=== PATIENT | male | born 1945 | race Caucasian/White ===

== ENCOUNTER 2018-08-05 14:16 | Outpatient (CLI) | payer MEDICARE, BC, SELFPAY ==
[2018-08-05 15:08] LABS: Anion Gap 9.9 mmol/L (3-11); BUN 22 mg/dL (7-18); CO2 24.1 mmol/L (21.0-32.0); CREATININE 1.37 mg/dL (0.70-1.30); Calcium 8.8 mg/dL (8.5-10.1); Chloride 106 mmol/L (98-107); Estimated GFR 51.37 (mL/min/1.73m2); Glucose 109 mg/dL (70-100); Potassium 4.2 mmol/L (3.5-5.1); Sodium 140 mmol/L (136-145)
== END 2018-08-05 14:36 ==
PROVIDERS: PCP Student in an Organized Health Care Education/Training Program; Visit Provider Internal Medicine Gastroenterology
DX: Z01.812 Encounter for preprocedural laboratory examination (principal); R69 Illness, unspecified
CPT/HCPCS: 36415; 80048

== ENCOUNTER 2018-08-06 00:33 | Outpatient (CLI) | payer MEDICARE, BC, SELFPAY ==
--- NOTE | 2018-08-06 08:30 | DI.CT_ITS ---
SYMPTOM/DIAGNOSIS: PULSATILE LESION EXT TO ESOPHAGUS CT CHEST AND NECK: CT examination of the chest and CT examination of the neck were performed with intravenous infusion of 100 cc's of Omnipaque 350. The visualized portions of the brain are unremarkable. The [place] vasculature appears intact. Cervical vasculature is unremarkable with no significant stenosis or aneurysm identified in common internal or external carotid arteries on the right or left. Vertebral arteries appear intact. Orbital structures appear intact. Mastoid air cells and visualized paranasal sinuses are clear. No cervical mass or adenopathy identified. Tracheal laryngeal structures appear intact. No superior mediastinal mass or adenopathy. Aorta appears normal. No evidence of pulmonary embolic disease although the pulmonary arterial circulation is not ideally opacified. No mediastinal or hilar adenopathy. Lungs are unremarkable in appearance except for some focal scars. No pleural effusion or pleural based mass. Visualized portions of the liver and spleen are unremarkable. Presumed splenule noted in the left upper quadrant. Vascular clips noted at the esophageal hiatus. Visualized portions of the pancreas appear intact. Gallbladder and bile ducts are CT normal. Right adrenal unremarkable. Superior portion of right and left kidneys unremarkable. There is a 2.4 cm. in diameter left adrenal mass which is predominantly of low attenuation but somewhat heterogeneous with question of mild enhancement. Additional evaluation with adrenal protocol MRI recommended. CONCLUSION: 1. No cervical or superior mediastinal mass. 2. No significant vascular findings in neck or chest. 3. Incidental finding of left adrenal mass which is indeterminate, correlation with adrenal protocol MRI recommended.
[2018-08-06] MEDS: Omnipaque 350 MG/ML 100 ML BTL IJ (09:32)
== END 2018-08-06 00:53 ==
PROVIDERS: PCP Student in an Organized Health Care Education/Training Program; Visit Provider Internal Medicine Gastroenterology
DX: E27.9 Disorder of adrenal gland, unspecified (principal); K22.8 Other specified diseases of esophagus
CPT/HCPCS: 70491; 71260; J3490

== ENCOUNTER 2018-08-26 00:23 | Outpatient (CLI) | payer MEDICARE, BC, SELFPAY ==
--- NOTE | 2018-08-26 07:54 | DI.MRI_ITS ---
SYMPTOM/DIAGNOSIS: LT ADRENAL MASS, F/U ABNL CT, R93.5, DISORDER OF ADRENAL GLAND, E27.9 ABDOMEN MRI: Routine pre and post contrast MRI of the adrenal gland was performed. Comparison CT scan is 08/06/17. There is a left adrenal mass measuring 2.2 cm. AP by 2.0 cm. transverse. It is isointense to muscle on the T 1 weighted images and the T 2 weighted images. There is signal drop out on the opposed phase images. Following contrast administration, there does appear to be some thin peripheral enhancement noted. The right adrenal gland is unremarkable. IMPRESSION; 2.2 cm. left adrenal mass. The characteristics are most suggestive of an adrenal adenoma. A benign lesion such as a myolipoma cannot be entirely excluded but is considered less likely.
[2018-08-26] MEDS: Gadoterate meglumine 20 ML VIAL 18 ML IVP (09:25)
== END 2018-08-26 00:43 ==
PROVIDERS: PCP Student in an Organized Health Care Education/Training Program; Visit Provider Student in an Organized Health Care Education/Training Program
DX: E27.9 Disorder of adrenal gland, unspecified (principal); D49.7 Neoplasm of unspecified behavior of endocrine glands and other parts of nervous system; R93.5 Abnormal findings on diagnostic imaging of other abdominal regions, including retroperitoneum
CPT/HCPCS: 74183

== ENCOUNTER 2018-10-25 15:28 | Outpatient (REF) | payer MEDICARE, BC, SELFPAY ==
[2018-10-30 13:42] LABS: Codeine Negative ng/mL (Cutoff: 25); Dihydrocodeine 87 ng/mL (Cutoff: 25); Hydrocodone 98 ng/mL (Cutoff: 25); Hydromorphone 31 ng/mL (Cutoff: 25); Morphine Negative ng/mL (Cutoff: 25); Naloxone Negative ng/mL (Cutoff: 25); Norhydrocodone 224 ng/mL (Cutoff: 25); Noroxycodone Negative ng/mL (Cutoff: 25); Noroxymorphone Negative ng/mL (Cutoff: 25); Opiates Interpretation Positive.
[2019-03-12 14:47] LABS: BUN 19 mg/dL (7-18); Calcium 9.2 mg/dL (8.5-10.1); Chloride 104 mmol/L (98-107); Estimated GFR 49.96 (mL/min/1.73m2); Glucose 184 mg/dL (70-100); Potassium 4.3 mmol/L (3.5-5.1); Sodium 139 mmol/L (136-145)
== END 2018-10-25 15:48 ==
LOC: LBN 15:28
PROVIDERS: PCP Student in an Organized Health Care Education/Training Program; Visit Provider Student in an Organized Health Care Education/Training Program
DX: G89.4 Chronic pain syndrome (principal); Z79.891 Long term (current) use of opiate analgesic; R13.10 Dysphagia, unspecified
CPT/HCPCS: 80361

== ENCOUNTER 2019-03-12 13:28 | Outpatient (CLI) | payer MEDICARE, BC, SELFPAY | END 2019-03-12 13:48 | PROVIDERS: PCP Student in an Organized Health Care Education/Training Program; Visit Provider Student in an Organized Health Care Education/Training Program | DX: R51 Headache (principal); E16.2 Hypoglycemia, unspecified; R79.89 Other specified abnormal findings of blood chemistry | CPT/HCPCS: 36415; 80048; 84443 ==

== ENCOUNTER 2019-03-13 11:38 | Outpatient (REF) | payer MEDICARE, BC, SELFPAY ==
[2019-03-13 13:00] LABS: COMMENT (LAB VIEW ONLY) 52.59 mg/dL
== END 2019-03-13 11:58 ==
LOC: LBN 11:38
PROVIDERS: PCP Student in an Organized Health Care Education/Training Program; Visit Provider Student in an Organized Health Care Education/Training Program
DX: R79.89 Other specified abnormal findings of blood chemistry (principal)
CPT/HCPCS: 82043; 82570

== ENCOUNTER 2019-09-12 01:16 | Outpatient (CLI) | payer MEDICARE, BC, SELFPAY ==
--- NOTE | 2019-09-12 07:06 | DI.CT_ITS ---
EXAM: CT ABDOMEN WO/W CLINICAL HISTORY: f/u adrenal adenoma, mri of 08/2018,d35.02 TECHNIQUE: CT examination of the abdomen and pelvis was performed pre contrast imaging followed by v enous phase and delayed imaging with intravenous infusion of 100 cc of Omnipaque 350. FINDINGS: There is a fat density, left adrenal, rounded, well-circumscribed mass measuring about 24 x 22 bernice meters in diameter. This is unchanged in size and appearance in comparison with previous examination 08/06/2018. Findings are most consistent with an adrenal adenoma. Stable appearance. Images obtained through the lung bases are unremarkable. Liver, spleen, pancreas, gallbladder and bi le ducts are unremarkable. Abdominal aorta is of normal diameter and no major vascular abnormality i s seen. Kidneys appear normal bilaterally and there is no evidence of urinary tract calcification or obstruction. No abdominal or pelvic adenopathy. Small bilateral fat containing inguinal hernias no philip. Appendix is normal. Colonic diverticulosis noted without diverticulitis. Urinary bladder wall is thickened which may represent chronic bladder outlet obstruction, prostate is enlarged. IMPRESSION: Stable left adrenal lesion is likely adenoma. Additional follow-up examination is recommended in 12 months.
[2019-09-12] MEDS: Omnipaque 350 MG/ML 50 ML BTL PO (07:27)
[2019-09-12] MEDS: Breeza Beverage 473 ML BTL PO ×2 (07:27→07:28)
[2019-09-12 08:39] LABS: Anion Gap 8.5 mmol/L (3-11); BUN 17 mg/dL (7-18); CO2 25.5 mmol/L (21.0-32.0); CREATININE 1.23 mg/dL (0.70-1.30); Chloride 105 mmol/L (98-107); Estimated GFR 57.84 (mL/min/1.73m2); Glucose 104 mg/dL (70-100); Potassium 4.2 mmol/L (3.5-5.1); Sodium 139 mmol/L (136-145)
[2019-09-12] MEDS: Omnipaque 350 MG/ML 100 ML BTL IJ (09:38)
== END 2019-09-12 01:36 ==
PROVIDERS: PCP Student in an Organized Health Care Education/Training Program; Visit Provider Student in an Organized Health Care Education/Training Program
DX: D35.02 Benign neoplasm of left adrenal gland (principal)
CPT/HCPCS: 80048; 74170; 82565; J3490; Q9967

== ENCOUNTER → 2020-05-17 11:13 | Outpatient (BNVA) | payer MEDICARE, BC, SELFPAY | PROVIDERS: PCP Student in an Organized Health Care Education/Training Program; Referring Provider Student in an Organized Health Care Education/Training Program; Visit Provider Internal Medicine Cardiovascular Disease | DX: R00.1 Bradycardia, unspecified (principal) | CPT/HCPCS: 99203; 99214 ==

== ENCOUNTER 2020-09-13 00:31 | Outpatient (CLI) | payer MEDICARE, BC, SELFPAY ==
--- NOTE | 2020-09-13 07:15 | DI.CT_ITS ---
EXAM: CT ABDOMEN WO/W CLINICAL HISTORY: YEARLY F/U ADENOMA LT ADRENAL GLAND,D35.02,,CONFIRM 2.2CM TECHNIQUE: COMPARISON: MR MR ABDOMEN WO/W from 08/26/[address] ABDOMEN WO/W from 09/12/2019 FINDINGS: CT examination of the abdomen was performed utilizing adrenal mass protocol, noncontrast CT was follo wed venous phase and [address] with intravenous infusion of 100 cc of Omnipaque 350 . Noncontrast scan shows a previously described left adrenal mass, this measures 30 x 26 x 23 millimete rs in diameter, increased in size from 28 x 22 x 18 millimeters in diameter on prior MRI of August 20. The adrenal mass shows average attenuation -17 Hounsfield units on noncontrast scan, this is highly s uggestive of adrenal adenoma. Venous phase and delayed phase images show enhancement to average valu e 37 Hounsfield units with delayed scan showing measurement of about -3 Hounsfield units. These find ings are also highly suggestive of adrenal adenoma with rapid washout of the enhancing lesion greater than 60 percent. Right adrenals unremarkable. Kidneys are unremarkable in appearance except for an incidental small l eft renal cortical cyst. Liver and spleen appear normal as does the pancreas. No biliary dilatation . Cholelithiasis noted. Prior gastric surgery noted. Abdominal aorta and major branch vessels appear intact. No abdominal adenopathy. IMPRESSION: Findings highly suggestive of left adrenal adenoma. No additional follow-up recommended. RADIATION DOSE DELIVERED: 2,121.15mGy.cm Total DLP
[2020-09-13] MEDS: Omnipaque 350 MG/ML 50 ML BTL IJ (08:39)
[2020-09-13] MEDS: Breeza Beverage 473 ML BTL PO ×2 (08:40)
[2020-09-13 08:42] LABS: HCT 48.5 % (40.0-50.0); HGB 15.7 g/dL (13.5-17.5); MCH 29.5 pg (27.0-33.0); MCHC 32.4 % (32.0-36.0); MCV 91.2 fL (80-95); MPV 9.4 fL (8.0-11.0); Platelet Count 193 10^3/uL (130-400); RBC 5.32 10^6/uL (4.36-5.78); RDW 13.2 % (11.8-14.1); RDW-SD 44.4 fL; WBC 7.36 10^3/uL (4.4-10.8)
[2020-09-13 08:54] LABS: ALT 24 U/L (16-63); AST 18 U/L (15-37); Albumin 3.7 g/dL (3.4-5.0); Alkaline Phosphatase 86 U/L (46-116); Anion Gap 4.7 mmol/L (3-11); BUN 14 mg/dL (7-18); Bilirubin, Total 0.5 mg/dL (0.2-1.0); CO2 28.3 mmol/L (21.0-32.0); CREATININE 1.26 mg/dL (0.70-1.30); Calcium 9.1 mg/dL (8.5-10.1); Calculated LDL 93 mg/dL (<100); Chloride 104 mmol/L (98-107); Cholesterol 176 mg/dL (<200); Glucose 96 mg/dL (74-106); HDL Cholesterol 57 mg/dL (40-60); Potassium 4.2 mmol/L (3.5-5.1); Sodium 137 mmol/L (136-145); Total Protein 7.1 g/dL (6.4-8.2); Triglyceride 131 mg/dL (<150)
[2020-09-13] MEDS: Omnipaque 350 MG/ML 100 ML BTL IJ (09:48)
[2020-09-13] MEDS: Normal Saline - Diluent 50 ML VIAL IV (09:49)
[2020-09-13 20:30] LABS: PSA, Screening 4.6 ng/mL (0.0-6.5)
== END 2020-09-13 00:51 ==
PROVIDERS: PCP Student in an Organized Health Care Education/Training Program; Visit Provider Student in an Organized Health Care Education/Training Program
DX: D35.02 Benign neoplasm of left adrenal gland (principal); K80.20 Calculus of gallbladder without cholecystitis without obstruction
CPT/HCPCS: 80053; 80061; 84153; 85027; 74170; J3490; Q9967

== ENCOUNTER → 2020-12-17 10:21 | Outpatient (BNVA) | payer MEDICARE, BC, SELFPAY | PROVIDERS: PCP Student in an Organized Health Care Education/Training Program; Referring Provider Student in an Organized Health Care Education/Training Program; Visit Provider Urology | DX: Z12.5 Encounter for screening for malignant neoplasm of prostate (principal); N48.89 Other specified disorders of penis | CPT/HCPCS: 99213; 99215 ==

== ENCOUNTER 2021-01-11 08:45 | Outpatient (CLI) | payer MEDICARE, BC, SELFPAY ==
--- NOTE | 2021-01-11 08:45 | RT.EKG_ITS ---
APPROVED REPORT Exam: Resting ECG Patient Location: O HR:59 bpm ECG Measurements Heart Rate 59 AXIS GA 137 P 6 QRSd 146 QRS 11 QT 430 T 17 QTc 426 Conclusion Sinus rhythm...normal P axis, V-rate 50- 99 Right bundle branch block...QRSd>120, terminal axis(90,270) Baseline wander in lead(s) V4
== END 2021-01-11 08:46 | disposition home or self-care (01) ==
LOC: DI.CARD 08:51
PROVIDERS: PCP Student in an Organized Health Care Education/Training Program; Referring Provider Student in an Organized Health Care Education/Training Program; Visit Provider Internal Medicine Cardiovascular Disease
DX: Z01.818 Encounter for other preprocedural examination (principal); I45.10 Unspecified right bundle-branch block
CPT/HCPCS: 93010

== ENCOUNTER → 2021-01-11 08:45 | Outpatient (BNVA) | payer MEDICARE, BC, SELFPAY | PROVIDERS: PCP Student in an Organized Health Care Education/Training Program; Referring Provider Student in an Organized Health Care Education/Training Program; Visit Provider Internal Medicine Cardiovascular Disease | DX: R00.1 Bradycardia, unspecified (principal) | CPT/HCPCS: 99214; 99213 ==

== ENCOUNTER → 2021-05-13 10:55 | Outpatient (BNVA) | payer MEDICARE, BC, SELFPAY | PROVIDERS: PCP Student in an Organized Health Care Education/Training Program; Referring Provider Student in an Organized Health Care Education/Training Program; Visit Provider Urology | DX: N40.1 Benign prostatic hyperplasia with lower urinary tract symptoms (principal); R39.198 Other difficulties with micturition | CPT/HCPCS: 99213 ==

== ENCOUNTER → 2021-06-24 08:49 | Outpatient (BNVA) | payer MEDICARE, BC, SELFPAY | PROVIDERS: PCP Student in an Organized Health Care Education/Training Program; Referring Provider Student in an Organized Health Care Education/Training Program; Visit Provider Urology | DX: N40.1 Benign prostatic hyperplasia with lower urinary tract symptoms (principal); Z79.899 Other long term (current) drug therapy | CPT/HCPCS: 99213 ==

== ENCOUNTER 2022-01-03 02:20 | Outpatient (CLI) | payer MEDICARE, BC, SELFPAY ==
[2022-01-03 13:41] LABS: HCT 47.3 % (40.0-50.0); HGB 15.4 g/dL (13.5-17.5); MCH 30.2 pg (27.0-33.0); MCHC 32.6 % (32.0-36.0); MCV 92.7 fL (80-95); MPV 9.8 fL (8.0-11.0); Platelet Count 193 10^3/uL (130-400); RDW 12.9 % (11.8-14.1); RDW-SD 44.2 fL; WBC 7.12 10^3/uL (4.4-10.8)
[2022-01-03 14:32] LABS: Anion Gap 8.7 mmol/L (3-11); BUN 19 mg/dL (7-18); CO2 27.3 mmol/L (21.0-32.0); CREATININE 1.5 mg/dL (0.70-1.30); Calcium 8.9 mg/dL (8.5-10.1); Chloride 104 mmol/L (98-107); Estimated GFR 45.75 (mL/min/1.73m2); Glucose 149 mg/dL (74-106); Potassium 4.4 mmol/L (3.5-5.1); Sodium 140 mmol/L (136-145); Uric Acid 8.6 mg/dL (3.5-7.2)
[2022-01-04 19:50] LABS: PSA, Screening 3.5 ng/mL (0.0-6.5)
== END 2022-01-03 02:21 | disposition home or self-care (01) ==
LOC: LBO 02:20
PROVIDERS: PCP Student in an Organized Health Care Education/Training Program; Visit Provider Urology
DX: D53.1 Other megaloblastic anemias, not elsewhere classified (principal); K21.00 Gastro-esophageal reflux disease with esophagitis, without bleeding; F11.20 Opioid dependence, uncomplicated; N28.9 Disorder of kidney and ureter, unspecified; R79.89 Other specified abnormal findings of blood chemistry; Z12.5 Encounter for screening for malignant neoplasm of prostate; N40.1 Benign prostatic hyperplasia with lower urinary tract symptoms
CPT/HCPCS: 36415; 80048; 84153; 85027; 84550

== ENCOUNTER → 2022-01-10 09:46 | Outpatient (BNVA) | payer MEDICARE, BC, SELFPAY | PROVIDERS: PCP Student in an Organized Health Care Education/Training Program; Referring Provider Student in an Organized Health Care Education/Training Program; Visit Provider Urology | DX: N40.1 Benign prostatic hyperplasia with lower urinary tract symptoms (principal); R39.12 Poor urinary stream | CPT/HCPCS: 99214 ==

== ENCOUNTER 2022-02-20 11:27 | Outpatient (REF) | payer MEDICARE, BC, SELFPAY | END 2022-02-20 11:28 | disposition home or self-care (01) | LOC: LBN 11:27 | PROVIDERS: PCP Student in an Organized Health Care Education/Training Program; Visit Provider Family Medicine | DX: S61.213A Laceration without foreign body of left middle finger without damage to nail, initial encounter; L08.9 Local infection of the skin and subcutaneous tissue, unspecified; W31.2XXA Contact with powered woodworking and forming machines, initial encounter | CPT/HCPCS: 87077; 87070; 87186 ==

== ENCOUNTER → 2022-02-23 09:51 | Outpatient (BNVA) | payer MEDICARE, BC, SELFPAY | PROVIDERS: PCP Student in an Organized Health Care Education/Training Program; Referring Provider Student in an Organized Health Care Education/Training Program; Visit Provider Physical Therapy Assistant | DX: C44.310 Basal cell carcinoma of skin of unspecified parts of face (principal) | CPT/HCPCS: 11104; 99214 ==

== ENCOUNTER 2022-02-23 10:42 | Outpatient (REF) | payer MEDICARE, BC, SELFPAY ==
--- NOTE | 2022-02-23 10:15 | SKI_PTH ---
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
== END 2022-02-23 10:43 | disposition home or self-care (01) ==
LOC: LBN 10:42
PROVIDERS: PCP Student in an Organized Health Care Education/Training Program; Visit Provider Physical Therapy Assistant
DX: C44.319 Basal cell carcinoma of skin of other parts of face (principal)
CPT/HCPCS: 88305

== ENCOUNTER → 2022-03-06 09:53 | Outpatient (BNVA) | payer MEDICARE, BC, SELFPAY | PROVIDERS: PCP Student in an Organized Health Care Education/Training Program; Referring Provider Student in an Organized Health Care Education/Training Program; Visit Provider Urology | DX: N47.1 Phimosis (principal) | CPT/HCPCS: 81003; 99214 ==

== ENCOUNTER 2022-03-30 01:59 | Outpatient (CLI) | payer MEDICARE, BC, SELFPAY ==
[2022-03-30 08:08] LABS: Anion Gap 7.1 mmol/L (3-11); BUN 19 mg/dL (7-18); CO2 28.9 mmol/L (21.0-32.0); CREATININE 1.3 mg/dL (0.70-1.30); Calcium 8.8 mg/dL (8.5-10.1); Chloride 107 mmol/L (98-107); Estimated GFR 53.96 (mL/min/1.73m2); Glucose 98 mg/dL (74-106); Potassium 4.4 mmol/L (3.5-5.1); Sodium 143 mmol/L (136-145)
== END 2022-03-30 02:00 | disposition home or self-care (01) ==
LOC: LBO 01:59
PROVIDERS: PCP Student in an Organized Health Care Education/Training Program; Visit Provider Student in an Organized Health Care Education/Training Program
DX: R79.89 Other specified abnormal findings of blood chemistry (principal)
CPT/HCPCS: 36415; 80048

== ENCOUNTER → 2022-07-19 14:58 | Outpatient (CLI) | payer MEDICARE, BC, SELFPAY ==
--- NOTE | 2022-07-19 14:00 | DI.US_ITS ---
Exam(s) US LOWER EXTREMITY VENOUS LT EXAM: US LOWER EXTREMITY VENOUS LT CLINICAL HISTORY: Lt leg swelling, R22.42, elevated serum creatinine, R79.89, r/o DVT TECHNIQUE: Grayscale, color, and doppler imaging of the deep venous system of the left lower extremi ty was performed. COMPARISON: No exams were available for comparison FINDINGS: There is no evidence of intraluminal thrombus and there is normal compression and augmentation demons trated within the common femoral vein, femoral vein, and popliteal vein. In the ipsilateral calf the interrogated veins also exhibit normal compression/ augmentation properti es. The ipsilateral saphenofemoral junction is patent. IMPRESSION: 1. No evidence of DVT in the left lower extremity. DATA REPOSITORY:
== END ==
PROVIDERS: PCP Student in an Organized Health Care Education/Training Program; Visit Provider Physician Assistant
DX: R22.42 Localized swelling, mass and lump, left lower limb (principal); R79.89 Other specified abnormal findings of blood chemistry
CPT/HCPCS: 93971

== ENCOUNTER 2022-08-07 03:26 | Outpatient (CLI) | payer MEDICARE, BC, SELFPAY ==
[2022-08-07 08:28] LABS: Anion Gap 7.3 mmol/L (3-11); BUN 19 mg/dL (7-18); CO2 27.7 mmol/L (21.0-32.0); CREATININE 1.2 mg/dL (0.70-1.30); Calcium 9.2 mg/dL (8.5-10.1); Calculated LDL 67 mg/dL (<100); Chloride 106 mmol/L (98-107); Cholesterol 142 mg/dL (<200); Estimated GFR 63.46 (mL/min/1.73m2); Glucose 93 mg/dL (74-106); HDL Cholesterol 66 mg/dL (40-60); Potassium 4.3 mmol/L (3.5-5.1); Sodium 141 mmol/L (136-145); Triglyceride 46 mg/dL (<150); Vitamin B12 794 pg/mL (193-986)
== END 2022-08-07 03:27 | disposition home or self-care (01) ==
LOC: LBO 03:26
PROVIDERS: Absent Provider Student in an Organized Health Care Education/Training Program; PCP Student in an Organized Health Care Education/Training Program; Visit Provider Student in an Organized Health Care Education/Training Program
DX: R79.89 Other specified abnormal findings of blood chemistry (principal); D53.1 Other megaloblastic anemias, not elsewhere classified
CPT/HCPCS: 36415; 80048; 80061; 82607

== ENCOUNTER 2023-01-01 01:13 | Outpatient (CLI) | payer MEDICARE, BC, SELFPAY ==
[2023-01-01 18:12] LABS: PSA, Diagnostic 2.2 ng/mL (<=6.5)
== END 2023-01-01 01:14 | disposition home or self-care (01) ==
LOC: LBO 01:14
PROVIDERS: PCP Student in an Organized Health Care Education/Training Program; Visit Provider Urology
DX: N40.1 Benign prostatic hyperplasia with lower urinary tract symptoms (principal)
CPT/HCPCS: 36415; 84153

== ENCOUNTER → 2023-01-09 09:47 | Outpatient (BNVA) | payer MEDICARE, BC, SELFPAY | PROVIDERS: PCP Student in an Organized Health Care Education/Training Program; Visit Provider Urology | DX: R39.89 Other symptoms and signs involving the genitourinary system (principal); Z87.898 Personal history of other specified conditions; N47.1 Phimosis; N40.1 Benign prostatic hyperplasia with lower urinary tract symptoms | CPT/HCPCS: 99213 ==

== ENCOUNTER 2023-03-05 00:30 | Outpatient (CLI) | payer MEDICARE, BC, SELFPAY ==
--- NOTE | 2023-03-05 06:45 | DI.CT_ITS ---
Exam(s) CT ABDOMEN WO/W EXAM: CT ABDOMEN WO/W CLINICAL HISTORY: monitoring adenoma (slight inc 2019 vs 2017),ADENOMA LT ADRENAL GLAND,D35.0 TECHNIQUE: COMPARISON: MR MR ABDOMEN WO/W from 08/26/[address] ABDOMEN WO/W from 09/13/2020 FINDINGS: Visualized lung bases: No nodules nor pleural effusions. ABDOMEN: There is no ascites in the upper abdomen. Liver: No focal hepatic lesions nor dilatation of intrahepatic ducts Biliary: Cholelithiasis noted. There are gallstones on the dependent gallbladder bar wall. No gallb ladder wall edema nor pericholecystic fluid. CBD is not dilated. Pancreas: No pancreatic masses evident. Pancreatic duct is not dilated. There are no peripancreatic fluid collections. Spleen: Upper normal size. No splenic lesions. Kidneys: No masses. Parapelvic cysts are noted, more prominent on the left side. Single nondilated ureter on each side. Abdominal aorta: No aneurysm evident. Adrenal glands: Right adrenal gland unremarkable. Hypodense nodule-mass again noted in the left adrenal gland which is unchanged in size from August 20, measuring 2.6 cm AP by 2.5 cm wide, unchanged. Density units on the noncontrast study average - 14 HU. No evidence of bowel obstruction. There diverticuli in the left side of the colon noted. No evidenc e of acute diverticulitis. IMPRESSION: Continued stable appearance of the size and density of the previously described 2.6 x 2.5 cm left ad renal nodule. The appearance and stability are consistent with a probable benign adenoma.
[2023-03-05 08:33] LABS: Anion Gap 8.9 mmol/L (3-11); BUN 17 mg/dL (7-18); CO2 26.1 mmol/L (21.0-32.0); CREATININE 1.3 mg/dL (0.70-1.30); Calcium 9.1 mg/dL (8.5-10.1); Chloride 106 mmol/L (98-107); Estimated GFR 57.29 (mL/min/1.73m2); Glucose 100 mg/dL (74-106); Potassium 4.2 mmol/L (3.5-5.1); Sodium 141 mmol/L (136-145)
[2023-03-05] MEDS: Normal Saline - Diluent 50 ML VIAL IJ (08:47)
[2023-03-05] MEDS: Omnipaque 350 MG/ML 500 ML BTL-Imaging package IJ (08:48)
== END 2023-03-05 00:50 ==
LOC: DI 00:30
PROVIDERS: PCP Student in an Organized Health Care Education/Training Program; Visit Provider Student in an Organized Health Care Education/Training Program
DX: D35.02 Benign neoplasm of left adrenal gland (principal); E16.2 Hypoglycemia, unspecified; R79.89 Other specified abnormal findings of blood chemistry
CPT/HCPCS: 80048; 74170

== ENCOUNTER → 2023-05-04 15:14 | Outpatient (BNVA) | payer MEDICARE, BC, SELFPAY | PROVIDERS: PCP Student in an Organized Health Care Education/Training Program; Referring Provider Student in an Organized Health Care Education/Training Program; Visit Provider Urology | DX: R36.1 Hematospermia (principal); R39.89 Other symptoms and signs involving the genitourinary system | CPT/HCPCS: 36415; 81003; 99214 ==

== ENCOUNTER 2023-05-04 16:36 | Outpatient (REF) | payer MEDICARE, BC, SELFPAY ==
[2023-05-04 18:09] LABS: HGB 15.2 g/dL (13.5-17.5)
[2023-05-04 18:16] LABS: CREATININE 1.3 mg/dL (0.70-1.30); Estimated GFR 57.29 (mL/min/1.73m2)
[2023-05-04 19:14] LABS: Hemoglobin A1C 5.2 % (<5.7)
[2023-05-04 20:12] LABS: Vitamin D 25 Total 49.7 ng/mL (30-100)
[2023-05-05 22:38] LABS: Estradiol 21 pg/mL (<40)
[2023-05-07 10:02] LABS: Prolactin 6.5 ng/mL (2.1-17.7)
[2023-05-11 09:20] LABS: Testosterone, Total 419 ng/dL (240-950)
== END 2023-05-04 16:37 | disposition home or self-care (01) ==
LOC: LBN 16:36
PROVIDERS: Urology; PCP Student in an Organized Health Care Education/Training Program; Visit Provider Student in an Organized Health Care Education/Training Program
DX: E34.9 Endocrine disorder, unspecified (principal); F11.90 Opioid use, unspecified, uncomplicated; R68.82 Decreased libido; R73.09 Other abnormal glucose; R00.1 Bradycardia, unspecified; K91.2 Postsurgical malabsorption, not elsewhere classified; R36.1 Hematospermia; R39.89 Other symptoms and signs involving the genitourinary system
CPT/HCPCS: 82306; 84403; 82565; 82670; 83036; 84146; 84443; 85018

== ENCOUNTER → 2023-05-28 08:10 | Outpatient (BNVA) | payer MEDICARE, BC, SELFPAY | PROVIDERS: PCP Student in an Organized Health Care Education/Training Program; Referring Provider Student in an Organized Health Care Education/Training Program; Visit Provider Urology | DX: R39.11 Hesitancy of micturition (principal); R39.89 Other symptoms and signs involving the genitourinary system; R36.1 Hematospermia | CPT/HCPCS: 99214 ==

== ENCOUNTER 2023-09-13 04:25 | Outpatient (CLI) | payer MEDICARE, BC, SELFPAY ==
--- NOTE | 2023-09-17 13:51 | W.NOCTURNAL ---
Date of service: 09/13/23 Time of Service: 21:42 Nocturnal Oximetry Note: Overnight Oximetry Amount of time analyzed: 9 hours 53 minutes on room air Number of minutes under 88%: 0 RONNA: 1.8 Appearance of oxygen saturation pattern: Normal Recommendation: No supplemental O2 needed. No concerning findings to suggest MIGNON. Sigrid Marinelli MD Pulmonary & Critical Care Medicine
== END 2023-09-13 04:26 | disposition home or self-care (01) ==
LOC: RT 04:25
PROVIDERS: PCP Student in an Organized Health Care Education/Training Program; Visit Provider Student in an Organized Health Care Education/Training Program
DX: R51.9 Headache, unspecified (principal); I49.8 Other specified cardiac arrhythmias; R06.89 Other abnormalities of breathing
CPT/HCPCS: 94762

== ENCOUNTER 2023-09-13 11:30 | Outpatient (CLI) | payer MEDICARE, BC, SELFPAY ==
--- NOTE | 2023-09-13 11:30 | RT.EKG_ITS ---
APPROVED REPORT Exam: Resting ECG Reason for Exam: bradycardia Patient Location: O HR:69 bpm ECG Measurements Heart Rate 69 AXIS HI 129 P -37 QRSd 143 QRS 55 QT 408 T 5 QTc 437 Conclusion Sinus rhythm...normal P axis, V-rate 50- 99 Right bundle branch block...QRSd>120, terminal axis(90,270) Baseline wander in lead(s) V2,V4
== END 2023-09-13 11:31 | disposition home or self-care (01) ==
LOC: DI.CARD 11:30
PROVIDERS: PCP Student in an Organized Health Care Education/Training Program; Visit Provider Internal Medicine Cardiovascular Disease
DX: R00.1 Bradycardia, unspecified (principal)
CPT/HCPCS: 93010

== ENCOUNTER 2023-10-18 08:23 | Outpatient (CLI) | payer MEDICARE, BC, SELFPAY ==
--- NOTE | 2023-10-19 08:48 | W.CARDEVENT ---
Date of service: 10/19/23 Time of Service: 08:48 Cardiac Event Recorder Referring Provider:: Sheila Hilliard Indications:: Bradycardia Cardiac Event Note: This is a cardiac event monitor ordered for bradycardia Patient was monitored for 12 days and 20 hours predominant rhythm was sinus with an average heart rate of 54. Minimum was 33, maximum 127 There were rare ventricular ectopic beats There were occasional atrial premature beats. A total of 3 self-limited atrial runs occurred, the longest of which was 5 beats in duration There was no atrial fibrillation, no high-grade AV block, no pauses greater than 3 seconds Sinus bradycardia in the 30s and brief periods of junctional rhythm in the 30s were noted during sleep Patient's symptoms correlated with sinus rhythm in the 70s
== END 2023-10-18 08:24 | disposition home or self-care (01) ==
LOC: CARDOPNVT 08:23
PROVIDERS: PCP Student in an Organized Health Care Education/Training Program; Visit Provider Internal Medicine Cardiovascular Disease
DX: I49.1 Atrial premature depolarization
CPT/HCPCS: 93248

== ENCOUNTER → 2023-10-29 09:53 | Outpatient (BNVA) | payer MEDICARE, BC, SELFPAY | PROVIDERS: PCP Student in an Organized Health Care Education/Training Program; Referring Provider Student in an Organized Health Care Education/Training Program; Visit Provider Internal Medicine Cardiovascular Disease | DX: R00.1 Bradycardia, unspecified (principal) | CPT/HCPCS: 99212 ==

== ENCOUNTER 2023-11-13 12:09 | Outpatient (CLI) | payer MEDICARE, BC, SELFPAY ==
--- NOTE | 2023-11-15 09:21 | W.NOCTURNAL ---
Date of service: 11/13/23 Time of Service: 21:10 Nocturnal Oximetry Note: Overnight Oximetry Amount of time analyzed: 10 hours, 24 minutes on room air Number of minutes under 88%: 3.9 RONNA: 1.7 Appearance of oxygen saturation pattern:Normal pattern Recommendation: No supplemental O2 required Sigrid Marinelli MD Pulmonary & Critical Care Medicine
== END 2023-11-13 12:10 | disposition home or self-care (01) ==
LOC: RT 12:12
PROVIDERS: PCP Student in an Organized Health Care Education/Training Program; Visit Provider Student in an Organized Health Care Education/Training Program
DX: G47.36 Sleep related hypoventilation in conditions classified elsewhere (principal); R06.89 Other abnormalities of breathing
CPT/HCPCS: 94762

== ENCOUNTER 2024-01-01 03:10 | Outpatient (CLI) | payer MEDICARE, BC, SELFPAY ==
[2024-01-01 18:40] LABS: PSA, Diagnostic 2.5 ng/mL (<=6.5)
== END 2024-01-01 03:11 | disposition home or self-care (01) ==
LOC: LBO 03:10
PROVIDERS: PCP Student in an Organized Health Care Education/Training Program; Visit Provider Urology
DX: N40.1 Benign prostatic hyperplasia with lower urinary tract symptoms (principal)
CPT/HCPCS: 36415; 84153

== ENCOUNTER → 2024-01-08 09:51 | Outpatient (BNVA) | payer MEDICARE, BC, SELFPAY | PROVIDERS: PCP Student in an Organized Health Care Education/Training Program; Visit Provider Urology | DX: R36.1 Hematospermia (principal); N40.1 Benign prostatic hyperplasia with lower urinary tract symptoms; Z87.898 Personal history of other specified conditions | CPT/HCPCS: 99214 ==

== ENCOUNTER → 2024-06-06 08:48 | Outpatient (BNVA) | payer MEDICARE, BC, SELFPAY | PROVIDERS: PCP Student in an Organized Health Care Education/Training Program; Referring Provider Student in an Organized Health Care Education/Training Program; Visit Provider Urology | DX: R31.0 Gross hematuria (principal) | CPT/HCPCS: 81003; 99213 ==

== ENCOUNTER → 2024-07-08 14:20 | Outpatient (BNVA) | payer MEDICARE, BC, SELFPAY | PROVIDERS: PCP Student in an Organized Health Care Education/Training Program; Visit Provider Urology | DX: R31.0 Gross hematuria (principal) | CPT/HCPCS: 99213 ==

== ENCOUNTER → 2024-08-01 08:51 | Outpatient (BNVA) | payer MEDICARE, BC, SELFPAY | PROVIDERS: PCP Student in an Organized Health Care Education/Training Program; Referring Provider Student in an Organized Health Care Education/Training Program; Visit Provider Urology | DX: R36.1 Hematospermia (principal) | CPT/HCPCS: 52000 ==

== ENCOUNTER 2024-08-05 09:34 | Emergency (ER) | payer MEDICARE, BC, SELFPAY ==
[2024-08-05 09:35] VITALS: BP 167/49; PULSE 61; RESP 18; TEMP 37.1; O2SAT 95
--- NOTE | 2024-08-05 09:45 | W.ED.GENAD ---
Discharge Plan Disposition Patient Disposition: Home Discharge Details Clinical Impression: Acute UTI Primary Care Provider: Sheila Hilliard ED Provider: Igor Ortiz Home Meds and New Rx's Prescriptions: New levofloxacin 500 mg tablet 500 mg PO DAILY Qty: 28 0RF Continued albuterol sulfate [ProAir HFA] 90 mcg/actuation HFA aerosol inhaler 2 puff Inhalation Q6H PRN Qty: 1 1RF Rx Instructions: Q4h as needed for wheezing loratadine [Claritin] 10 mg tablet 10 mg PO DAILY PRN (Reason: allergy symptoms) Qty: 90 3RF Rx Instructions: allergic rhinitis, Daily for the summer rizatriptan 10 mg tablet 10 mg PO .COMPLEX PRN (Reason: migraine headache) Qty: 20 2RF Rx Instructions: 10 mg PO ; PRN; hydrocodone-acetaminophen 5-325 mg tablet 0.5 tab PO Q4H MDD 5mg PRN (Reason: severe headache pain) Qty: 30 0RF Rx Instructions: Q6 weeks CGM 1 ea subcut (via wearable injectr) DAILY Qty: 1 0RF tamsulosin 0.4 mg capsule 0.8 mg PO QHS Qty: 180 4RF nystatin-triamcinolone 100,000-0.1 unit/gram-% ointment 1 applic topical BID Qty: 15 0RF Rx Instructions: apply thin layer twice a day ketoconazole 2 % cream 1 applic topical BID Qty: 60 3RF cyanocobalamin (vitamin B-12) [Vitamin B-12] 1,000 MCG tablet 1,000 mcg PO DAILY Qty: 100 Rx Instructions: daily Vitamin B12 replacement, s/p gastric surgery (DME) Blood Glucose Test Strip See Rx Instructions .ROUTE .MEDSUPPLY Qty: 100 3RF Rx Instructions: As directed to check blood glucose daily. No insulin. Dispense covered brand. dextrose 40 % gel 10 g PO Q15M PRN (Reason: hypoglycemia) Qty: 112.5 1RF Rx Instructions: Trial for urgent hypoglycemia: Discharge Instructions Additional Instructions: You were seen in the emergency department for your difficulty urinating. You are found have a urinary tract infection for which you are receiving antibiotics that you should take as directed. The urology team will call you for follow-up next week. Please return to the emergency department if you develop fevers chills nausea vomiting or cannot swallow your medications. Your catheter will remain in until you are seen by urology. HPI General Date/Time Provider Initiated Documentation: 08/05/24 09:42. HPI Narrative: MDM This is an overall very well-appearing normothermic and not tachycardic 78-year-old male 4 days status post cystoscopy with subjective fevers chills concerning for bacteremia for which patient will receive blood cultures bladder scan and urinalysis. I considered sepsis however the patient is not tachycardic febrile nor hypotensive so I did not obtain a lactate nor treat empirically with IV antibiotics. No pain or proportion to suggest necrotizing soft tissue infection. Patient has no paraphimosis on exam. Patient has no signs of Ophelia's gangrene. Soft nontender abdomen so I am not concerned for intra-abdominal infection. No lateralizing flank pain no history of nephrolithiasis to suggest increased risk for ureterolithiasis. No rash to back to suggest zoster. No history of recent falls to suggest increased risk for fractures I did not obtain CT scan of the patient's back. No abnormal urethral discharge to suggest increased risk for sexually transmitted infection. No right lower quadrant tenderness to suggest appendicitis. No diarrhea nor left lower quadrant tenderness to suggest diverticulitis. No vomiting to suggest small bowel obstruction. 10:18 AM Patient had 400 cc on bladder scan. He is unable to urinate. Will order a Garnica catheter. 10:30 AM Basic metabolic panel lacks JULIÁN. Mild hyperglycemia but no anion gap normal bicarbonate??not consistent with DKA. Mildly elevated BUN. Mild hyponatremia. CBC shows leukocytosis but no anemia. Thrombocytosis new compared to prior. Patient felt markedly improved following Garnica catheter and his low back pain had resolved. 11:14 AM Patient with nitrite positive urinalysis with small leuk esterase and with hematuria and white cells most consistent with acute UTI for which patient will receive ceftriaxone. 12:20 PM I spoke with Vickie Mcmanus from urology. She reviewed the patient's case. I was not suspicious for prostatic abscess and as result I did not feel that he required CT scan. She is concerned for possibility of prostatitis and as result we will prescribe levofloxacin p.o. 500 mg daily. He has no risk factors for sexually transmitted infections. Will discuss return indications including fevers chills inability tolerate p.o. or worsening pain. Discussed return indications with patient and his and discharged with empiric trial of expectant outpatient management. She will help to have the patient seen in follow-up in clinic next week. I updated the patient at bedside. 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 Patient notes that his cystoscopy was performed for intermittent hematuria. He has no history of bladder cancer. He says that for the past several days he has not had as much urine output as he might have suspected. He does note that he has been drinking plenty of liquids. He is uncircumcised. He remotely had a urinary tract infection approximately 4 to 5 years ago. He had a fingerstick blood glucose in the field of 160. He is not anticoagulated. Exam General: Well-appearing in no acute distress speaking in complete sentences. Head: Normocephalic, atraumatic. Eye: Extraocular eye movements intact. No conjunctival injection. No scleral icterus. Ear, nose, mouth, throat: Grossly normal inspection. Normal voice, handling secretions normally. Neck: Trachea midline. Cardiovascular: Well-perfused distal extremities. Respiratory: Nonlabored respiration. Gastrointestinal: Nondistended abdomen. Soft nontender. No suprapubic tenderness. : Uncircumcised penis. Descended testes bilaterally. No testicular tenderness. No pain out of proportion. No rash to inguinal folds. Back: Mild bilateral lower back tenderness. No CVA tenderness. No rash to back. No midline tenderness. Musculoskeletal: No edema. Moving all 4 extremities spontaneously. Skin: Normal for age and race, grossly normal temperature and turgor. No acute rash. Neurologic: Alert and appropriate, no apparent acute deficits. Psychiatric: Mood and manner are appropriate. Grooming and personal hygiene are appropriate. Related Data Home Medications ?Medication ?Instructions ?Recorded ?Confirmed cyanocobalamin (vitamin B-12) 1,000 mcg PO DAILY #100 tabs 04/07/16 08/05/24 1,000 mcg tablet (Vitamin B-12) blood sugar diagnostic (Blood #100 ea 12/10/21 08/01/24 Glucose Test strips) dextrose 40 % oral gel 10 g PO Q15M PRN hypoglycemia 12/10/21 08/05/24 #112.5 grams albuterol sulfate 90 mcg/actuation 2 puff inhalation Q6H PRN wheeze 04/13/23 08/05/24 aerosol inhaler (ProAir HFA) #1 unit nystatin-triamcinolone 100,000 1 applic topical BID #15 grams 05/04/23 08/05/24 unit/gram-0.1 % topical ointment tamsulosin 0.4 mg capsule 0.8 mg (2 x 0.4 mg) PO QHS #180 01/08/24 08/05/24 caps ketoconazole 2 % topical cream 1 applic topical BID #60 grams 05/13/24 08/05/24 CGM 1 ea subcut (via wearable injectr) 06/27/24 08/05/24 DAILY Continuous Glucose Monitoring #1 ea hydrocodone 5 mg-acetaminophen 325 0.5 tab PO Q4H PRN severe headache 06/27/24 08/05/24 mg tablet pain #30 tabs loratadine 10 mg tablet (Claritin) 10 mg PO DAILY PRN allergy 06/27/24 08/05/24 symptoms #90 tab-caps rizatriptan 10 mg tablet 10 mg PO .COMPLEX PRN migraine 06/27/24 08/05/24 headache #20 tabs levofloxacin 500 mg tablet 500 mg PO DAILY #28 tabs 08/05/24 Previous Rx's ?Medication ?Instructions ?Recorded blood sugar diagnostic (Blood #100 ea 12/10/21 Glucose Test strips) dextrose 40 % oral gel 10 g PO Q15M PRN hypoglycemia 12/10/21 #112.5 grams albuterol sulfate 90 mcg/actuation 2 puff inhalation Q6H PRN wheeze 04/13/23 aerosol inhaler (ProAir HFA) #1 unit nystatin-triamcinolone 100,000 1 applic topical BID #15 grams 05/04/23 unit/gram-0.1 % topical ointment tamsulosin 0.4 mg capsule 0.8 mg (2 x 0.4 mg) PO QHS #180 01/08/24 caps ketoconazole 2 % topical cream 1 applic topical BID #60 grams 05/13/24 CGM 1 ea subcut (via wearable injectr) 06/27/24 DAILY Continuous Glucose Monitoring #1 ea hydrocodone 5 mg-acetaminophen 325 0.5 tab PO Q4H PRN severe headache 06/27/24 mg tablet pain #30 tabs loratadine 10 mg tablet (Claritin) 10 mg PO DAILY PRN allergy 06/27/24 symptoms #90 tab-caps rizatriptan 10 mg tablet 10 mg PO .COMPLEX PRN migraine 06/27/24 headache #20 tabs levofloxacin 500 mg tablet 500 mg PO DAILY #28 tabs 08/05/24 Allergies Allergy/AdvReac Type Severity Reaction Status Date / Time amitriptyline AdvReac Intermediate sedation Verified 07/08/24 14:30 aspirin AdvReac Intermediate h/o ulcer Verified 07/08/24 14:30 disease topiramate (From Topamax) AdvReac Intermediate CANNOT Verified 07/08/24 14:30 SLEEP baclofen AdvReac Mild nausea, Verified 07/08/24 14:30 dizzy, blurred vision Beta-Blockers AdvReac Unknown AVOID to Verified 07/08/24 14:30 (Beta-Adrenergic Bloc Abdi butalbital AdvReac Unknown Habituated Verified 07/08/24 14:30 caffeine AdvReac Unknown migraine Verified 07/08/24 14:30 diltiazem AdvReac Unknown AVOID due Verified 07/08/24 14:30 to Abdi lisinopril AdvReac Unknown cough Verified 07/08/24 14:30 verapamil AdvReac Unknown dizzy Verified 07/08/24 14:30 propofol AdvReac arrythmia Verified 07/08/24 14:30 with high-doses General Stated Complaint: Urinary JUAN: 3 Course Vital Signs Vital signs: Vital Signs Temperature 37.1 C 08/05/24 09:35 Pulse 61 08/05/24 09:35 Respiratory Rate 18 08/05/24 09:35 Blood Pressure 167/49 H 08/05/24 09:35 Pulse Oximetry 95 08/05/24 09:35 Temperature 37.1 C 08/05/24 09:35 Temperature Source Temporal Artery Scan 08/05/24 09:35 Pulse 61 08/05/24 09:35 Respiratory Rate 18 08/05/24 09:35 Blood Pressure 167/49 H 08/05/24 09:35 Pulse Oximetry 95 08/05/24 09:35 Oxygen Delivery Method Room Air 08/05/24 09:35 Oxygen Flow Rate 0 08/05/24 09:35 Lab/Test Results Lab/Test Results: 08/05/24 09:43 Blood Blood Culture - Pending 08/05/24 09:43 Blood Blood Culture - Pending Medical Decision Making Quality:SDOH Health Related Social Needs: No Data to Display PFSH All Active Problems (Updated 08/05/24 @ 12:20 by Igor Ortiz MD) Acute UTI (Acute) Gross hematuria (Acute) Esophageal stricture (Acute 12/07/17) q 3-4 month dilation w/ Dr. Greene, but Urol Rx may be helping maintain elasticity? stretch? Biopsies taken. Stricuture in second part of duodenum,56 cm from the teeth. Stricture in the upper esophagus,18cm from the teeth. endoscopy report date 12/07/17. Pathology shows peptic duodenitis, negative H. Pylori EGD Dr. Greene 11/04/21 Sinoatrial node dysfunction (Acute 07/05/12) abdi 42 at esoph dilatatiion, not vagal per Dr Greene, still abdi prior to repeat 07/26/12; holter min 38-104; HEITZMAN 08/2012: OBSERVE Elevated serum creatinine (Acute 07/2018) 1.37 with elevated BUN and h/o poor hydration. 1.4 02/2019, monitor and recomm hydration. Reviewed NSAID, ABx use (min). 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 Hypoglycemia after GI (gastrointestinal) surgery (Acute) Testing required for hypogly episodes Spontaneous hypoglycemia (Acute 05/29/09) consult endocrine [facility] 2008 BPH NOS w ur obs/LUTS (Acute) Low libido (Acute) [] ] testosterone? Vit D? (Wellbutrin helped with interest) Chronic daily headache (Chronic 03/23/15) Dull, improved flares since Chiro/Acupuncture care.. Chronic migraine without aura (Acute) 04/16/19 Dr Ortega, [facility] Neurology- Aimovig started. Chronic pain disorder (Chronic) Contract, UDS, BH Orders 10/25/18. Medical History (Updated 08/05/24 @ 12:20 by Igor Ortiz MD) Urinary hesitancy Abnormal prostate exam Hematospermia Phimosis Seborrheic keratosis Basal cell carcinoma (BCC) Punch Bx shows BASAL CELL CARCINOMA.. Left [place] 02/2022 Bradycardia Finger lesion left middle finger, PIP. Healing well, but concerned about tendon. History of gout Toe pain, possible GOUT per pdiatry (no Tx,Rx), 09/04/21. Probable 1x no proph Tx atthis time. UA slighlty high. COVID-19 vaccine series completed per card: Moderna, 01/21, 02/18/21. Acevedo #94 Cough (11/01/12) Adenoma of left adrenal gland (~06/2018) [facility] [place] endocrinology office visit note 11/21/18. (2cm- which based on MRI characteristics strongly suggestive of a benign,lipid rich adenoma. (David Shields, DO,MS). FU 08/2019 CT (w/contrast) shows stable 2cm adenoma, Scan Q12mos [ ] .. Mgr NOS wo ntrc w st mgr Daily Headache. 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 08/12/18 colonoscopy (Dr Greene) Allergic rhinitis (01/30/12) Adjustment disorder, unspecified (10/13/16) Adenomatous colon polyp (11/19/03) ADENOMA IN 2003 SO rpt Q 5YR, NEG IN 2007 SEVEN; 1 adenoma 01/2013 Jc Scalp lesion Seemed 2' trauma, but non-healing .. Punch Bx shows BASAL CELL CARCINOMA Vitreous degeneration Per 12/22/21 [place] note Puckering of macula, bilateral Per 12/22/21 [place] note COVID-19 end of January,, tolerated Paxlovid Surgical History (Updated 06/19/24 @ 09:25 by Keiry Louise RN) History of esophagogastroduodenoscopy (EGD) (~06/13/24) w/ Dilation, Dr. Greene, unchanged per note.HE History of esophagogastroduodenoscopy (EGD) (~11/03/22) [facility]-04/20/23-Dr Greene. w/dilation-no biopsies [facility]-07/27/23-Dr Greene-biopsies normal-cont q3 mos Hx of basal cell carcinoma excision (03/03/22) left advent Hx of esophagogastroduodenoscopy 07/07/20 with Dilation done by Dr Greene at [facility] 07/29/21 dilation, wire guided Savory under fluro guidance 11/04/[address] Greene 02/10/24;DR. Greene;[facility] EGD w/ Dilation H/O colonoscopy (08/12/18) Dr Greene Endoscopy (03/17/16) 06/09/16 Dr. Greene; Emily with dilatation 12/04/17 Dr. Greene w/ dilatation Endoscopy (06/18/15) 06/09/16 Dr. Greene; Emily with dilatation 12/04/17 Dr. Greene w/ dilatation Endoscopy (09/11/14) 06/09/16 Dr. Greene; Emily with dilatation 12/04/17 Dr. Greene w/ dilatation EGD w/ Dilatation (08/24/17) repeated EGD w/ dilatation Dr. Greene EGD w/ Dilatation (06/08/17) repeated EGD w/ dilatation Dr. Greene EGD w/ Dilatation (03/09/17) repeated EGD w/ dilatation Dr. Greene EGD w/ Dilatation (12/08/16) repeated EGD w/ dilatation Dr. Greene EGАлександр - IV Sedation (12/24/15) Kush Greene Extraction of cataract (01/12/15) Nuclear/cortical, left eye, symptomatic ; R eye Dr. Nelson Sanchez Extraction of cataract (12/29/14) Nuclear/cortical, left eye, symptomatic ; R eye Dr. Nelson Sanchez Family History Mother Dementia Father , failure to thrive at age 97. 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 Pets and animals: No Sexually active: Yes Do you think of yourself as: straight/heterosexual Current gender identity: male What is your relationship status?: How often do you talk on the phone with friends or family?: twice per week How often do you get together with friends or relatives?: never Do you belong to any clubs or organized social groups?: no Panel score (0-1 are the most socially isolated patients): 1 What type of physical activity do you participate in: other Details: ADL's only--shoveling, firewood etc, pool, yardwork Fariha/Yazidism: Sabianism Special fariha needs: No Seatbelt use: always Drive intox or ride w/intox shuttle driver: No Working smoke detector in home: Yes Carbon monox detector in home: Yes Do you feel safe at home: Yes Do you feel safe in your relationship?: Yes
[2024-08-05 10:08] LABS: Abs Immature Grans 0.04 10^3/uL (0.0-0.06); Absolute Basophil Count 0.02 10^3/uL (0.0-0.2); Absolute Lymphocyte Count 0.33 10^3/uL (1.2-3.4); Absolute Monocyte Count 1.09 10^3/uL (0.1-0.8); Absolute Neutrophil Count 10.47 10^3/uL (1.2-6.7); Basophils % 0.2 %; HCT 43.4 % (40.0-50.0); HGB 14.5 g/dL (13.5-17.5); Immature Grans % 0.3 %; Lymphocytes % 2.8 %; MCHC 33.4 % (32.0-36.0); MCV 93 fL (80-95); MPV 9.6 fL (8.0-11.0); Monocytes % 9.1 %; Neutrophils % 87.6 %; Platelet Count 110 10^3/uL (130-400); RBC 4.68 10^6/uL (4.36-5.78); RDW 13.5 % (11.8-14.1); RDW-SD 45.9 fL; WBC 11.95 10^3/uL (4.4-10.8)
[2024-08-05 10:19] LABS: Anion Gap 8.6 mmol/L (3-11); BUN 22 mg/dL (7-18); CO2 23.4 mmol/L (21.0-32.0); CREATININE 1.5 mg/dL (0.70-1.30); Calcium 9.4 mg/dL (8.5-10.1); Chloride 103 mmol/L (98-107); Estimated GFR 47.95 (mL/min/1.73m2); Glucose 157 mg/dL (74-106); Potassium 4.1 mmol/L (3.5-5.1); Sodium 135 mmol/L (136-145)
[2024-08-05 10:33] LABS: Bilirubin Small (Negative); Blood Small (Negative); Clarity Cloudy (Clear); Glucose Negative (Negative); Ketones Negative (Negative); Leukocyte Esterase Small (Negative); Nitrite Positive (Negative); Urobilinogen >=8.0 mg/dL (Up to 0.2); pH 7.5 (5-8)
[2024-08-05 10:40] LABS: Bacteria Many HPF (Negative); C & S Indicated? Yes; Crystals Negative HPF (Negative); Epithelial Cells Rare HPF (Negative); Mucus Negative (Negative); Other Cells Rare Transitional (Negative); WBC 20-50 HPF (0-5)
[2024-08-05] MEDS: Normal Saline 500 ML IV (10:45)
[2024-08-05] MEDS: cefTRIAXone 1 GM/50 ML BAG IVPB (11:59)
[2024-08-05] MEDS: levoFLOXacin 500 MG TAB PO (12:42)
== END 2024-08-05 13:23 | disposition home or self-care (01) ==
PROVIDERS: Emergency Provider Emergency Medicine; PCP Student in an Organized Health Care Education/Training Program
DX: M54.50 Low back pain, unspecified (principal); R33.9 Retention of urine, unspecified; R53.1 Weakness; R39.0 Extravasation of urine
CPT/HCPCS: 36415; 51702; 51798; 80048; 87040; 87077; 96361; 96365; 99284; 81003; 81015; 85025; 87086; 87186; J0696

== ENCOUNTER → 2024-08-28 09:10 | Outpatient (BNVA) | payer MEDICARE, BC, SELFPAY | PROVIDERS: PCP Student in an Organized Health Care Education/Training Program; Referring Provider Student in an Organized Health Care Education/Training Program; Visit Provider Urology | DX: R33.8 Other retention of urine (principal) | CPT/HCPCS: 81003; 99213 ==

== ENCOUNTER 2024-08-28 16:52 | Observation (INO) | payer MEDICARE, BC, SELFPAY ==
[2024-08-28] VITALS (41 sets, daily range): BP systolic 100–163; BP diastolic 48–83; PULSE 32–72; RESP 4–22; TEMP 36.1–36.2; O2SAT 92–99
--- NOTE | 2024-08-28 16:45 | RT.EKG_ITS ---
APPROVED REPORT Exam: Resting ECG Reason for Exam: Syncope Patient Location: E HR:43 bpm ECG Measurements Heart Rate 43 AXIS MN 154 P 41 QRSd 152 QRS 38 QT 468 T 16 QTc 396 Conclusion Sinus bradycardia 43 RBBB no stemi
[2024-08-28] MEDS: Dextrose 50%-Water 25 GM/50 ML SYR IVP (16:52)
[2024-08-28 17:14] LABS: Abs Immature Grans 0.02 10^3/uL (0.0-0.06); Absolute Basophil Count 0.05 10^3/uL (0.0-0.2); Absolute Eosinophil Count 0.34 10^3/uL (0.0-0.7); Absolute Lymphocyte Count 1.65 10^3/uL (1.2-3.4); Absolute Monocyte Count 0.82 10^3/uL (0.1-0.8); Absolute Neutrophil Count 5.03 10^3/uL (1.2-6.7); Basophils % 0.6 %; Eosinophils % 4.3 %; HCT 43.3 % (40.0-50.0); HGB 14.4 g/dL (13.5-17.5); Immature Grans % 0.3 %; Lymphocytes % 20.9 %; MCH 30.8 pg (27.0-33.0); MCHC 33.3 % (32.0-36.0); MCV 93 fL (80-95); MPV 9.5 fL (8.0-11.0); Monocytes % 10.4 %; Neutrophils % 63.5 %; Platelet Count 174 10^3/uL (130-400); RBC 4.67 10^6/uL (4.36-5.78); RDW 13.9 % (11.8-14.1); WBC 7.91 10^3/uL (4.4-10.8)
[2024-08-28 17:26] LABS: ALT 24 U/L (16-63); AST 15 U/L (15-37); Albumin 2.9 g/dL (3.4-5.0); Alkaline Phosphatase 81 U/L (46-116); Anion Gap 9.2 mmol/L (3-11); BUN 22 mg/dL (7-18); Bilirubin, Total 0.54 mg/dL (0.2-1.0); CO2 24.8 mmol/L (21.0-32.0); CREATININE 1.5 mg/dL (0.70-1.30); Chloride 107 mmol/L (98-107); Estimated GFR 47.95 (mL/min/1.73m2); Glucose 139 mg/dL (74-106); Potassium 4.1 mmol/L (3.5-5.1); Sodium 141 mmol/L (136-145); Total Protein 6.2 g/dL (6.4-8.2); Troponin I 7 ng/L (<or=76)
[2024-08-28] MEDS: Lactated Ringers 500 ML IV (17:51)
[2024-08-28] MEDS: Ondansetron 4 MG/2 ML VIAL IVP (17:51)
--- NOTE | 2024-08-28 18:15 | ED.GENADUL_ITS ---
Discharge Plan Disposition Patient Disposition: Admit to [facility] Condition: Stable Discharge Details Clinical Impression: Bradycardia, Vasovagal episode, Sinoatrial node dysfunction, Orthostatic dizziness Primary Care Provider: Sheila Hilliard ED Provider: Nitza Marcus Home Meds and New Rx's Prescriptions: No Action albuterol sulfate [ProAir HFA] 90 mcg/actuation HFA aerosol inhaler 2 puff Inhalation Q6H PRN Qty: 1 1RF Rx Instructions: Q4h as needed for wheezing loratadine [Claritin] 10 mg tablet 10 mg PO DAILY PRN (Reason: allergy symptoms) Qty: 90 3RF Rx Instructions: allergic rhinitis, Daily for the summer rizatriptan 10 mg tablet 10 mg PO .COMPLEX PRN (Reason: migraine headache) Qty: 20 2RF Rx Instructions: 10 mg PO ; PRN; hydrocodone-acetaminophen 5-325 mg tablet 0.5 tab PO Q4H MDD 5mg PRN (Reason: severe headache pain) Qty: 30 0RF Rx Instructions: Q6 weeks CGM 1 ea subcut (via wearable injectr) DAILY Qty: 1 0RF tamsulosin 0.4 mg capsule 0.8 mg PO QHS Qty: 180 4RF nystatin-triamcinolone 100,000-0.1 unit/gram-% ointment 1 applic topical BID Qty: 15 0RF Rx Instructions: apply thin layer twice a day ketoconazole 2 % cream 1 applic topical BID Qty: 60 3RF cyanocobalamin (vitamin B-12) [Vitamin B-12] 1,000 MCG tablet 1,000 mcg PO DAILY Qty: 100 Rx Instructions: daily Vitamin B12 replacement, s/p gastric surgery (DME) Blood Glucose Test Strip See Rx Instructions .ROUTE .MEDSUPPLY Qty: 100 3RF Rx Instructions: As directed to check blood glucose daily. No insulin. Dispense covered brand. dextrose 40 % gel 10 g PO Q15M PRN (Reason: hypoglycemia) Qty: 112.5 1RF Rx Instructions: Trial for urgent hypoglycemia: levofloxacin 500 mg tablet 500 mg PO DAILY Qty: 28 0RF HPI General Date/Time Provider Initiated Documentation: 08/28/24 16:53 . Limitations to Documentation: altered mental status . Information obtained by: patient, family ( ), RN/MD and old records reviewed . HPI Narrative: 78-year-old gentleman with past medical history of recurrent UTI, BPH sinoatrial node dysfunction presents for evaluation after loss of consciousness. Patient had been seen earlier today in urology clinic and had his Anderson catheter removed. He was discharged from the appointment, but called back to her state that he had not been able to void all day. He came back to clinic after Anderson catheter was placed. After the placement of the Anderson catheter the patient was noted to lose consciousness and become hypotensive. There was concerned that the patient might have lost pulse though this does not seem to have occurred. But a CODE BLUE was called. Prior to coming to the emergency department, they were unable to get a Accu-Chek, but an amp of D50 was given. On arrival to the emergency department, the patient has a normal blood pressure and is alert. He states that he has some mild nausea does not really remember what happened. Related Data Home Medications ?Medication ?Instructions ?Recorded ?Confirmed cyanocobalamin (vitamin B-12) 1,000 mcg PO DAILY #100 tabs 04/07/16 08/28/24 1,000 mcg tablet (Vitamin B-12) blood sugar diagnostic (Blood #100 ea 12/10/21 08/28/24 Glucose Test strips) dextrose 40 % oral gel 10 g PO Q15M PRN hypoglycemia 12/10/21 08/28/24 #112.5 grams albuterol sulfate 90 mcg/actuation 2 puff inhalation Q6H PRN wheeze 04/13/23 08/28/24 aerosol inhaler (ProAir HFA) #1 unit nystatin-triamcinolone 100,000 1 applic topical BID #15 grams 05/04/23 08/28/24 unit/gram-0.1 % topical ointment tamsulosin 0.4 mg capsule 0.8 mg (2 x 0.4 mg) PO QHS #180 01/08/24 08/28/24 caps ketoconazole 2 % topical cream 1 applic topical BID #60 grams 05/13/24 08/28/24 CGM 1 ea subcut (via wearable injectr) 06/27/24 08/28/24 DAILY Continuous Glucose Monitoring #1 ea hydrocodone 5 mg-acetaminophen 325 0.5 tab PO Q4H PRN severe headache 06/27/24 08/28/24 mg tablet pain #30 tabs loratadine 10 mg tablet (Claritin) 10 mg PO DAILY PRN allergy 06/27/24 08/28/24 symptoms #90 tab-caps rizatriptan 10 mg tablet 10 mg PO .COMPLEX PRN migraine 06/27/24 08/28/24 headache #20 tabs levofloxacin 500 mg tablet 500 mg PO DAILY #28 tabs 08/05/24 08/28/24 Previous Rx's ?Medication ?Instructions ?Recorded blood sugar diagnostic (Blood #100 ea 12/10/21 Glucose Test strips) dextrose 40 % oral gel 10 g PO Q15M PRN hypoglycemia 12/10/21 #112.5 grams albuterol sulfate 90 mcg/actuation 2 puff inhalation Q6H PRN wheeze 04/13/23 aerosol inhaler (ProAir HFA) #1 unit nystatin-triamcinolone 100,000 1 applic topical BID #15 grams 05/04/23 unit/gram-0.1 % topical ointment tamsulosin 0.4 mg capsule 0.8 mg (2 x 0.4 mg) PO QHS #180 01/08/24 caps ketoconazole 2 % topical cream 1 applic topical BID #60 grams 05/13/24 CGM 1 ea subcut (via wearable injectr) 06/27/24 DAILY Continuous Glucose Monitoring #1 ea hydrocodone 5 mg-acetaminophen 325 0.5 tab PO Q4H PRN severe headache 06/27/24 mg tablet pain #30 tabs loratadine 10 mg tablet (Claritin) 10 mg PO DAILY PRN allergy 06/27/24 symptoms #90 tab-caps rizatriptan 10 mg tablet 10 mg PO .COMPLEX PRN migraine 06/27/24 headache #20 tabs levofloxacin 500 mg tablet 500 mg PO DAILY #28 tabs 08/05/24 Allergies Allergy/AdvReac Type Severity Reaction Status Date / Time amitriptyline AdvReac Intermediate sedation Verified 08/28/24 18:16 aspirin AdvReac Intermediate h/o ulcer Verified 08/28/24 18:16 disease topiramate (From Topamax) AdvReac Intermediate CANNOT Verified 08/28/24 18:16 SLEEP baclofen AdvReac Mild nausea, Verified 08/28/24 18:16 dizzy, blurred vision Beta-Blockers AdvReac Unknown AVOID to Verified 08/28/24 18:16 (Beta-Adrenergic Bloc Abdi butalbital AdvReac Unknown Habituated Verified 08/28/24 18:16 caffeine AdvReac Unknown migraine Verified 08/28/24 18:16 diltiazem AdvReac Unknown AVOID due Verified 08/28/24 18:16 to Abdi lisinopril AdvReac Unknown cough Verified 08/28/24 18:16 verapamil AdvReac Unknown dizzy Verified 08/28/24 18:16 propofol AdvReac arrythmia Verified 08/28/24 18:16 with high-doses General Stated Complaint: [id number] JUAN: 2 Exam Narrative Exam Narrative: Review of Systems: All systems reviewed & are unremarkable except as noted in HPI and below Well-developed, no acute distress NCAT Bradycardic no murmur Bruise noted over sternum Unlabored respiratory effort clear bilaterally Nondistended abdomen soft nontender Extremities w/o edema anderson cath in place no focal neurologic deficits Course Vital Signs Vital signs: Vital Signs Respiratory Rate 11 L 08/28/24 16:57 Pulse Oximetry 94 08/28/24 16:57 Temperature 36.1 C L 08/28/24 17:02 Temperature Source Temporal Artery Scan 08/28/24 17:02 Pulse 40 L 08/28/24 18:01 Pulse 40 L 08/28/24 18:01 Respiratory Rate 9 L 08/28/24 18:01 Respiratory Effort Normal, Non-Labored 08/28/24 17:28 Respiratory Depth Normal 08/28/24 17:28 Respiratory Pattern Normal 08/28/24 17:28 Blood Pressure 118/48 L 08/28/24 18:01 Blood Pressure Mean 72 08/28/24 18:01 Blood Pressure Position Supine 08/28/24 17:02 Pulse Oximetry 92 08/28/24 18:01 Oxygen Delivery Method Room Air 08/28/24 17:02 Oxygen Flow Rate 0 08/28/24 17:02 Pain Level 5 08/28/24 17:51 Comment abd pain 08/28/24 17:02 Lab/Test Results Lab/Test Results: Laboratory Tests Range/Units 08/28/24 16:50 WBC (4.4-10.8) 10^3/uL 7.91 RBC (4.36-5.78) 10^6/uL 4.67 Hgb (13.5-17.5) g/dL 14.4 Hct (40.0-50.0) % 43.3 MCV (80-95) fL 93 MCH (27.0-33.0) pg 30.8 MCHC (32.0-36.0) % 33.3 RDW (11.8-14.1) % 13.9 Plt Count (130-400) 10^3/uL 174 MPV (8.0-11.0) fL 9.5 Immature Gran % % 0.3 Neutrophils % % 63.5 Lymphocytes % % 20.9 Monocytes % % 10.4 Eosinophils % % 4.3 Basophils % % 0.6 Nucleated RBC % (0.0-0.3) % 0.0 Absolute Neutrophils (1.2-6.7) 10^3/uL 5.03 Absolute Lymphocytes (1.2-3.4) 10^3/uL 1.65 Absolute Monocytes (0.1-0.8) 10^3/uL 0.82 H Absolute Eosinophils (0.0-0.7) 10^3/uL 0.34 Absolute Basophils (0.0-0.2) 10^3/uL 0.05 Sodium (136-145) mmol/L 141 Potassium (3.5-5.1) mmol/L 4.1 Chloride (98-107) mmol/L 107 Carbon Dioxide (21.0-32.0) mmol/L 24.8 Anion Gap (3-11) mmol/L 9.2 BUN (7-18) mg/dL 22 H Creatinine (0.70-1.30) mg/dL 1.5 H Est GFR (CKD-EPI 2020) (mL/min/1.73m2) 47.95 Glucose (74-106) mg/dL 139 H Calcium (8.5-10.1) mg/dL 9.0 Magnesium (1.8-2.4) mg/dL 2.0 Total Bilirubin (0.2-1.0) mg/dL 0.54 AST (15-37) U/L 15 ALT (16-63) U/L 24 Alkaline Phosphatase (46-116) U/L 81 Troponin I (<or=76) ng/L 7 Total Protein (6.4-8.2) g/dL 6.2 L Albumin (3.4-5.0) g/dL 2.9 L Medical Decision Making Emergent evaluation of altered mental status. Initial differential includes vasovagal episode, syncope, cardiac dysrhythmia. The patient was upstairs in clinic getting Anderson catheter placed when he became hypotensive bradycardic and unresponsive. Sternal rub was performed, the patient woke up fairly quickly. It does not appear that he ever lost a pulse or that chest compressions were performed. On arrival in the emergency department he does appear to be bradycardic which is his baseline, but otherwise hemodynamically stable. I suspect vasovagal episode, but the patient is endorsing some new symptoms that were not present prior to Anderson catheter placement. Will check blood work and reassess. 1830 Patient has been observed on the monitor, his heart rate has been in the 30s, but improved to the 40 he has 2 troponins that are not elevated. s and now was noted to be in the 50s. Apparently this is baseline for the patient. It is si nus and he does not have any evidence of block. Lab work reviewed. No leukocytosis or anemia. Creatinine 1.5 which appears to be baseline for the patient. Mild hyperglycemia of 139 without evidence of DKA. Patient did receive an amp of D50 while still in clinic. Serial troponins are both negative, have a low suspicion for ACS causing the symptoms. The patient is complaining still of some mild nausea and some epigastric tenderness. His abdominal examination is benign I suspect that his pain is secondary to someone pushing on his chest or doing an aggressive sternal rub, he does not have any bruising on his abdomen or tenderness along the rib margin. I then added a lipase and a chest x-ray. Patient and are very concerned about the event. Patient remains significantly orthostatic HR 46> 70 after IV fluids. Given his age and risk factors, I do feel observation for telemetry monitoring would be appropriate until patient is back at baseline functional status. Quality:SDOH Health Related Social Needs: No Data to Display PFSH All Active Problems (Updated 08/28/24 @ 19:31 by Nitza Marcus MD) Orthostatic dizziness (Acute) Vasovagal episode (Acute) Bradycardia (Acute) Acute UTI (Acute) Gross hematuria (Acute) Esophageal stricture (Acute 12/07/17) q 3-4 month dilation w/ Dr. Greene, but Urol Rx may be helping maintain elasticity? stretch? Biopsies taken. Stricuture in second part of duodenum,56 cm from the teeth. Stricture in the upper esophagus,18cm from the teeth. endoscopy report date 12/07/17. Pathology shows peptic duodenitis, negative H. Pylori EGD Dr. Greene 11/04/21 Sinoatrial node dysfunction (Acute 07/05/12) abdi 42 at esoph dilatatiion, not vagal per Dr Greene, still abdi prior to repeat 07/26/12; holter min 38-104; HEITZMAN 08/2012: OBSERVE Elevated serum creatinine (Acute 07/2018) 1.37 with elevated BUN and h/o poor hydration. 1.4 02/2019, monitor and recomm hydration. Reviewed NSAID, ABx use (min). 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 Hypoglycemia after GI (gastrointestinal) surgery (Acute) Testing required for hypogly episodes Spontaneous hypoglycemia (Acute 05/29/09) consult endocrine [facility] [place] 2008 BPH NOS w ur obs/LUTS (Acute) Low libido (Acute) [] ] testosterone? Vit D? (Wellbutrin helped with interest) Chronic daily headache (Chronic 03/23/15) Dull, improved flares since Chiro/Acupuncture care.. Chronic migraine without aura (Acute) 04/16/19 Dr Ortega, [facility] [place] Neurology- Aimovig started. Chronic pain disorder (Chronic) Contract, UDS, BH Orders 10/25/18. Medical History Urinary hesitancy Abnormal prostate exam Hematospermia Phimosis Seborrheic keratosis Basal cell carcinoma (BCC) Punch Bx shows BASAL CELL CARCINOMA.. Left [place] 02/2022 Bradycardia Finger lesion left middle finger, PIP. Healing well, but concerned about tendon. History of gout Toe pain, possible GOUT per pdiatry (no Tx,Rx), 10/17/21. Probable 1x no proph Tx atthis time. UA slighlty high. COVID-19 vaccine series completed per card: Moderna, 01/21, 02/18/21. Kristina #[id number] Cough (11/01/12) Adenoma of left adrenal gland (~06/2018) [facility] [place] note 11/21/18. (2cm- which based on MRI characteristics strongly suggestive of a benign,lipid rich adenoma. (David Shields, DO,MS). FU 08/2019 CT (w/contrast) shows stable 2cm adenoma, Scan Q12mos [ ] .. Mgr NOS wo ntrc w st mgr Daily Headache. 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 08/12/18 colonoscopy (Dr Greene) Allergic rhinitis (01/30/12) Adjustment disorder, unspecified (10/13/16) Adenomatous colon polyp (11/19/03) ADENOMA IN 2003 SO rpt Q 5YR, NEG IN 2007 SEVEN; 1 adenoma 01/2013 Mitinocencio Scalp lesion Seemed 2' trauma, but non-healing .. Punch Bx shows BASAL CELL CARCINOMA Vitreous degeneration Per 12/22/21 [place] note Puckering of macula, bilateral Per 12/22/21 [place] note COVID-19 end of January,, tolerated Paxlovid Surgical History History of esophagogastroduodenoscopy (EGD) (~06/13/24) w/ Dilation, Dr. Greene, unchanged per note.HE History of esophagogastroduodenoscopy (EGD) (~11/03/22) [facility]-04/20/23-Dr Greene. w/dilation-no biopsies [facility]-07/27/23-Dr Greene-biopsies normal-cont q3 mos Hx of basal cell carcinoma excision (03/03/22) left congregation Hx of esophagogastroduodenoscopy 07/07/20 with Dilation done by Dr Greene at [facility] 07/29/21 dilation, wire guided Savory under fluro guidance 11/04/[address] Greene 02/10/24;DR. Greene;[facility] EGD w/ Dilation H/O colonoscopy (08/12/18) Dr Greene Endoscopy (03/17/16) 06/09/16 Dr. Anna Diaz with dilatation 12/04/17 Dr. Greene w/ dilatation Endoscopy (06/18/15) 06/09/16 Dr. Anna Diaz with dilatation 12/04/17 Dr. Greene w/ dilatation Endoscopy (09/11/14) 06/09/16 Dr. Anna Diaz with dilatation 12/04/17 Dr. Greene w/ dilatation EGD w/ Dilatation (08/24/17) repeated EGD w/ dilatation Dr. Greene EGD w/ Dilatation (06/08/17) repeated EGD w/ dilatation Dr. Greene EGD w/ Dilatation (03/09/17) repeated EGD w/ dilatation Dr. Greene EGD w/ Dilatation (12/08/16) repeated EGD w/ dilatation Dr. Greene EGD - IV Sedation (12/24/15) Kush Greene Extraction of cataract (01/12/15) Nuclear/cortical, left eye, symptomatic ; R eye Dr. Nelson Sanchez Extraction of cataract (12/29/14) Nuclear/cortical, left eye, symptomatic ; R eye Dr. Nelson Sanchez Family History Mother Dementia Father , failure to thrive at age 97. Essential hypertension Dementia Asthma Brother Heart disease Social History Smoking/Tobacco Use Status: Former Tobacco Use Tobacco: How many years used: 5 Smoking risk assessment performed?: Yes Alcohol Intake: never Drug use: Never Substance use type: does not use Adopted: No Caregiver/Support person: No Foster care: No Household members: spouse Housing: house Number of Children: 3 number of grandchildren: 6 Communication Needs: Hard of Hearing and Corrective Lenses Education Level: high school Do you need help understanding health information?: Never current occupation: retired from [employer] Pets and animals: No Sexually active: Yes Do you think of yourself as: straight/heterosexual Current gender identity: male What is your relationship status?: How often do you talk on the phone with friends or family?: twice per week How often do you get together with friends or relatives?: never Do you belong to any clubs or organized social groups?: no Panel score (0-1 are the most socially isolated patients): 1 What type of physical activity do you participate in: other Details: ADL's only--shoveling, firewood etc, pool, yardwork Fariha/Gnosticism: Protestant Special fariha needs: No Seatbelt use: always Drive intox or ride w/intox 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
[2024-08-28 18:23] LABS: Troponin I 6 ng/L (<or=76)
--- NOTE | 2024-08-28 18:30 | DI.RAD_ITS ---
Exam(s) XR PORTABLE CHEST AP EXAM: XR PORTABLE CHEST AP CLINICAL HISTORY: abd pain TECHNIQUE: 2D digital imaging was performed. COMPARISON: CR CHEST 2 VIEWS PA,LAT from 06/25/[address] ABDOMEN WO/W from 03/05/2023 FINDINGS: Exam is limited by under penetration and poor pulmonary inflation. LUNGS: Mild basilar atelectasis. No pleural abnormality seen. HEART: Mildly enlarged. AORTA: Normal diameter. BONES: Unremarkable for age. Soft tissues: Unremarkable. IMPRESSION: No acute findings. DATA REPOSITORY: RADIATION DOSE DELIVERED:
[2024-08-28 18:51] LABS: Lipase 24 U/L (16-77)
--- NOTE | 2024-08-28 19:43 | W.PM.HP.N ---
Date of service: 08/28/24 Time of Service: 19:43 Assessment and Plan Assessment and plan (1) Vasovagal episode: Start date: 08/28/24 Status: Acute Assessment and plan: This is a 78-year-old gentleman who has had no history of urinary catheter placement for retention prior to August 05, 2024 with insertion after cystoscopy that day. He has been evaluated for hematuria with a workup negative. He does have BPH with lower urinary tract symptoms chronically. The patient had his Garnica catheter removed the day of admission he had acute urinary retention requiring reinsertion and had already restarted his Flomax be on Levaquin for a chronic UTI. The may have been a possible interaction between these medications that this should be reviewed by pharmacy. He did have equipment administration syncope and CODE BLUE was called with patient receiving chest compressions. Troponins are negative and has no acute EKG changes. He does have chronic atrial node dysfunction with bradycardia. He remains slightly dizzy with orthostatic measurements and orthostatic with increase in his falls with stable blood pressure. He will be observed overnight on telemetry and Dr. Werner will be consulted to evaluate the patient in the morning. His Levaquin will be continued but Flomax held. Department will be trended. He is a full code. (2) Orthostasis: Start date: 08/28/24 Status: Acute Assessment and plan: Continued orthostasis by pulse with slight dizziness to be observed overnight. As stated, Flomax will be held. (3) Sinoatrial node dysfunction: Status: Chronic Assessment and plan: Patient does have chronic bradycardia which persists. He also has hypertension. (4) BPH NOS w ur obs/LUTS: Status: Chronic Assessment and plan: Now with indwelling Garnica catheter and urinary retention status post cystoscopy. Follow-up with urology. (5) CKD (chronic kidney disease): Status: Chronic Assessment and plan: Patient appears to have slightly elevated creatinine chronically and this appears stable. Trend labs. Qualifiers: Chronic kidney disease stage: stage 3 (moderate) Chronic kidney disease stage 3 subtype: stage 3a (GFR 45-59) Qualified Code(s): N18.31 - Chronic kidney disease, stage 3a (6) Hypoglycemia after GI (gastrointestinal) surgery: Status: Chronic Assessment and plan: Patient did receive D5W amp during CODE BLUE and does have a history of hypoglycemia and some instability with possible insulin resistance. He will have glucometer measurements ACHS with coverage during his hospital stay. He is not on chronic therapy for diabetes. History of Present Illness History of Present Illness Chief Complaint: Syncopal episode with CODE BLUE, bradycardia with no pulse. Narrative: This is a 78-year-old male patient who has recent urinary retention and recurrent UTIs having a cystoscopy performed by Dr. Werner for hematuria August 05 with urinary retention afterwards requiring an indwelling Garnica catheter and treatment of the UTI with Levaquin for 28 days of which she has 4 days left. He was offered Flomax which he takes twice daily during this chronic catheterization but did restart Flomax twice daily with planned removal of Garnica catheter the day of admission. He does have a history of chronic bradycardia and after he had problems with syncope just prior to this admission his daughter did review his medications discovering that it could be interaction between Levaquin and Flomax. Patient had the Garnica catheter removed the day of admission and had urinary retention having to return to Dr. Werner's office for reinsertion. During Garnica catheter insertion the patient had a syncopal episode with loss of pulse and severe bradycardia having sinoatrial node dysfunction as stated not on beta-blockers or heart rate control medications. The only med change recently was reinitiating Flomax. He is on treatment for hypertension with an ARB. He did receive chest compressions with a CODE BLUE called and Dr. Werner's office and was brought to the ED for evaluation. His Garnica catheter is draining his bladder well and this appears to have been a provoked vagal episode in a patient with chronic bradycardia and possible drug drug interaction between Levaquin and Flomax which should be reviewed by pharmacy. The Flomax will be held for now. He does require 4 more days of Levaquin to complete a 20 days but he is probably expand this treatment and will discuss with Dr. Werner. He does not feel well and was feeling impending doom which is slightly improved but has residual dizziness with ambulation and change in position. He did have positive orthostatic changes and his heart rate in the ED. His was quite upset and present during the episode, as well as his daughter who works at a local [employer] and was at the office immediately. He has never had a cardiac event but does avoid beta-blockers because of his chronic bradycardia. He denies any focal neurological complaints and has had some slight chest soreness from his chest compressions during the CODE BLUE. He will be admitted for cardiac monitoring observation having had negative troponins thus far and troponins will be trended. His Flomax will be held. He will continue his Levaquin to completion of 20 days. As stated, he does have orthostatic changes with increase in pulse but no drop in systolic from lying to standing with slight dizziness. He remains a full code. Review of Systems Narrative: 13 point review of systems otherwise unrevealing or stable. Patient does have BPH with some urinary symptoms prior to the but has never had urinary retention required insertion of Garnica catheter chronically. He states he does want to keep this Garnica catheter for a few weeks and will talk to Dr. Werner and constipation. PFSH All Active Problems (Updated 08/29/24 @ 05:51 by Adiel Diego) CKD (chronic kidney disease) (Chronic) Orthostasis (Acute) Orthostatic dizziness (Acute) Vasovagal episode (Acute) Bradycardia (Acute) Acute UTI (Acute) Gross hematuria (Acute) Esophageal stricture (Acute 12/07/17) q 3-4 month dilation w/ Dr. Greene, but Urol Rx may be helping maintain elasticity? stretch? Biopsies taken. Stricuture in second part of duodenum,56 cm from the teeth. Stricture in the upper esophagus,18cm from the teeth. endoscopy report date 12/07/17. Pathology shows peptic duodenitis, negative H. Pylori EGD Dr. Greene 11/04/21 Sinoatrial node dysfunction (Chronic 07/05/12) abdi 42 at esoph dilatatiion, not vagal per Dr Greene, still abdi prior to repeat 07/26/12; holter min 38-104; DEMETRIO 08/2012: OBSERVE Elevated serum creatinine (Acute 07/2018) 1.37 with elevated BUN and h/o poor hydration. 1.4 02/2019, monitor and recomm hydration. Reviewed NSAID, ABx use (min). 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 Hypoglycemia after GI (gastrointestinal) surgery (Chronic) Testing required for hypogly episodes Spontaneous hypoglycemia (Acute 05/29/09) [place] [facility] [place] BPH NOS w ur obs/LUTS (Chronic) Low libido (Acute) [] ] testosterone? Vit D? (Wellbutrin helped with interest) Chronic daily headache (Chronic 03/23/15) Dull, improved flares since Chiro/Acupuncture care.. Chronic migraine without aura (Acute) 04/16/19 Dr Ortega[place] [facility] [place]- Aimovig started. Chronic pain disorder (Chronic) Contract, UDS, BH Orders 10/25/18. Medical History Urinary hesitancy Abnormal prostate exam Hematospermia Phimosis Seborrheic keratosis Basal cell carcinoma (BCC) Punch Bx shows BASAL CELL CARCINOMA.. Left Grant 02/2022 Bradycardia Finger lesion left middle finger, PIP. Healing well, but concerned about tendon. History of gout Toe pain, possible GOUT per pdiatry (no Tx,Rx), 09/04/21. Probable 1x no proph Tx atthis time. UA slighlty high. COVID-19 vaccine series completed per card: Moderna, 01/21, 02/18/21. Kristina #[id number] Cough (11/01/12) Adenoma of left adrenal gland (~06/2018) [facility] [place] visit note 11/21/18. (2cm- which based on MRI characteristics strongly suggestive of a benign,lipid rich adenoma. (aDvid Shields, DO,MS). FU 08/2019 CT (w/contrast) shows stable 2cm adenoma, Scan Q12mos [ ] .. Mgr NOS wo ntrc w st mgr Daily Headache. 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 Greene, Esoph Dilation nearly q 3 mos Exercise induced bronchospasm (01/30/12) INTERMITTENT, EXERCISE OR COLD INDUCED; NL PF 05/22/08 3.8 FEV1, NO RESPONSE; better after air conduit cleaner; nl FEV1 3.07 on 01/29/14 Esophageal reflux (01/30/12) Dysphagia, unspecified (11/19/94) RECURRENT DILATATIONS; (AUDRA -->SAMUELZ 06/14/12 H PYLORI NEG; dilated 07/26/12 Emily; multiple re-does; currently q 3 mo (09/2016) Chronic gastritis (09/29/14) Mild Benign neoplasm of colon (11/19/03) ADENOMA IN 2003 SO rpt Q 5YR, NEG IN 2007 SEVEN; 1 adenoma 01/2013 Jc. 08/12/18 colonoscopy (Dr Greene) Allergic rhinitis (01/30/12) Adjustment disorder, unspecified (10/13/16) Adenomatous colon polyp (11/19/03) ADENOMA IN 2003 SO rpt Q 5YR, NEG IN 2007 SEVEN; 1 adenoma 01/2013 Jc Scalp lesion Seemed 2' trauma, but non-healing .. Punch Bx shows BASAL CELL CARCINOMA Vitreous degeneration Per 12/22/21 [place] note Puckering of macula, bilateral Per 12/22/21 [place] note COVID-19 end of January,, tolerated Paxlovid Surgical History History of esophagogastroduodenoscopy (EGD) (~06/13/24) w/ Dilation, Dr. Greene, unchanged per note.HE History of esophagogastroduodenoscopy (EGD) (~11/03/22) [facility]-04/20/23-Dr Greene. w/dilation-no biopsies [facility]-07/27/23-Dr Greene-biopsies normal-cont q3 mos Hx of basal cell carcinoma excision (03/03/22) left [facility] Hx of esophagogastroduodenoscopy 07/07/20 with Dilation done by Dr Greene at [facility] 07/29/21 dilation, wire guided Savory under fluro guidance 11/04/[address] Greene 02/10/24;DR. Greene;[facility] EGD w/ Dilation H/O colonoscopy (08/12/18) Dr Greene Endoscopy (03/17/16) 06/09/16 Dr. Greene; Emily with dilatation 1/16/18 Dr. Greene w/ dilatation Endoscopy (06/18/15) 06/09/16 Dr. Anna Diaz with dilatation 12/04/17 Dr. Greene w/ dilatation Endoscopy (09/11/14) 06/09/16 Dr. Anna Diaz with dilatation 12/04/17 Dr. Greene w/ dilatation EGD w/ Dilatation (08/24/17) repeated EGD w/ dilatation Dr. Greene EGD w/ Dilatation (06/08/17) repeated EGD w/ dilatation Dr. Greene EGD w/ Dilatation (03/09/17) repeated EGD w/ dilatation Dr. Greene EGD w/ Dilatation (12/08/16) repeated EGD w/ dilatation Dr. Greene EGD - IV Sedation (12/24/15) Kush Greene Extraction of cataract (01/12/15) Nuclear/cortical, left eye, symptomatic ; R eye Dr. Nelson Sanchez Extraction of cataract (12/29/14) Nuclear/cortical, left eye, symptomatic ; R eye Dr. Nelson Sanchez Family History Mother Dementia Father , failure to thrive at age 97. 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 Pets and animals: No Sexually active: Yes Do you think of yourself as: straight/heterosexual Current gender identity: male What is your relationship status?: How often do you talk on the phone with friends or family?: twice per week How often do you get together with friends or relatives?: never Do you belong to any clubs or organized social groups?: no Panel score (0-1 are the most socially isolated patients): 1 What type of physical activity do you participate in: other Details: ADL's only--shoveling, firewood etc, pool, yardwork Fariha/Congregation: [employer] fariha needs: No Seatbelt use: always Drive intox or ride w/intox lyft driver: No Working smoke detector in home: Yes Carbon monox detector in home: Yes Do you feel safe at home: Yes Do you feel safe in your relationship?: Yes Meds Allergies and Home Medications Allergies Allergy/AdvReac Type Severity Reaction Status Date / Time amitriptyline AdvReac Intermediate sedation Verified 08/28/24 18:16 aspirin AdvReac Intermediate h/o ulcer Verified 08/28/24 18:16 disease topiramate (From Topamax) AdvReac Intermediate CANNOT Verified 08/28/24 18:16 SLEEP baclofen AdvReac Mild nausea, Verified 08/28/24 18:16 dizzy, blurred vision Beta-Blockers AdvReac Unknown AVOID to Verified 08/28/24 18:16 (Beta-Adrenergic Bloc Abdi butalbital AdvReac Unknown Habituated Verified 08/28/24 18:16 caffeine AdvReac Unknown migraine Verified 08/28/24 18:16 diltiazem AdvReac Unknown AVOID due Verified 08/28/24 18:16 to Abdi lisinopril AdvReac Unknown cough Verified 08/28/24 18:16 verapamil AdvReac Unknown dizzy Verified 08/28/24 18:16 propofol AdvReac arrythmia Verified 08/28/24 18:16 with high-doses Home Medications ?Medication ?Instructions ?Recorded ?Confirmed ?Type cyanocobalamin (vitamin B-12) 1,000 mcg PO DAILY #100 tabs 04/07/16 08/28/24 History 1,000 mcg tablet (Vitamin B-12) blood sugar diagnostic (Blood #100 ea 12/10/21 08/28/24 Rx Glucose Test strips) dextrose 40 % oral gel 10 g PO Q15M PRN hypoglycemia 12/10/21 08/28/24 Rx #112.5 grams albuterol sulfate 90 mcg/actuation 2 puff inhalation Q6H PRN wheeze 04/13/23 08/28/24 Rx aerosol inhaler (ProAir HFA) #1 unit nystatin-triamcinolone 100,000 1 applic topical BID #15 grams 05/04/23 08/28/24 Rx unit/gram-0.1 % topical ointment tamsulosin 0.4 mg capsule 0.8 mg (2 x 0.4 mg) PO QHS #180 01/08/24 08/28/24 Rx caps ketoconazole 2 % topical cream 1 applic topical BID #60 grams 05/13/24 08/28/24 Rx CGM 1 ea subcut (via wearable injectr) 06/27/24 08/28/24 Rx DAILY Continuous Glucose Monitoring #1 ea hydrocodone 5 mg-acetaminophen 325 0.5 tab PO Q4H PRN severe headache 06/27/24 08/28/24 Rx mg tablet pain #30 tabs loratadine 10 mg tablet (Claritin) 10 mg PO DAILY PRN allergy 06/27/24 08/28/24 Rx symptoms #90 tab-caps rizatriptan 10 mg tablet 10 mg PO .COMPLEX PRN migraine 06/27/24 08/28/24 Rx headache #20 tabs levofloxacin 500 mg tablet 500 mg PO DAILY #28 tabs 08/05/24 08/28/24 Rx Exam Narrative Exam Narrative: General: Patient appears younger than stated age, thinly built and in no acute distress. He is alert and oriented x 3. HEENT: Normocephalic, eyes with pupils equal reactive light symmetrically, extraocular movement intact and sclera anicteric. Oropharynx with moist Ko[place] and good dentition. Neck: Supple without JVD. Back: Normal posture without CVA tenderness. Lungs: Fair aeration clear to patient percussion with no focalizing rales or rhonchi. No expiratory wheeze. Heart: Bradycardic rate with regular rhythm. No appreciable murmur or gallop. Chest: Slight erythema over anterior chest wall over sternum with no bruising. Abdomen: Normal contour, soft and nontender to palpation with no palpable hepatosplenomegaly. Does not follow all quadrants. Genitalia/rectal: Exam deferred. Patient does have Garnica catheter in place. Extremities: Without clubbing, cyanosis or pitting edema. Peripheral pulses intact. Skin: Normal color, warm and dry. Neuro: Cranial nerves II through XII intact, no focal motor deficits or tremor. Psych: Normal affect and mood. No abnormal thought processes. Remote and recent memory intact. Results Imaging Imaging Studies: EXAM: XR PORTABLE CHEST AP CLINICAL HISTORY: abd pain TECHNIQUE: 2D digital imaging was performed. COMPARISON: CR CHEST 2 VIEWS PA,LAT from 06/25/[address] ABDOMEN WO/W from 03/05/2023 FINDINGS: Exam is limited by under penetration and poor pulmonary inflation. LUNGS: Mild basilar atelectasis. No pleural abnormality seen. HEART: Mildly enlarged. AORTA: Normal diameter. BONES: Unremarkable for age. Soft tissues: Unremarkable. IMPRESSION: No acute findings. Labs 08/28/24 16:50 08/28/24 16:50 Labs: Laboratory Results - last 24 hr 08/28/24 08/28/24 08/28/24 16:50 17:55 19:57 WBC 7.91 RBC 4.67 Hgb 14.4 Hct 43.3 MCV 93 MCH 30.8 MCHC 33.3 RDW 13.9 Plt Count 174 MPV 9.5 Immature Gran % 0.3 Neutrophils % 63.5 Lymphocytes % 20.9 Monocytes % 10.4 Eosinophils % 4.3 Basophils % 0.6 Nucleated RBC % 0.0 Absolute Neutrophils 5.03 Absolute Lymphocytes 1.65 Absolute Monocytes 0.82 H Absolute Eosinophils 0.34 Absolute Basophils 0.05 Sodium 141 Potassium 4.1 Chloride 107 Carbon Dioxide 24.8 Anion Gap 9.2 BUN 22 H Creatinine 1.5 H Est GFR (CKD-EPI 2020) 47.95 Glucose 139 H Calcium 9.0 Magnesium 2.0 Total Bilirubin 0.54 AST 15 ALT 24 Alkaline Phosphatase 81 Troponin I 7 6 Cancelled Total Protein 6.2 L Albumin 2.9 L Lipase 24 Last Vital Signs Temp 36.1 C L 08/28/24 17:02 Pulse 46 L 08/28/24 19:20 Resp 13 08/28/24 19:02 BP 136/66 08/28/24 19:20 Pulse Ox 98 08/28/24 19:02 Time Spent Time spent with Patient: >75 minutes Time was spent: preparing to see the patient(eg.review tests), obtaining and/or reviewing separately otained hiistory, ordering medications,tests, procedures, indepentently interpreting results, counseling the patient and care coordination
[2024-08-28] MEDS: Normal Saline Flush 10 ML SYR IVP (22:48)
[2024-08-28 23:42] LABS: Troponin I 7 ng/L (<or=76)
[2024-08-29 02:54] LABS: Bilirubin Negative (Negative); Blood Moderate (Negative); Clarity Sl Cloudy (Clear); Glucose Negative (Negative); Ketones Negative (Negative); Leukocyte Esterase Moderate (Negative); Nitrite Negative (Negative); Specific Gravity 1.015 (1.005-1.025)
[2024-08-29 03:00] LABS: Bacteria Few HPF (Negative); C & S Indicated? Yes; Casts Negative LPF (Negative); Crystals Negative HPF (Negative); Epithelial Cells Rare HPF (Negative); Mucus Negative (Negative); WBC >50 HPF (0-5)
[2024-08-29 03:50] VITALS: BP 150/67; PULSE 53; RESP 18; TEMP 36.4; O2SAT 97
[2024-08-29 06:33] LABS: HCT 42.4 % (40.0-50.0); HGB 13.9 g/dL (13.5-17.5); MCH 30.2 pg (27.0-33.0); MCHC 32.8 % (32.0-36.0); MCV 92 fL (80-95); MPV 9.2 fL (8.0-11.0); Platelet Count 153 10^3/uL (130-400); RBC 4.61 10^6/uL (4.36-5.78); RDW 13.6 % (11.8-14.1); RDW-SD 46.4 fL; WBC 7.74 10^3/uL (4.4-10.8)
[2024-08-29 06:54] LABS: ALT 17 U/L (16-63); AST 12 U/L (15-37); Albumin 2.8 g/dL (3.4-5.0); Alkaline Phosphatase 76 U/L (46-116); Anion Gap 6.2 mmol/L (3-11); BUN 13 mg/dL (7-18); Bilirubin, Total 0.67 mg/dL (0.2-1.0); CO2 27.8 mmol/L (21.0-32.0); CREATININE 1.2 mg/dL (0.70-1.30); Calcium 8.9 mg/dL (8.5-10.1); Chloride 108 mmol/L (98-107); Estimated GFR 62.67 (mL/min/1.73m2); Glucose 108 mg/dL (74-106); Magnesium 2.1 mg/dL (1.8-2.4); Potassium 4.3 mmol/L (3.5-5.1); Sodium 142 mmol/L (136-145)
[2024-08-29 07:30] VITALS: BP 145/78; PULSE 59; RESP 16; TEMP 35.9; O2SAT 96
[2024-08-29] MEDS: Cyanocobalamin 100 MCG TABLET 1000 MCG PO (08:20)
[2024-08-29] MEDS: Lactobacillus Acidophilus CAP 1 CAP PO ×2 (08:21→13:56)
[2024-08-29] MEDS: levoFLOXacin 500 MG TAB PO (08:21)
[2024-08-29] MEDS: Normal Saline Flush 10 ML SYR IVP (08:24)
--- NOTE | 2024-08-29 08:49 | PDOC.CMIN ---
Date of service: 08/29/24 Time of Service: 08:49 Care Management Initial Assmt Initial Assessment Reason for Hospitalization: Vasovagal episode Functional Status/Living Situation Patient Presentation: Naren was lying in bed with the HOB evaluated when CM met with him. He is awake and visiting with his Jody and Daughter Nancy. Naren and his family were interested in the details of his code blue, specifically if he had chest compressions and if he during the event? CM spoke with Urology RN and provided patient with documentation that was available about the event which indicates that he did have chest compressions and at one point he did not have a pulse. Town of Residence: [place] Resides with: Spouse ( Jody) Significant Other/Family: Local Natural Supports: Daughter Nancy Employment Status: Retired Instrumental Activities of Daily Living (ADLs): Independent Medications Medication Management: No Issues/Barriers identified Physical Functioning/Mobility Assistive Device: None Advance Directives Advance Directives: Do you have an Advance Directive: Y 05/09/21 09:37 AD On File at [facility]: N 05/09/21 09:37 Date Asked 08/28/24 08/28/24 11:57 AD Date Reviewed COLST On File at [facility] No 08/28/24 17:07 COLST Date Scanned Code Status Resuscitation Status Full Code Portal Pt does not currently have a portal and education provided: Yes Insurance Coverage/Financial Issues Insurance: BC/BS of [place] Medicare Financial Issues: None Care Team Visit Care Team Role Provider Type Sheila Hilliard DO Primary Care Provider OSTEOPATHIC DOCTOR Dominick Werner MD Other Providers [facility] STAFF PHYSICIAN Nitza Marcus MD Emergency Provider [facility] STAFF PHYSICIAN Adiel Diego Admit Provider NON-[facility] STAFF PHYSICIAN Attending Provider Discharge Potential Discharge Needs: PCP F/U Appt Anticipated Barriers to Discharge: Medical Status Patient/Family Education Needs: Review discharge instructions, discuss Ask Me Three Transportation: Private vehicle Plan: Discharge home with new [facility] services, if recommended. PT consult is pending. Follow up with primary care, specialty clinic(s) and discharge plan of care as instructed. Transportation will be provided by family. CM will follow. PFSH All Active Problems (Updated 08/29/24 @ 15:13 by Samantha Munoz NP) Pancytopenia (Acute) Syncope (Chronic) Urinary retention (Acute) CKD (chronic kidney disease) (Chronic) Orthostasis (Acute) Orthostatic dizziness (Acute) Vasovagal episode (Acute) Bradycardia (Acute) Acute UTI (Acute) Gross hematuria (Acute) Esophageal stricture (Acute 12/07/17) q 3-4 month dilation w/ Dr. Greene, but Urol Rx may be helping maintain elasticity? stretch? Biopsies taken. Stricuture in second part of duodenum,56 cm from the teeth. Stricture in the upper esophagus,18cm from the teeth. endoscopy report date 12/07/17. Pathology shows peptic duodenitis, negative H. Pylori EGD Dr. Greene 11/04/21 Sinoatrial node dysfunction (Chronic 07/05/12) coco 42 at esoph dilatatiion, not vagal per Dr Greene, still coco prior to repeat 07/26/12; holter min 38-104; GRACIEMAN 08/2012: OBSERVE Elevated serum creatinine (Acute 07/2018) 1.37 with elevated BUN and h/o poor hydration. 1.4 02/2019, monitor and recomm hydration. Reviewed NSAID, ABx use (min). 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 Hypoglycemia after GI (gastrointestinal) surgery (Chronic) Testing required for hypogly episodes Spontaneous hypoglycemia (Acute 05/29/09) consult endocrine [facility] 2008 BPH NOS w ur obs/LUTS (Chronic) Low libido (Acute) [] ] testosterone? Vit D? (Wellbutrin helped with interest) Chronic daily headache (Chronic 03/23/15) Dull, improved flares since Chiro/Acupuncture care.. Chronic migraine without aura (Acute) 04/16/19 Dr Ortega, [facility] Neurology- Aimovig started. Chronic pain disorder (Chronic) Contract, UDS, BH Orders 10/25/18. Medical History Urinary hesitancy Abnormal prostate exam Hematospermia Phimosis Seborrheic keratosis Basal cell carcinoma (BCC) Punch Bx shows BASAL CELL CARCINOMA.. Left Muslim 02/2022 Bradycardia Finger lesion left middle finger, PIP. Healing well, but concerned about tendon. History of gout Toe pain, possible GOUT per pdiatry (no Tx,Rx), 09/04/21. Probable 1x no proph Tx atthis time. UA slighlty high. COVID-19 vaccine series completed per card: Moderna, 01/21, 02/18/21. 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 (2cm- which based on MRI characteristics strongly suggestive of a benign,lipid rich adenoma. (David Shields, DO,MS). FU 08/2019 CT (w/contrast) shows stable 2cm adenoma, Scan Q12mos [ ] .. Mgr NOS wo ntrc w st mgr Daily Headache. 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 Greene, Esoph Dilation nearly q 3 mos Exercise induced bronchospasm (01/30/12) INTERMITTENT, EXERCISE OR COLD INDUCED; NL PF 05/22/08 3.8 FEV1, NO RESPONSE; better after air shrimp cleaner; nl FEV1 3.07 on 01/29/14 Esophageal reflux (01/30/12) Dysphagia, unspecified (11/19/94) RECURRENT DILATATIONS; (AUDRA -->SAMUELZ 06/14/12 H PYLORI NEG; dilated 07/26/12 [place]; multiple re-does; currently q 3 mo (09/2016) Chronic gastritis (09/29/14) Mild Benign neoplasm of colon (11/19/03) ADENOMA IN 2003 SO rpt Q 5YR, NEG IN 2007 SEVEN; 1 adenoma 01/2013 J[place]. 08/12/18 colonoscopy (Dr Greene) Allergic rhinitis (01/30/12) Adjustment disorder, unspecified (10/13/16) Adenomatous colon polyp (11/19/03) ADENOMA IN 2003 SO rpt Q 5YR, NEG IN 2007 SEVEN; 1 adenoma 01/2013 [place] Scalp lesion Seemed 2' trauma, but non-healing .. Punch Bx shows BASAL CELL CARCINOMA Vitreous degeneration Per 12/22/21 [place] note Puckering of macula, bilateral Per 12/22/21 [place] note COVID-19 end of January,, tolerated Paxlovid Surgical History History of esophagogastroduodenoscopy (EGD) (~06/13/24) w/ Dilation, Dr. Greene, unchanged per note.HE History of esophagogastroduodenoscopy (EGD) (~11/03/22) [facility]-04/20/23-Dr Greene. w/dilation-no biopsies [facility]-07/27/23-Dr Greene-biopsies normal-cont q3 mos Hx of basal cell carcinoma excision (03/03/22) left sikhism Hx of esophagogastroduodenoscopy 07/07/20 with Dilation done by Dr Greene at [facility] 07/29/21 dilation, wire guided Savory under fluro guidance 11/04/[address] Greene 02/10/24;DR. Greene;[facility] EGD w/ Dilation H/O colonoscopy (08/12/18) Dr Greene Endoscopy (03/17/16) 06/09/16 Dr. Greene; [place] with dilatation 12/04/17 Dr. Greene w/ dilatation Endoscopy (06/18/15) 06/09/16 Dr. Anna Diaz with dilatation 12/04/17 Dr. Greene w/ dilatation Endoscopy (09/11/14) 06/09/16 Dr. Anna Diaz with dilatation 12/04/17 Dr. Greene w/ dilatation EGD w/ Dilatation (08/24/17) repeated EGD w/ dilatation Dr. Greene EGD w/ Dilatation (06/08/17) repeated EGD w/ dilatation Dr. Greene EGD w/ Dilatation (03/09/17) repeated EGD w/ dilatation Dr. Greene EGD w/ Dilatation (12/08/16) repeated EGD w/ dilatation Dr. Greene EGD - IV Sedation (12/24/15) Kush Greene Extraction of cataract (01/12/15) Nuclear/cortical, left eye, symptomatic ; R eye Dr. Nelson Sanchez Extraction of cataract (12/29/14) Nuclear/cortical, left eye, symptomatic ; R eye Dr. Nelson Sanchez Family History Mother Dementia Father , failure to thrive at age 97. 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 Pets and animals: No Sexually active: Yes Do you think of yourself as: straight/heterosexual Current gender identity: male What is your relationship status?: How often do you talk on the phone with friends or family?: twice per week How often do you get together with friends or relatives?: never Do you belong to any clubs or organized social groups?: no Panel score (0-1 are the most socially isolated patients): 1 What type of physical activity do you participate in: other Details: ADL's only--shoveling, firewood etc, pool, yardwork Fariha/Restoration: Yazidi Special fariha needs: No Seatbelt use: always Drive intox or ride w/intox transit bus driver: No Working smoke detector in home: Yes Carbon monox detector in home: Yes Do you feel safe at home: Yes Do you feel safe in your relationship?: Yes SDOH(Care Management) Screening Will the Patient Participate in the Screening?: Yes Do you worry about having a steady place to live?: no Problems where you live: no known problems In the past 12 months, have you had to go without electric, gas, oil or water in your home?: no Have you or anyone in your house had to go without enough food to eat?: no Has lack of transportation kept you from medical appointments or from doing things needed for daily living?: no Has anyone in your support network made you feel unsafe for any reason?: no
--- NOTE | 2024-08-29 09:11 | W.UROLOGYCON ---
Date of service: 08/29/24 Time of Service: 07:45 Assessment and Plan Assessment and plan (1) Urinary retention: Status: Acute Assessment and plan: We had planned on leaving his catheter in place and restarting his alpha blockers. He was previously on 0.8 mg daily, but we will only start him back on 0.4 mg daily in case any of his syncope was related to hypotension from his alpha blockers. Once he is discharged, we will see him in the office for his next voiding trial. History of Present Illness History of Present Illness Chief Complaint: Urinary retention Narrative: This is a 79-year-old gentleman who developed urinary retention and a urinary tract infection following a cystoscopy in my office. He had a Garnica catheter placed and was started on an antibiotic. He discontinued his alpha-phillip while his catheter was in place. He came to our office yesterday and we removed his catheter. When he was unable to urinate, he came back to the office and we replaced his catheter. He had a syncopal episode and CPR was begun when no pulse was found. He was then transferred down to the emergency department. He was then admitted to the hospital for observation and I been asked to see him. He tells me that he feels much better this morning. His catheter is comfortable. PFSH All Active Problems (Updated 08/30/24 @ 00:01 by FERNANDO ZARAGOZA) Pancytopenia (Acute) Syncope (Chronic) Urinary retention (Acute) CKD (chronic kidney disease) (Chronic) Vasovagal episode (Acute) Acute UTI (Acute) Gross hematuria (Acute) Esophageal stricture (Acute 12/07/17) q 3-4 month dilation w/ Dr. Greene, but Urol Rx may be helping maintain elasticity? stretch? Biopsies taken. Stricuture in second part of duodenum,56 cm from the teeth. Stricture in the upper esophagus,18cm from the teeth. endoscopy report date 12/07/17. Pathology shows peptic duodenitis, negative H. Pylori EGD Dr. Greene 11/04/21 Elevated serum creatinine (Acute 07/2018) 1.37 with elevated BUN and h/o poor hydration. 1.4 02/2019, monitor and recomm hydration. Reviewed NSAID, ABx use (min). 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 Spontaneous hypoglycemia (Acute 05/29/09) consult endocrine [facility] [place] Low libido (Acute) [] ] testosterone? Vit D? (Wellbutrin helped with interest) Chronic daily headache (Chronic 03/23/15) Dull, improved flares since Chiro/Acupuncture care.. Chronic migraine without aura (Acute) 04/16/19 Dr Ortega, [facility] Neurology- Aimovig started. Chronic pain disorder (Chronic) Contract, UDS, Orders 10/25/18. Medical History Urinary hesitancy Abnormal prostate exam Hematospermia Phimosis Seborrheic keratosis Basal cell carcinoma (BCC) Punch Bx shows BASAL CELL CARCINOMA.. Left Mandaeism 02/2022 Bradycardia Finger lesion left middle finger, PIP. Healing well, but concerned about tendon. History of gout Toe pain, possible GOUT per pdiatry (no Tx,Rx), 09/04/21. Probable 1x no proph Tx atthis time. UA slighlty high. COVID-19 vaccine series completed per card: Moderna, 01/21, 02/18/21. Kristina #[id number] Cough (11/01/12) Adenoma of left adrenal gland (~06/2018) [facility] [place] office visit note 11/21/18. (2cm- which based on MRI characteristics strongly suggestive of a benign,lipid rich adenoma. (David Shields, DO,MS). FU 08/2019 CT (w/contrast) shows stable 2cm adenoma, Scan Q12mos [ ] .. Mgr NOS wo ntrc w st mgr Daily Headache. 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 Greene, Esoph Dilation nearly q 3 mos Exercise induced bronchospasm (01/30/12) INTERMITTENT, EXERCISE OR COLD INDUCED; NL PF 05/22/08 3.8 FEV1, NO RESPONSE; better after air equipment or machinery cleaner; nl FEV1 3.07 on 01/29/14 Esophageal reflux (01/30/12) Dysphagia, unspecified (11/19/94) RECURRENT DILATATIONS; (AUDRA -->MAIN 06/14/12 H PYLORI NEG; dilated 07/26/12 [place]; multiple re-does; currently q 3 mo (09/2016) Chronic gastritis (09/29/14) Mild Benign neoplasm of colon (11/19/03) ADENOMA IN 2003 SO rpt Q 5YR, NEG IN 2007 SEVEN; 1 adenoma 01/2013 [place]. 08/12/18 colonoscopy (Dr Gerene) Allergic rhinitis (01/30/12) Adjustment disorder, unspecified (10/13/16) Adenomatous colon polyp (11/19/03) ADENOMA IN 2003 SO rpt Q 5YR, NEG IN 2007 SEVEN; 1 adenoma 01/2013 [place] Scalp lesion Seemed 2' trauma, but non-healing .. Punch Bx shows BASAL CELL CARCINOMA Vitreous degeneration Per 12/22/21 [place] note Puckering of macula, bilateral Per 12/22/21 [place] note COVID-19 end January,, tolerated Paxlovid Surgical History History of esophagogastroduodenoscopy (EGD) (~06/13/24) w/ Dilation, Dr. Greene, unchanged per note.HE History of esophagogastroduodenoscopy (EGD) (~11/03/22) [facility]-04/20/23-Dr Greene. w/dilation-no biopsies [facility]-07/27/23-Dr Greene-biopsies normal-cont q3 mos Hx of basal cell carcinoma excision (03/03/22) left baptist Hx of esophagogastroduodenoscopy 07/07/20 with Dilation done by Dr Greene at [facility] 07/29/21 dilation, wire guided Savory under fluro guidance 11/04/[address] Greene 02/10/24;DR. Greene;[facility] EGD w/ Dilation H/O colonoscopy (08/12/18) Dr Greene Endoscopy (03/17/16) 06/09/16 Dr. Anna Diaz with dilatation 12/04/17 Dr. Greene w/ dilatation Endoscopy (06/18/15) 06/09/16 Dr. Anna Diaz with dilatation 12/04/17 Dr. Greene w/ dilatation Endoscopy (09/11/14) 06/09/16 Dr. Anna Diaz with dilatation 12/04/17 Dr. Greene w/ dilatation EGD w/ Dilatation (08/24/17) repeated EGD w/ dilatation Dr. Greene EGD w/ Dilatation (06/08/17) repeated EGD w/ dilatation Dr. Greene EGD w/ Dilatation (03/09/17) repeated EGD w/ dilatation Dr. Greene EGD w/ Dilatation (12/08/16) repeated EGD w/ dilatation Dr. Greene EGD - IV Sedation (12/24/15) Kush Greene Extraction of cataract (01/12/15) Nuclear/cortical, left eye, symptomatic ; R eye Dr. Nelson Sanchez Extraction of cataract (12/29/14) Nuclear/cortical, left eye, symptomatic ; R eye Dr. Nelson Sanchez Family History Mother Dementia Father , failure to thrive at age 97. Essential hypertension Dementia Asthma Brother Heart disease Social History Smoking/Tobacco Use Status: Former Tobacco Use Tobacco: How many years used: 5 Smoking risk assessment performed?: Yes Alcohol Intake: never Drug use: Never Substance use type: does not use Adopted: No Caregiver/Support person: No Foster care: No Household members: spouse Housing: house Number of Children: 3 number of grandchildren: 6 Communication Needs: Hard of Hearing and Corrective Lenses Education Level: high school Do you need help understanding health information?: Never current occupation: retired from [employer] Pets and animals: No Sexually active: Yes Do you think of yourself as: straight/heterosexual Current gender identity: male What is your relationship status?: How often do you talk on the phone with friends or family?: twice per week How often do you get together with friends or relatives?: never Do you belong to any clubs or organized social groups?: no Panel score (0-1 are the most socially isolated patients): 1 What type of physical activity do you participate in: other Details: ADL's only--shoveling, firewood etc, pool, yardwork Fariha/Jew: Hoahaoism Special fariha needs: No Seatbelt use: always Drive intox or ride w/intox class c driver: No Working smoke detector in home: Yes Carbon monox detector in home: Yes Do you feel safe at home: Yes Do you feel safe in your relationship?: Yes Exam Narrative Exam Narrative: He does not appear septic or toxic His vital signs are documented elsewhere His catheter is draining clear urine He is awake and alert Results Last Vital Signs Temp 35.9 C L 08/29/24 07:30 Pulse 59 L 08/29/24 07:30 Resp 16 08/29/24 07:30 BP 145/78 H 08/29/24 07:30 Pulse Ox 96 08/29/24 07:30 Labs 08/29/24 06:21 08/29/24 06:21 Labs: Laboratory Results - last 24 hr 08/28/24 08/28/24 08/28/24 16:50 17:55 19:57 WBC 7.91 RBC 4.67 Hgb 14.4 Hct 43.3 MCV 93 MCH 30.8 MCHC 33.3 RDW 13.9 Plt Count 174 MPV 9.5 Immature Gran % 0.3 Neutrophils % 63.5 Lymphocytes % 20.9 Monocytes % 10.4 Eosinophils % 4.3 Basophils % 0.6 Nucleated RBC % 0.0 Absolute Neutrophils 5.03 Absolute Lymphocytes 1.65 Absolute Monocytes 0.82 H Absolute Eosinophils 0.34 Absolute Basophils 0.05 Sodium 141 Potassium 4.1 Chloride 107 Carbon Dioxide 24.8 Anion Gap 9.2 BUN 22 H Creatinine 1.5 H Est GFR (CKD-EPI 2020) 47.95 Glucose 139 H Calcium 9.0 Magnesium 2.0 Total Bilirubin 0.54 AST 15 ALT 24 Alkaline Phosphatase 81 Troponin I 7 6 Cancelled Total Protein 6.2 L Albumin 2.9 L Lipase 24 TSH Urine Color Urine Clarity Urine pH Ur Specific [place] Urine Protein Urine Ketones Urine Blood Urine Nitrite Urine Bilirubin Urine Urobilinogen Ur Leukocyte Esterase Urine RBC Urine WBC Ur Epithelial Cells Urine Crystals Urine Bacteria Urine Casts Urine Mucus Ur Culture Indicated? Urine Glucose 08/28/24 08/29/24 08/29/24 23:00 02:08 06:21 WBC 7.74 RBC 4.61 Hgb 13.9 Hct 42.4 MCV 92 MCH 30.2 MCHC 32.8 RDW 13.6 Plt Count 153 MPV 9.2 Immature Gran % Neutrophils % Lymphocytes % Monocytes % Eosinophils % Basophils % Nucleated RBC % Absolute Neutrophils Absolute Lymphocytes Absolute Monocytes Absolute Eosinophils Absolute Basophils Sodium 142 Potassium 4.3 Chloride 108 H Carbon Dioxide 27.8 Anion Gap 6.2 BUN 13 Creatinine 1.2 Est GFR (CKD-EPI 2020) 62.67 Glucose 108 H Calcium 8.9 Magnesium 2.1 Total Bilirubin 0.67 AST 12 L ALT 17 Alkaline Phosphatase 76 Troponin I 7 Total Protein 6.0 L Albumin 2.8 L Lipase TSH 1.70 Urine Color Yellow Urine Clarity Sl Cloudy Urine pH 6.0 Ur Specific [place] 1.015 Urine Protein Negative Urine Ketones Negative Urine Blood Moderate H Urine Nitrite Negative Urine Bilirubin Negative Urine Urobilinogen 1.0 H Ur Leukocyte Esterase Moderate H Urine RBC 5-10 H Urine WBC >50 H Ur Epithelial Cells Rare Urine Crystals Negative Urine Bacteria Few Urine Casts Negative Urine Mucus Negative Ur Culture Indicated? Yes Urine Glucose Negative
[2024-08-29 10:57] VITALS: BP 137/78; BP 141/78; BP 160/68; PULSE 54; PULSE 63; PULSE 72
--- NOTE | 2024-08-29 14:30 | IN_ITS ---
PT Notes Visit Reasons: Vasovagal syncope with orthostasis, BPH/LUTS, [facility] Inpatient Initial Evaluation Date: 08/29/2024 Referring Doctor: Samantha Munoz NP PT Orders: PT CONSULT: Eval/treat Precautions: Fall. Standard. Activity as tolerated. Patient Profile/Admitting Diagnosis: Patient is a 79-year-old male admitted with diagnoses of vasovagal epsiode, orthostasis, and hypoglycemia with referral for PT for safety consult for discharge. PMHX: All Active Problems (Updated 08/29/24 @ 05:51 by Adiel Diego) CKD (chronic kidney disease) (Chronic) Orthostasis (Acute) Orthostatic dizziness (Acute) Vasovagal episode (Acute) Bradycardia (Acute) Acute UTI (Acute) Gross hematuria (Acute) Esophageal stricture (Acute 12/07/17) q 3-4 month dilation w/ Dr. Greene, but Urol Rx may be helping maintain elasticity? stretch? Biopsies taken. Stricuture in second part of duodenum,56 cm from the teeth. Stricture in the upper esophagus,18cm from the teeth. endoscopy report date 12/07/17. Pathology shows peptic duodenitis, negative H. Pylori EGD Dr. Greene 11/04/21 Sinoatrial node dysfunction (Chronic 07/05/12) coco 42 at esoph dilatatiion, not vagal per Dr Greene, still coco prior to repeat 07/26/12; holter min 38-104; DEMETRIO 08/2012: OBSERVE Elevated serum creatinine (Acute 07/2018) 1.37 with elevated BUN and h/o poor hydration. 1.4 02/2019, monitor and recomm hydration. Reviewed NSAID, ABx use (min). Megaloblastic anemia due to vitamin B12 deficiency (Acute) LEVEL 173 (NL>250) IN 2004, SELF RX WITH INJECTIONS MONTHLY; following gastric surgery for ulcer; chg to PO rx 02/2015 Slow respiration (Acute) Episodes noticed by ; thought to be assoc w/ hypoglycemia Postprandial hypoglycemia (Acute) seems 2' high carb load (review glycemic load/index/other foods); resolves w/ PB 1-2 H afterwards. Hypoglycemia after GI (gastrointestinal) surgery (Chronic) Testing required for hypogly episodes Spontaneous hypoglycemia (Acute 05/29/09) consult endocrine [facility] [place] BPH NOS w ur obs/LUTS (Chronic) Low libido (Acute) [] ] testosterone? Vit D? (Wellbutrin helped with interest) Chronic daily headache (Chronic 03/23/15) Dull, improved flares since Chiro/Acupuncture care.. Chronic migraine without aura (Acute) 04/16/19 Dr Ortega, [facility] [place]rology- Aimov[facility] started. Chronic pain disorder (Chronic) Contract, UDS, BH Orders 10/25/18. Medical History Urinary hesitancy Abnormal prostate exam Hematospermia Phimosis Seborrheic keratosis Basal cell carcinoma (BCC) Punch Bx shows BASAL CELL CARCINOMA.. Left Gnosticism 02/2022 Bradycardia Finger lesion left middle finger, PIP. Healing well, but concerned about tendon. History of gout Toe pain, possible GOUT per pdiatry (no Tx,Rx), 09/04/21. Probable 1x no proph Tx atthis time. UA slighlty high. COVID-19 vaccine series completed per card: Moderna, 01/21, 02/18/21. Kristina #[id number] Cough (11/01/12) Adenoma of left adrenal gland (~06/2018) [facility] [place] [facility]ocrinology office visit note 11/21/18. (2cm- which based on MRI characteristics strongly suggestive of a benign,lipid rich adenoma. (David Shields DO,MS). FU 2018 CT (w/contrast) shows stable 2cm adenoma, Scan Q12mos [ ] ..Mgr NOS wo ntrc w st mgr Daily Headache. 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 08/12/18 colonoscopy (Dr Greene) Allergic rhinitis (01/30/12) Adjustment disorder, unspecified (10/13/16) Adenomatous colon polyp (11/19/03) ADENOMA IN 2003 SO rpt Q 5YR, NEG IN 2007 SEVEN; 1 adenoma 01/2013 Main Scalp lesion Seemed 2' trauma, but non-healing .. Punch Bx shows BASAL CELL CARCINOMA Vitreous degeneration Per 12/22/21 [place] note Puckering of macula, bilateral Per 12/22/21 [place] note COVID-19 end of January,, tolerated Paxlovid Surgical History History of esophagogastroduodenoscopy (EGD) (~06/13/24) w/ Dilation, Dr. Greene, unchanged per note.HEHistory of esophagogastroduodenoscopy (EGD) (~11/03/22) [facility]-04/20/23-Dr Greene. w/dilation-no biopsies [facility]-07/27/23-Dr Greene-biopsies normal-cont q3 mos Hx of basal cell carcinoma excision (03/03/22) left denominational Hx of esophagogastroduodenoscopy 07/07/20 with Dilation done by Dr Greene at [facility] 07/29/21 dilation, wire guided Savory under fluro guidance 11/04/[address] Greene 02/10/24;DR. Greene;[facility] EGD w/ Dilation H/O colonoscopy (08/12/18) Dr Greene Endoscopy (03/17/16) 06/09/16 Dr. Greene; Emily with dilatation 12/04/17 Dr. Greene w/ dilatation Endoscopy (06/18/15) 06/09/16 Dr. Greene; [place] with dilatation 12/04/17 Dr. Greene w/ dilatation Endoscopy (09/11/14) 06/09/16 Dr. Greene; [place] with dilatation 12/04/17 Dr. Greene w/ dilatation EGD w/ Dilatation (08/24/17) repeated EGD w/ dilatation Dr. Greene EGD w/ Dilatation (06/08/17) repeated EGD w/ dilatation Dr. Greene EGD w/ Dilatation (03/09/17) repeated EGD w/ dilatation Dr. Greene EGD w/ Dilatation (12/08/16) repeated EGD w/ dilatation Dr. Greene EGD - IV Sedation (12/24/15) Kush Greene Extraction of cataract (01/12/15) Nuclear/cortical, left eye, symptomatic ; R eye Dr. Nelson Sanchez Extraction of cataract (12/29/14) Nuclear/cortical, left eye, symptomatic ; R eye Dr. Nelson Sanchez Social History/Home Situation: Lives with in a priavte home with three steps to enter. Independent with all aspects of ADLs without an assistive device prior to admission. 3 kids live close by and help out as needed. Equipment Owned/DME: None Subjective: I feel good and I am ready to go home. Denied headache, chest pain, and lightheadedness throughout session. Objective: General Observation: Mental Status: Alert and oriented as to person, place, time, and purpose. Able to pay attention, focus, and respond appropriately. Pain: None reported Vital Signs: Clossely monitored by nursing staff ROM: Right Upper Extremity: Shoulder Flexion WFL. Shoulder abduction WFL. Elbow flexion WFL. Wrist flexion WFL. Functional opening and closing of hand WFL. Left Upper Extremity: Shoulder Flexion WFL. Shoulder abduction WFL. Elbow flexion WFL. Wrist flexion WFL. Functional opening and closing of hand WFL. Right Lower Extremity: Hip flexion WFL. Hip abduction WFL. Knee flexion WFL. Ankle dorsiflexion WFL. Ankle plantarflexion WFL. Left Lower Extremity: Hip flexion WFL. Hip abduction WFL. Knee flexion WFL. Ankle dorsiflexion WFL. Ankle plantarflexion WFL. Strength: Right Upper Extremity: Shoulder flexors 5/5. Shoulder abductors 5/5. Elbow flexors 5/5. Elbow extensors 5/5. Business Consult strong. Left Upper Extremity: Shoulder flexors 5/5. Shoulder abductors 5/5. Elbow flexors 5/5. Elbow extensors 5/5. Business Consult strong. Right Lower Extremity: Hip flexors 4/5. Hip abductors 4/5. Knee flexors 5/5. Knee extensors 5/5. Ankle dorsiflexors 5/5. Ankle plantarflexors 5/5. Left Lower Extremity: Hip flexors 4/5. Hip abductors 4/5. Knee flexors 5/5. Knee extensors 5/5. Ankle dorsiflexors 5/5. Ankle plantarflexors 5/5. Bed Mobility/Transfers: All bed mobility and transfers are independent without an assistive device Gait: 500 feet independent without an assistive device. Balance: Static Sitting: Normal Dynamic Sitting: Normal Static Standing: Normal Dynamic Standing: Good Special Tests: Mobility Limitations Standardized Measure [facility] AM-PAC 6 clicks Basic Mobility Inpatient Short Form: Raw Score: 100 CMS Score: 0% deficit 30-second chair rise score: 12 4-Stage Balance Test: Feet toegther 10 seonds Semi-tandem 10 seconds Full tendem 10 seconds One legged stance <10 seconds Informed Consent/Education: Patient was instructed in purpose of PT consult. Assessment: Patient is at baseline mobility evel requiring no assitive device. No skilled services needed at this time. Patient is assessed as a [id number] low complexity based on the following: History: 79-year-old male with past medical history as indicated above Examination: As above Presentation: As above Decision Making: As above Goals: N/A. PT evaluation only. Plan of Care/Treatment Plan: N/A. PT evaluation only. DISCHARGE RECOMMENDATIONS: X Home with no services. Home when medically cleared by hospitlaist. [] Home with services [specify] [] Home with outpatient PT [] [] SNF for continued rehabilitation [] [] Detention Care [] [] SNF versus LTC based on ability to participate and progress [] TREATMENT CODE/TIME: 04940 x 19 minutes for 1 unit (24:30-14:49). Thank you for the opportunity to participate in the care of this patient. Janet Jacobs PT, DPT, CLT [facility] [place], [place]
--- NOTE | 2024-08-29 15:03 | DSE_ITS ---
Date of service: 08/29/24 Time of Service: 13:00 DS: Diagnosis Discharge Diagnosis (1) Urinary retention: Status: Acute Discharge Plan Disposition Patient Disposition: Home Condition: Improving Discharge Details Reason For Visit: Vasovagal syncope with orthostasis, BPH/LUTS, Amandeep Admit Date/Time: 08/28/24 20:04 Admit Provider: Adiel Diego Attending Provider: Adiel Diego Primary Care Provider: Sheila Hilliard Hospital Course Hospital Course: A 78-year-old male presented with a recent history of urinary retention and recurrent urinary tract infections. He had undergone a cystoscopy on August 05, 2024, to evaluate hematuria, which was followed by complications including urinary retention requiring an indwelling Garnica catheter. To manage his UTI, he was prescribed a 28-day course of Levaquin, with 4 days remaining at the time of admission. On the day of admission, the patient was being seen in the urology clinic for acute urinary retention and had to return to Dr. Werner?s office for reinsertion. During this procedure, he suffered a syncopal episode characterized by loss of pulse and severe bradycardia. This event resulted in a CODE BLUE being called, during which he received chest compressions before being transferred to the emergency department for further evaluation. In the ED, the patient?s Garnica catheter was draining well, and it was assessed that his syncopal episode was likely a provoked vagal response due to his chronic bradycardia. Throughout his stay, the patient exhibited mild dizziness and orthostatic changes, prompting overnight observation on telemetry. Despite his symptoms, he remained hemodynamically stable, with negative troponins and no acute EKG changes. Before discharge, the patient?s condition was reviewed comprehensively. He was advised to continue Levaquin to complete the prescribed course, while Flomax was held for reevaluation. Plans were made for follow-up appointments with Dr. Werner to assess his urinary symptoms and medication management. The patient and his family were educated on the importance of monitoring for any concerning symptoms, including dizziness or changes in urinary output. They were provided with clear instructions regarding when to seek medical attention. With a stable condition, the patient was deemed ready for discharge, and arrangements were made for outpatient follow-up. Home Meds and New Rx's Prescriptions: Continued albuterol sulfate [ProAir HFA] 90 mcg/actuation HFA aerosol inhaler 2 puff Inhalation Q6H PRN Qty: 1 1RF Rx Instructions: Q4h as needed for wheezing loratadine [Claritin] 10 mg tablet 10 mg PO DAILY PRN (Reason: allergy symptoms) Qty: 90 3RF Rx Instructions: allergic rhinitis, Daily for the summer rizatriptan 10 mg tablet 10 mg PO .COMPLEX PRN (Reason: migraine headache) Qty: 20 2RF Rx Instructions: 10 mg PO ; PRN; hydrocodone-acetaminophen 5-325 mg tablet 0.5 tab PO Q4H MDD 5mg PRN (Reason: severe headache pain) Qty: 30 0RF Rx Instructions: Q6 weeks CGM 1 ea subcut (via wearable injectr) DAILY Qty: 1 0RF tamsulosin 0.4 mg capsule 0.8 mg PO QHS Qty: 180 4RF nystatin-triamcinolone 100,000-0.1 unit/gram-% ointment 1 applic topical BID Qty: 15 0RF Rx Instructions: apply thin layer twice a day ketoconazole 2 % cream 1 applic topical BID Qty: 60 3RF cyanocobalamin (vitamin B-12) [Vitamin B-12] 1,000 MCG tablet 1,000 mcg PO DAILY Qty: 100 Rx Instructions: daily Vitamin B12 replacement, s/p gastric surgery (DME) Blood Glucose Test Strip See Rx Instructions .ROUTE .MEDSUPPLY Qty: 100 3RF Rx Instructions: As directed to check blood glucose daily. No insulin. Dispense covered brand. dextrose 40 % gel 10 g PO Q15M PRN (Reason: hypoglycemia) Qty: 112.5 1RF Rx Instructions: Trial for urgent hypoglycemia: levofloxacin 500 mg tablet 500 mg PO DAILY Qty: 28 0RF Discharge Instructions Instructions: Benign prostatic hyperplasia (enlarged prostate), How to Care for Your Garnica Catheter Additional Instructions: Follow up with Dr Werner as planned Recommend having a CBC checked next week to check platelets. (ordered) Stand Alone Forms: Nursing Discharge Form Referrals: Dominick Werner MD [ [facility] STAFF PHYSICIAN] - 09/02/24 7:45 am (First appointment at 7:45am and plan to return at 15:45.) Sheila Hilliard DO [Primary Care Provider] - 09/10/24 11:00 am () Activity:: Activity as Tolerated Equipment/Supplies:: Indwelling urinary cathet Diet:: As Tolerated Discharge Orders Discharge Orders: Discharge Order (Routine); Ordered 08/29/24 Ordered By: Samantha Munoz Other Ambulatory Orders: Complete Blood Count w/Diff (Routine) Timeframe: 1 Day Facility: [facility] - Location: Laboratory Outpatient - [facility] Ordered By: Samantha Munoz Discharge Data Discharge Date/Time-TO BE ENTERED AT DEPARTURE: 08/29/24 16:30 DS: Summary Time Spent with Patient providing and/or coordinating discharge services: Greater than 30 minutes Status at Discharge Functional status at discharge: independent ambulation Overall status at discharge: patient is back to baseline Mental Status: mental status grossly normal Speech and Movement: speech and movement normal Mood: congruent mood Affect: normal affect Quality:SDOH Health Related Social Needs: No Data to Display Exam Psych Mental Status: mental status grossly normal Speech and Movement: speech and movement normal Mood: congruent mood Affect: normal affect DS: Data Vitals/I&O Vitals and I&O: Vital Signs Temperature 35.9 C L 08/29/24 07:30 Temperature Source Temporal Artery Scan 08/29/24 07:30 Pulse 54 L 08/29/24 10:57 Pulse Rhythm Irregular 08/28/24 21:45 Pulse 51 L 08/28/24 21:20 Respiratory Rate 16 08/29/24 07:30 Respiratory Effort Normal, Non-Labored 08/28/24 21:45 Respiratory Depth Normal 08/28/24 21:45 Respiratory Pattern Normal 08/28/24 21:45 Blood Pressure 160/68 H 08/29/24 10:57 Blood Pressure Mean 96 08/28/24 21:16 Blood Pressure Position Supine 08/28/24 17:02 Pulse Oximetry 96 08/29/24 07:30 Oxygen Delivery Method Room Air 08/29/24 07:30 Oxygen Flow Rate 0 08/29/24 07:30 Pain Level 0 08/29/24 07:30 Comment RN notified of vitals 08/29/24 07:30 Intake & Output 08/28/24 08/29/24 08/29/24 23:59 11:59 23:59 Intake Total 500 / 500 760 / 760 Output Total 325 / 325 1870 / 2120 250 / 2120 Balance 175 / 175 -1110 / -1360 -250 / -1360 Weight 94.8 kg Intake: IV 500 / 500 Oral 750 / 750 Output: Urine 325 / 325 1870 / 2120 250 / 2120 Other: Urine Color Yellow Pale Yellow Urine Appearance Sediment Clear Clear Urine Odor None Voiding Methods Indwelling Catheter Data Completed and Pending Labs on day of discharge: Labs from last 24 hours 08/29/24 08/29/24 08/28/24 06:21 02:08 23:00 WBC 7.74 RBC 4.61 Hgb 13.9 Hct 42.4 MCV 92 MCH 30.2 MCHC 32.8 RDW 13.6 Plt Count 153 MPV 9.2 Immature Gran % Neutrophils % Lymphocytes % Monocytes % Eosinophils % Basophils % Nucleated RBC % Absolute Neutrophils Absolute Lymphocytes Absolute Monocytes Absolute Eosinophils Absolute Basophils Sodium 142 Potassium 4.3 Chloride 108 H Carbon Dioxide 27.8 Anion Gap 6.2 BUN 13 Creatinine 1.2 Est GFR (CKD-EPI 2020) 62.67 Glucose 108 H Calcium 8.9 Magnesium 2.1 Total Bilirubin 0.67 AST 12 L ALT 17 Alkaline Phosphatase 76 Troponin I 7 Total Protein 6.0 L Albumin 2.8 L Lipase TSH 1.70 Urine Color Yellow Urine Clarity Sl Cloudy Urine pH 6.0 Ur Specific Ramer 1.015 Urine Protein Negative Urine Ketones Negative Urine Blood Moderate H Urine Nitrite Negative Urine Bilirubin Negative Urine Urobilinogen 1.0 H Ur Leukocyte Esterase Moderate H Urine RBC 5-10 H Urine WBC >50 H Ur Epithelial Cells Rare Urine Crystals Negative Urine Bacteria Few Urine Casts Negative Urine Mucus Negative Ur Culture Indicated? Yes Urine Glucose Negative 08/28/24 08/28/24 08/28/24 19:57 17:55 16:50 WBC 7.91 RBC 4.67 Hgb 14.4 Hct 43.3 MCV 93 MCH 30.8 MCHC 33.3 RDW 13.9 Plt Count 174 MPV 9.5 Immature Gran % 0.3 Neutrophils % 63.5 Lymphocytes % 20.9 Monocytes % 10.4 Eosinophils % 4.3 Basophils % 0.6 Nucleated RBC % 0.0 Absolute Neutrophils 5.03 Absolute Lymphocytes 1.65 Absolute Monocytes 0.82 H Absolute Eosinophils 0.34 Absolute Basophils 0.05 Sodium 141 Potassium 4.1 Chloride 107 Carbon Dioxide 24.8 Anion Gap 9.2 BUN 22 H Creatinine 1.5 H Est GFR (CKD-EPI 2020) 47.95 Glucose 139 H Calcium 9.0 Magnesium 2.0 Total Bilirubin 0.54 AST 15 ALT 24 Alkaline Phosphatase 81 Troponin I Cancelled 6 7 Total Protein 6.2 L Albumin 2.9 L Lipase 24 TSH Urine Color Urine Clarity Urine pH Ur Specific Ramer Urine Protein Urine Ketones Urine Blood Urine Nitrite Urine Bilirubin Urine Urobilinogen Ur Leukocyte Esterase Urine RBC Urine WBC Ur Epithelial Cells Urine Crystals Urine Bacteria Urine Casts Urine Mucus Ur Culture Indicated? Urine Glucose 08/29/24 02:08 Urine - Reflex from Urine Culture - Pending Preliminary micro results at discharge 08/29/24 02:08 Urine Culture - Pending Urine - Reflex from [facility] All Active Problems (Updated 08/29/24 @ 15:13 by Samantha Munoz NP) Pancytopenia (Acute) Syncope (Chronic) Urinary retention (Acute) CKD (chronic kidney disease) (Chronic) Orthostasis (Acute) Orthostatic dizziness (Acute) Vasovagal episode (Acute) Bradycardia (Acute) Acute UTI (Acute) Gross hematuria (Acute) Esophageal stricture (Acute 12/07/17) q 3-4 month dilation w/ Dr. Greene, but Urol Rx may be helping maintain elasticity? stretch? Biopsies taken. Stricuture in second part of duodenum,56 cm from the teeth. Stricture in the upper esophagus,18cm from the teeth. endoscopy report date 12/07/17. Pathology shows peptic duodenitis, negative H. Pylori EGD Dr. Greene 11/04/21 Sinoatrial node dysfunction (Chronic 07/05/12) coco 42 at esoph dilatatiion, not vagal per Dr Greene, still coco prior to repeat 07/26/12; holter min 38-104; GRACIEMAN 08/2012: OBSERVE Elevated serum creatinine (Acute 07/2018) 1.37 with elevated BUN and h/o poor hydration. 1.4 02/2019, monitor and recomm hydration. Reviewed NSAID, ABx use (min). 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 Hypoglycemia after GI (gastrointestinal) surgery (Chronic) Testing required for hypogly episodes Spontaneous hypoglycemia (Acute 05/29/09) consult endocrine [facility] 2008 BPH NOS w ur obs/LUTS (Chronic) Low libido (Acute) [] ] testosterone? Vit D? (Wellbutrin helped with interest) Chronic daily headache (Chronic 03/23/15) Dull, improved flares since Chiro/Acupuncture care.. Chronic migraine without aura (Acute) 04/16/19 Dr Ortega, [facility] Neurology- Aimovig started. Chronic pain disorder (Chronic) Contract, UDS, BH Orders 10/25/18. Medical History Urinary hesitancy Abnormal prostate exam Hematospermia Phimosis Seborrheic keratosis Basal cell carcinoma (BCC) Punch Bx shows BASAL CELL CARCINOMA.. Left Garnett 02/2022 Bradycardia Finger lesion left middle finger, PIP. Healing well, but concerned about tendon. History of gout Toe pain, possible GOUT per pdiatry (no Tx,Rx), 09/04/21. Probable 1x no proph Tx atthis time. UA slighlty high. COVID-19 vaccine series completed per card: Moderna, 01/21, 02/18/21. Kristina #[id number] Cough (11/01/12) Adenoma of left adrenal gland (~06/2018) [facility] endocrinology office visit note 11/21/18. (2cm- which based on MRI characteristics strongly suggestive of a benign,lipid rich adenoma. (David Shields, DO,MS). FU 08/2019 CT (w/contrast) shows stable 2cm adenoma, Scan Q12mos [ ] .. Mgr NOS wo ntrc w st mgr Daily Headache. 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 Greene, Esoph Dilation nearly q 3 mos Exercise induced bronchospasm (01/30/12) INTERMITTENT, EXERCISE OR COLD INDUCED; NL PF 05/22/08 3.8 FEV1, NO RESPONSE; better after air dry cleaner; nl FEV1 3.07 on 01/29/14 Esophageal reflux (01/30/12) Dysphagia, unspecified (11/19/94) RECURRENT DILATATIONS; (AUDRA -->JC 06/14/12 H PYLORI NEG; dilated 07/26/12 Emily; multiple re-does; currently q 3 mo (09/2016) Chronic gastritis (09/29/14) Mild Benign neoplasm of colon (11/19/03) ADENOMA IN 2003 SO rpt Q 5YR, NEG IN 2007 SEVEN; 1 adenoma 01/2013 Jc. 08/12/18 colonoscopy (Dr Greene) Allergic rhinitis (01/30/12) Adjustment disorder, unspecified (10/13/16) Adenomatous colon polyp (11/19/03) ADENOMA IN 2003 SO rpt Q 5YR, NEG IN 2007 SEVEN; 1 adenoma 01/2013 Jc Scalp lesion Seemed 2' trauma, but non-healing .. Punch Bx shows BASAL CELL CARCINOMA Vitreous degeneration Per 12/22/21 [place]rahmane note Puckering of macula, bilateral Per 12/22/21 [place] note COVID-19 end of January,, tolerated Paxlovid Surgical History History of esophagogastroduodenoscopy (EGD) (~06/13/24) w/ Dilation, Dr. Greene, unchanged per note.HE History of esophagogastroduodenoscopy (EGD) (~11/03/22) [facility]-04/20/23-Dr Greene. w/dilation-no biopsies [facility]-07/27/23-Dr Greene-biopsies normal-cont q3 mos Hx of basal cell carcinoma excision (03/03/22) left denominational Hx of esophagogastroduodenoscopy 07/07/20 with Dilation done by Dr Greene at [facility] 07/29/21 dilation, wire guided Savory under fluro guidance 11/04/[address] Greene 02/10/24;DR. Greene;[facility] EGD w/ Dilation H/O colonoscopy (08/12/18) Dr Greene Endoscopy (03/17/16) 06/09/16 Dr. Greene; Emily with dilatation 12/04/17 Dr. Greene w/ dilatation Endoscopy (06/18/15) 06/09/16 Dr. Anna Diaz with dilatation 12/04/17 Dr. Greene w/ dilatation Endoscopy (09/11/14) 06/09/16 Dr. Anna Diaz with dilatation 12/04/17 Dr. Greene w/ dilatation EGD w/ Dilatation (08/24/17) repeated EGD w/ dilatation Dr. Greene EGD w/ Dilatation (06/08/17) repeated EGD w/ dilatation Dr. Greene EGD w/ Dilatation (03/09/17) repeated EGD w/ dilatation Dr. Greene EGD w/ Dilatation (12/08/16) repeated EGD w/ dilatation Dr. Greene EGАлександр - IV Sedation (12/24/15) Kush Greene Extraction of cataract (01/12/15) Nuclear/cortical, left eye, symptomatic ; R eye Dr. Nelson Sanchez Extraction of cataract (12/29/14) Nuclear/cortical, left eye, symptomatic ; R eye Dr. Nelson Sanchez Family History Mother Dementia Father , failure to thrive at age 97. 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 Pets and animals: No Sexually active: Yes Do you think of yourself as: straight/heterosexual Current gender identity: male What is your relationship status?: How often do you talk on the phone with friends or family?: twice per week How often do you get together with friends or relatives?: never Do you belong to any clubs or organized social groups?: no Panel score (0-1 are the most socially isolated patients): 1 What type of physical activity do you participate in: other Details: ADL's only--shoveling, firewood etc, pool, yardwork Fariha/Taoism: Pentecostalism Special fariha needs: No Seatbelt use: always Drive intox or ride w/intox commercial truck driver: No Working smoke detector in home: Yes Carbon monox detector in home: Yes Do you feel safe at home: Yes Do you feel safe in your relationship?: Yes Time Spent with Patient Time Spent with Patient: 45-69 minutes Time was spent: preparing to see the patient(eg.review tests), ordering medications,tests, procedures, referring, communicating with other health child care associate teacher, indepentently interpreting results, counseling the patient and care coordination
[2024-08-29 15:13] VITALS: BP 156/70; PULSE 67; RESP 15; TEMP 35.8; O2SAT 93
--- NOTE | 2024-08-29 15:16 | PDOC.CMDIS ---
Date of service: 08/29/24 Time of Service: 15:16 LACE Index Scoring Tool Questions: Length of Stay (in days): 1 Was the patient admitted via the E.D.?: Yes Comorbidities: Liver or Renal Disease E.D. Visits: 2 Answers: Total Score: 11 Risk of Readmission: High Risk Care Management Discharge Plan Reason for Hospitalization: Vasovagal syncope Discharge Plan: Naren is discharge home via private vehicle with family. Follow up with primary care and urology as recommended. Patient/Family Education Needs: Review discharge instructions, limitations, medications and plan to follow up with community providers. Discuss ask me three. SDMO Health Related Social Needs: No Data to Display
--- NOTE | 2024-08-30 08:10 | NUR.NOTE ---
Access chart to reconcile EKG orders and EKG's in [facility]. Duplicate order cancelled. Nursing Note:
== END 2024-08-29 16:30 | disposition home or self-care (01) ==
LOC: ER 20:32 → MS 21:41
PROVIDERS: Admitting Provider Family Medicine; Emergency Provider Emergency Medicine; PCP Student in an Organized Health Care Education/Training Program; Visit Provider Family Medicine
DX: I49.5 Sick sinus syndrome (principal); N40.1 Benign prostatic hyperplasia with lower urinary tract symptoms; I95.1 Orthostatic hypotension; N18.31 Chronic kidney disease, stage 3a; D61.818 Other pancytopenia; R33.9 Retention of urine, unspecified; K91.2 Postsurgical malabsorption, not elsewhere classified; R00.1 Bradycardia, unspecified; R31.0 Gross hematuria; K22.2 Esophageal obstruction; D53.1 Other megaloblastic anemias, not elsewhere classified; N13.8 Other obstructive and reflux uropathy; G43.709 Chronic migraine without aura, not intractable, without status migrainosus; E16.1 Other hypoglycemia; N39.0 Urinary tract infection, site not specified
CPT/HCPCS: 00123; 36415; 51702; 80053; 81003; 83690; 85027; 93005; 96361; 96374; 97161; 99215; 99221; 99285; 71045; 81015; 83735; 84443; 84484; 85025; 87086; 93010; 99223; 99239; G0378; J1815; J2405; J3490

== ENCOUNTER 2024-08-28 17:24 | Outpatient (REF) | payer MEDICARE, BC, SELFPAY | END 2024-08-28 17:25 | disposition home or self-care (01) | LOC: LBN 17:24 | PROVIDERS: PCP Student in an Organized Health Care Education/Training Program; Visit Provider Urology | DX: R31.0 Gross hematuria (principal); R82.89 Other abnormal findings on cytological and histological examination of urine | CPT/HCPCS: 87086 ==

== ENCOUNTER → 2024-09-02 08:03 | Outpatient (BNVA) | payer MEDICARE, BC, SELFPAY | PROVIDERS: PCP Student in an Organized Health Care Education/Training Program; Referring Provider Student in an Organized Health Care Education/Training Program; Visit Provider Urology | DX: R33.9 Retention of urine, unspecified (principal) | CPT/HCPCS: 99213 ==

== ENCOUNTER → 2024-09-09 07:50 | Outpatient (BNVA) | payer MEDICARE, BC, SELFPAY | PROVIDERS: PCP Student in an Organized Health Care Education/Training Program; Visit Provider Urology | DX: R33.8 Other retention of urine (principal) | CPT/HCPCS: 51702; 99214 ==

== ENCOUNTER 2024-09-12 01:32 | Outpatient (CLI) | payer MEDICARE, BC, SELFPAY ==
[2024-09-12 11:09] LABS: Abs Immature Grans 0.04 10^3/uL (0.0-0.06); Absolute Basophil Count 0.04 10^3/uL (0.0-0.2); Absolute Eosinophil Count 0.33 10^3/uL (0.0-0.7); Absolute Lymphocyte Count 1.19 10^3/uL (1.2-3.4); Absolute Monocyte Count 0.86 10^3/uL (0.1-0.8); Absolute Neutrophil Count 7.51 10^3/uL (1.2-6.7); Basophils % 0.4 %; Eosinophils % 3.3 %; HCT 46.7 % (40.0-50.0); HGB 15.2 g/dL (13.5-17.5); Immature Grans % 0.4 %; Lymphocytes % 11.9 %; MCH 30.2 pg (27.0-33.0); MCHC 32.5 % (32.0-36.0); MCV 93 fL (80-95); Monocytes % 8.6 %; Neutrophils % 75.4 %; Platelet Count 185 10^3/uL (130-400); RBC 5.03 10^6/uL (4.36-5.78); RDW 13.6 % (11.8-14.1); RDW-SD 46.7 fL; WBC 9.97 10^3/uL (4.4-10.8)
[2024-09-12 11:20] LABS: Anion Gap 5.5 mmol/L (3-11); BUN 19 mg/dL (7-18); CO2 27.5 mmol/L (21.0-32.0); CREATININE 1.4 mg/dL (0.70-1.30); Calcium 9.4 mg/dL (8.5-10.1); Chloride 109 mmol/L (98-107); Estimated GFR 51.77 (mL/min/1.73m2); Glucose 91 mg/dL (74-106); Potassium 4.4 mmol/L (3.5-5.1); Sodium 142 mmol/L (136-145)
== END 2024-09-12 01:33 | disposition home or self-care (01) ==
LOC: LBO 01:33
PROVIDERS: Nurse Practitioner Family; Absent Provider Student in an Organized Health Care Education/Training Program; PCP Student in an Organized Health Care Education/Training Program; Referring Provider Student in an Organized Health Care Education/Training Program; Visit Provider Student in an Organized Health Care Education/Training Program
DX: N18.9 Chronic kidney disease, unspecified (principal); M10.9 Gout, unspecified; Z91.89 Other specified personal risk factors, not elsewhere classified; R77.0 Abnormality of albumin; D61.818 Other pancytopenia
CPT/HCPCS: 36415; 80048; 84550; 85025

== ENCOUNTER 2024-09-22 06:13 | Observation (INO) | payer MEDICARE, BC, SELFPAY ==
[2024-09-22] VITALS (46 sets, daily range): BP systolic 52–148; BP diastolic 27–103; PULSE 52–86; RESP 9–22; TEMP 35.7–36.8; O2SAT 90–98; BMI 31.7
--- NOTE | 2024-09-22 06:15 | ANES.PREOP_ITS ---
General Info Date of Service Date Performed: 09/22/24 Height: 5 ft 8 in Weight: 94.801 kg Body Mass Index (BMI): 31.7 Surgical Procedure: Operation Date: 09/22/24 07:40 Proposed Procedure Side Surgeon p Cysto, Transurethral Resection Prostate Dominick Werner MD Meds Allergies and Home Medications Allergies Allergy/AdvReac Type Severity Reaction Status Date / Time amitriptyline AdvReac Intermediate sedation Verified 09/19/24 10:09 aspirin AdvReac Intermediate h/o ulcer Verified 09/19/24 10:09 disease topiramate (From Topamax) AdvReac Intermediate CANNOT Verified 09/19/24 10:09 SLEEP baclofen AdvReac Mild nausea, Verified 09/19/24 10:09 dizzy, blurred vision Beta-Blockers AdvReac Unknown AVOID to Verified 09/19/24 10:09 (Beta-Adrenergic Bloc Abdi butalbital AdvReac Unknown Habituated Verified 09/19/24 10:09 caffeine AdvReac Unknown migraine Verified 09/19/24 10:09 diltiazem AdvReac Unknown AVOID due Verified 09/19/24 10:09 to Abdi lisinopril AdvReac Unknown cough Verified 09/19/24 10:09 verapamil AdvReac Unknown dizzy Verified 09/19/24 10:09 propofol AdvReac arrythmia Verified 09/19/24 10:09 with high-doses Home Medication ?Medication ?Instructions ?Recorded cyanocobalamin (vitamin B-12) 1,000 mcg PO DAILY #100 tabs 04/07/16 1,000 mcg tablet (Vitamin B-12) blood sugar diagnostic (Blood #100 ea 12/10/21 Glucose Test strips) dextrose 40 % oral gel 10 g PO Q15M PRN hypoglycemia 12/10/21 #112.5 grams albuterol sulfate 90 mcg/actuation 2 puff inhalation Q6H PRN wheeze 04/13/23 aerosol inhaler (ProAir HFA) #1 unit nystatin-triamcinolone 100,000 1 applic topical BID #15 grams 05/04/23 unit/gram-0.1 % topical ointment tamsulosin 0.4 mg capsule 0.8 mg (2 x 0.4 mg) PO QHS #180 01/08/24 caps ketoconazole 2 % topical cream 1 applic topical BID #60 grams 05/13/24 CGM 1 ea subcut (via wearable injectr) 06/27/24 DAILY Continuous Glucose Monitoring #1 ea hydrocodone 5 mg-acetaminophen 325 0.5 tab PO Q4H PRN severe headache 06/27/24 mg tablet pain #30 tabs loratadine 10 mg tablet (Claritin) 10 mg PO DAILY PRN allergy 06/27/24 symptoms #90 tab-caps rizatriptan 10 mg tablet 10 mg PO .COMPLEX PRN migraine 06/27/24 headache #20 tabs trazodone 50 mg tablet 50 mg PO QHS PRN insomnia #20 tabs 09/10/24 Current Visit Medications: Current Medications Generic Name Dose Route Start Last Admin Trade Name Freq PRN Reason Stop Dose Admin Ringer's Solution 1,000 mls @ 80 mls/hr 09/22/24 06:00 IV 09/22/24 23:59 INFUSION ELIJAH Cefazolin Sodium/Dextrose 2 gm in 50 mls @ 100 mls/hr 09/22/24 06:00 Ancef Duplex IVPB 09/22/24 23:59 PREOP ELIJAH Gentamicin Sulfate 120 mg/ 103 mls @ 206 mls/hr 09/22/24 06:00 Sodium Chloride IVPB 09/22/24 23:59 PREOP ELIJAH IV Miscellaneous Supplies 1 each 09/22/24 06:00 Iv Access IV 09/22/24 23:59 DIRECTED ELIJAH Sodium Chloride 0 ml 09/22/24 06:00 Normal Saline Flush 10 Ml Syr IV 09/22/24 23:59 PRN PRN Sodium Chloride 0 ml 09/22/24 06:00 Normal Saline 10 Ml Vial IJ 09/22/24 23:59 DIRECTED PRN Sterile Water 0 ml 09/22/24 06:00 Water,Injection,Sterile 10 Ml Vial IJ 09/22/24 23:59 DIRECTED PRN PFSH Active Problems Active Problems: Problem Status Onset Code Gout attack Acute M10.9 Pancytopenia Acute D61.818 Syncope Chronic R55 Urinary retention Acute R33.9 CKD (chronic kidney disease) Chronic N18.9 Vasovagal episode Acute R55 Acute UTI Acute N39.0 Gross hematuria Acute R31.0 Esophageal stricture Acute 12/07/17 K22.2 Elevated serum creatinine Acute 07/2018 R79.89 Megaloblastic anemia due to vitamin B12 deficiency Acute D53.1 Slow respiration Acute R06.89 Postprandial hypoglycemia Acute E16.1 Spontaneous hypoglycemia Acute 05/29/09 E16.2 Low libido Acute R68.82 Chronic daily headache Chronic 03/23/15 R51 Chronic migraine without aura Acute G43.709 Chronic pain disorder Chronic G89.4 Medical History Medical History Urinary hesitancy Abnormal prostate exam Hematospermia Phimosis Seborrheic keratosis Basal cell carcinoma (BCC) Punch Bx shows BASAL CELL CARCINOMA.. Left Call 02/2022 Bradycardia Finger lesion left middle finger, PIP. Healing well, but concerned about tendon. History of gout Toe pain, possible GOUT per pdiatry (no Tx,Rx), 09/04/21. Probable 1x no proph Tx atthis time. UA slighlty high. COVID-19 vaccine series completed per card: Moderna, 01/21, 02/18/21. Kristina #94 Cough (11/01/12) Adenoma of left adrenal gland (~06/2018) [facility] [place] endocr[facility]ology office visit note 11/21/18. (2cm- which based on MRI characteristics strongly suggestive of a benign,lipid rich adenoma. (David Shields, DO,MS). FU 08/2019 CT (w/contrast) shows stable 2cm adenoma, Scan Q12mos [ ] .. Mgr NOS wo ntrc w st mgr Daily Headache. 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 08/12/18 colonoscopy (Dr Greene) Allergic rhinitis (01/30/12) Adjustment disorder, unspecified (10/13/16) Adenomatous colon polyp (11/19/03) ADENOMA IN 2003 SO rpt Q 5YR, NEG IN 2007 SEVEN; 1 adenoma 01/2013 Main Scalp lesion Seemed 2' trauma, but non-healing .. Punch Bx shows BASAL CELL CARCINOMA Vitreous degeneration Per 12/22/21 [place] note Puckering of macula, bilateral Per 12/22/21 [place] note COVID-19 end of January,, tolerated Paxlovid Surgical History Surgical History History of esophagogastroduodenoscopy (EGD) (~06/13/24) w/ Dilation, Dr. Greene, unchanged per note.HE History of esophagogastroduodenoscopy (EGD) (~11/03/22) [facility]-04/20/23-Dr Greene. w/dilation-no biopsies [facility]-07/27/23-Dr Greene-biopsies normal-cont q3 mos Hx of basal cell carcinoma excision (03/03/22) left taoism Hx of esophagogastroduodenoscopy 07/07/20 with Dilation done by Dr Greene at [facility] 07/29/21 dilation, wire guided Savory under fluro guidance 11/04/[address] Greene 02/10/24;DR. Greene;[facility] EGD w/ Dilation H/O colonoscopy (08/12/18) Dr Greene Endoscopy (03/17/16) 06/09/16 Dr. Greene; Emily with dilatation 12/04/17 Dr. Greene w/ dilatation Endoscopy (06/18/15) 06/09/16 Dr. Greene; Emily with dilatation 12/04/17 Dr. Greene w/ dilatation Endoscopy (09/11/14) 06/09/16 Dr. GreeneMarcos Diaz with dilatation 12/04/17 Dr. Greene w/ dilatation EGD w/ Dilatation (08/24/17) repeated EGD w/ dilatation Dr. Greene EGD w/ Dilatation (06/08/17) repeated EGD w/ dilatation Dr. Greene EGD w/ Dilatation (03/09/17) repeated EGD w/ dilatation Dr. Greene EGD w/ Dilatation (12/08/16) repeated EGD w/ dilatation Dr. Greene EGАлександр - IV Sedation (12/24/15) Kush Main Extraction of cataract (01/12/15) Nuclear/cortical, left eye, symptomatic ; R eye Dr. Nelson Sanchez Extraction of cataract (12/29/14) Nuclear/cortical, left eye, symptomatic ; R eye Dr. Nelson Sanchez Tobacco Smoking/Tobacco Use Status: Former Tobacco Use Passive smoking exposure: Yes Alcohol Alcohol Intake: never Substance Use Substance use: Never Substance use type: does not use Vital Signs and Lab Results Vital Signs Most Recent Vital Signs in EMR: Temp Pulse Resp BP Pulse Ox 36.6 C 63 18 133/80 96 09/22/24 06:18 09/22/24 06:18 09/22/24 06:18 09/22/24 06:18 09/22/24 06:18 Lab Results Blood Type / Crossmatch: No Data to Display Complete Blood Count: White Blood Count 9.97 10^3/uL (4.4-10.8) 09/12/24 10:55 Red Blood Count 5.03 10^6/uL (4.36-5.78) 09/12/24 10:55 Hemoglobin 15.2 g/dL (13.5-17.5) 09/12/24 10:55 Hematocrit 46.7 % (40.0-50.0) 09/12/24 10:55 Platelet Count 185 10^3/uL (130-400) 09/12/24 10:55 Complete Metabolic Panel: Sodium 142 mmol/L (136-145) 09/12/24 10:56 Potassium 4.4 mmol/L (3.5-5.1) 09/12/24 10:56 Chloride 109 mmol/L (98-107) H 09/12/24 10:56 Carbon Dioxide 27.5 mmol/L (21.0-32.0) 09/12/24 10:56 BUN 19 mg/dL (7-18) H 09/12/24 10:56 Creatinine 1.4 mg/dL (0.70-1.30) H 09/12/24 10:56 Est GFR (CKD-EPI 2020) 51.77 (mL/min/1.73m2) 09/12/24 10:56 Magnesium 2.1 mg/dL (1.8-2.4) 08/29/24 06:21 Calcium 9.4 mg/dL (8.5-10.1) 09/12/24 10:56 Albumin 2.8 g/dL (3.4-5.0) L 08/29/24 06:21 Glucose 91 mg/dL (74-106) 09/12/24 10:56 Liver Function Panel: Alanine Aminotransferase (ALT/SGPT) 17 U/L (16-63) 08/29/24 06: 21 Aspartate Amino Transf (AST/SGOT) 12 U/L (15-37) L 08/29/24 06: 21 Coagulation Panel: No Data to Display Cardiac Panel: Troponin I 7 ng/L (<or=76) 08/28/24 Arterial Blood Gas: No Data to Display Venous Blood Gas: No Data to Display Pancreas Panel: Lipase 24 U/L (16-77) 08/28/24 17:55 Thyroid Panel: Thyroid Stimulating Hormone (TSH) 1.70 uIU/mL (0.36-3.74) 08/28 23:00 Infectious Disease: No Data to Display Blood Cultures: No Data to Display Toxicology Panel: No Data to Display Anesthesia Assessment and Plan Anesthesia History Personal History: No History of Anesthesia Complications Family History: No Family History of Anesthesia Complications Exercise Tolerance Exercise Tolerance: Metabolic Equivalents>4 Cardiac & Pulmonary Exam Cardiac Exam: Normal S1/S2 Heart Sounds Pulmonary Exam: Clear Bilateral Breath Sounds Implantable Cardiac Device Does patient have a Pacemaker or an ICD?: No Airway Exam Known Difficult Airway: No Mallampati Class: 3 Mouth Opening: Normal (> 3cm) Thyromental Distance: Greater than 3 cm Neck Range of Motion: Full ROM and Limited ROM Neck Circumference: Normal Teeth Condition: Normal Dentition ASA Classification ASA Score: ASA 2 Emergency Case?: No NPO Status NPO Status: NPO Clears >2 hours, Solids >8 hours Anesthesia Plan Resuscitation Status: Full Code Anesthesia Technique: General Anesthesia Airway Planned: Endotracheal Tube Monitors Used: Standard Monitors Preoperative Comments:: 79 yo male for TURP. Sig PMHx: vasovagal (with Garnica swap in office, brief CPR), RAD (albuterol, mostly in winter with exertion), esophageal stricture/GERD (multiple EGDs and dilations. denies GERD), CKD (last GFR 51), megaloblastic anemia. former smoker . EKG: sinus abdi, RBBB. PFT: mild obstructive dz. Would like general.
[2024-09-22] MEDS: Lactated Ringers 1,000 ML 80 ML IV ×2 (06:46→10:10)
--- NOTE | 2024-09-22 06:51 | HPE_ITS ---
Date of service: 09/22/24 Time of Service: 06:52 Assessment and Plan Assessment and plan (1) Urinary retention: Status: Acute Assessment and plan: He has failed medical management and presents now for transurethral resection of the prostate. History of Present Illness History of Present Illness Chief Complaint: Urinary retention Narrative: This is a 79-year-old gentleman who has a history of lower urinary tract symptoms. Previously, he had been managed with medical management. He underwent cystoscopy in the office and developed urinary retention and a urinary tract infection after the procedure. Since then, he has failed multiple voiding trials and presents for transurethral resection of the prostate. He does have a history of bradycardia. He developed a syncopal episode after a catheter placement. It is still uncertain as to whether the syncopal episode was related to a vasovagal reaction or other causes or at play. Review of Systems Narrative: No fevers or chills No vision change or dysphasia No diabetes or thyroid dysfunction No shortness of breath, cough or hemoptysis Bradycardia. No chest pain No nausea, vomiting, hepatitis, ulcers, jaundice Hx migraines. No seizures, strokes or peripheral neuropathy No bleeding disorders or anemia Hx gout PFSH All Active Problems Gout attack (Acute) Pancytopenia (Acute) Syncope (Chronic) Urinary retention (Acute) CKD (chronic kidney disease) (Chronic) Vasovagal episode (Acute) Acute UTI (Acute) Gross hematuria (Acute) Esophageal stricture (Acute 12/07/17) q 3-4 month dilation w/ Dr. Greene, but Urol Rx may be helping maintain elasticity? stretch? Biopsies taken. Stricuture in second part of duodenum,56 cm from the teeth. Stricture in the upper esophagus,18cm from the teeth. endoscopy report date 12/07/17. Pathology shows peptic duodenitis, negative H. Pylori EGD Dr. Greene 11/04/21 Elevated serum creatinine (Acute 07/2018) 1.37 with elevated BUN and h/o poor hydration. 1.4 02/2019, monitor and recomm hydration. Reviewed NSAID, ABx use (min). 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 Spontaneous hypoglycemia (Acute 05/29/09) consult endocrine [facility] [place] Low libido (Acute) [] ] testosterone? Vit D? (Wellbutrin helped with interest) Chronic daily headache (Chronic 03/23/15) Dull, improved flares since Chiro/Acupuncture care.. Chronic migraine without aura (Acute) 04/16/19 Dr Ortega, [facility] Neurology- Aimovig started. Chronic pain disorder (Chronic) Contract, UDS, Orders 10/25/18. Medical History Urinary hesitancy Abnormal prostate exam Hematospermia Phimosis Seborrheic keratosis Basal cell carcinoma (BCC) Punch Bx shows BASAL CELL CARCINOMA.. Left [employer] 02/2022 Bradycardia Finger lesion left middle finger, PIP. Healing well, but concerned about tendon. History of gout Toe pain, possible GOUT per pdiatry (no Tx,Rx), 09/04/21. Probable 1x no proph Tx atthis time. UA slighlty high. COVID-19 vaccine series completed per card: Moderna, 01/21, 02/18/21. Kristina #94 Cough (11/01/12) Adenoma of left adrenal gland (~06/2018) [facility] [place] endocr[place]ology office visit note 11/21/18. (2cm- which based on MRI characteristics strongly suggestive of a benign,lipid rich adenoma. (David Shields, DO,MS). FU 08/2019 CT (w/contrast) shows stable 2cm adenoma, Scan Q12mos [ ] .. Mgr NOS wo ntrc w st mgr Daily Headache. 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 08/12/18 colonoscopy (Dr Greene) Allergic rhinitis (01/30/12) Adjustment disorder, unspecified (10/13/16) Adenomatous colon polyp (11/19/03) ADENOMA IN 2003 SO rpt Q 5YR, NEG IN 2007 SEVEN; 1 adenoma 01/2013 Main Scalp lesion Seemed 2' trauma, but non-healing .. Punch Bx shows BASAL CELL CARCINOMA Vitreous degeneration Per 12/22/21 [place] note Puckering of macula, bilateral Per 12/22/21 [place] note COVID-19 end of January,, tolerated Paxlovid Surgical History History of esophagogastroduodenoscopy (EGD) (~06/13/24) w/ Dilation, Dr. Greene, unchanged per note.HE History of esophagogastroduodenoscopy (EGD) (~11/03/22) [facility]-04/20/23-Dr Greene. w/dilation-no biopsies [facility]-07/27/23-Dr Greene-biopsies normal-cont q3 mos Hx of basal cell carcinoma excision (03/03/22) left pentecostal Hx of esophagogastroduodenoscopy 07/07/20 with Dilation done by Dr Greene at [facility] 07/29/21 dilation, wire guided Savory under fluro guidance 11/04/[address] Greene 02/10/24;DR. Greene;[facility] EGD w/ Dilation H/O colonoscopy (08/12/18) Dr Greene Endoscopy (03/17/16) 06/09/16 Dr. Greene; Emily with dilatation 12/04/17 Dr. Greene w/ dilatation Endoscopy (06/18/15) 06/09/16 Dr. Anna Diaz with dilatation 12/04/17 Dr. Greene w/ dilatation Endoscopy (09/11/14) 06/09/16 Dr. Anna Diaz with dilatation 12/04/17 Dr. Greene w/ dilatation EGD w/ Dilatation (08/24/17) repeated EGD w/ dilatation Dr. Greene EGD w/ Dilatation (06/08/17) repeated EGD w/ dilatation Dr. Greene EGD w/ Dilatation (03/09/17) repeated EGD w/ dilatation Dr. Greene EGD w/ Dilatation (12/08/16) repeated EGD w/ dilatation Dr. rGeene EGD - IV Sedation (12/24/15) Kush Greene Extraction of cataract (01/12/15) Nuclear/cortical, left eye, symptomatic ; R eye Dr. Nelson Sanchez Extraction of cataract (12/29/14) Nuclear/cortical, left eye, symptomatic ; R eye Dr. Nelson Sanchez Family History Mother Dementia Father , failure to thrive at age 97. 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 Pets and animals: No Sexually active: Yes Do you think of yourself as: straight/heterosexual Current gender identity: male What is your relationship status?: How often do you talk on the phone with friends or family?: twice per week How often do you get together with friends or relatives?: never Do you belong to any clubs or organized social groups?: no Panel score (0-1 are the most socially isolated patients): 1 What type of physical activity do you participate in: other Details: ADL's only--shoveling, firewood etc, pool, yardwork Fariha/Yazdanism: Buddhism Special fariha needs: No Seatbelt use: always Drive intox or ride w/intox flag car driver: No Working smoke detector in home: Yes Carbon monox detector in home: Yes Do you feel safe at home: Yes Do you feel safe in your relationship?: Yes Meds Allergies and Home Medications Allergies Allergy/AdvReac Type Severity Reaction Status Date / Time amitriptyline AdvReac Intermediate sedation Verified 09/19/24 10:09 aspirin AdvReac Intermediate h/o ulcer Verified 09/19/24 10:09 disease topiramate (From Topamax) AdvReac Intermediate CANNOT Verified 09/19/24 10:09 SLEEP baclofen AdvReac Mild nausea, Verified 09/19/24 10:09 dizzy, blurred vision Beta-Blockers AdvReac Unknown AVOID to Verified 09/19/24 10:09 (Beta-Adrenergic Bloc Abdi butalbital AdvReac Unknown Habituated Verified 09/19/24 10:09 caffeine AdvReac Unknown migraine Verified 09/19/24 10:09 diltiazem AdvReac Unknown AVOID due Verified 09/19/24 10:09 to Abdi lisinopril AdvReac Unknown cough Verified 09/19/24 10:09 verapamil AdvReac Unknown dizzy Verified 09/19/24 10:09 propofol AdvReac arrythmia Verified 09/19/24 10:09 with high-doses Home Medications ?Medication ?Instructions ?Recorded ?Confirmed ?Type cyanocobalamin (vitamin B-12) 1,000 mcg PO DAILY #100 tabs 04/07/16 09/22/24 History 1,000 mcg tablet (Vitamin B-12) blood sugar diagnostic (Blood #100 ea 12/10/21 09/10/24 Rx Glucose Test strips) dextrose 40 % oral gel 10 g PO Q15M PRN hypoglycemia 12/10/21 09/19/24 Rx #112.5 grams albuterol sulfate 90 mcg/actuation 2 puff inhalation Q6H PRN wheeze 04/13/23 09/22/24 Rx aerosol inhaler (ProAir HFA) #1 unit nystatin-triamcinolone 100,000 1 applic topical BID #15 grams 05/04/23 09/19/24 Rx unit/gram-0.1 % topical ointment tamsulosin 0.4 mg capsule 0.8 mg (2 x 0.4 mg) PO QHS #180 01/08/24 09/22/24 Rx caps ketoconazole 2 % topical cream 1 applic topical BID #60 grams 05/13/24 09/19/24 Rx CGM 1 ea subcut (via wearable injectr) 06/27/24 09/10/24 Rx DAILY Continuous Glucose Monitoring #1 ea hydrocodone 5 mg-acetaminophen 325 0.5 tab PO Q4H PRN severe headache 06/27/24 09/19/24 Rx mg tablet pain #30 tabs loratadine 10 mg tablet (Claritin) 10 mg PO DAILY PRN allergy 06/27/24 09/22/24 Rx symptoms #90 tab-caps rizatriptan 10 mg tablet 10 mg PO .COMPLEX PRN migraine 06/27/24 09/22/24 Rx headache #20 tabs trazodone 50 mg tablet 50 mg PO QHS PRN insomnia #20 tabs 09/10/24 09/22/24 Rx Exam Const General: cooperative Neck Neck: supple Resp Effort & Inspection: normal respiratory effort Cardio Rate: regular rate and bradycardic Rhythm: regular rhythm GI Palpation: soft and no masses Neuro General: patient alert, patient awake and patient oriented x3 Results Last Vital Signs Temp 36.6 C 09/22/24 06:18 Pulse 63 09/22/24 06:18 Resp 18 09/22/24 06:18 BP 133/80 09/22/24 06:18 Pulse Ox 96 09/22/24 06:18 Time Spent Time spent with Patient: <40 minutes Time was spent: other
[2024-09-22] MEDS: ceFAZolin 2 GM/50 ML BAG IVPB (07:28)
[2024-09-22] MEDS: GENTAMICIN 120 MG in Normal Saline 100 ML 206 MG IVPB (07:33)
[2024-09-22] MEDS: Lidocaine 2% Jelly 11 ML SYR (07:55)
--- NOTE | 2024-09-22 08:18 | PROST_PTH ---
PATIENT: Naren Arreaga LOC: U#:[id number] AGE/SX: 79/M ROOM: 211 RE09/22/[address]: Dominick Werner MD : [id number] BED: A DIS: 09/23/2024 SPEC #: [id number] RECD: 09/22/24 11:40 STATUS: ROGELIO REQ #: [id number] AVIS: 09/22/24 08:[address]: Dominick Werner DEPT: Surgical Specimen RECD BY: Lamar Morales ENTERED: 09/22/24 11:41 SP TYPE: PROST OTHR DR: Sheila Hilliard DO Tissues: 1 - PROSTATE CURRETTINGS Procedures: GROSS AND MICRO LEVEL 4 Comments: [id number]
--- NOTE | 2024-09-22 09:35 | BRIEFOP_ITS ---
Date of service: 09/22/24 Time of Service: 09:36 Brief Operative Note Procedure/Pre & Post Op Diagnoses/Orthodontist Assistant: Operation Date: 09/22/24 07:40 Actual Procedures p Cysto, Transurethral Resection Prostate(Not Applicable) - Dominick Werner MD Pre-Op Diagnosis: Urinary retention: Post-Op Diagnosis: Urinary retention: Anesthesia Anesthesia Type: Local By Surgeon and General LMA/ETT Estimated Blood Loss Output, Estimated Blood Loss 500 Amount Specimen/Culture Specimen(s): Prostate chips Complications Complications: None Additional Procedure Notes Note: 24 Indonesian coude tipped irrigating catheter with 50 cc sterile water in balloon
[2024-09-22] MEDS: ePHEDrine 25 MG/5 ML Syringe IVP ×2 (09:43→09:51)
--- NOTE | 2024-09-22 10:02 | W.ANESPOSTOP ---
Postoperative Evaluation Date, Time and Location Date Performed: 09/22/24 Time Performed: 10:02 Patient Location: PACU Vital Signs Most Recent Imported Vital Signs: Most Recent Vital Signs Temp Pulse Resp BP Pulse Ox 36.3 C L 63 18 133/80 96 09/22/24 09:28 09/22/24 06:18 09/22/24 06:18 09/22/24 06:18 09/22/24 06:18 Pain Score Most Recent Pain Score: Most Recent Pain Score Pain Level 0 09/22/24 09:28 Assessment Mental Status: Awake (Alert & Oriented to Patient Baseline) Airway and Respiratory Function: Patent airway with normal (patient baseline) respiratory exam Cardiovascular Function: Hemodynamically Stable Hydration Status: Adequately Hydrated Nausea & Vomiting: No Nausea or Vomiting Pain: Pain is tolerable per patient Peripheral Nerve Block: Patient did not receive a nerve block Postoperative Comments:: Needed phenyl and ephedrine given with effect.
[2024-09-22] MEDS: fentaNYL 100 MCG/2 ML VIAL IVP (10:18)
[2024-09-22] MEDS: HYDROmorphone 1 MG/ML SYR IVP ×2 (11:54→23:50)
--- NOTE | 2024-09-22 11:59 | ROE_ITS ---
Date of service: 09/22/24 Time of Service: 11:59 Operative Note Operative Note DATE OF PROCEDURE: 09/22/24 PRE-OP DIAGNOSIS: Urinary retention POST-OP DIAGNOSIS: same PROCEDURE: Cystoscopy with transurethral resection of prostate SURGEON: Dominick Werner ANESTHESIA TYPE: Local By Surgeon and General LMA/ETT Refer to Anesthesia Record ESTIMATED BLOOD LOSS: 500 PATHOLOGY: other (Prostate chips) COMPLICATIONS: None Patient was transported to: PACU Patient's condition: stable Implants: 24 Anguillan coud? tipped irrigating catheter with 50 cc of sterile water in balloon Indications: This is a 79-year-old gentleman who has a history of an enlarged prostate and lower urinary tract symptoms. After recent office cystoscopy, he developed a urinary tract infection and urinary retention. Since then, he has failed maximal medical therapy and he presents for transurethral resection of the prostate Findings: Trilobar enlargement with a prominent median lobe and enlargement of both lateral lobes of the prostate Procedure Description: The patient was given IV antibiotics. He was brought to the operating room on 09/22/2024. After successful induction of general anesthesia, he was placed in the dorsal lithotomy position. His indwelling catheter balloon was deflated and the catheter was removed. His genitalia was then prepped and draped. 2% Xylocaine jelly was instilled into the urethra. A 24 Anguillan resectoscope sheath was then passed through the urethra into the bladder. The urethra and bladder were inspected with the 30 degree lens. The pendulous, bulbar and membranous urethra appeared normal with no strictures. The prostatic urethra showed significant lateral lobe enlargement as well as the median lobe that jotted back into the bladder. The bladder itself was heavily trabeculated with no papillary or nodular lesions seen. No stones were seen. We then utilized bipolar cautery and an Spinelab resectoscope to perform transurethral resection of the prostate. We began by resecting the median lobe. We then resected from the bladder neck out to the [place] and resected down until prostatic capsule was encountered. Cauterization of any prominent blood vessels was performed with the coagulation current. The prostate was quite enlarged and vascular and I would estimate the blood loss had approximately 500 cc. At the completion of the procedure, all resected tissue was evacuated and sent to pathology for permanent section. The bladder was filled with irrigant and the resectoscope was removed. A 24 Anguillan coud? tipped catheter was passed through the urethra into the bladder. The catheter balloon was inflated with 50 cc of sterile water. Traction was placed on the catheter until the irrigant became clear. Continuous bladder irrigation with saline was instituted. The patient tolerated this procedure well with no complications. He was taken to the recovery room in stable condition.
[2024-09-22] MEDS: ceFAZolin 1 GM/50 ML BAG IVPB ×2 (13:06→19:43)
[2024-09-22] MEDS: Fluconazole 100 MG TAB 200 MG PO (15:01)
[2024-09-22] MEDS: Acetaminophen 325 MG TAB 650 MG PO (17:22)
[2024-09-22] MEDS: Ondansetron 4 MG/2 ML VIAL IVP (17:22)
[2024-09-22] MEDS: oxyCODONE 5 MG TAB PO (17:23)
[2024-09-22 18:51] LABS: HCT 37.4 % (40.0-50.0); HGB 12.3 g/dL (13.5-17.5)
[2024-09-22] MEDS: Docusate Sodium 100 MG CAP PO (19:41)
[2024-09-22] MEDS: Lactated Ringers 1,000 ML 125 ML IV (23:40)
[2024-09-22] MEDS: Oxybutynin 5 MG TAB PO (23:49)
[2024-09-23] MEDS: ceFAZolin 1 GM/50 ML BAG IVPB (04:50)
[2024-09-23 06:22] LABS: Abs Immature Grans 0.05 10^3/uL (0.0-0.06); Absolute Lymphocyte Count 0.96 10^3/uL (1.2-3.4); Absolute Monocyte Count 0.82 10^3/uL (0.1-0.8); Absolute Neutrophil Count 12.05 10^3/uL (1.2-6.7); Basophils % 0.1 %; HCT 31.9 % (40.0-50.0); HGB 10.4 g/dL (13.5-17.5); Immature Grans % 0.4 %; Lymphocytes % 6.9 %; MCH 30.2 pg (27.0-33.0); MCHC 32.6 % (32.0-36.0); MCV 93 fL (80-95); MPV 9.4 fL (8.0-11.0); Monocytes % 5.9 %; Neutrophils % 86.7 %; Platelet Count 167 10^3/uL (130-400); RBC 3.44 10^6/uL (4.36-5.78); RDW 13.5 % (11.8-14.1); RDW-SD 45.7 fL
[2024-09-23 06:25] LABS: Absolute Basophil Count 0.01 10^3/uL (0.0-0.2)
[2024-09-23 06:39] LABS: Anion Gap 9.4 mmol/L (3-11); BUN 15 mg/dL (7-18); CO2 22.6 mmol/L (21.0-32.0); CREATININE 1.5 mg/dL (0.70-1.30); Calcium 8.5 mg/dL (8.5-10.1); Chloride 109 mmol/L (98-107); Estimated GFR 47.65 (mL/min/1.73m2); Glucose 171 mg/dL (74-106); Potassium 4.3 mmol/L (3.5-5.1); Sodium 141 mmol/L (136-145)
[2024-09-23] MEDS: Acetaminophen 325 MG TAB 650 MG PO (06:50)
--- NOTE | 2024-09-23 07:28 | W.PM.PROGNOT ---
Date of Service Date of service: 09/23/24 Time of Service: 07:28 Assessment and Plan Assessment and plan (1) Urinary retention: Status: Acute Assessment and plan: We will go ahead and discontinue his continuous bladder irrigation, place a catheter plug on the irrigating port of the Garnica and hooked him to a leg bag. We can then allow him to get up and ambulate around to make sure he does not become orthostatic or symptomatic. As long as his urine remains clear, we should be able to discharge him to home later today with his catheter in place. We already have a follow-up planned on Sunday for his catheter removal. Subjective Subjective Interval history since last seen: He has had some catheter discomfort through the night, but has not had any clot retention. He had an episode of hypotension and dizziness yesterday following the procedure. I had planned on giving him a blood transfusion, but his blood pressure stabilized with fluid resuscitation. He has no dizziness at this point. Exam Narrative Exam Narrative: He does not appear septic or toxic His vital signs are documented elsewhere He is awake and alert His catheter was hand irrigated and a few small clots were evacuated Objective Last Vital Signs Temp 36 C L 09/22/24 23:20 Pulse 68 09/22/24 23:20 Resp 18 09/22/24 23:20 BP 121/60 09/22/24 23:20 Pulse Ox 92 09/22/24 23:20 Laboratory Results - last 24 hr 09/22/24 09/22/24 09/23/24 12:02 18:35 06:03 WBC 13.90 H RBC 3.44 L Hgb 12.3 L 10.4 L Hct 37.4 L 31.9 L MCV 93 MCH 30.2 MCHC 32.6 RDW 13.5 Plt Count 167 MPV 9.4 Immature Gran % 0.4 Neutrophils % 86.7 Lymphocytes % 6.9 Monocytes % 5.9 Eosinophils % 0.0 Basophils % 0.1 Nucleated RBC % 0.0 Absolute Neutrophils 12.05 H Absolute Lymphocytes 0.96 L Absolute Monocytes 0.82 H Absolute Eosinophils 0.00 Absolute Basophils 0.01 Sodium 141 Potassium 4.3 Chloride 109 H Carbon Dioxide 22.6 Anion Gap 9.4 BUN 15 Creatinine 1.5 H Est GFR (CKD-EPI 2020) 47.65 Glucose 171 H Calcium 8.5 ABO/Rh O Positive Antibody Screen NEGATIVE Time Spent with Patient Time Spent with Patient: <25 minutes Time was spent: other
[2024-09-23 07:41] VITALS: BP 120/58; PULSE 58; RESP 18; TEMP 37.1; O2SAT 93
[2024-09-23] MEDS: Cyanocobalamin 500 MCG TAB 1000 MCG PO (07:50)
[2024-09-23] MEDS: Fluconazole 100 MG TAB 200 MG PO (07:51)
[2024-09-23] MEDS: Loratidine 10 MG TAB PO (07:51)
[2024-09-23] MEDS: HYDROmorphone 1 MG/ML SYR IVP (07:51)
[2024-09-23] MEDS: Normal Saline Flush 10 ML SYR IVP (07:51)
[2024-09-23] MEDS: Docusate Sodium 100 MG CAP PO (07:51)
[2024-09-23 11:10] VITALS: BP 102/50; PULSE 75; RESP 18; TEMP 36.2; O2SAT 93
--- NOTE | 2024-09-23 11:24 | PDOC.CMIN ---
Date of service: 09/23/24 Time of Service: 11:27 Care Management Initial Assmt Initial Assessment Reason for Hospitalization: Urinary Retention Advance Directives Advance Directives: Do you have an Advance Directive: Y 05/09/21 09:37 AD On File at [facility]: N 05/09/21 09:37 Date Asked 09/10/24 09/10/24 13:59 AD Date Reviewed COLST On File at [facility] No 08/28/24 17:07 COLST Date Scanned Code Status Resuscitation Status Full Code Care Team Visit Care Team Role Provider Type Sheila Hilliard DO Primary Care Provider OSTEOPATHIC DOCTOR Dominick Werner MD Admit Provider [facility] STAFF PHYSICIAN Attending Provider [facility] All Active Problems Gout attack (Acute) Pancytopenia (Acute) Syncope (Chronic) Urinary retention (Acute) CKD (chronic kidney disease) (Chronic) Vasovagal episode (Acute) Acute UTI (Acute) Gross hematuria (Acute) Esophageal stricture (Acute 12/07/17) q 3-4 month dilation w/ Dr. Greene, but Urol Rx may be helping maintain elasticity? stretch? Biopsies taken. Stricuture in second part of duodenum,56 cm from the teeth. Stricture in the upper esophagus,18cm from the teeth. endoscopy report date 12/07/17. Pathology shows peptic duodenitis, negative H. Pylori EGD Dr. Greene 11/04/21 Elevated serum creatinine (Acute 07/2018) 1.37 with elevated BUN and h/o poor hydration. 1.4 02/2019, monitor and recomm hydration. Reviewed NSAID, ABx use (min). 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 Spontaneous hypoglycemia (Acute 05/29/09) [place] [facility] [place] Low libido (Acute) [] ] testosterone? Vit D? (Wellbutrin helped with interest) Chronic daily headache (Chronic 03/23/15) Dull, improved flares since Chiro/Acupuncture care.. Chronic migraine without aura (Acute) 04/16/19 Dr [place] [facility] [place] [facility] started. Chronic pain disorder (Chronic) Contract, UDS, Orders 10/25/18. Medical History Urinary hesitancy Abnormal prostate exam Hematospermia Phimosis Seborrheic keratosis Basal cell carcinoma (BCC) Punch Bx shows BASAL CELL CARCINOMA.. Left [place] 02/2022 Bradycardia Finger lesion left middle finger, PIP. Healing well, but concerned about tendon. History of gout Toe pain, possible GOUT per pdiatry (no Tx,Rx), 09/04/21. Probable 1x no proph Tx atthis time. UA slighlty high. COVID-19 vaccine series completed per card: Moderna, 01/21, 02/18/21. Acevedo #94 Cough (11/01/12) Adenoma of left adrenal gland (~06/2018) [facility] [place] [facility] office visit note 11/21/18. (2cm- which based on MRI characteristics strongly suggestive of a benign,lipid rich adenoma. (David Shields, DO,MS). FU 08/2019 CT (w/contrast) shows stable 2cm adenoma, Scan Q12mos [ ] .. Mgr NOS wo ntrc w st mgr Daily Headache. 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 Greene, Esoph Dilation nearly q 3 mos Exercise induced bronchospasm (01/30/12) INTERMITTENT, EXERCISE OR COLD INDUCED; NL PF 05/22/08 3.8 FEV1, NO RESPONSE; better after air block cleaner; nl FEV1 3.07 on 01/29/14 Esophageal reflux (01/30/12) Dysphagia, unspecified (11/19/94) RECURRENT DILATATIONS; (AUDRA -->MAIN 06/14/12 H PYLORI NEG; dilated 07/26/12 Emily; multiple re-does; currently q 3 mo (09/2016) Chronic gastritis (09/29/14) Mild Benign neoplasm of colon (11/19/03) ADENOMA IN 2003 SO rpt Q 5YR, NEG IN 2007 SEVEN; 1 adenoma 01/2013 Main. 08/12/18 colonoscopy (Dr Greene) Allergic rhinitis (01/30/12) Adjustment disorder, unspecified (10/13/16) Adenomatous colon polyp (11/19/03) ADENOMA IN 2003 SO rpt Q 5YR, NEG IN 2007 SEVEN; 1 adenoma 01/2013 Main Scalp lesion Seemed 2' trauma, but non-healing .. Punch Bx shows BASAL CELL CARCINOMA Vitreous degeneration Per 12/22/21 [place] note Puckering of macula, bilateral Per 12/22/21 [place] note COVID-19 end January,, tolerated Paxlovid Surgical History History of esophagogastroduodenoscopy (EGD) (~06/13/24) w/ Dilation, Dr. Greene, unchanged per note.HE History of esophagogastroduodenoscopy (EGD) (~11/03/22) [facility]-04/20/23-Dr Greene. w/dilation-no biopsies [facility]-07/27/23-Dr Greene-biopsies normal-cont q3 mos Hx of basal cell carcinoma excision (03/03/22) left alevism Hx of esophagogastroduodenoscopy 07/07/20 with Dilation done by Dr Greene at [facility] 07/29/21 dilation, wire guided [place] under fluro guidance 11/04/[address] Greene 02/10/24;DR. Greene;[facility] EGD w/ Dilation H/O colonoscopy (08/12/18) Dr Greene Endoscopy (03/17/16) 06/09/16 Dr. Greene; Emily with dilatation 12/04/17 Dr. Greene w/ dilatation Endoscopy (06/18/15) 06/09/16 Dr. Anna Diaz with dilatation 12/04/17 Dr. Greene w/ dilatation Endoscopy (09/11/14) 06/09/16 Dr. Greene; Emily with dilatation 12/04/17 Dr. Greene w/ dilatation EGD w/ Dilatation (08/24/17) repeated EGD w/ dilatation Dr. Greene EGD w/ Dilatation (06/08/17) repeated EGD w/ dilatation Dr. Greene EGD w/ Dilatation (03/09/17) repeated EGD w/ dilatation Dr. Greene EGD w/ Dilatation (12/08/16) repeated EGD w/ dilatation Dr. Greene EGD - IV Sedation (12/24/15) Kush Greene Extraction of cataract (01/12/15) Nuclear/cortical, left eye, symptomatic ; R eye Dr. Nelson Sanchez Extraction of cataract (12/29/14) Nuclear/cortical, left eye, symptomatic ; R eye Dr. Nelson Sanchez Family History Mother Dementia Father , failure to thrive at age 97. 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 Pets and animals: No Sexually active: Yes Do you think of yourself as: straight/heterosexual Current gender identity: male What is your relationship status?: How often do you talk on the phone with friends or family?: twice per week How often do you get together with friends or relatives?: never Do you belong to any clubs or organized social groups?: no Panel score (0-1 are the most socially isolated patients): 1 What type of physical activity do you participate in: other Details: ADL's only--shoveling, firewood etc, pool, yardwork Fariha/Jainism: [employer] Special fariha needs: No Seatbelt use: always Drive intox or ride w/intox hyster driver: No Working smoke detector in home: Yes Carbon monox detector in home: Yes Do you feel safe at home: Yes Do you feel safe in your relationship?: Yes Readmission Within the Past 30 Days Yes or No: Yes Date of First Admission Date of 1st Admission: 08/28/24 Date of this Admission Date of Admission: 09/22/24 This admission was: Direct Admit Office Visit Since 1st Admission Have you seen your PCP in the office since discharge?: Yes Date of PCP Appointment: 09/10/24 Had an appointment Been Scheduled?: Yes Speicalist Appointments Have you seen any other specialist since your 1st Admission?: Yes Date you saw the Specialist: 09/02/24, 09/09/24 Specialist Seen: Urology If the patient had a VNA ordered Did the patient have a VNA order?: No Ask the Care Team Members: What do you think caused the patient to be readmitted: Per Dr. Werner This is a 79-year-old gentleman who has a history of lower urinary tract symptoms. Previously, he had been managed with medical management. He underwent cystoscopy in the office and developed urinary retention and a urinary tract infection after the procedure. Since then, he has failed multiple voiding trials and presents for transurethral resection of the prostate. ED visits How many ED visits in the past 12 months: 2 Assessment for Readmission Summary of readmission circumstances, based upon interviews: Planned procedure, patient will likely discharge home later today. SDOH(Care Management) Screening Will the Patient Participate in the Screening?: Yes Do you worry about having a steady place to live?: no Problems where you live: no known problems In the past 12 months, have you had to go without electric, gas, oil or water in your home?: no Have you or anyone in your house had to go without enough food to eat?: no Has lack of transportation kept you from medical appointments or from doing things needed for daily living?: no Has anyone in your support network made you feel unsafe for any reason?: no
--- NOTE | 2024-09-23 11:30 | W.PM.DS.N ---
Date of service: 09/23/24 Time of Service: 11:30 DS: Diagnosis Discharge Diagnosis (1) Urinary retention: Status: Acute Discharge Plan Disposition Patient Disposition: Home Condition: Improving Discharge Details Reason For Visit: urinary retention Admit Date/Time: 09/22/24 06:13 Admit Provider: Dominick Werner Attending Provider: Dominick Werner Primary Care Provider: Sheila Hilliard Hospital Course Hospital Course: The patient was admitted and taken to the operating room where he underwent a cystoscopy and transurethral resection of the prostate. His prostate was quite large and vascular so there were significant blood loss during the procedure. At the completion of the procedure, we placed an irrigating Garnica catheter and ran continuous bladder irrigation. The patient did have 2 hypotensive episodes in the first few hours after the procedure. Each episode responded to IV fluids. We have prepared to give a blood transfusion, but his vital signs stabilized and we did not utilize blood products. By postoperative day #1, his bladder irrigation had cleared. We no longer found clots in the bladder with hand irrigation of the catheter. We discontinued the continuous bladder irrigation and had the patient get up and move around. He does have some chronic dizziness when he sits up but he had no additional dizziness when he walked and he feels up to going home. We again discussed a blood transfusion for his symptoms. His hemoglobin is actually 10 but it is a drop from 15 preop. The patient has elected not to have a transfusion at this point. We are hooking his catheter to a little loose drainage leg bag. We have a catheter plug to the irrigation port. Home Meds and New Rx's Prescriptions: New fluconazole [Diflucan] 100 mg tablet 100 mg PO DAILY Qty: 7 0RF Discontinued tamsulosin 0.4 mg capsule 0.8 mg PO QHS Qty: 180 4RF No Action loratadine [Claritin] 10 mg tablet 10 mg PO DAILY PRN (Reason: allergy symptoms) Qty: 90 3RF Rx Instructions: allergic rhinitis, Daily for the summer rizatriptan 10 mg tablet 10 mg PO .COMPLEX PRN (Reason: migraine headache) Qty: 20 2RF Rx Instructions: 10 mg PO ; PRN; hydrocodone-acetaminophen 5-325 mg tablet 0.5 tab PO Q4H MDD 5mg PRN (Reason: severe headache pain) Qty: 30 0RF Rx Instructions: Q6 weeks CGM 1 ea subcut (via wearable injectr) DAILY Qty: 1 0RF trazodone 50 mg tablet 50 mg PO QHS PRN (Reason: insomnia) Qty: 20 1RF Rx Instructions: Continue to help sleep; hold for UROL procedures nystatin-triamcinolone 100,000-0.1 unit/gram-% ointment 1 applic topical BID Qty: 15 0RF Rx Instructions: apply thin layer twice a day ketoconazole 2 % cream 1 applic topical BID Qty: 60 3RF cyanocobalamin (vitamin B-12) [Vitamin B-12] 1,000 MCG tablet 1,000 mcg PO DAILY Qty: 100 Rx Instructions: daily Vitamin B12 replacement, s/p gastric surgery dextrose 40 % gel 10 g PO Q15M PRN (Reason: hypoglycemia) Qty: 112.5 1RF Rx Instructions: Trial for urgent hypoglycemia: albuterol sulfate [ProAir HFA] 90 mcg/actuation HFA aerosol inhaler 2 puff Inhalation Q6H PRN Rx Instructions: Q4h as needed for wheezing (DME) blood sugar diagnostic As directed to check blood glucose daily. No insulin. Dispense covered brand. for Dx: E11.9 to maintain HbA1c less than 7% 0 .ROUTE .MEDSUPPLY Patient Comments: Per Patient, PRN glucose checks Discharge Instructions Additional Instructions: You may discontinue the tamsulosin You may use your hydrocodone as needed for pain You already have a scheduled follow-up appointment on Sunday at which time we will remove your catheter. I am sending in a prescription for Diflucan to help treat the thrush that was identified at the time of surgery. Activity:: No lifting over 10 pounds Equipment/Supplies:: Garnica catheter to leg bag Diet:: As Tolerated Discharge Orders Discharge Orders: Discharge Order (Routine); Ordered 09/23/24 Ordered By: Dominick Werner DS: Summary Time Spent with Patient providing and/or coordinating discharge services: Less than 30 minutes Status at Discharge Functional status at discharge: independent ambulation Overall status at discharge: patient is progressing back to baseline Mental Status: mental status grossly normal Speech and Movement: speech and movement normal Mood: congruent mood Affect: normal affect Quality:SDOH Health Related Social Needs: No Data to Display Exam Narrative Exam Narrative: At the time of discharge, he is comfortable. His vital signs are documented elsewhere in the chart His chest wall motion is normal. He is not short of breath at rest. His abdomen is soft with no peritoneal signs and no bladder distention Garnica catheter is in place. There is a catheter plug on the irrigation port. The catheter was hand irrigated and no clots were obtained He is awake and alert Psych Mental Status: mental status grossly normal Speech and Movement: speech and movement normal Mood: congruent mood Affect: normal affect DS: Data Vitals/I&O Vitals and I&O: Vital Signs Temperature 36.2 C L 09/23/24 11:10 Temperature Source Tympanic 09/23/24 11:10 Pulse 75 09/23/24 11:10 Pulse Rhythm Regular 09/22/24 12:30 Pulse 70 09/22/24 10:42 Respiratory Rate 18 09/23/24 11:10 Respiratory Effort Normal 09/22/24 12:30 Respiratory Depth Normal 09/22/24 12:30 Respiratory Pattern Normal 09/22/24 12:30 Blood Pressure 102/50 L 09/23/24 11:10 Blood Pressure Mean 72 09/22/24 10:41 Pulse Oximetry 93 09/23/24 11:10 Respiratory End-tidal CO2 34 09/22/24 09:46 Oxygen Delivery Method Room Air 09/23/24 11:10 Oxygen Flow Rate 0 09/23/24 11:10 Pain Level 0 09/23/24 07:41 Comment RN notified of low bp. 09/23/24 11:10 Intake & Output 09/22/24 09/22/24 09/23/24 11:59 23:59 11:59 Intake Total 1103 / 2723.000 1620.000 / 2723.000 1455.833 / 1455.833 Output Total 500 / 06486 89378 / 26272 Balance 603 / -94541.000 -48023.000 / -28198.000 1455.833 / 1455.833 Weight 93 kg 93 kg Intake: IV 1103 / 2243.000 1140.000 / 2243.000 1055.833 / 1055.833 Oral 480 / 480 400 / 400 Output: Urine 86001 / 79503 Estimated Blood Loss 500 / 500 Other: Urine Color [place] Pale Standish Urine Appearance Clear Clear Urine Odor None None Comment continuous bladder irrigation mained Bag change, pt reports no discomfort at this time. No clots noted, light pink clear drainage. Bag change, pt reports no discomfort at this time. No clots noted, light pink clear drainage. Emesis Description None Data Completed and Pending Labs on day of discharge: Labs from last 24 hours 09/23/24 09/22/24 09/22/24 06:03 18:35 12:02 WBC 13.90 H RBC 3.44 L Hgb 10.4 L 12.3 L Hct 31.9 L 37.4 L MCV 93 MCH 30.2 MCHC 32.6 RDW 13.5 Plt Count 167 MPV 9.4 Immature Gran % 0.4 Neutrophils % 86.7 Lymphocytes % 6.9 Monocytes % 5.9 Eosinophils % 0.0 Basophils % 0.1 Nucleated RBC % 0.0 Absolute Neutrophils 12.05 H Absolute Lymphocytes 0.96 L Absolute Monocytes 0.82 H Absolute Eosinophils 0.00 Absolute Basophils 0.01 Sodium 141 Potassium 4.3 Chloride 109 H Carbon Dioxide 22.6 Anion Gap 9.4 BUN 15 Creatinine 1.5 H Est GFR (CKD-EPI 2020) 47.65 Glucose 171 H Calcium 8.5 ABO/Rh O Positive Antibody Screen NEGATIVE PFSH All Active Problems Gout attack (Acute) Pancytopenia (Acute) Syncope (Chronic) Urinary retention (Acute) CKD (chronic kidney disease) (Chronic) Vasovagal episode (Acute) Acute UTI (Acute) Gross hematuria (Acute) Esophageal stricture (Acute 12/07/17) q 3-4 month dilation w/ Dr. Greene, but Urol Rx may be helping maintain elasticity? stretch? Biopsies taken. Stricuture in second part of duodenum,56 cm from the teeth. Stricture in the upper esophagus,18cm from the teeth. endoscopy report date 12/07/17. Pathology shows peptic duodenitis, negative H. Pylori EGD Dr. Greene 11/04/21 Elevated serum creatinine (Acute 07/2018) 1.37 with elevated BUN and h/o poor hydration. 1.4 02/2019, monitor and recomm hydration. Reviewed NSAID, ABx use (min). 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 Spontaneous hypoglycemia (Acute 05/29/09) consult endocrine [facility] [place] 2008 Low libido (Acute) [] ] testosterone? Vit D? (Wellbutrin helped with interest) Chronic daily headache (Chronic 03/23/15) Dull, improved flares since Chiro/Acupuncture care.. Chronic migraine without aura (Acute) 04/16/19 Dr Ortega, [facility] [place] Neurology- Aimovig started. Chronic pain disorder (Chronic) Contract, UDS, Orders 10/25/18. Medical History Urinary hesitancy Abnormal prostate exam Hematospermia Phimosis Seborrheic keratosis Basal cell carcinoma (BCC) Punch Bx shows BASAL CELL CARCINOMA.. Left [place] 02/2022 Bradycardia Finger lesion left middle finger, PIP. Healing well, but concerned about tendon. History of gout Toe pain, possible GOUT per pdiatry (no Tx,Rx), 09/04/21. Probable 1x no proph Tx atthis time. UA slighlty high. COVID-19 vaccine series completed per card: Moderna, 01/21, 02/18/21. Kristina #[id number] Cough (11/01/12) Adenoma of left adrenal gland (~06/2018) [facility] [place] endocrinology office visit note 11/21/18. (2cm- which based on MRI characteristics strongly suggestive of a benign,lipid rich adenoma. (David Shields, DO,MS). FU 08/2019 CT (w/contrast) shows stable 2cm adenoma, Scan Q12mos [ ] .. Mgr NOS wo ntrc w st mgr Daily Headache. 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 08/12/18 colonoscopy (Dr Greene) Allergic rhinitis (01/30/12) Adjustment disorder, unspecified (10/13/16) Adenomatous colon polyp (11/19/03) ADENOMA IN 2003 SO rpt Q 5YR, NEG IN 2007 SEVEN; 1 adenoma 01/2013 Main Scalp lesion Seemed 2' trauma, but non-healing .. Punch Bx shows BASAL CELL CARCINOMA Vitreous degeneration Per 12/22/21 [place] note Puckering of macula, bilateral Per 12/22/21 [place] note COVID-19 end of January,, tolerated Paxlovid Surgical History History of esophagogastroduodenoscopy (EGD) (~06/13/24) w/ Dilation, Dr. Greene, unchanged per note.HE History of esophagogastroduodenoscopy (EGD) (~11/03/22) [facility]-04/20/23-Dr Greene. w/dilation-no biopsies [facility]-07/27/23-Dr Greene-biopsies normal-cont q3 mos Hx of basal cell carcinoma excision (03/03/22) left mandaeism Hx of esophagogastroduodenoscopy 07/07/20 with Dilation done by Dr Greene at [facility] 07/29/21 dilation, wire guided Savory under fluro guidance 11/04/[address] Greene 02/10/24;DR. Greene;[facility] EGD w/ Dilation H/O colonoscopy (08/12/18) Dr Greene Endoscopy (03/17/16) 06/09/16 Dr. Anna Diaz with dilatation 12/04/17 Dr. Greene w/ dilatation Endoscopy (06/18/15) 06/09/16 Dr. Anna Diaz with dilatation 12/04/17 Dr. Greene w/ dilatation Endoscopy (09/11/14) 06/09/16 Dr. Anna Diaz with dilatation 12/04/17 Dr. Greene w/ dilatation EGD w/ Dilatation (08/24/17) repeated EGD w/ dilatation Dr. Greene EGD w/ Dilatation (06/08/17) repeated EGD w/ dilatation Dr. Greene EGD w/ Dilatation (03/09/17) repeated EGD w/ dilatation Dr. Greene EGD w/ Dilatation (12/08/16) repeated EGD w/ dilatation Dr. Greene EGD - IV Sedation (12/24/15) Kush Greene Extraction of cataract (01/12/15) Nuclear/cortical, left eye, symptomatic ; R eye Dr. Nelson Sanchez Extraction of cataract (12/29/14) Nuclear/cortical, left eye, symptomatic ; R eye Dr. Nelson Sanchez Family History Mother Dementia Father , failure to thrive at age 97. 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 Pets and animals: No Sexually active: Yes Do you think of yourself as: straight/heterosexual Current gender identity: male What is your relationship status?: How often do you talk on the phone with friends or family?: twice per week How often do you get together with friends or relatives?: never Do you belong to any clubs or organized social groups?: no Panel score (0-1 are the most socially isolated patients): 1 What type of physical activity do you participate in: other Details: ADL's only--shoveling, firewood etc, pool, yardwork Fariha/Rastafari: Scientology Special fariha needs: No Seatbelt use: always Drive intox or ride w/intox corporate driver: No Working smoke detector in home: Yes Carbon monox detector in home: Yes Do you feel safe at home: Yes Do you feel safe in your relationship?: Yes Time Spent with Patient Time Spent with Patient: <45 minutes Time was spent: preparing to see the patient(eg.review tests), obtaining and/or reviewing separately otained hiistory, referring, communicating with other health healthcare risk control consultant and care coordination
--- NOTE | 2024-09-23 11:37 | PDOC.CMDIS ---
Date of service: 09/23/24 Time of Service: 11:38 LACE Index Scoring Tool Questions: Length of Stay (in days): 1 Was the patient admitted via the E.D.?: No Comorbidities: Mild Liver/Renal Disease E.D. Visits: 2 Answers: Total Score: 5 Risk of Readmission: Low Risk Care Management Discharge Plan Reason for Hospitalization: Surgical intervention, Urinary Retention Discharge Plan: Naren is discharged home via private vehicle with family. Plan is to follow up with Urology and his discharge plan of care as instructed by Dr. Werner. No new services are ordered at the time of discharge. Patient/Family Education Needs: Review discharge instructions, limitations, medications and plan to follow up with community providers. Discuss ask me three. SDOH Health Related Social Needs: No Data to Display
== END 2024-09-23 12:37 | disposition home or self-care (01) ==
LOC: PDS 10:49 → MS 10:49
PROVIDERS: Admitting Provider Urology; PCP Student in an Organized Health Care Education/Training Program; Visit Provider Urology
PROC: 0VT08ZZ Resection of Prostate, Via Natural or Artificial Opening Endoscopic (ICD-10-PCS; CPT 52601; principal; 2024-09-22 07:30)
DX: N40.1 Benign prostatic hyperplasia with lower urinary tract symptoms (principal); N13.8 Other obstructive and reflux uropathy; R00.1 Bradycardia, unspecified; K22.2 Esophageal obstruction; N18.9 Chronic kidney disease, unspecified; G89.4 Chronic pain syndrome; G43.709 Chronic migraine without aura, not intractable, without status migrainosus; I95.81 Postprocedural hypotension; N99.61 Intraoperative hemorrhage and hematoma of a genitourinary system organ or structure complicating a genitourinary system procedure
CPT/HCPCS: 52601; 36410; 36415; 80048; 86850; 86900; 86901; 88305; 96361; 96365; 96366; 96375; 96376; 85014; 85018; 85025; J0131; J0690; J1100; J1171; J1580; J2371; J2405; J2704; J3010

== ENCOUNTER 2024-09-23 17:41 | Inpatient (IN) | payer MEDICARE, BC, SELFPAY ==
[2024-09-23 17:55] VITALS: BP 152/55; PULSE 66; RESP 12; TEMP 37.1; O2SAT 94
--- NOTE | 2024-09-23 19:03 | ED.GENADUL_ITS ---
Discharge Plan Discharge Details Chief Complaint: Urinary Primary Care Provider: Sheila Hilliard ED Provider: Nitza Marcus Home Meds and New Rx's Prescriptions: No Action loratadine [Claritin] 10 mg tablet 10 mg PO DAILY PRN (Reason: allergy symptoms) Qty: 90 3RF Rx Instructions: allergic rhinitis, Daily for the summer rizatriptan 10 mg tablet 10 mg PO .COMPLEX PRN (Reason: migraine headache) Qty: 20 2RF Rx Instructions: 10 mg PO ; PRN; hydrocodone-acetaminophen 5-325 mg tablet 0.5 tab PO Q4H MDD 5mg PRN (Reason: severe headache pain) Qty: 30 0RF Rx Instructions: Q6 weeks CGM 1 ea subcut (via wearable injectr) DAILY Qty: 1 0RF trazodone 50 mg tablet 50 mg PO QHS PRN (Reason: insomnia) Qty: 20 1RF Rx Instructions: Continue to help sleep; hold for UROL procedures nystatin-triamcinolone 100,000-0.1 unit/gram-% ointment 1 applic topical BID Qty: 15 0RF Rx Instructions: apply thin layer twice a day ketoconazole 2 % cream 1 applic topical BID Qty: 60 3RF cyanocobalamin (vitamin B-12) [Vitamin B-12] 1,000 MCG tablet 1,000 mcg PO DAILY Qty: 100 Rx Instructions: daily Vitamin B12 replacement, s/p gastric surgery dextrose 40 % gel 10 g PO Q15M PRN (Reason: hypoglycemia) Qty: 112.5 1RF Rx Instructions: Trial for urgent hypoglycemia: albuterol sulfate [ProAir HFA] 90 mcg/actuation HFA aerosol inhaler 2 puff Inhalation Q6H PRN Rx Instructions: Q4h as needed for wheezing (DME) blood sugar diagnostic As directed to check blood glucose daily. No insulin. Dispense covered brand. for Dx: E11.9 to maintain HbA1c less than 7% 0 .ROUTE .MEDSUPPLY Patient Comments: Per Patient, PRN glucose checks fluconazole [Diflucan] 100 mg tablet 100 mg PO DAILY Qty: 7 0RF HPI General Date/Time Provider Initiated Documentation: 09/23/24 18:05 . Limitations to Documentation: no limitations . Information obtained by: patient, family and old records reviewed . HPI Narrative: 79-year-old gentleman with past medical history of CKD, recent TURP and Garnica catheter placement by urology due to urinary obstructive symptoms. Patient had procedure performed yesterday which was complicated by significant amount of blood loss and ongoing bleeding. He was admitted to the hospital overnight for continuous bladder irrigation. His hemoglobin did drop significantly, but no blood transfusion was done. Patient was discharged later this afternoon. He reports that he is only been home for a couple of hours and his catheter is clotted. He states it is no longer draining. He states that when it stops draining, he feels very lightheaded and nauseated. He has not had any syncopal episodes. He states that he generally feels pretty poorly at this time. He thinks that he might need to be read admitted to the hospital. Related Data Home Medications ?Medication ?Instructions ?Recorded ?Confirmed cyanocobalamin (vitamin B-12) 1,000 mcg PO DAILY #100 tabs 04/07/16 09/23/24 1,000 mcg tablet (Vitamin B-12) dextrose 40 % oral gel 10 g PO Q15M PRN hypoglycemia 12/10/21 09/23/24 #112.5 grams nystatin-triamcinolone 100,000 1 applic topical BID #15 grams 05/04/23 09/23/24 unit/gram-0.1 % topical ointment ketoconazole 2 % topical cream 1 applic topical BID #60 grams 05/13/24 09/23/24 CGM 1 ea subcut (via wearable injectr) 06/27/24 09/23/24 DAILY Continuous Glucose Monitoring #1 ea hydrocodone 5 mg-acetaminophen 325 0.5 tab PO Q4H PRN severe headache 06/27/24 09/23/24 mg tablet pain #30 tabs loratadine 10 mg tablet (Claritin) 10 mg PO DAILY PRN allergy 06/27/24 09/23/24 symptoms #90 tab-caps rizatriptan 10 mg tablet 10 mg PO .COMPLEX PRN migraine 06/27/24 09/23/24 headache #20 tabs trazodone 50 mg tablet 50 mg PO QHS PRN insomnia #20 tabs 09/10/24 09/23/24 albuterol sulfate 90 mcg/actuation 2 puff inhalation Q6H PRN wheeze 09/22/24 09/23/24 aerosol inhaler blood sugar diagnostic As directed 09/23/24 09/23/24 to check blood glucose daily. No insulin. Dispense covered brand. for Dx: E11.9 to maintain HbA1c less than 7% fluconazole 100 mg tablet 100 mg PO DAILY thrush #7 tabs 09/23/24 09/23/24 (Diflucan) Previous Rx's ?Medication ?Instructions ?Recorded dextrose 40 % oral gel 10 g PO Q15M PRN hypoglycemia 12/10/21 #112.5 grams nystatin-triamcinolone 100,000 1 applic topical BID #15 grams 05/04/23 unit/gram-0.1 % topical ointment ketoconazole 2 % topical cream 1 applic topical BID #60 grams 05/13/24 CGM 1 ea subcut (via wearable injectr) 06/27/24 DAILY Continuous Glucose Monitoring #1 ea hydrocodone 5 mg-acetaminophen 325 0.5 tab PO Q4H PRN severe headache 06/27/24 mg tablet pain #30 tabs loratadine 10 mg tablet (Claritin) 10 mg PO DAILY PRN allergy 06/27/24 symptoms #90 tab-caps rizatriptan 10 mg tablet 10 mg PO .COMPLEX PRN migraine 06/27/24 headache #20 tabs trazodone 50 mg tablet 50 mg PO QHS PRN insomnia #20 tabs 09/10/24 fluconazole 100 mg tablet 100 mg PO DAILY thrush #7 tabs 09/23/24 (Diflucan) Allergies Allergy/AdvReac Type Severity Reaction Status Date / Time amitriptyline AdvReac Intermediate sedation Verified 09/23/24 18:01 aspirin AdvReac Intermediate h/o ulcer Verified 09/23/24 18:01 disease topiramate (From Topamax) AdvReac Intermediate CANNOT Verified 09/23/24 18:01 SLEEP baclofen AdvReac Mild nausea, Verified 09/23/24 18:01 dizzy, blurred vision Beta-Blockers AdvReac Unknown AVOID to Verified 09/23/24 18:01 (Beta-Adrenergic Bloc Abdi butalbital AdvReac Unknown Habituated Verified 09/23/24 18:01 caffeine AdvReac Unknown migraine Verified 09/23/24 18:01 diltiazem AdvReac Unknown AVOID due Verified 09/23/24 18:01 to Abdi lisinopril AdvReac Unknown cough Verified 09/23/24 18:01 verapamil AdvReac Unknown dizzy Verified 09/23/24 18:01 propofol AdvReac arrythmia Verified 09/23/24 18:01 with high-doses General Stated Complaint: Urinary JUAN: 3 Exam Narrative Exam Narrative: Review of Systems: All systems reviewed & are unremarkable except as noted in HPI and below Well-developed, no acute distress NCAT PERRL, normal conjunctiva RRR Unlabored respiratory effort Nondistended abdomen Garnica catheter in place, leaking blood from around the the catheter tubing is completed clot with blood Course Vital Signs Vital signs: Vital Signs Temperature 37.1 C 09/23/24 17:55 Pulse 66 09/23/24 17:55 Respiratory Rate 12 09/23/24 17:55 Blood Pressure 152/55 H 09/23/24 17:55 Pulse Oximetry 94 09/23/24 17:55 Temperature 37.1 C 09/23/24 17:55 Temperature Source Oral 09/23/24 17:55 Pulse 66 09/23/24 17:55 Respiratory Rate 12 09/23/24 17:55 Blood Pressure 152/55 H 09/23/24 17:55 Blood Pressure Position Sitting 09/23/24 17:55 Pulse Oximetry 94 09/23/24 17:55 Oxygen Delivery Method Room Air 09/23/24 17:55 Oxygen Flow Rate 0 09/23/24 17:55 Pain Level 4 09/23/24 17:55 Medical Decision Making Emergent evaluation of Garnica catheter dysfunction. Patient had TURP procedure done yesterday with significant blood loss. At this time the patient does have a clotted off catheter. It is a three-way so we will restart continuous bladder irrigation as attempts for manual irrigation dislodged very large clots and resulted in complete obstruction again. Will check blood work to see if his hemoglobin is dropped to the point requiring blood transfusion. Anticipate readmission close patient. Repeat lab work reviewed. Hemoglobin stable at 10 and has not dropped. Creatinine is slightly creeping up. Discussed with Dr. Werner who recommends continuous CBI overnight if clear in the morning, can stop the CBI and reassess. Will admit to the hospitalist service for continued CBI. Quality:SDOH Health Related Social Needs: Health related social needs housing instability, house d, with risk of homelessness(Z59.811) PFSH All Active Problems Gout attack (Acute) Pancytopenia (Acute) Syncope (Chronic) Urinary retention (Acute) CKD (chronic kidney disease) (Chronic) Vasovagal episode (Acute) Acute UTI (Acute) Gross hematuria (Acute) Esophageal stricture (Acute 12/07/17) q 3-4 month dilation w/ Dr. Greene, but Urol Rx may be helping maintain elasticity? stretch? Biopsies taken. Stricuture in second part of duodenum,56 cm from the teeth. Stricture in the upper esophagus,18cm from the teeth. endoscopy report date 12/07/17. Pathology shows peptic duodenitis, negative H. Pylori EGD Dr. Greene 11/04/21 Elevated serum creatinine (Acute 07/2018) 1.37 with elevated BUN and h/o poor hydration. 1.4 02/2019, monitor and recomm hydration. Reviewed NSAID, ABx use (min). 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 Spontaneous hypoglycemia (Acute 05/29/09) consult endocrine [facility] 2008 Low libido (Acute) [] ] testosterone? Vit D? (Wellbutrin helped with interest) Chronic daily headache (Chronic 03/23/15) Dull, improved flares since Chiro/Acupuncture care.. Chronic migraine without aura (Acute) 04/16/19 Dr Ortega, [facility] Neurology- Aimovig started. Chronic pain disorder (Chronic) Contract, UDS, Orders 10/25/18. Medical History Hypoglycemia after GI (gastrointestinal) surgery Testing required for hypogly episodes BPH NOS w ur obs/LUTS Urinary hesitancy Abnormal prostate exam Hematospermia Phimosis Seborrheic keratosis Basal cell carcinoma (BCC) Punch Bx shows BASAL CELL CARCINOMA.. Left Taoism 02/2022 Bradycardia Finger lesion left middle finger, PIP. Healing well, but concerned about tendon. History of gout Toe pain, possible GOUT per pdiatry (no Tx,Rx), 09/04/21. Probable 1x no proph Tx atthis time. UA slighlty high. COVID-19 vaccine series completed per card: Moderna, 01/21, 02/18/21. Kristina #[id number] Cough (11/01/12) Adenoma of left adrenal gland (~06/2018) [facility] [place] endocrinology office visit note 11/21/18. (2cm- which based on MRI characteristics strongly suggestive of a benign,lipid rich adenoma. (David Shields, DO,MS). FU 08/2019 CT (w/contrast) shows stable 2cm adenoma, Scan Q12mos [ ] .. Mgr NOS wo ntrc w st mgr Daily Headache. 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 Greene, Esoph Dilation nearly q 3 mos Exercise induced bronchospasm (01/30/12) INTERMITTENT, EXERCISE OR COLD INDUCED; NL PF 05/22/08 3.8 FEV1, NO RESPONSE; better after air room cleaner; nl FEV1 3.07 on 01/29/14 Esophageal reflux (01/30/12) Dysphagia, unspecified (11/19/94) RECURRENT DILATATIONS; (AUDRA -->MAIN 06/14/12 H PYLORI NEG; dilated 07/26/12 [place]; multiple re-does; currently q 3 mo (09/2016) Chronic gastritis (09/29/14) Mild Benign neoplasm of colon (11/19/03) ADENOMA IN 2003 SO rpt Q 5YR, NEG IN 2007 SEVEN; 1 adenoma 01/2013 [facility]. 08/12/18 colonoscopy (Dr Greene) Allergic rhinitis (01/30/12) Adjustment disorder, unspecified (10/13/16) Adenomatous colon polyp (11/19/03) ADENOMA IN 2003 SO rpt Q 5YR, NEG IN 2007 SEVEN; 1 adenoma 01/2013 [facility] Scalp lesion Seemed 2' trauma, but non-healing .. Punch Bx shows BASAL CELL CARCINOMA Vitreous degeneration Per 12/22/21 [place] note Puckering of macula, bilateral Per 12/22/21 [place] note COVID-19 end of January,, tolerated Paxlovid Surgical History History of esophagogastroduodenoscopy (EGD) (~06/13/24) w/ Dilation, Dr. Greene, unchanged per note.HE History of esophagogastroduodenoscopy (EGD) (~11/03/22) [facility]-04/20/23-Dr Greene. w/dilation-no biopsies [facility]-07/27/23-Dr Greene-biopsies normal-cont q3 mos Hx of basal cell carcinoma excision (03/03/22) left nondenominational Hx of esophagogastroduodenoscopy 07/07/20 with Dilation done by Dr Greene at [facility] 07/29/21 dilation, wire guided [place] under fluro guidance 11/04/[address] Greene 02/10/24;DR. Greene;[facility] EGD w/ Dilation H/O colonoscopy (08/12/18) Dr Greene Endoscopy (03/17/16) 06/09/16 Dr. Anna Diaz with dilatation 12/04/17 Dr. Greene w/ dilatation Endoscopy (06/18/15) 06/09/16 Dr. Anna Diaz with dilatation 12/04/17 Dr. Greene w/ dilatation Endoscopy (09/11/14) 06/09/16 Dr. Anna Diaz with dilatation 12/04/17 Dr. Greene w/ dilatation EGD w/ Dilatation (08/24/17) repeated EGD w/ dilatation Dr. Greene EGD w/ Dilatation (06/08/17) repeated EGD w/ dilatation Dr. Greene EGD w/ Dilatation (03/09/17) repeated EGD w/ dilatation Dr. Greene EGD w/ Dilatation (12/08/16) repeated EGD w/ dilatation Dr. Greene EGD - IV Sedation (12/24/15) Kush Greene Extraction of cataract (01/12/15) Nuclear/cortical, left eye, symptomatic ; R eye Dr. Nelson Sanchez Extraction of cataract (12/29/14) Nuclear/cortical, left eye, symptomatic ; R eye Dr. Nelson Sanchez Family History Mother Dementia Father , failure to thrive at age 97. 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 Pets and animals: No Sexually active: Yes Do you think of yourself as: straight/heterosexual Current gender identity: male What is your relationship status?: How often do you talk on the phone with friends or family?: twice per week How often do you get together with friends or relatives?: never Do you belong to any clubs or organized social groups?: no Panel score (0-1 are the most socially isolated patients): 1 What type of physical activity do you participate in: other Details: ADL's only--shoveling, firewood etc, pool, yardwork Fariha/Faith: Spiritism Special fariha needs: No Seatbelt use: always Drive intox or ride w/intox jinriksha driver: No Working smoke detector in home: Yes Carbon monox detector in home: Yes Do you feel safe at home: Yes Do you feel safe in your relationship?: Yes
[2024-09-23 19:22] LABS: Abs Immature Grans 0.07 10^3/uL (0.0-0.06); Absolute Eosinophil Count 0.05 10^3/uL (0.0-0.7); Absolute Lymphocyte Count 1.18 10^3/uL (1.2-3.4); Absolute Monocyte Count 1.31 10^3/uL (0.1-0.8); Absolute Neutrophil Count 9.56 10^3/uL (1.2-6.7); Basophils % 0.2 %; Eosinophils % 0.4 %; HCT 30.6 % (40.0-50.0); Immature Grans % 0.6 %; Lymphocytes % 9.7 %; MCH 30.3 pg (27.0-33.0); MCHC 32.7 % (32.0-36.0); MCV 93 fL (80-95); MPV 9.4 fL (8.0-11.0); Monocytes % 10.7 %; Neutrophils % 78.4 %; Platelet Count 154 10^3/uL (130-400); RDW 13.7 % (11.8-14.1); RDW-SD 46.8 fL
[2024-09-23 19:23] LABS: Absolute Basophil Count 0.02 10^3/uL (0.0-0.2)
[2024-09-23 19:38] LABS: Anion Gap 6.4 mmol/L (3-11); BUN 25 mg/dL (7-18); CO2 25.6 mmol/L (21.0-32.0); CREATININE 1.6 mg/dL (0.70-1.30); Calcium 9.1 mg/dL (8.5-10.1); Chloride 108 mmol/L (98-107); Glucose 98 mg/dL (74-106); Potassium 4.3 mmol/L (3.5-5.1); Sodium 140 mmol/L (136-145)
--- NOTE | 2024-09-23 20:55 | HPE_ITS ---
Date of service: 09/23/24 Time of Service: 20:55 Assessment and Plan Assessment and plan (1) Acute blood loss anemia: Start date: 09/23/24 Status: Acute Assessment and plan: This is a 79-year-old gentleman who just had a TURP and according to Dr. Werner, the urologist performed the procedure, he had a very vascular prostate with increased bleeding. The patient had cleared his gross hematuria postoperatively prior to discharge but had problems immediately when at home. He reported to the ED and will be admitted for continued bladder irrigation with urology to see the patient in the afternoon. Patient did drop 2 g/dL but he was not having significant symptoms. We will trend CBC and BMP every 4 hours. Patient has been typed and screened. He is a full code. (2) Gross hematuria: Start date: 09/23/24 Status: Acute Assessment and plan: Patient has continuous bladder irrigation with follow-up urology. If not clearing consider more urgent urological consultation possible transfer to tertiary care center if needed. (3) Urinary retention: Start date: 09/23/24 Assessment and plan: With BPH now status post TURP but significant bleeding with vascular prostate according to Dr. Werner during procedure. Continuous bladder irrigation and follow-up with urology tomorrow. (4) BPH NOS w ur obs/LUTS: Assessment and plan: Status post TURP 1 day now with gross hematuria and urinary retention or obstruction from blood clots in the bladder. Continue irrigation of bladder and if cleared by morning without significant anemia patient will be seen by urology for evaluation of possible discharge home. Trend CBC every 4 hours and patient has been typed and screened. (5) CKD (chronic kidney disease): Status: Chronic Assessment and plan: This appears stable and will be monitored with patient having irrigation of bladder with no IV fluids with usual oral diet. Qualifiers: Chronic kidney disease stage: stage 3 (moderate) Chronic kidney disease stage 3 subtype: stage 3a (GFR 45-59) Qualified Code(s): N18.31 - Chronic kidney disease, stage 3a (6) Insulin resistance: Status: Chronic Assessment and plan: With episodes of hypoglycemia but also hyperglycemia on continuous glucose monitoring at home with glucose gel but no treatment for diabetes mellitus. Will trend glucometer measurements ACHS with sensitive insulin sliding scale coverage if needed but mostly for rescue from hypoglycemia occurs. Patient will be on diabetic diet. Check hemoglobin A1c. History of Present Illness History of Present Illness Chief Complaint: Clots in Garnica catheter with occlusion status post TURP day 1. Narrative: This is a 79-year-old male patient who is status post TURP 09/22/2024 who had overnight observation with Garnica catheter in place and continues bladder irrigation clearing blood prior to discharge. He went home and after 1 hour began to have blood clots in his catheter with occlusion of his catheter and urinating with blood around the catheter. Deep tendon clots were also where his urinary catheter went into his back. He presented to the ED and was placed on continuous bladder irrigation again relieve obstruction but with clots still forming. Dr. Werner was consulted and advised admitting patient for continuous bladder irrigation until clots were cleared. He will be seeing the patient later the next day. Patient was having some abdominal discomfort when his catheter was blocked but no fever and no back pain. Did not have any chest discomfort or dizziness. Patient is a full code. Review of Systems Narrative: 13 point review of systems otherwise unrevealing or stable. PFSH All Active Problems Insulin resistance (Chronic) Acute blood loss anemia (Acute) Gout attack (Acute) Pancytopenia (Acute) Syncope (Chronic) CKD (chronic kidney disease) (Chronic) Vasovagal episode (Acute) Acute UTI (Acute) Gross hematuria (Acute) Esophageal stricture (Acute 12/07/17) q 3-4 month dilation w/ Dr. Greene, but Urol Rx may be helping maintain elasticity? stretch? Biopsies taken. Stricuture in second part of duodenum,56 cm from the teeth. Stricture in the upper esophagus,18cm from the teeth. endoscopy report date 12/07/17. Pathology shows peptic duodenitis, negative H. Pylori EGD Dr. Greene 11/04/21 Elevated serum creatinine (Acute 07/2018) 1.37 with elevated BUN and h/o poor hydration. 1.4 02/2019, monitor and recomm hydration. Reviewed NSAID, ABx use (min). 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 Spontaneous hypoglycemia (Acute 05/29/09) consult endocrine [facility] [place] Low libido (Acute) [] ] testosterone? Vit D? (Wellbutrin helped with interest) Chronic daily headache (Chronic 03/23/15) Dull, improved flares since Chiro/Acupuncture care.. Chronic migraine without aura (Acute) 04/16/19 Dr Ortega, [facility] [place] [facility]- [facility]ov[facility] started. Chronic pain disorder (Chronic) Contract, UDS, Orders 10/25/18. Medical History Urinary retention Hypoglycemia after GI (gastrointestinal) surgery Testing required for hypogly episodes BPH NOS w ur obs/LUTS Urinary hesitancy Abnormal prostate exam Hematospermia Phimosis Seborrheic keratosis Basal cell carcinoma (BCC) Punch Bx shows BASAL CELL CARCINOMA.. Left Restorationism 02/2022 Bradycardia Finger lesion left middle finger, PIP. Healing well, but concerned about tendon. History of gout Toe pain, possible GOUT per pdiatry (no Tx,Rx), 09/04/21. Probable 1x no proph Tx atthis time. UA slighlty high. COVID-19 vaccine series completed per card: Moderna, 01/21, 02/18/21. Kristina #[id number] Cough (11/01/12) Adenoma of left adrenal gland (~06/2018) [facility] [place] [facility]ology office visit note 11/21/18. (2cm- which based on MRI characteristics strongly suggestive of a benign,lipid rich adenoma. (David Shields DO,MS). FU 08/2019 CT (w/contrast) shows stable 2cm adenoma, Scan Q12mos [ ] .. Mgr NOS wo ntrc w st mgr Daily Headache. 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 08/12/18 colonoscopy (Dr rGeene) Allergic rhinitis (01/30/12) Adjustment disorder, unspecified (10/13/16) Adenomatous colon polyp (11/19/03) ADENOMA IN 2003 SO rpt Q 5YR, NEG IN 2007 SEVEN; 1 adenoma 01/2013 Main Scalp lesion Seemed 2' trauma, but non-healing .. Punch Bx shows BASAL CELL CARCINOMA Vitreous degeneration Per 12/22/21 [place] note Puckering of macula, bilateral Per 12/22/21 [place] note COVID-19 end January,, tolerated Paxlovid Surgical History History of esophagogastroduodenoscopy (EGD) (~06/13/24) w/ Dilation, Dr. Greene, unchanged per note.HE History of esophagogastroduodenoscopy (EGD) (~11/03/22) [facility]-04/20/23-Dr Greene. w/dilation-no biopsies [facility]-07/27/23-Dr Greene-biopsies normal-cont q3 mos Hx of basal cell carcinoma excision (03/03/22) left caodaism Hx of esophagogastroduodenoscopy 07/07/20 with Dilation done by Dr Greene at [facility] 07/29/21 dilation, wire guided Savory under fluro guidance 11/04/[address] Greene 02/10/24;DR. Greene;[facility] EGD w/ Dilation H/O colonoscopy (08/12/18) Dr Greene Endoscopy (03/17/16) 06/09/16 Dr. Anna Diaz with dilatation 12/04/17 Dr. Greene w/ dilatation Endoscopy (06/18/15) 06/09/16 Dr. Anna Diaz with dilatation 12/04/17 Dr. Greene w/ dilatation Endoscopy (09/11/14) 06/09/16 Dr. Anna Diaz with dilatation 12/04/17 Dr. Greene w/ dilatation EGD w/ Dilatation (08/24/17) repeated EGD w/ dilatation Dr. Greene EGD w/ Dilatation (06/08/17) repeated EGD w/ dilatation Dr. Greene EGD w/ Dilatation (03/09/17) repeated EGD w/ dilatation Dr. Greene EGD w/ Dilatation (12/08/16) repeated EGD w/ dilatation Dr. Greene EGАлександр - IV Sedation (12/24/15) Kush Greene Extraction of cataract (01/12/15) Nuclear/cortical, left eye, symptomatic ; R eye Dr. Nelson Sanchez Extraction of cataract (12/29/14) Nuclear/cortical, left eye, symptomatic ; R eye Dr. Nelson Sanchez Family History Mother Dementia Father , failure to thrive at age 97. 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 Pets and animals: No Sexually active: Yes Do you think of yourself as: straight/heterosexual Current gender identity: male What is your relationship status?: How often do you talk on the phone with friends or family?: twice per week How often do you get together with friends or relatives?: never Do you belong to any clubs or organized social groups?: no Panel score (0-1 are the most socially isolated patients): 1 What type of physical activity do you participate in: other Details: ADL's only--shoveling, firewood etc, pool, yardwork Fariha/Latter Day: Baptism Special fariha needs: No Seatbelt use: always Drive intox or ride w/intox jinriksha driver: No Working smoke detector in home: Yes Carbon monox detector in home: Yes Do you feel safe at home: Yes Do you feel safe in your relationship?: Yes Meds Allergies and Home Medications Allergies Allergy/AdvReac Type Severity Reaction Status Date / Time amitriptyline AdvReac Intermediate sedation Verified 09/23/24 18:01 aspirin AdvReac Intermediate h/o ulcer Verified 09/23/24 18:01 disease topiramate (From Topamax) AdvReac Intermediate CANNOT Verified 09/23/24 18:01 SLEEP baclofen AdvReac Mild nausea, Verified 09/23/24 18:01 dizzy, blurred vision Beta-Blockers AdvReac Unknown AVOID to Verified 09/23/24 18:01 (Beta-Adrenergic Bloc Abdi butalbital AdvReac Unknown Habituated Verified 09/23/24 18:01 caffeine AdvReac Unknown migraine Verified 09/23/24 18:01 diltiazem AdvReac Unknown AVOID due Verified 09/23/24 18:01 to Abdi lisinopril AdvReac Unknown cough Verified 09/23/24 18:01 verapamil AdvReac Unknown dizzy Verified 09/23/24 18:01 propofol AdvReac arrythmia Verified 09/23/24 18:01 with high-doses Home Medications ?Medication ?Instructions ?Recorded ?Confirmed ?Type cyanocobalamin (vitamin B-12) 1,000 mcg PO DAILY #100 tabs 04/07/16 09/23/24 History 1,000 mcg tablet (Vitamin B-12) dextrose 40 % oral gel 10 g PO Q15M PRN hypoglycemia 12/10/21 09/23/24 Rx #112.5 grams nystatin-triamcinolone 100,000 1 applic topical BID #15 grams 05/04/23 09/23/24 Rx unit/gram-0.1 % topical ointment ketoconazole 2 % topical cream 1 applic topical BID #60 grams 05/13/24 09/23/24 Rx CGM 1 ea subcut (via wearable injectr) 06/27/24 09/23/24 Rx DAILY Continuous Glucose Monitoring #1 ea hydrocodone 5 mg-acetaminophen 325 0.5 tab PO Q4H PRN severe headache 06/27/24 09/23/24 Rx mg tablet pain #30 tabs loratadine 10 mg tablet (Claritin) 10 mg PO DAILY PRN allergy 06/27/24 09/23/24 Rx symptoms #90 tab-caps rizatriptan 10 mg tablet 10 mg PO .COMPLEX PRN migraine 06/27/24 09/23/24 Rx headache #20 tabs trazodone 50 mg tablet 50 mg PO QHS PRN insomnia #20 tabs 09/10/24 09/23/24 Rx albuterol sulfate 90 mcg/actuation 2 puff inhalation Q6H PRN wheeze 09/22/24 09/23/24 History aerosol inhaler blood sugar diagnostic As directed 09/23/24 09/23/24 History to check blood glucose daily. No insulin. Dispense covered brand. for Dx: E11.9 to maintain HbA1c less than 7% fluconazole 100 mg tablet 100 mg PO DAILY thrush #7 tabs 09/23/24 09/23/24 Rx (Diflucan) Exam Narrative Exam Narrative: General: Patient appears appropriate, alert and oriented x 3 and in no acute distress. HEENT: Normocephalic, eyes with pupils equal and reactive light symmetrically, extraocular movement intact and sclera anicteric. Oropharynx with moist mucosa and fair dentition. Neck: Supple without JVD. Back: Slightly stooped posture without CVA tenderness. Lungs: Aeration clear to auscultation percussion. Heart: Regular rate and rhythm with no appreciable murmur or gallop. Abdomen: Normal contour, soft nontender to palpation with no palpable hepatosplenomegaly. Bowel sounds positive all quadrants. Genitalia/rectal: Exam deferred. Garnica catheter is in place draining fairly clear urine with only occasional clots in his 5 gallon bucket which is. His bladder flushed. Urine is otherwise clear and nikki. Extremities: No clubbing, cyanosis or pitting edema. Peripheral pulses intact. Skin: Normal color, warm and dry. Neuro: Cranial nerves II through XII gross intact, no focalized motor deficits. No tremor. Psych: Normal affect and mood. No abnormal thought processes. Remote and recent memory intact. Results Labs 09/23/24 22:55 09/23/24 22:55 Labs: Laboratory Results - last 24 hr 09/23/24 19:00 WBC 12.20 H RBC 3.30 L Hgb 10.0 L Hct 30.6 L MCV 93 MCH 30.3 MCHC 32.7 RDW 13.7 Plt Count 154 MPV 9.4 Immature Gran % 0.6 Neutrophils % 78.4 Lymphocytes % 9.7 Monocytes % 10.7 Eosinophils % 0.4 Basophils % 0.2 Nucleated RBC % 0.0 Absolute Neutrophils 9.56 H Absolute Lymphocytes 1.18 L Absolute Monocytes 1.31 H Absolute Eosinophils 0.05 Absolute Basophils 0.02 Sodium 140 Potassium 4.3 Chloride 108 H Carbon Dioxide 25.6 Anion Gap 6.4 BUN 25 H Creatinine 1.6 H Est GFR (CKD-EPI 2020) 44.10 Glucose 98 Calcium 9.1 ABO/Rh O Positive Antibody Screen NEGATIVE Last Vital Signs Temp 37.1 C 09/23/24 17:55 Pulse 66 09/23/24 17:55 Resp 12 09/23/24 17:55 BP 152/55 H 09/23/24 17:55 Pulse Ox 94 09/23/24 17:55 Time Spent Time spent with Patient: >75 minutes Time was spent: preparing to see the patient(eg.review tests), obtaining and/or reviewing separately otained hiistory, ordering medications,tests, procedures, referring, communicating with other health ambulatory care nurse, indepentently interpreting results and care coordination
[2024-09-23 21:18] VITALS: BP 147/54; PULSE 68; RESP 18; O2SAT 98
[2024-09-23 21:34] LABS: Source Nasal/Nares
[2024-09-23 22:12] LABS: COVID-19 PCR Negative (Negative)
[2024-09-23 22:29] VITALS: BP 142/61; PULSE 75; RESP 16; TEMP 36.4; O2SAT 94
[2024-09-23] MEDS: Normal Saline Flush 10 ML SYR IVP (22:30)
[2024-09-23 22:35] VITALS: BP 142/61; PULSE 75; RESP 16; TEMP 36.4; O2SAT 94
[2024-09-23 22:59] LABS: HCT 30.5 % (40.0-50.0); MCH 30.4 pg (27.0-33.0); MCHC 32.8 % (32.0-36.0); MCV 93 fL (80-95); MPV 9.3 fL (8.0-11.0); Platelet Count 146 10^3/uL (130-400); RBC 3.29 10^6/uL (4.36-5.78); RDW 13.8 % (11.8-14.1); RDW-SD 47.2 fL; WBC 10.46 10^3/uL (4.4-10.8)
[2024-09-23 23:10] LABS: Anion Gap 4.4 mmol/L (3-11); BUN 23 mg/dL (7-18); CO2 27.6 mmol/L (21.0-32.0); CREATININE 1.4 mg/dL (0.70-1.30); Calcium 8.9 mg/dL (8.5-10.1); Chloride 111 mmol/L (98-107); Estimated GFR 51.77 (mL/min/1.73m2); Glucose 132 mg/dL (74-106); Potassium 4.4 mmol/L (3.5-5.1); Sodium 143 mmol/L (136-145)
[2024-09-24 00:39] LABS: INR 1.1 (0.9-1.1)
[2024-09-24 00:45] LABS: Hemoglobin A1C 5.4 % (<5.7)
[2024-09-24 03:09] VITALS: BP 135/67; PULSE 65; RESP 16; TEMP 36.5; O2SAT 94
[2024-09-24] MEDS: Acetaminophen 325 MG TAB PO ×2 (05:20→09:19)
[2024-09-24 07:43] LABS: ALT 21 U/L (16-63); AST 21 U/L (15-37); Albumin 2.7 g/dL (3.4-5.0); Alkaline Phosphatase 56 U/L (46-116); Anion Gap 7.2 mmol/L (3-11); BUN 20 mg/dL (7-18); Bilirubin, Total 0.36 mg/dL (0.2-1.0); CO2 26.8 mmol/L (21.0-32.0); CREATININE 1.2 mg/dL (0.70-1.30); Calcium 9.1 mg/dL (8.5-10.1); Chloride 111 mmol/L (98-107); Estimated GFR 62.29 (mL/min/1.73m2); Glucose 98 mg/dL (74-106); Magnesium 1.8 mg/dL (1.8-2.4); Potassium 4.2 mmol/L (3.5-5.1); Sodium 145 mmol/L (136-145); Total Protein 5.5 g/dL (6.4-8.2)
[2024-09-24 07:55] VITALS: BP 126/55; PULSE 64; RESP 18; TEMP 37; O2SAT 94
[2024-09-24] MEDS: Fluconazole 100 MG TAB PO (09:16)
[2024-09-24] MEDS: Normal Saline Flush 10 ML SYR IVP (09:16)
[2024-09-24] MEDS: Cyanocobalamin 500 MCG TAB 1000 MCG PO (09:16)
[2024-09-24 10:16] LABS: Abs Immature Grans 0.03 10^3/uL (0.0-0.06); Absolute Basophil Count 0.03 10^3/uL (0.0-0.2); Absolute Eosinophil Count 0.14 10^3/uL (0.0-0.7); Absolute Lymphocyte Count 1.18 10^3/uL (1.2-3.4); Absolute Monocyte Count 0.77 10^3/uL (0.1-0.8); Absolute Neutrophil Count 5.45 10^3/uL (1.2-6.7); Basophils % 0.4 %; Eosinophils % 1.8 %; HCT 29.8 % (40.0-50.0); HGB 9.7 g/dL (13.5-17.5); Immature Grans % 0.4 %; Lymphocytes % 15.5 %; MCH 30.2 pg (27.0-33.0); MCHC 32.6 % (32.0-36.0); MCV 93 fL (80-95); Monocytes % 10.1 %; Neutrophils % 71.8 %; Platelet Count 136 10^3/uL (130-400); RBC 3.21 10^6/uL (4.36-5.78); RDW 13.8 % (11.8-14.1)
[2024-09-24 10:31] LABS: BUN 20 mg/dL (7-18); CREATININE 1.2 mg/dL (0.70-1.30); Calcium 9.1 mg/dL (8.5-10.1); Chloride 110 mmol/L (98-107); Estimated GFR 62.29 (mL/min/1.73m2); Glucose 107 mg/dL (74-106); Potassium 4.3 mmol/L (3.5-5.1); Sodium 144 mmol/L (136-145)
[2024-09-24 11:44] VITALS: BP 141/65; PULSE 52; RESP 16; TEMP 36.7; O2SAT 96
--- NOTE | 2024-09-24 11:47 | PHA.REVIEW2 ---
Pharmacy Admission Review Admission Clinical Review Admission Pharmacy Review: Acute blood loss anemia (Acute) Gross hematuria (Acute) amitriptyline Adverse Reaction (Intermediate, Verified 09/23/24 18:01) sedation aspirin Adverse Reaction (Intermediate, Verified 09/23/24 18:01) h/o ulcer disease topiramate (From Topamax) Adverse Reaction (Intermediate, Verified 09/23/24 18:01) CANNOT SLEEP baclofen Adverse Reaction (Mild, Verified 09/23/24 18:01) nausea, dizzy, blurred vision Beta-Blockers (Beta-Adrenergic Bloc Adverse Reaction (Unknown, Verified 09/23/24 18:01) AVOID to Abdi butalbital Adverse Reaction (Unknown, Verified 09/23/24 18:01) Habituated caffeine Adverse Reaction (Unknown, Verified 09/23/24 18:01) migraine diltiazem Adverse Reaction (Unknown, Verified 09/23/24 18:01) AVOID due to Abdi lisinopril Adverse Reaction (Unknown, Verified 09/23/24 18:01) cough verapamil Adverse Reaction (Unknown, Verified 09/23/24 18:01) dizzy propofol Adverse Reaction (Verified 09/23/24 18:01) arrythmia with high-doses Resuscitation Status Full Code Height 5 ft 8 in Weight 95.254 kg Pharmacy Admission Review Renal Dosing Renal Dosing: BUN 20 mg/dL (7-18) H 09/24/24 10:00 Creatinine 1.2 mg/dL (0.70-1.30) 09/24/24 10:00 Medications needing adjustments: Reviewed (CrCl 57.71 mL/min, BUN decreased from 23 and SCr decreased from 1.4) List of meds needing interventions: Current medications are okay Anticoagulation Anticoagulation: Hgb 9.7 g/dL (13.5-17.5) L 09/24/24 10:00 Hct 29.8 % (40.0-50.0) L 09/24/24 10:00 Plt Count 136 10^3/uL (130-400) 09/24/24 10:00 INR 1.1 (0.9-1.1) 09/23/24 19:00 Creatinine 1.2 mg/dL (0.70-1.30) 09/24/24 10:00 DVT Prophylaxis: Reviewed (SCDs - hematuria, Hgb decreased from 10) Opiate Usage Evaluate Pain Scale/Pains Meds: Reviewed (hydrocodone 5/325mg q4h PRN - no doses given) Scheduled Bowel Reg ordered if on Opiates?: No (PRN docusate/Miralax) Relevant Labs Relevant Labs: Sodium 144 mmol/L (136-145) 09/24/24 10:00 Potassium 4.3 mmol/L (3.5-5.1) 09/24/24 10:00 Chloride 110 mmol/L (98-107) H 09/24/24 10:00 Magnesium 1.8 mg/dL (1.8-2.4) 09/24/24 06:48 Electrolytes, C-Reactive P, ESR: Reviewed DM Control DM Control: Glucose 107 mg/dL (74-106) H 09/24/24 10:00 Hemoglobin A1c 5.4 % (<5.7) 09/23/24 23:00 Finger Stick Blood Glucose 98 1141 Finger Stick Blood Glucose 98 1141 Finger Stick Blood Glucose 128 0829 Finger Stick Blood Glucose 128 0829 DM Control: Reviewed Insulin Dosing, Diabetic Medication: Has order for SS insulin Cardiac Review Cardiac Review: Blood Pressure 141/65 1144 Blood Pressure 126/55 0755 Blood Pressure 135/67 0309 BP, HR, EF%: Reviewed (HR 52) QTc Review QTc: Reviewed (396 from 08/28/24) IV to PO Switch IV Medications: Reviewed Home Meds Home Med List reviewed: Reviewed Relevent Home Meds Not ordered & why?: rizatriptan (PRN) Current Meds Current Medication Order Review: Intervened Comments: Changed IV Access- emergency dept access to IV access
--- NOTE | 2024-09-24 11:56 | INITIAL_ITS ---
Date of service: 09/24/24 Time of Service: 11:56 Care Management Initial Assmt Initial Assessment Reason for Hospitalization: Urinary retention, blood loss anemia Functional Status/Living Situation Patient Presentation: Naren was sitting up in bed when CM met with him. He is awake, pleasant and easy to engage in conversation. He states that he feels much better than he did last night. Per pt, he had a TURP in the OR yesterday, everything was going good and he went home. He went to the ER later in the evening after making several attempts at unclogging his catheter. Town of Residence: [place] Resides with: Spouse ( Jody) Significant Other/Family: Local (Daughter Nancy, Son Luis) Employment Status: Retired Instrumental Activities of Daily Living (ADLs): Independent Medications Medication Management: No Issues/Barriers identified Advance Directives Advance Directives: Do you have an Advance Directive: Y 05/09/21 09:37 AD On File at [facility]: N 05/09/21 09:37 Date Asked 09/23/24 09/23/24 18:04 AD Date Reviewed COLST On File at [facility] No 08/28/24 17:07 COLST Date Scanned Code Status Resuscitation Status Full Code Insurance Coverage/Financial Issues Insurance: BC/BS of [place] Medicare Financial Issues: None identified Care Team Visit Care Team Role Provider Type Sheila Hilliard DO Primary Care Provider OSTEOPATHIC DOCTOR Dominick Werner MD Other Providers [facility] STAFF PHYSICIAN Nitza Marcus MD Emergency Provider [facility] STAFF PHYSICIAN Adiel Diego Admit Provider NON-[facility] STAFF PHYSICIAN Attending Provider Discharge Potential Discharge Needs: PCP F/U Appt and Other (Urology Follow up) Anticipated Barriers to Discharge: Medical Status Patient/Family Education Needs: Review discharge instructions, discuss Ask Me Three Transportation: Private vehicle Plan: Discharge home via private vehicle with family. Naren will need close community follow up with Urology and his community providers Transportation will be provided by family. No new services are anticipated at this time. CM will follow. PFSH All Active Problems Insulin resistance (Chronic) Acute blood loss anemia (Acute) Gout attack (Acute) Pancytopenia (Acute) Syncope (Chronic) CKD (chronic kidney disease) (Chronic) Vasovagal episode (Acute) Acute UTI (Acute) Gross hematuria (Acute) Esophageal stricture (Acute 12/07/17) q 3-4 month dilation w/ Dr. Greene, but Urol Rx may be helping maintain elasticity? stretch? Biopsies taken. Stricuture in second part of duodenum,56 cm from the teeth. Stricture in the upper esophagus,18cm from the teeth. endoscopy report date 12/07/17. Pathology shows peptic duodenitis, negative H. Pylori EGD Dr. Greene 11/04/21 Elevated serum creatinine (Acute 07/2018) 1.37 with elevated BUN and h/o poor hydration. 1.4 02/2019, monitor and recomm hydration. Reviewed NSAID, ABx use (min). 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 Spontaneous hypoglycemia (Acute 05/29/09) consult endocrine [facility] 2008 Low libido (Acute) [] ] testosterone? Vit D? (Wellbutrin helped with interest) Chronic daily headache (Chronic 03/23/15) Dull, improved flares since Chiro/Acupuncture care.. Chronic migraine without aura (Acute) 04/16/19 Dr Ortega, [facility] Neurology- Aimovig started. Chronic pain disorder (Chronic) Contract, UDS, Orders 10/25/18. Medical History Urinary retention Hypoglycemia after GI (gastrointestinal) surgery Testing required for hypogly episodes BPH NOS w ur obs/LUTS Urinary hesitancy Abnormal prostate exam Hematospermia Phimosis Seborrheic keratosis Basal cell carcinoma (BCC) Punch Bx shows BASAL CELL CARCINOMA.. Left [place] 02/2022 Bradycardia Finger lesion left middle finger, PIP. Healing well, but concerned about tendon. History of gout Toe pain, possible GOUT per pdiatry (no Tx,Rx), 09/04/21. Probable 1x no proph Tx atthis time. UA slighlty high. COVID-19 vaccine series completed per card: Moderna, 01/21, 02/18/21. Kristina #[id number] Cough (11/01/12) Adenoma of left adrenal gland (~06/2018) [facility] [place] endocrinology office visit note 11/21/18. (2cm- which based on MRI characteristics strongly suggestive of a benign,lipid rich adenoma. (David Shields, DO,MS). FU 08/2019 CT (w/contrast) shows stable 2cm adenoma, Scan Q12mos [ ] .. Mgr NOS wo ntrc w st mgr Daily Headache. 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 Greene, Esoph Dilation nearly q 3 mos Exercise induced bronchospasm (01/30/12) INTERMITTENT, EXERCISE OR COLD INDUCED; NL PF 05/22/08 3.8 FEV1, NO RESPONSE; better after air shoe cleaner; nl FEV1 3.07 on 01/29/14 Esophageal reflux (01/30/12) Dysphagia, unspecified (11/19/94) RECURRENT DILATATIONS; (AUDRA -->JC 06/14/12 H PYLORI NEG; dilated 07/26/12 Emily; multiple re-does; currently q 3 mo (09/2016) Chronic gastritis (09/29/14) Mild Benign neoplasm of colon (11/19/03) ADENOMA IN 2003 SO rpt Q 5YR, NEG IN 2007 SEVEN; 1 adenoma 01/2013 Jc. 08/12/18 colonoscopy (Dr Greene) Allergic rhinitis (01/30/12) Adjustment disorder, unspecified (10/13/16) Adenomatous colon polyp (11/19/03) ADENOMA IN 2003 SO rpt Q 5YR, NEG IN 2007 SEVEN; 1 adenoma 01/2013 Jc Scalp lesion Seemed 2' trauma, but non-healing .. Punch Bx shows BASAL CELL CARCINOMA Vitreous degeneration Per 12/22/21 [place] note Puckering of macula, bilateral Per 12/22/21 [place] note COVID-19 end January,, tolerated Paxlovid Surgical History History of esophagogastroduodenoscopy (EGD) (~06/13/24) w/ Dilation, Dr. Greene, unchanged per note.HE History of esophagogastroduodenoscopy (EGD) (~11/03/22) [facility]-04/20/23-Dr Greene. w/dilation-no biopsies [facility]-07/27/23-Dr Greene-biopsies normal-cont q3 mos Hx of basal cell carcinoma excision (03/03/22) left mu-ism Hx of esophagogastroduodenoscopy 07/07/20 with Dilation done by Dr Greene at [facility] 07/29/21 dilation, wire guided Savory under fluro guidance 11/04/[address] Greene 02/10/24;DR. Greene;[facility] EGD w/ Dilation H/O colonoscopy (08/12/18) Dr Greene Endoscopy (03/17/16) 06/09/16 Dr. Anna Diaz with dilatation 12/04/17 Dr. Greene w/ dilatation Endoscopy (06/18/15) 06/09/16 Dr. Anna Diaz with dilatation 12/04/17 Dr. Greene w/ dilatation Endoscopy (09/11/14) 06/09/16 Dr. Anna Diaz with dilatation 12/04/17 Dr. Greene w/ dilatation EGD w/ Dilatation (08/24/17) repeated EGD w/ dilatation Dr. Greene EGD w/ Dilatation (06/08/17) repeated EGD w/ dilatation Dr. Greene EGD w/ Dilatation (03/09/17) repeated EGD w/ dilatation Dr. Greene EGD w/ Dilatation (12/08/16) repeated EGD w/ dilatation Dr. Greene EGD - IV Sedation (12/24/15) Kush Greene Extraction of cataract (01/12/15) Nuclear/cortical, left eye, symptomatic ; R eye Dr. Nelson Sanchez Extraction of cataract (12/29/14) Nuclear/cortical, left eye, symptomatic ; R eye Dr. Nelson Sanchez Family History Mother Dementia Father , failure to thrive at age 97. 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 Pets and animals: No Sexually active: Yes Do you think of yourself as: straight/heterosexual Current gender identity: male What is your relationship status?: How often do you talk on the phone with friends or family?: twice per week How often do you get together with friends or relatives?: never Do you belong to any clubs or organized social groups?: no Panel score (0-1 are the most socially isolated patients): 1 What type of physical activity do you participate in: other Details: ADL's only--shoveling, firewood etc, pool, yardwork Fariha/Pentecostal: Restorationism Special fariha needs: No Seatbelt use: always Drive intox or ride w/intox 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 Working smoke detector in home: Yes Carbon monox detector in home: Yes Do you feel safe at home: Yes Do you feel safe in your relationship?: Yes Readmission Within the Past 30 Days Yes or No: Yes SDOH(Care Management) Screening Will the Patient Participate in the Screening?: Declined to provide Do you worry about having a steady place to live?: yes Problems where you live: no known problems In the past 12 months, have you had to go without electric, gas, oil or water in your home?: no Have you or anyone in your house had to go without enough food to eat?: no Has lack of transportation kept you from medical appointments or from doing things needed for daily living?: no Has anyone in your support network made you feel unsafe for any reason?: no Health Related Social Needs Health related social needs: housing instability, housed, with risk of homelessness(Z59.811)
--- NOTE | 2024-09-24 14:22 | UCONE_ITS ---
Date of service: 09/24/24 Time of Service: 12:00 Assessment and Plan Assessment and plan (1) Urinary retention: Assessment and plan: Hemoglobin is stable. No recommended need for transfusion at this point. Discussed with hospitalist having nursing get patient up and moving so we can see the degree of hematuria he is concerned with when he moves. Thus, asked that they discontinue his CBI and place a plug into the irrigating port. He is to ambulate with assistance to ensure he does not become orthostatic or symptomatic. If no blood clots occlude the catheter and his urine remains clear, he should be able to be discharged home later today with his catheter in place with a follow-up plan to be seen here in clinic later this week. Also asked hospitalist to teach patient how to hand irrigate clots in case clot occlusion were to arise overnight. Dictation was done by [employer] voice recognition. Errors may be present within the note. A total of 35 minutes was spent reviewing this patient's EMR, [id number] time, coordinating care and documenting. History of Present Illness History of Present Illness Chief Complaint: Clots in [place] catheter with occlusion status post TURP day 1. Narrative: Naren is a 79-year-old male that underwent TURBT 2 days ago. He was discharged yesterday. Shortly after being home patient notes that he began to develop blood clots and catheter occlusion. He came back through the emergency room and was admitted for CBI. Patient states the clots have cleared. He has not seen gross hematuria within the collection bag well receiving CBI. He notes he is most concerned for getting up and moving and when doing so having clot occlusion again. He denies fevers, chills, nausea, vomiting, shortness of breath or chest pain. Consults Consult date: 09/24/24 Requesting physician: Adiel Diego Review of Systems Narrative: See HPI PFS All Active Problems Insulin resistance (Chronic) Acute blood loss anemia (Acute) Gout attack (Acute) Pancytopenia (Acute) Syncope (Chronic) CKD (chronic kidney disease) (Chronic) Vasovagal episode (Acute) Acute UTI (Acute) Gross hematuria (Acute) Esophageal stricture (Acute 12/07/17) q 3-4 month dilation w/ Dr. Greene, but Urol Rx may be helping maintain elasticity? stretch? Biopsies taken. Stricuture in second part of duodenum,56 cm from the teeth. Stricture in the upper esophagus,18cm from the teeth. endoscopy report date 12/07/17. Pathology shows peptic duodenitis, negative H. Pylori EGD Dr. Greene 11/04/21 Elevated serum creatinine (Acute 07/2018) 1.37 with elevated BUN and h/o poor hydration. 1.4 02/2019, monitor and recomm hydration. Reviewed NSAID, ABx use (min). 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 Spontaneous hypoglycemia (Acute 05/29/09) consult endocrine [facility] [place] Low libido (Acute) [] ] testosterone? Vit D? (Wellbutrin helped with interest) Chronic daily headache (Chronic 03/23/15) Dull, improved flares since Chiro/Acupuncture care.. Chronic migraine without aura (Acute) 04/16/19 Dr Ortega, [facility] Neurology- Aimovig started. Chronic pain disorder (Chronic) Contract, UDS, Orders 10/25/18. Medical History Urinary retention Hypoglycemia after GI (gastrointestinal) surgery Testing required for hypogly episodes BPH NOS w ur obs/LUTS Urinary hesitancy Abnormal prostate exam Hematospermia Phimosis Seborrheic keratosis Basal cell carcinoma (BCC) Punch Bx shows BASAL CELL CARCINOMA.. Left [place] 02/2022 Bradycardia Finger lesion left middle finger, PIP. Healing well, but concerned about tendon. History of gout Toe pain, possible GOUT per pdiatry (no Tx,Rx), 09/04/21. Probable 1x no proph Tx atthis time. UA slighlty high. COVID-19 vaccine series completed per card: Moderna, 01/21, 02/18/21. Kristina #[id number] Cough (11/01/12) Adenoma of left adrenal gland (~06/2018) [facility] office visit note 11/21/18. (2cm- which based on MRI characteristics strongly suggestive of a benign,lipid rich adenoma. (David Shields, DO,MS). FU 08/2019 CT (w/contrast) shows stable 2cm adenoma, Scan Q12mos [ ] .. Mgr NOS wo ntrc w st mgr Daily Headache. 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 Greene, Esoph Dilation nearly q 3 mos Exercise induced bronchospasm (01/30/12) INTERMITTENT, EXERCISE OR COLD INDUCED; NL PF 05/22/08 3.8 FEV1, NO RESPONSE; better after air condenser cleaner; nl FEV1 3.07 on 01/29/14 Esophageal reflux (01/30/12) Dysphagia, unspecified (11/19/94) RECURRENT DILATATIONS; (AUDRA -->MITZ 06/14/12 H PYLORI NEG; dilated 07/26/12 Emily; multiple re-does; currently q 3 mo (09/2016) Chronic gastritis (09/29/14) Mild Benign neoplasm of colon (11/19/03) ADENOMA IN 2003 SO rpt Q 5YR, NEG IN 2007 SEVEN; 1 adenoma 01/2013 Jc. 08/12/18 colonoscopy (Dr Greene) Allergic rhinitis (01/30/12) Adjustment disorder, unspecified (10/13/16) Adenomatous colon polyp (11/19/03) ADENOMA IN 2003 SO rpt Q 5YR, NEG IN 2007 SEVEN; 1 adenoma 01/2013 Jc Scalp lesion Seemed 2' trauma, but non-healing .. Punch Bx shows BASAL CELL CARCINOMA Vitreous degeneration Per 12/22/21 [place] note Puckering of macula, bilateral Per 12/22/21 [place] note COVID-19 end of January,, tolerated Paxlovid Surgical History History of esophagogastroduodenoscopy (EGD) (~06/13/24) w/ Dilation, Dr. Greene, unchanged per note.HE History of esophagogastroduodenoscopy (EGD) (~11/03/22) [facility]-04/20/23-Dr Greene. w/dilation-no biopsies [facility]-07/27/23-Dr Greene-biopsies normal-cont q3 mos Hx of basal cell carcinoma excision (03/03/22) left worship Hx of esophagogastroduodenoscopy 07/07/20 with Dilation done by Dr Greene at [facility] 07/29/21 dilation, wire guided Savory under fluro guidance 11/04/[address] Greene 02/10/24;DR. Greene;[facility] EGD w/ Dilation H/O colonoscopy (08/12/18) Dr Greene Endoscopy (03/17/16) 06/09/16 Dr. Anna Diaz with dilatation 12/04/17 Dr. Greene w/ dilatation Endoscopy (06/18/15) 06/09/16 Dr. Anna Diaz with dilatation 12/04/17 Dr. Greene w/ dilatation Endoscopy (09/11/14) 06/09/16 Dr. Anna Diaz with dilatation 12/04/17 Dr. Greene w/ dilatation EGD w/ Dilatation (08/24/17) repeated EGD w/ dilatation Dr. Greene EGD w/ Dilatation (06/08/17) repeated EGD w/ dilatation Dr. Greene EGD w/ Dilatation (03/09/17) repeated EGD w/ dilatation Dr. Greene EGD w/ Dilatation (12/08/16) repeated EGD w/ dilatation Dr. Greene EGD - IV Sedation (12/24/15) Kush Greene Extraction of cataract (01/12/15) Nuclear/cortical, left eye, symptomatic ; R eye Dr. Nelson Sanchez Extraction of cataract (12/29/14) Nuclear/cortical, left eye, symptomatic ; R eye Dr. Nelson Sanchez Family History Mother Dementia Father , failure to thrive at age 97. 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 Pets and animals: No Sexually active: Yes Do you think of yourself as: straight/heterosexual Current gender identity: male What is your relationship status?: How often do you talk on the phone with friends or family?: twice per week How often do you get together with friends or relatives?: never Do you belong to any clubs or organized social groups?: no Panel score (0-1 are the most socially isolated patients): 1 What type of physical activity do you participate in: other Details: ADL's only--shoveling, firewood etc, pool, yardwork Fariha/Cheondoism: Nondenominational Special fariha needs: No Seatbelt use: always Drive intox or ride w/intox boat 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 He does not appear septic or toxic. He is sitting up eating lunch. His vital signs are documented elsewhere His catheter was attached to CBI. Urine is clear and no clots. Results Last Vital Signs Temp 98.1 F 09/24/24 11:44 Pulse 52 L 09/24/24 11:44 Resp 16 09/24/24 11:44 BP 141/65 H 09/24/24 11:44 Pulse Ox 96 09/24/24 11:44 Labs 09/24/24 10:00 09/24/24 10:00 Labs: Laboratory Results - last 24 hr 09/23/24 09/23/24 09/23/24 19:00 21:02 22:55 WBC 12.20 H 10.46 RBC 3.30 L 3.29 L Hgb 10.0 L 10.0 L Hct 30.6 L 30.5 L MCV 93 93 MCH 30.3 30.4 MCHC 32.7 32.8 RDW 13.7 13.8 Plt Count 154 146 MPV 9.4 9.3 Immature Gran % 0.6 Neutrophils % 78.4 Lymphocytes % 9.7 Monocytes % 10.7 Eosinophils % 0.4 Basophils % 0.2 Nucleated RBC % 0.0 Absolute Neutrophils 9.56 H Absolute Lymphocytes 1.18 L Absolute Monocytes 1.31 H Absolute Eosinophils 0.05 Absolute Basophils 0.02 PT 11.0 INR 1.1 Sodium 140 143 Potassium 4.3 4.4 Chloride 108 H 111 H Carbon Dioxide 25.6 27.6 Anion Gap 6.4 4.4 BUN 25 H 23 H Creatinine 1.6 H 1.4 H Est GFR (CKD-EPI 2020) 44.10 51.77 Glucose 98 132 H Hemoglobin A1c Calcium 9.1 8.9 Magnesium Total Bilirubin AST ALT Alkaline Phosphatase Total Protein Albumin COVID-19 Source Nasal/Nares SARS-CoV-2 (PCR) Negative ABO/Rh O Positive Antibody Screen NEGATIVE 09/23/24 09/24/24 09/24/24 23:00 06:48 10:00 WBC 7.60 RBC 3.21 L Hgb 9.7 L Hct 29.8 L MCV 93 MCH 30.2 MCHC 32.6 RDW 13.8 Plt Count 136 MPV 9.0 Immature Gran % 0.4 Neutrophils % 71.8 Lymphocytes % 15.5 Monocytes % 10.1 Eosinophils % 1.8 Basophils % 0.4 Nucleated RBC % 0.0 Absolute Neutrophils 5.45 Absolute Lymphocytes 1.18 L Absolute Monocytes 0.77 Absolute Eosinophils 0.14 Absolute Basophils 0.03 PT INR Sodium 145 144 Potassium 4.2 4.3 Chloride 111 H 110 H Carbon Dioxide 26.8 30.0 Anion Gap 7.2 4.0 BUN 20 H 20 H Creatinine 1.2 1.2 Est GFR (CKD-EPI 2020) 62.29 62.29 Glucose 98 107 H Hemoglobin A1c 5.4 Calcium 9.1 9.1 Magnesium 1.8 Total Bilirubin 0.36 AST 21 ALT 21 Alkaline Phosphatase 56 Total Protein 5.5 L Albumin 2.7 L COVID-19 Source SARS-CoV-2 (PCR) ABO/Rh Antibody Screen
[2024-09-24 14:23] LABS: HCT 32.5 % (40.0-50.0); HGB 10.7 g/dL (13.5-17.5)
[2024-09-24 15:21] VITALS: BP 144/53; PULSE 63; RESP 18; TEMP 36.4; O2SAT 95
--- NOTE | 2024-09-24 15:23 | W.PM.DS.N ---
Date of service: 09/24/24 Time of Service: 15:23 Discharge Plan Disposition Patient Disposition: Home Condition: Improving Discharge Details Reason For Visit: Acutebloodlossanemia w/grosshematuria,BPH S/P TURP Admit Date/Time: 09/23/24 21:10 Admit Provider: Adiel Diego Attending Provider: Adiel Diego Primary Care Provider: Sheila Hilliard Hospital Course Hospital Course: The patient is a 79-year-old male who underwent a transurethral resection of bladder tumor 2 days ago. He was discharged home yesterday but returned to the emergency room shortly thereafter due to the development of blood clots and catheter occlusion. He was subsequently admitted for continuous bladder irrigation. The clots have cleared since admission, and has no gross hematuria in the collection bag while receiving CBI. His primary concern is the potential for clot occlusion when mobilizing. He denies any symptoms such as fevers, chills, nausea, vomiting, shortness of breath, or chest pain. His hemoglobin has remained stable, and there is no need for a transfusion at this time. Hospital Course: The patient was placed on continuous bladder irrigation upon admission, and the irrigation was maintained to ensure the resolution of clot formation. After discussion with the hospitalist team, it was decided to gradually transition the patient off CBI to evaluate his ability to mobilize without further clot occlusion. The patient was able to ambulate with assistance, and no significant clot formation was noted upon movement. As a result, the CBI was discontinued, and a plug was placed in the irrigating port. The patient was closely monitored for any signs of clotting or gross hematuria, and there were no further complications during the observation period. Discharge Plan: Ambulation: The patient will continue ambulating with assistance to avoid orthostatic hypotension or any symptoms of clot occlusion. Catheter Management: The catheter will remain in place, and the patient has been instructed on how to hand irrigate the catheter in case of clot formation overnight, he did demonstrate this correctly to nursing. Follow-up: The patient is scheduled for a follow-up appointment in the urology clinic later this week for further evaluation of the catheter and his recovery. Education: The hospitalist team provided education on recognizing signs of catheter occlusion and how to manage it. Condition on Discharge: Stable. The patient is ready for discharge home with a follow-up plan. Home Meds and New Rx's Prescriptions: Continued loratadine [Claritin] 10 mg tablet 10 mg PO DAILY PRN (Reason: allergy symptoms) Qty: 90 3RF Rx Instructions: allergic rhinitis, Daily for the summer rizatriptan 10 mg tablet 10 mg PO .COMPLEX PRN (Reason: migraine headache) Qty: 20 2RF Rx Instructions: 10 mg PO ; PRN; hydrocodone-acetaminophen 5-325 mg tablet 0.5 tab PO Q4H MDD 5mg PRN (Reason: severe headache pain) Qty: 30 0RF Rx Instructions: Q6 weeks CGM 1 ea subcut (via wearable injectr) DAILY Qty: 1 0RF trazodone 50 mg tablet 50 mg PO QHS PRN (Reason: insomnia) Qty: 20 1RF Rx Instructions: Continue to help sleep; hold for UROL procedures nystatin-triamcinolone 100,000-0.1 unit/gram-% ointment 1 applic topical BID Qty: 15 0RF Rx Instructions: apply thin layer twice a day ketoconazole 2 % cream 1 applic topical BID Qty: 60 3RF cyanocobalamin (vitamin B-12) [Vitamin B-12] 1,000 MCG tablet 1,000 mcg PO DAILY Qty: 100 Rx Instructions: daily Vitamin B12 replacement, s/p gastric surgery dextrose 40 % gel 10 g PO Q15M PRN (Reason: hypoglycemia) Qty: 112.5 1RF Rx Instructions: Trial for urgent hypoglycemia: albuterol sulfate 90 mcg/actuation HFA aerosol inhaler 2 puff Inhalation Q6H PRN Rx Instructions: Q4h as needed for wheezing (DME) blood sugar diagnostic As directed to check blood glucose daily. No insulin. Dispense covered brand. for Dx: E11.9 to maintain HbA1c less than 7% 0 .ROUTE .MEDSUPPLY Patient Comments: Per Patient, PRN glucose checks fluconazole [Diflucan] 100 mg tablet 100 mg PO DAILY Qty: 7 0RF Discharge Instructions Instructions: How to Care for Your Garnica Catheter Additional Instructions: Follow up as planned with urology. Return to the emergency department if the urine is not draining from the catheter and you can't irrigate it, if you notice bright red bleeding, or if you experience any signs of blood loss, such as lightheadedness or nausea. Stand Alone Forms: Nursing Discharge Form Referrals: Dominick Werner MD [ [facility]FF [facility]YSICIAN] - 10/03/24 7:45 am (On the same day to come back at 3:45. ) Sheila Hilliard DO [Primary Care Provider] - 10/07/24 1:30 pm Activity:: Activity as Tolerated Equipment/Supplies:: Indwelling urinary Diet:: Heart Healthy Diabetic Discharge Orders Discharge Orders: Discharge Order (Routine); Ordered 09/24/24 Ordered By: Samantha Munoz Discharge Data Discharge Date/Time-TO BE ENTERED AT DEPARTURE: 09/24/24 16:06 DS: Summary Time Spent with Patient providing and/or coordinating discharge services: Greater than 30 minutes Status at Discharge Functional status at discharge: independent ambulation Overall status at discharge: patient is progressing back to baseline Mental Status: mental status grossly normal Speech and Movement: speech and movement normal Mood: congruent mood Affect: normal affect Quality:SDOH Health Related Social Needs: Health related social needs housing instability, housed, with risk of homelessness(Z59.811) Exam Psych Mental Status: mental status grossly normal Speech and Movement: speech and movement normal Mood: congruent mood Affect: normal affect DS: Data Vitals/I&O Vitals and I&O: Vital Signs Temperature 36.4 C L 09/24/24 15:21 Temperature Source Tympanic 09/24/24 15:21 Pulse 63 09/24/24 15:21 Pulse Rhythm Regular 09/23/24 22:29 Respiratory Rate 18 09/24/24 15:21 Respiratory Effort Normal, Non-Labored 09/23/24 22:29 Respiratory Depth Normal 09/23/24 22:29 Respiratory Pattern Normal 09/23/24 22:29 Blood Pressure 144/53 H 09/24/24 15:21 Blood Pressure Position Sitting 09/23/24 17:55 Pulse Oximetry 95 09/24/24 15:21 Oxygen Delivery Method Room Air 09/24/24 15:21 Oxygen Flow Rate 0 09/24/24 15:21 Pain Level 0 09/24/24 15:21 Comment RN notified 09/24/24 15:21 Intake & Output 09/23/24 09/24/24 09/24/24 23:59 11:59 23:59 Intake Total Output Total 6000 / 6000 Balance -6000 / -6000 Weight 95.254 kg Intake: IV Output: Urine 6000 / 6000 Other: Urine Color Minneiska Minneiska Urine Appearance Hematuria Clots Comment light pink, one more small clot sine last bag change Irrigation performed after ambulating around unit x 2. Stool Size Small Stool Characteristics Soft Formed Brown Data Completed and Pending Labs on day of discharge: Labs from last 24 hours 09/24/24 09/24/24 09/24/24 14:12 10:00 06:48 WBC 7.60 RBC 3.21 L Hgb 10.7 L 9.7 L Hct 32.5 L 29.8 L MCV 93 MCH 30.2 MCHC 32.6 RDW 13.8 Plt Count 136 MPV 9.0 Immature Gran % 0.4 Neutrophils % 71.8 Lymphocytes % 15.5 Monocytes % 10.1 Eosinophils % 1.8 Basophils % 0.4 Nucleated RBC % 0.0 Absolute Neutrophils 5.45 Absolute Lymphocytes 1.18 L Absolute Monocytes 0.77 Absolute Eosinophils 0.14 Absolute Basophils 0.03 PT INR Sodium 144 145 Potassium 4.3 4.2 Chloride 110 H 111 H Carbon Dioxide 30.0 26.8 Anion Gap 4.0 7.2 BUN 20 H 20 H Creatinine 1.2 1.2 Est GFR (CKD-EPI 2020) 62.29 62.29 Glucose 107 H 98 Hemoglobin A1c Calcium 9.1 9.1 Magnesium 1.8 Total Bilirubin 0.36 AST 21 ALT 21 Alkaline Phosphatase 56 Total Protein 5.5 L Albumin 2.7 L COVID-19 Source SARS-CoV-2 (PCR) ABO/Rh Antibody Screen 09/23/24 09/23/24 09/23/24 23:00 22:55 21:02 WBC 10.46 RBC 3.29 L Hgb 10.0 L Hct 30.5 L MCV 93 MCH 30.4 MCHC 32.8 RDW 13.8 Plt Count 146 MPV 9.3 Immature Gran % Neutrophils % Lymphocytes % Monocytes % Eosinophils % Basophils % Nucleated RBC % Absolute Neutrophils Absolute Lymphocytes Absolute Monocytes Absolute Eosinophils Absolute Basophils PT INR Sodium 143 Potassium 4.4 Chloride 111 H Carbon Dioxide 27.6 Anion Gap 4.4 BUN 23 H Creatinine 1.4 H Est GFR (CKD-EPI 2020) 51.77 Glucose 132 H Hemoglobin A1c 5.4 Calcium 8.9 Magnesium Total Bilirubin AST ALT Alkaline Phosphatase Total Protein Albumin COVID-19 Source Nasal/Nares SARS-CoV-2 (PCR) Negative ABO/Rh Antibody Screen 09/23/24 19:00 WBC 12.20 H RBC 3.30 L Hgb 10.0 L Hct 30.6 L MCV 93 MCH 30.3 MCHC 32.7 RDW 13.7 Plt Count 154 MPV 9.4 Immature Gran % 0.6 Neutrophils % 78.4 Lymphocytes % 9.7 Monocytes % 10.7 Eosinophils % 0.4 Basophils % 0.2 Nucleated RBC % 0.0 Absolute Neutrophils 9.56 H Absolute Lymphocytes 1.18 L Absolute Monocytes 1.31 H Absolute Eosinophils 0.05 Absolute Basophils 0.02 PT 11.0 INR 1.1 Sodium 140 Potassium 4.3 Chloride 108 H Carbon Dioxide 25.6 Anion Gap 6.4 BUN 25 H Creatinine 1.6 H Est GFR (CKD-EPI 2020) 44.10 Glucose 98 Hemoglobin A1c Calcium 9.1 Magnesium Total Bilirubin AST ALT Alkaline Phosphatase Total Protein Albumin COVID-19 Source SARS-CoV-2 (PCR) ABO/Rh O Positive Antibody Screen NEGATIVE PFSH All Active Problems Insulin resistance (Chronic) Acute blood loss anemia (Acute) Gout attack (Acute) Pancytopenia (Acute) Syncope (Chronic) CKD (chronic kidney disease) (Chronic) Vasovagal episode (Acute) Acute UTI (Acute) Gross hematuria (Acute) Esophageal stricture (Acute 12/07/17) q 3-4 month dilation w/ Dr. Greene, but Urol Rx may be helping maintain elasticity? stretch? Biopsies taken. Stricuture in second part of duodenum,56 cm from the teeth. Stricture in the upper esophagus,18cm from the teeth. endoscopy report date 12/07/17. Pathology shows peptic duodenitis, negative H. Pylori EGD Dr. Greene 11/04/21 Elevated serum creatinine (Acute 07/2018) 1.37 with elevated BUN and h/o poor hydration. 1.4 02/2019, monitor and recomm hydration. Reviewed NSAID, ABx use (min). 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 Spontaneous hypoglycemia (Acute 05/29/09) consult endocrine [facility] – [place] 2008 Low libido (Acute) [] ] testosterone? Vit D? (Wellbutrin helped with interest) Chronic daily headache (Chronic 03/23/15) Dull, improved flares since Chiro/Acupuncture care.. Chronic migraine without aura (Acute) 04/16/19 Dr Ortega, [facility] – [place] Neurology- Aimovig started. Chronic pain disorder (Chronic) Contract, UDS, BH Orders 10/25/18. Medical History Urinary retention Hypoglycemia after GI (gastrointestinal) surgery Testing required for hypogly episodes BPH NOS w ur obs/LUTS Urinary hesitancy Abnormal prostate exam Hematospermia Phimosis Seborrheic keratosis Basal cell carcinoma (BCC) Punch Bx shows BASAL CELL CARCINOMA.. Left Hinduism 02/2022 Bradycardia Finger lesion left middle finger, PIP. Healing well, but concerned about tendon. History of gout Toe pain, possible GOUT per pdiatry (no Tx,Rx), 09/04/21. Probable 1x no proph Tx atthis time. UA slighlty high. COVID-19 vaccine series completed per card: Moderna, 01/21, 02/18/21. Kristina #[id number] Cough (11/01/12) Adenoma of left adrenal gland (~06/2018) [facility] [place] endocrinology office visit note 11/21/18. (2cm- which based on MRI characteristics strongly suggestive of a benign,lipid rich adenoma. (David Shields, DO,MS). FU 08/2019 CT (w/contrast) shows stable 2cm adenoma, Scan Q12mos [ ] .. Mgr NOS wo ntrc w st mgr Daily Headache. 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 Greene, Esoph Dilation nearly q 3 mos Exercise induced bronchospasm (01/30/12) INTERMITTENT, EXERCISE OR COLD INDUCED; NL PF 7/4/08 3.8 FEV1, NO RESPONSE; better after air school cleaner; nl FEV1 3.07 on 01/29/14 Esophageal reflux (01/30/12) Dysphagia, unspecified (11/19/94) RECURRENT DILATATIONS; (AUDRA -->MAIN 06/14/12 H PYLORI NEG; dilated 07/26/12 Emily; multiple re-does; currently q 3 mo (09/2016) Chronic gastritis (09/29/14) Mild Benign neoplasm of colon (11/19/03) ADENOMA IN 2003 SO rpt Q 5YR, NEG IN 2007 SEVEN; 1 adenoma 01/2013 Main. 08/12/18 colonoscopy (Dr Greene) Allergic rhinitis (01/30/12) Adjustment disorder, unspecified (10/13/16) Adenomatous colon polyp (11/19/03) ADENOMA IN 2003 SO rpt Q 5YR, NEG IN 2007 SEVEN; 1 adenoma 01/2013 Main Scalp lesion Seemed 2' trauma, but non-healing .. Punch Bx shows BASAL CELL CARCINOMA Vitreous degeneration Per 12/22/21 [place] note Puckering of macula, bilateral Per 12/22/21 [place] note COVID-19 end of January,, tolerated Paxlovid Surgical History History of esophagogastroduodenoscopy (EGD) (~06/13/24) w/ Dilation, Dr. Greene, unchanged per note.HE History of esophagogastroduodenoscopy (EGD) (~11/03/22) [facility]-04/20/23-Dr Greene. w/dilation-no biopsies [facility]-07/27/23-Dr Greene-biopsies normal-cont q3 mos Hx of basal cell carcinoma excision (03/03/22) left rastafarian Hx of esophagogastroduodenoscopy 07/07/20 with Dilation done by Dr Greene at [facility] 07/29/21 dilation, wire guided Savory under fluro guidance 11/04/[address] Greene 02/10/24;DR. Greene;[facility] EGD w/ Dilation H/O colonoscopy (08/12/18) Dr Greene Endoscopy (03/17/16) 06/09/16 Dr. Anna Diaz with dilatation 12/04/17 Dr. Greene w/ dilatation Endoscopy (06/18/15) 06/09/16 Dr. Anna Diaz with dilatation 12/04/17 Dr. Greene w/ dilatation Endoscopy (09/11/14) 06/09/16 Dr. Anna Diaz with dilatation 12/04/17 Dr. Greene w/ dilatation EGD w/ Dilatation (08/24/17) repeated EGD w/ dilatation Dr. Greene EGD w/ Dilatation (06/08/17) repeated EGD w/ dilatation Dr. Greene EGD w/ Dilatation (03/09/17) repeated EGD w/ dilatation Dr. Greene EGD w/ Dilatation (12/08/16) repeated EGD w/ dilatation Dr. Greene EGD - IV Sedation (12/24/15) Kush Greene Extraction of cataract (01/12/15) Nuclear/cortical, left eye, symptomatic ; R eye Dr. Nelson Sanchez Extraction of cataract (12/29/14) Nuclear/cortical, left eye, symptomatic ; R eye Dr. Nelson Sanchez Family History Mother Dementia Father , failure to thrive at age 97. 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 Pets and animals: No Sexually active: Yes Do you think of yourself as: straight/heterosexual Current gender identity: male What is your relationship status?: How often do you talk on the phone with friends or family?: twice per week How often do you get together with friends or relatives?: never Do you belong to any clubs or organized social groups?: no Panel score (0-1 are the most socially isolated patients): 1 What type of physical activity do you participate in: other Details: ADL's only--shoveling, firewood etc, pool, yardwork Fariha/Pentecostal: Cheondoism Special fariha needs: No Seatbelt use: always Drive intox or ride w/intox starting gate driver: No Working smoke detector in home: Yes Carbon monox detector in home: Yes Do you feel safe at home: Yes Do you feel safe in your relationship?: Yes Time Spent with Patient Time Spent with Patient: 45-69 minutes Time was spent: preparing to see the patient(eg.review tests), ordering medications,tests, procedures, referring, communicating with other health restorative care technician, indepentently interpreting results, counseling the patient and care coordination
--- NOTE | 2024-09-24 17:39 | CMDISCH_ITS ---
Date of service: 09/24/24 Time of Service: 17:39 LACE Index Scoring Tool Questions: Length of Stay (in days): 1 Was the patient admitted via the E.D.?: No Comorbidities: Liver or Renal Disease E.D. Visits: 2 Answers: Total Score: 8 Risk of Readmission: Low Risk Care Management Discharge Plan Reason for Hospitalization: Urinary Retention Discharge Plan: Naren is discharged home via private vehicle with family. Plan is to follow up with Urology and his discharge plan of care as instructed by Dr. Werner. No new services are ordered at the time of discharge. Patient/Family Education Needs: Review discharge instructions, limitations, medications and plan to follow up with community providers. Discuss ask me three. SDOH Health Related Social Needs: Health related social needs housing instability, house d, with risk of homelessness(Z59.811) Health related social needs: housing instability, housed, with risk of homelessness(Z59.811)
== END 2024-09-24 16:06 | disposition home or self-care (01) | DRG 812 ==
LOC: ER 20:51 → MS 22:23
PROVIDERS: Nurse Practitioner Family; Admitting Provider Family Medicine; Emergency Provider Emergency Medicine; PCP Student in an Organized Health Care Education/Training Program; Visit Provider Family Medicine
DX: D62 Acute posthemorrhagic anemia (principal); R31.0 Gross hematuria; R33.9 Retention of urine, unspecified; N18.31 Chronic kidney disease, stage 3a; E88.819 Insulin resistance, unspecified; D61.818 Other pancytopenia; K22.2 Esophageal obstruction; G43.709 Chronic migraine without aura, not intractable, without status migrainosus; G89.29 Other chronic pain
CPT/HCPCS: 00123; 36415; 51700; 80048; 80053; 85027; 86850; 86900; 86901; 87635; 96361; 96366; 99221; 99285; 83036; 83735; 85014; 85018; 85025; 85610; 99223; 99239; J0690; J1171; J1815; J3490

== ENCOUNTER → 2024-09-24 07:42 | Outpatient (BNVA) | payer MEDICARE, BC, SELFPAY | PROVIDERS: PCP Student in an Organized Health Care Education/Training Program; Referring Provider Student in an Organized Health Care Education/Training Program; Visit Provider Nurse Practitioner Gerontology ==

== ENCOUNTER 2024-09-28 09:17 | Emergency (ER) | payer MEDICARE, BC, SELFPAY ==
[2024-09-28 09:19] VITALS: BP 158/69; PULSE 88; RESP 15; O2SAT 100
[2024-09-28 09:25] VITALS: BP 158/69; PULSE 88; RESP 15; TEMP 36; O2SAT 100
--- NOTE | 2024-09-28 09:38 | W.ED.GENAD ---
Discharge Plan Disposition Patient Disposition: Home Condition: Stable Discharge Details Clinical Impression: Candidal balanitis Primary Care Provider: Sheila Hilliard ED Provider: Lucrecia Carson Home Meds and New Rx's Prescriptions: Continued loratadine [Claritin] 10 mg tablet 10 mg PO DAILY PRN (Reason: allergy symptoms) Qty: 90 3RF Rx Instructions: allergic rhinitis, Daily for the summer rizatriptan 10 mg tablet 10 mg PO .COMPLEX PRN (Reason: migraine headache) Qty: 20 2RF Rx Instructions: 10 mg PO ; PRN; hydrocodone-acetaminophen 5-325 mg tablet 0.5 tab PO Q4H MDD 5mg PRN (Reason: severe headache pain) Qty: 30 0RF Rx Instructions: Q6 weeks CGM 1 ea subcut (via wearable injectr) DAILY Qty: 1 0RF trazodone 50 mg tablet 50 mg PO QHS PRN (Reason: insomnia) Qty: 20 1RF Rx Instructions: Continue to help sleep; hold for UROL procedures colchicine 0.6 mg tablet 0.6 mg PO DAILY Qty: 7 0RF Rx Instructions: take 2 tabs PO then 1 tab every 12 hours for 3 days total nystatin-triamcinolone 100,000-0.1 unit/gram-% ointment 1 applic topical BID Qty: 15 0RF Rx Instructions: apply thin layer twice a day ketoconazole 2 % cream 1 applic topical BID Qty: 60 3RF cyanocobalamin (vitamin B-12) [Vitamin B-12] 1,000 MCG tablet 1,000 mcg PO DAILY Qty: 100 Rx Instructions: daily Vitamin B12 replacement, s/p gastric surgery dextrose 40 % gel 10 g PO Q15M PRN (Reason: hypoglycemia) Qty: 112.5 1RF Rx Instructions: Trial for urgent hypoglycemia: albuterol sulfate 90 mcg/actuation HFA aerosol inhaler 2 puff Inhalation Q6H PRN Rx Instructions: Q4h as needed for wheezing (DME) blood sugar diagnostic As directed to check blood glucose daily. No insulin. Dispense covered brand. for Dx: E11.9 to maintain HbA1c less than 7% 0 .ROUTE .MEDSUPPLY Patient Comments: Per Patient, PRN glucose checks fluconazole [Diflucan] 100 mg tablet 100 mg PO DAILY Qty: 7 0RF Discharge Instructions Instructions: How to Care for Your Garnica Catheter, Balanitis in adults Additional Instructions: I do suspect that this is mostly related to a yeast infection. Please use the Clotrimazole 1% cream twice daily for the next 7 to 14 days. Please retract foreskin and place the cream on after cleaning and push the foreskin back over the tip of your penis. Please have it rechecked on Sunday with urology as previously scheduled. Follow up with primary care provider in 3-5 days. Return to ED sooner if any worsening or concerns. Referrals: Dominick Werner MD [ [facility] STAFF PHYSICIAN] - 2 days HPI General Mode of arrival: ambulatory. Date/Time Provider Initiated Documentation: 09/28/24 09:20. Limitations to Documentation: no limitations. Information obtained by: patient, family, RN notes reviewed and old records reviewed. HPI Narrative: 79-year-old male presents to the ER with a chief complaint of increased redness swelling with white patches to his glans surrounding catheter insertion site. Patient was recently admitted and discharged for hematuria and had continuous bladder irrigation. He reports no further occluding of the catheter or hematuria however he reports yesterday began with tenderness and swelling around the catheter site. He does have some increased erythema slight swelling noted. Past medical history includes chronic kidney disease, BPH, basal cell carcinoma, bradycardia, migraine, recently had a TURP procedure done on Sunday. Denies any fever or chills body aches. does report that he is complaining of being bit of queasiness. Related Data Home Medications ?Medication ?Instructions ?Recorded ?Confirmed cyanocobalamin (vitamin B-12) 1,000 mcg PO DAILY #100 tabs 04/07/16 09/28/24 1,000 mcg tablet (Vitamin B-12) dextrose 40 % oral gel 10 g PO Q15M PRN hypoglycemia 12/10/21 09/28/24 #112.5 grams nystatin-triamcinolone 100,000 1 applic topical BID #15 grams 05/04/23 09/28/24 unit/gram-0.1 % topical ointment ketoconazole 2 % topical cream 1 applic topical BID #60 grams 05/13/24 09/28/24 CGM 1 ea subcut (via wearable injectr) 06/27/24 09/28/24 DAILY Continuous Glucose Monitoring #1 ea hydrocodone 5 mg-acetaminophen 325 0.5 tab PO Q4H PRN severe headache 06/27/24 09/28/24 mg tablet pain #30 tabs loratadine 10 mg tablet (Claritin) 10 mg PO DAILY PRN allergy 06/27/24 09/28/24 symptoms #90 tab-caps rizatriptan 10 mg tablet 10 mg PO .COMPLEX PRN migraine 06/27/24 09/28/24 headache #20 tabs trazodone 50 mg tablet 50 mg PO QHS PRN insomnia #20 tabs 09/10/24 09/28/24 albuterol sulfate 90 mcg/actuation 2 puff inhalation Q6H PRN wheeze 09/22/24 09/28/24 aerosol inhaler blood sugar diagnostic As directed 09/23/24 09/28/24 to check blood glucose daily. No insulin. Dispense covered brand. for Dx: E11.9 to maintain HbA1c less than 7% fluconazole 100 mg tablet 100 mg PO DAILY thrush #7 tabs 09/23/24 09/28/24 (Diflucan) colchicine 0.6 mg tablet 0.6 mg PO DAILY #7 tabs 09/26/24 09/28/24 Previous Rx's ?Medication ?Instructions ?Recorded dextrose 40 % oral gel 10 g PO Q15M PRN hypoglycemia 12/10/21 #112.5 grams nystatin-triamcinolone 100,000 1 applic topical BID #15 grams 05/04/23 unit/gram-0.1 % topical ointment ketoconazole 2 % topical cream 1 applic topical BID #60 grams 05/13/24 CGM 1 ea subcut (via wearable injectr) 06/27/24 DAILY Continuous Glucose Monitoring #1 ea hydrocodone 5 mg-acetaminophen 325 0.5 tab PO Q4H PRN severe headache 06/27/24 mg tablet pain #30 tabs loratadine 10 mg tablet (Claritin) 10 mg PO DAILY PRN allergy 06/27/24 symptoms #90 tab-caps rizatriptan 10 mg tablet 10 mg PO .COMPLEX PRN migraine 06/27/24 headache #20 tabs trazodone 50 mg tablet 50 mg PO QHS PRN insomnia #20 tabs 09/10/24 fluconazole 100 mg tablet 100 mg PO DAILY thrush #7 tabs 09/23/24 (Diflucan) colchicine 0.6 mg tablet 0.6 mg PO DAILY #7 tabs 09/26/24 Allergies Allergy/AdvReac Type Severity Reaction Status Date / Time amitriptyline AdvReac Intermediate sedation Verified 09/28/24 09:25 aspirin AdvReac Intermediate h/o ulcer Verified 09/28/24 09:25 disease topiramate (From Topamax) AdvReac Intermediate CANNOT Verified 09/28/24 09:25 SLEEP baclofen AdvReac Mild nausea, Verified 09/28/24 09:25 dizzy, blurred vision Beta-Blockers AdvReac Unknown AVOID to Verified 09/28/24 09:25 (Beta-Adrenergic Bloc Abdi butalbital AdvReac Unknown Habituated Verified 09/28/24 09:25 caffeine AdvReac Unknown migraine Verified 09/28/24 09:25 diltiazem AdvReac Unknown AVOID due Verified 09/28/24 09:25 to Abdi lisinopril AdvReac Unknown cough Verified 09/28/24 09:25 verapamil AdvReac Unknown dizzy Verified 09/28/24 09:25 propofol AdvReac arrythmia Verified 09/28/24 09:25 with high-doses General Stated Complaint: Urinary JUAN: 3 Review of Systems All systems reviewed & are unremarkable except as noted in HPI and below Integumentary/Breasts Skin/Breast: Reports new lesions, Reports skin pain and Reports skin swelling Exam Male General Exam: Yes erythema (Penile glans) Penis: erythematous, swelling and other (Garnica Catheter in place) Course Vital Signs Vital signs: Vital Signs Pulse 88 09/28/24 09:19 Respiratory Rate 15 09/28/24 09:19 Blood Pressure 158/69 H 09/28/24 09:19 Pulse Oximetry 100 09/28/24 09:19 Temperature 36.0 C L 09/28/24 09:25 Temperature Source Temporal Artery Scan 09/28/24 09:25 Pulse 88 09/28/24 09:25 Respiratory Rate 15 09/28/24 09:25 Respiratory Effort Normal 09/28/24 09:23 Blood Pressure 158/69 H 09/28/24 09:25 Blood Pressure Position Sitting 09/28/24 09:25 Pulse Oximetry 100 09/28/24 09:25 Oxygen Delivery Method Room Air 09/28/24 09:25 Oxygen Flow Rate 0 09/28/24 09:25 Pain Level 2 09/28/24 09:25 Medical Decision Making 79-year-old male presents to the ER with a chief complaint of increased redness swelling with white patches to his glans surrounding catheter insertion site. Patient was recently admitted and discharged for hematuria and had continuous bladder irrigation. He reports no further occluding of the catheter or hematuria however he reports yesterday began with tenderness and swelling around the catheter site. He does have some increased erythema slight swelling noted. Past medical history includes chronic kidney disease, BPH, basal cell carcinoma, bradycardia, migraine, recently had a TURP procedure done on Sunday. Denies any fever or chills body aches. does report that he is complaining of being bit of queasiness. I do suspect Vilma Belanitis will give clotrimazole 1% cream for 7 to 14 days and recheck with urology on Sunday as previously scheduled. Patient given clotrimazole cream here in the department first dose applied. Patient discharged with instructions to keep appointment on Sunday as previously scheduled return for any worsening or concerns. Patient and family verbalized understanding. This text was generated using [employer] system, please disregard any oddities of phrase or misspellings. Medical Records Medical records reviewed: Yes I reviewed the patient's medical records. Quality:[facility] Health Related Social Needs: Health related social needs housing instability, housed, with risk of homelessness(Z59.811) COUNT INCLUDES [facility] All Active Problems (Updated 09/28/24 @ 09:44 by Lucrecia Carson NP) Candidal balanitis (Acute) Gout attack (Acute) Pancytopenia (Acute) Syncope (Chronic) Vasovagal episode (Acute) Acute UTI (Acute) Gross hematuria (Acute) Esophageal stricture (Acute 12/07/17) q 3-4 month dilation w/ Dr. Greene, but Urol Rx may be helping maintain elasticity? stretch? Biopsies taken. Stricuture in second part of duodenum,56 cm from the teeth. Stricture in the upper esophagus,18cm from the teeth. endoscopy report date 12/07/17. Pathology shows peptic duodenitis, negative H. Pylori EGD Dr. Greene 11/04/21 Elevated serum creatinine (Acute 07/2018) 1.37 with elevated BUN and h/o poor hydration. 1.4 02/2019, monitor and recomm hydration. Reviewed NSAID, ABx use (min). 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 Spontaneous hypoglycemia (Acute 05/29/09) consult endocrine [facility] [place] 2008 Low libido (Acute) [] ] testosterone? Vit D? (Wellbutrin helped with interest) Chronic daily headache (Chronic 03/23/15) Dull, improved flares since Chiro/Acupuncture care.. Chronic migraine without aura (Acute) 04/16/19 Dr Ortega, [facility] [place] Neurology- Aimovig started. Chronic pain disorder (Chronic) Contract, UDS, Orders 10/25/18. Medical History Insulin resistance Urinary retention CKD (chronic kidney disease) Hypoglycemia after GI (gastrointestinal) surgery Testing required for hypogly episodes BPH NOS w ur obs/LUTS Urinary hesitancy Abnormal prostate exam Hematospermia Phimosis Seborrheic keratosis Basal cell carcinoma (BCC) Punch Bx shows BASAL CELL CARCINOMA.. Left Denominational 02/2022 Bradycardia Finger lesion left middle finger, PIP. Healing well, but concerned about tendon. History of gout Toe pain, possible GOUT per pdiatry (no Tx,Rx), 09/04/21. Probable 1x no proph Tx atthis time. UA slighlty high. COVID-19 vaccine series completed per card: Moderna, 01/21, 02/18/21. Kristina #[id number] Cough (11/01/12) Adenoma of left adrenal gland (~06/2018) [facility] [place] visit note 11/21/18. (2cm- which based on MRI characteristics strongly suggestive of a benign,lipid rich adenoma. (David Shields, DO,MS). FU 08/2019 CT (w/contrast) shows stable 2cm adenoma, Scan Q12mos [ ] .. Mgr NOS wo ntrc w st mgr Daily Headache. 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 Greene, Esoph Dilation nearly q 3 mos Exercise induced bronchospasm (01/30/12) INTERMITTENT, EXERCISE OR COLD INDUCED; NL PF 05/22/08 3.8 FEV1, NO RESPONSE; better after air yard cleaner; nl FEV1 3.07 on 01/29/14 Esophageal reflux (01/30/12) Dysphagia, unspecified (11/19/94) RECURRENT DILATATIONS; (AUDRA -->MAIN 06/14/12 H PYLORI NEG; dilated 07/26/12 [place]; multiple re-does; currently q 3 mo (09/2016) Chronic gastritis (09/29/14) Mild Benign neoplasm of colon (11/19/03) ADENOMA IN 2003 SO rpt Q 5YR, NEG IN 2007 SEVEN; 1 adenoma 01/2013 [facility]. 08/12/18 colonoscopy (Dr Greene) Allergic rhinitis (01/30/12) Adjustment disorder, unspecified (10/13/16) Adenomatous colon polyp (11/19/03) ADENOMA IN 2003 SO rpt Q 5YR, NEG IN 2007 SEVEN; 1 adenoma 01/2013 [place] Scalp lesion Seemed 2' trauma, but non-healing .. Punch Bx shows BASAL CELL CARCINOMA Vitreous degeneration Per 12/22/21 [place] note Puckering of macula, bilateral Per 12/22/21 [place] note COVID-19 end January,, tolerated Paxlovid Surgical History History of esophagogastroduodenoscopy (EGD) (~06/13/24) w/ [place], Dr. Greene, unchanged per note.HE History of esophagogastroduodenoscopy (EGD) (~11/03/22) [facility]-04/20/23-Dr Greene. w/dilation-no biopsies [facility]-07/27/23-Dr Greene-biopsies normal-cont q3 mos Hx of basal cell carcinoma excision (03/03/22) left religious Hx of esophagogastroduodenoscopy 07/07/20 with Dilation done by Dr Greene at [facility] 07/29/21 dilation, wire guided Savory under fluro guidance 11/04/[address] Greene 02/10/24;DR. Greene;[facility] EGD w/ Dilation H/O colonoscopy (08/12/18) Dr Greene Endoscopy (03/17/16) 06/09/16 Dr. Anna Diaz with dilatation 12/04/17 Dr. Greene w/ dilatation Endoscopy (06/18/15) 06/09/16 Dr. Anna Diaz with dilatation 12/04/17 Dr. Greene w/ dilatation Endoscopy (09/11/14) 06/09/16 Dr. Anna Diaz with dilatation 12/04/17 Dr. Greene w/ dilatation EGD w/ Dilatation (08/24/17) repeated EGD w/ dilatation Dr. Greene EGD w/ Dilatation (06/08/17) repeated EGD w/ dilatation Dr. Greene EGD w/ Dilatation (03/09/17) repeated EGD w/ dilatation Dr. Greene EGD w/ Dilatation (12/08/16) repeated EGD w/ dilatation Dr. Greene EGD - IV Sedation (12/24/15) Kush Greene Extraction of cataract (01/12/15) Nuclear/cortical, left eye, symptomatic ; R eye Dr. Nelson Sanchez Extraction of cataract (12/29/14) Nuclear/cortical, left eye, symptomatic ; R eye Dr. Nelson Sanchez Family History Mother Dementia Father , failure to thrive at age 97. Essential hypertension Dementia Asthma Brother Heart disease Social History Smoking/Tobacco Use Status: Former Tobacco Use Quit Date: 01/01/73 Tobacco: How many years used: 5 Smoking risk assessment performed?: Yes Alcohol Intake: never Drug use: Never Substance use type: does not use Adopted: No Caregiver/Support person: No Foster care: No Household members: spouse Housing: house Number of Children: 3 number of grandchildren: 6 Communication Needs: Hard of Hearing and Corrective Lenses Education Level: high school Do you need help understanding health information?: Never current occupation: retired from [employer] Pets and animals: No Sexually active: Yes Do you think of yourself as: straight/heterosexual Current gender identity: male What is your relationship status?: How often do you talk on the phone with friends or family?: twice per week How often do you get together with friends or relatives?: never Do you belong to any clubs or organized social groups?: no Panel score (0-1 are the most socially isolated patients): 1 What type of physical activity do you participate in: other Details: ADL's only--shoveling, firewood etc, pool, yardwork Fariha/Restorationist: Mosque Special fariha needs: No Seatbelt use: always Drive intox or ride w/intox coach tour driver: No Working smoke detector in home: Yes Carbon monox detector in home: Yes Do you feel safe at home: Yes Do you feel safe in your relationship?: Yes
[2024-09-28] MEDS: Clotrimazole 1% 15 GM TUBE TP (10:06)
[2024-09-28 10:33] VITALS: BP 162/75; PULSE 55; RESP 18; O2SAT 94
== END 2024-09-28 10:33 | disposition home or self-care (01) ==
PROVIDERS: Emergency Provider Registered Nurse Emergency; PCP Student in an Organized Health Care Education/Training Program
DX: B37.42 Candidal balanitis (principal); Z98.890 Other specified postprocedural states; Z59.811 Housing instability, housed, with risk of homelessness
CPT/HCPCS: 99283

== ENCOUNTER → 2024-09-30 07:46 | Outpatient (BNVA) | payer MEDICARE, BC, SELFPAY | PROVIDERS: PCP Student in an Organized Health Care Education/Training Program; Referring Provider Student in an Organized Health Care Education/Training Program; Visit Provider Urology | DX: R33.8 Other retention of urine (principal); Z23 Encounter for immunization | CPT/HCPCS: 90661; G0008 ==

== ENCOUNTER 2024-09-30 11:38 | Outpatient (CLI) | payer MEDICARE, BC, SELFPAY ==
[2024-09-30 09:33] LABS: HCT 34.4 % (40.0-50.0); HGB 11.1 g/dL (13.5-17.5)
[2024-09-30 10:38] LABS: Albumin 3.2 g/dL (3.4-5.0); Anion Gap 7.9 mmol/L (3-11); BUN 19 mg/dL (7-18); CO2 27.1 mmol/L (21.0-32.0); CREATININE 1.6 mg/dL (0.70-1.30); Calcium 9.2 mg/dL (8.5-10.1); Chloride 110 mmol/L (98-107); Glucose 96 mg/dL (74-106); Potassium 4.6 mmol/L (3.5-5.1); Sodium 145 mmol/L (136-145); Uric Acid 8.6 mg/dL (3.5-7.2)
== END 2024-09-30 11:39 | disposition home or self-care (01) ==
LOC: LBO 11:38
PROVIDERS: PCP Student in an Organized Health Care Education/Training Program; Visit Provider Urology
DX: R31.0 Gross hematuria (principal); M10.9 Gout, unspecified; N18.9 Chronic kidney disease, unspecified; Z91.89 Other specified personal risk factors, not elsewhere classified; R77.0 Abnormality of albumin
CPT/HCPCS: 36415; 80048; 81003; 82040; 84550; 85014; 85018

== ENCOUNTER → 2024-10-14 14:53 | Outpatient (BNVA) | payer MEDICARE, BC, SELFPAY | PROVIDERS: PCP Student in an Organized Health Care Education/Training Program; Visit Provider Urology | DX: Z48.816 Encounter for surgical aftercare following surgery on the genitourinary system (principal); R33.8 Other retention of urine ==

== ENCOUNTER → 2024-11-04 13:49 | Outpatient (BNVA) | payer MEDICARE, BC, SELFPAY | PROVIDERS: PCP Student in an Organized Health Care Education/Training Program; Referring Provider Student in an Organized Health Care Education/Training Program; Visit Provider Urology | DX: N35.911 Unspecified urethral stricture, male, meatal (principal) ==

== ENCOUNTER 2024-11-24 03:56 | Outpatient (CLI) | payer MEDICARE, BC, SELFPAY ==
[2024-11-24 10:12] LABS: HGB 12.7 g/dL (13.5-17.5)
[2024-11-24 10:17] LABS: Bilirubin Negative (Negative); Blood Moderate (Negative); Clarity Sl Cloudy (Clear); Glucose Negative (Negative); Ketones Negative (Negative); Leukocyte Esterase Large (Negative); Nitrite Positive (Negative); Urobilinogen 0.2 mg/dL (Up to 0.2); pH 5.5 (5-8)
[2024-11-24 10:22] LABS: Bacteria Moderate HPF (Negative); C & S Indicated? Yes; Casts Negative LPF (Negative); Crystals Negative HPF (Negative); Epithelial Cells Few HPF (Negative); Mucus Negative (Negative); WBC 20-50 HPF (0-5)
[2024-11-24 10:22] LABS: Anion Gap 6.8 mmol/L (3-11); BUN 19 mg/dL (7-18); CO2 27.2 mmol/L (21.0-32.0); CREATININE 1.5 mg/dL (0.70-1.30); Calcium 9.7 mg/dL (8.5-10.1); Chloride 109 mmol/L (98-107); Estimated GFR 47.65 (mL/min/1.73m2); Glucose 104 mg/dL (74-106); Potassium 4.4 mmol/L (3.5-5.1); Sodium 143 mmol/L (136-145)
== END 2024-11-24 03:57 | disposition home or self-care (01) ==
LOC: LBO 03:56
PROVIDERS: Absent Provider Student in an Organized Health Care Education/Training Program; PCP Student in an Organized Health Care Education/Training Program; Referring Provider Student in an Organized Health Care Education/Training Program; Visit Provider Student in an Organized Health Care Education/Training Program
DX: D64.9 Anemia, unspecified (principal); R39.9 Unspecified symptoms and signs involving the genitourinary system; M10.9 Gout, unspecified; N18.9 Chronic kidney disease, unspecified; Z91.89 Other specified personal risk factors, not elsewhere classified; R77.0 Abnormality of albumin; N17.9 Acute kidney failure, unspecified
CPT/HCPCS: 36415; 80048; 87077; 81003; 81015; 85018; 87086; 87186

== ENCOUNTER → 2024-12-01 14:47 | Outpatient (BNVA) | payer MEDICARE, BC, SELFPAY | PROVIDERS: PCP Student in an Organized Health Care Education/Training Program; Referring Provider Student in an Organized Health Care Education/Training Program; Visit Provider Nurse Practitioner Gerontology | DX: N35.911 Unspecified urethral stricture, male, meatal (principal) | CPT/HCPCS: 98012; 99213 ==

== ENCOUNTER → 2024-12-11 12:49 | Outpatient (BNVA) | payer MEDICARE, BC, SELFPAY | PROVIDERS: PCP Student in an Organized Health Care Education/Training Program; Referring Provider Student in an Organized Health Care Education/Training Program; Visit Provider Urology | DX: N35.911 Unspecified urethral stricture, male, meatal (principal) | CPT/HCPCS: 99214 ==

== ENCOUNTER → 2025-01-09 09:50 | Outpatient (BNVA) | payer MEDICARE, BC, SELFPAY | PROVIDERS: PCP Nurse Practitioner Family; Visit Provider Urology | DX: N35.911 Unspecified urethral stricture, male, meatal (principal); N40.1 Benign prostatic hyperplasia with lower urinary tract symptoms; R39.89 Other symptoms and signs involving the genitourinary system | CPT/HCPCS: 53601; 99214 ==

== ENCOUNTER → 2025-01-12 08:55 | Outpatient (BNVA) | payer MEDICARE, BC, SELFPAY | PROVIDERS: PCP Nurse Practitioner Family; Referring Provider Nurse Practitioner Family; Visit Provider Urology | DX: N35.911 Unspecified urethral stricture, male, meatal (principal) | CPT/HCPCS: 99213 ==

== ENCOUNTER 2025-03-03 03:48 | Outpatient (CLI) | payer MEDICARE, BC, SELFPAY ==
[2025-03-03 09:32] LABS: HCT 44.3 % (40.0-50.0); HGB 13.2 g/dL (13.5-17.5); MCH 24.8 pg (27.0-33.0); MCHC 29.8 % (32.0-36.0); MCV 83 fL (80-95); MPV 9.5 fL (8.0-11.0); Platelet Count 212 10^3/uL (130-400); RBC 5.32 10^6/uL (4.36-5.78); RDW 16.8 % (11.8-14.1); RDW-SD 50.6 fL; WBC 6.27 10^3/uL (4.4-10.8)
[2025-03-03 10:00] LABS: Anion Gap 8.8 mmol/L (3-11); BUN 18 mg/dL (7-18); CO2 27.2 mmol/L (21.0-32.0); CREATININE 1.5 mg/dL (0.70-1.30); Calcium 9.2 mg/dL (8.5-10.1); Chloride 104 mmol/L (98-107); Estimated GFR 47.65 (mL/min/1.73m2); Glucose 111 mg/dL (74-106); Potassium 4.2 mmol/L (3.5-5.1); Sodium 140 mmol/L (136-145); Uric Acid 7.8 mg/dL (3.5-7.2)
[2025-03-03 18:55] LABS: PSA, Diagnostic 1.2 ng/mL (<=6.5)
== END 2025-03-03 03:49 | disposition home or self-care (01) ==
LOC: LBO 03:48
PROVIDERS: Urology; PCP Nurse Practitioner Family; Visit Provider Nurse Practitioner Family
DX: E79.0 Hyperuricemia without signs of inflammatory arthritis and tophaceous disease (principal); R39.89 Other symptoms and signs involving the genitourinary system; R31.9 Hematuria, unspecified; N35.919 Unspecified urethral stricture, male, unspecified site; R33.9 Retention of urine, unspecified; R39.11 Hesitancy of micturition
CPT/HCPCS: 36415; 80048; 85027; 84153; 84550

== ENCOUNTER 2025-04-10 01:47 | Outpatient (CLI) | payer MEDICARE, BC, SELFPAY ==
[2025-04-10 08:46] LABS: HGB 13.1 g/dL (13.5-17.5); MCH 25.6 pg (27.0-33.0); MCHC 30.5 % (32.0-36.0); MCV 84 fL (80-95); MPV 9.5 fL (8.0-11.0); Platelet Count 191 10^3/uL (130-400); RBC 5.11 10^6/uL (4.36-5.78); RDW 16.5 % (11.8-14.1); RDW-SD 50.6 fL; WBC 6.65 10^3/uL (4.4-10.8)
[2025-04-10 09:36] LABS: Vitamin B12 1077 pg/mL (193-986)
[2025-04-11 14:34] LABS: Lab Add On Test DONE
[2025-04-11 15:01] LABS: Ferritin 18 ng/mL (26-388)
== END 2025-04-10 01:48 | disposition home or self-care (01) ==
LOC: LBO 01:47
PROVIDERS: PCP Nurse Practitioner Family; Referring Provider Nurse Practitioner Family; Visit Provider Nurse Practitioner Family
DX: D61.818 Other pancytopenia (principal)
CPT/HCPCS: 36415; 85027; 82607; 82728; 85045

== ENCOUNTER → 2025-04-21 08:21 | Outpatient (BNVA) | payer MEDICARE, BC, SELFPAY | PROVIDERS: PCP Nurse Practitioner Family; Referring Provider Nurse Practitioner Family; Visit Provider Podiatrist | DX: M10.9 Gout, unspecified (principal); M25.571 Pain in right ankle and joints of right foot; M25.572 Pain in left ankle and joints of left foot; M20.41 Other hammer toe(s) (acquired), right foot | CPT/HCPCS: 99213 ==

== ENCOUNTER 2025-04-23 02:09 | Outpatient (CLI) | payer MEDICARE, BC, SELFPAY ==
--- NOTE | 2025-04-23 08:36 | DI.RAD_ITS ---
Exam(s) XR FOOT LT COMPLETE EXAM: XR FOOT LT COMPLETE CLINICAL HISTORY: left foot pain, hx gout,m10.9. TECHNIQUE: 2D digital imaging was performed of the left foot. Three images were obtained. AP, obli que and lateral views were obtained. COMPARISON: No exams were available for comparison FINDINGS: BONES: No acute fracture is present. No bony destructive lesion is seen. There is an enthesophyte at the posterior calcaneus. There is a small plantar calcaneal spur. JOINTS: No dislocation present. Moderate degenerative changes are seen at the 1st MTP joint character ized by joint space narrowing and spurring. No soft tissue swelling or erosions are seen at the 1st MTP joint. SOFT TISSUE: Normal. IMPRESSION: 1. Moderate degenerative changes seen at the 1st MTP joint. 2. No evidence of erosions or soft tissue swelling around the 1st MTP joint. DATA REPOSITORY: RADIATION DOSE DELIVERED:
--- NOTE | 2025-04-23 08:36 | DI.RAD_ITS ---
Exam(s) XR FOOT RT COMPLETE EXAM: XR FOOT RT COMPLETE CLINICAL HISTORY: right foot recurrent gout,m10.9. TECHNIQUE: 2D digital imaging was performed of the right foot. Three images were obtained. AP, obl ique and lateral views were obtained. COMPARISON: No exams were available for comparison FINDINGS: BONES: No acute fracture is present. No bony destructive lesion is seen. There is an enthesophyte at the posterior calcaneus. JOINTS: No dislocation present. There are marked degenerative changes seen at the 1st MTP joint parker cterized by joint space narrowing and osteophytes. There is a well corticated old osseous fragment a t the dorsal aspect of the 1st MTP joint. SOFT TISSUE: Atherosclerotic calcification is present. IMPRESSION: 1. Marked degenerative changes seen at the 1st MTP joint. 2. No erosions or soft tissue swelling are seen at the 1st MTP joint. DATA REPOSITORY: RADIATION DOSE DELIVERED:
== END 2025-04-23 02:29 ==
LOC: DI 02:09
PROVIDERS: PCP Nurse Practitioner Family; Visit Provider Podiatrist
DX: M19.072 Primary osteoarthritis, left ankle and foot (principal); M19.071 Primary osteoarthritis, right ankle and foot
CPT/HCPCS: 73630

== ENCOUNTER → 2025-05-26 08:55 | Outpatient (BNVA) | payer MEDICARE, BC, SELFPAY | PROVIDERS: PCP Nurse Practitioner Family; Referring Provider Nurse Practitioner Family; Visit Provider Podiatrist | DX: M10.9 Gout, unspecified (principal); M25.571 Pain in right ankle and joints of right foot; M25.572 Pain in left ankle and joints of left foot; M20.41 Other hammer toe(s) (acquired), right foot; I73.89 Other specified peripheral vascular diseases; M25.371 Other instability, right ankle | CPT/HCPCS: 99214 ==

== ENCOUNTER → 2025-09-29 09:51 | Outpatient (BNVA) | payer MEDICARE, BC, SELFPAY | PROVIDERS: PCP Nurse Practitioner Family; Visit Provider Urology | DX: N40.1 Benign prostatic hyperplasia with lower urinary tract symptoms (principal); N13.8 Other obstructive and reflux uropathy; N99.110 Postprocedural urethral stricture, male, meatal | CPT/HCPCS: 99214 ==

== ENCOUNTER 2025-11-02 14:22 | Observation (INO) | payer MEDICARE, BC, SELFPAY ==
[2025-11-02] VITALS (55 sets, daily range): BP systolic 128–193; BP diastolic 60–96; PULSE 45–68; RESP 0–29; TEMP 36.3–36.6; O2SAT 95–99
--- NOTE | 2025-11-02 14:15 | RT.EKG_ITS ---
APPROVED REPORT Exam: Resting ECG Reason for Exam: syncope Patient Location: E HR:42 bpm ECG Measurements Heart Rate [address] 170 P 41 QRSd 153 QRS 37 QT 494 T 19 QTc 413 Conclusion Sinus bradycardia, rate 42 RBBB, no changes from priors No STEMI No other interval abnormalities
--- NOTE | 2025-11-02 14:49 | W.ED.GENAD ---
Discharge Plan Disposition Patient Disposition: Admit to [facility] Condition: Stable Discharge Details Clinical Impression: Symptomatic sinus bradycardia, Vasovagal episode Primary Care Provider: Winifred France ED Provider: Kay Horne Home Meds and New Rx's Prescriptions: No Action loratadine [Claritin] 10 mg tablet 10 mg PO DAILY PRN (Reason: allergy symptoms) Qty: 90 3RF Rx Instructions: allergic rhinitis, Daily for the summer rizatriptan 10 mg tablet 10 mg PO .COMPLEX PRN (Reason: migraine headache) Qty: 20 2RF Rx Instructions: 10 mg PO ; PRN; hydrocodone-acetaminophen 5-325 mg tablet 1 tab PO Q6H MDD 4 tabs PRN (Reason: pain) Qty: 30 0RF hydrocodone-acetaminophen 5-325 mg tablet 1 tab PO Q6H MDD 4 tabs PRN (Reason: pain) Qty: 30 0RF amoxicillin-pot clavulanate 875-125 mg tablet 1 tab PO Q12H Qty: 14 0RF cyanocobalamin (vitamin B-12) [Vitamin B-12] 1,000 MCG tablet 1,000 mcg PO DAILY Qty: 100 Rx Instructions: daily Vitamin B12 replacement, s/p gastric surgery allopurinol 100 mg tablet 100 mg PO DAILY Qty: 30 11RF ferrous sulfate 325 mg (65 mg iron) tablet 325 mg PO DAILY Qty: 30 3RF (DME) Contour Test Strips Strip See Rx Instructions .Route Qty: 100 3RF Rx Instructions: Check Blood sugar one time a day.DX:E11.9. Keep A1c below 7 (DME) blood-glucose meter [Contour Meter] Kit See Rx Instructions .Route Qty: 1 0RF Rx Instructions: Check Blood sugar one time a day DX:E11.9. Keep A1c below 7 (DME) lancets 32 gauge misc See Rx Instructions .Route Qty: 100 3RF Rx Instructions: Check blood sugar one time a day. DX:E11.9. Keep A1c below 7 hydrocodone-acetaminophen 5-325 mg tablet 1 tab PO Q6H MDD 4 tabs PRN (Reason: pain) Qty: 30 0RF albuterol sulfate 90 mcg/actuation HFA aerosol inhaler 2 puff Inhalation Q6H PRN Rx Instructions: Q4h as needed for wheezing HPI General Mode of arrival: EMS. Date/Time Provider Initiated Documentation: 11/02/25 14:41. Limitations to Documentation: no limitations. Information obtained by: patient, EMS and old records reviewed. HPI Narrative: This is a 80-year-old male patient with a past medical history significant for hypertension, hypoglycemia, anemia/pancytopenia, and a recent wound of the right hand due to a dog scratch, presenting for evaluation after a syncopal episode with agonal respirations. The patient was seen at the urgent care center for his wound, states that he was looking at the area but does not typically get unwell when seeing blood or injuries. He reports that he started to feel very dizzy, and had an episode of unconsciousness while seated, did not sustain trauma or injury. Per the providers, the patient was unresponsive for about 1-1/2 minutes, and had agonal respirations during that time requiring BVM ventilation. He did not have seizure-like activity, had a return to consciousness, and EMS was summoned. EMS noted that the patient had a decrease in his heart rate during their transport down to 40, sinus bradycardia on the monitor with a right bundle branch block which is known for the patient. He remains with a complaint of dizziness and nausea, did have 4 mg of Zofran prehospital he to good effect. He reports no recent changes to his health, states that he has had an episode like this once before at the urology clinic, does not have any known cardiac history or use of pacemaker. Related Data Home Medications ?Medication ?Instructions ?Recorded ?Confirmed cyanocobalamin (vitamin B-12) 1,000 mcg PO DAILY #100 tabs 04/07/16 11/02/25 1,000 mcg tablet (Vitamin B-12) loratadine 10 mg tablet (Claritin) 10 mg PO DAILY PRN allergy 06/27/24 11/02/25 symptoms #90 tab-caps rizatriptan 10 mg tablet 10 mg PO .COMPLEX PRN migraine 06/27/24 11/02/25 headache #20 tabs albuterol sulfate 90 mcg/actuation 2 puff inhalation Q6H PRN wheeze 09/22/24 11/02/25 aerosol inhaler hydrocodone 5 mg-acetaminophen 325 1 tab PO Q6H PRN pain #30 tabs 06/26/25 11/02/25 mg tablet hydrocodone 5 mg-acetaminophen 325 1 tab PO Q6H PRN pain #30 tabs 06/26/25 11/02/25 mg tablet allopurinol 100 mg tablet 100 mg PO DAILY #30 tabs 07/10/25 11/02/25 ferrous sulfate 325 mg (65 mg 325 mg PO DAILY anemia #30 tabs 08/11/25 11/02/25 iron) tablet blood sugar diagnostic (Contour #100 ea 08/13/25 11/02/25 Test Strips) blood-glucose meter (Contour Meter #1 ea 08/24/25 11/02/25 kit) lancets 32 gauge #100 ea 08/24/25 11/02/25 hydrocodone 5 mg-acetaminophen 325 1 tab PO Q6H PRN pain #30 tabs 10/27/25 11/02/25 mg tablet amoxicillin 875 mg-potassium 1 tab PO Q12H #14 tabs 11/02/25 11/02/25 clavulanate 125 mg tablet Previous Rx's ?Medication ?Instructions ?Recorded loratadine 10 mg tablet (Claritin) 10 mg PO DAILY PRN allergy 06/27/24 symptoms #90 tab-caps rizatriptan 10 mg tablet 10 mg PO .COMPLEX PRN migraine 06/27/24 headache #20 tabs hydrocodone 5 mg-acetaminophen 325 1 tab PO Q6H PRN pain #30 tabs 06/26/25 mg tablet hydrocodone 5 mg-acetaminophen 325 1 tab PO Q6H PRN pain #30 tabs 06/26/25 mg tablet allopurinol 100 mg tablet 100 mg PO DAILY #30 tabs 07/10/25 ferrous sulfate 325 mg (65 mg 325 mg PO DAILY anemia #30 tabs 08/11/25 iron) tablet blood sugar diagnostic (Contour #100 ea 08/13/25 Test Strips) blood-glucose meter (Contour Meter #1 ea 08/24/25 kit) lancets 32 gauge #100 ea 08/24/25 hydrocodone 5 mg-acetaminophen 325 1 tab PO Q6H PRN pain #30 tabs 10/27/25 mg tablet amoxicillin 875 mg-potassium 1 tab PO Q12H #14 tabs 11/02/25 clavulanate 125 mg tablet Allergies Allergy/AdvReac Type Severity Reaction Status Date / Time amitriptyline AdvReac Intermediate sedation Verified 11/02/25 12:52 aspirin AdvReac Intermediate h/o ulcer Verified 11/02/25 12:52 disease topiramate (From Topamax) AdvReac Intermediate CANNOT Verified 11/02/25 12:52 SLEEP baclofen AdvReac Mild nausea, Verified 11/02/25 12:52 dizzy, blurred vision Beta-Blockers AdvReac Unknown AVOID to Verified 11/02/25 12:52 (Beta-Adrenergic Bloc Abdi butalbital AdvReac Unknown Habituated Verified 11/02/25 12:52 diltiazem AdvReac Unknown AVOID due Verified 11/02/25 12:52 to Abdi lisinopril AdvReac Unknown cough Verified 11/02/25 12:52 verapamil AdvReac Unknown dizzy Verified 11/02/25 12:52 propofol AdvReac arrythmia Verified 11/02/25 12:52 with high-doses General Stated Complaint: Dizzy/Sync JUAN: 2 Exam Narrative Exam Narrative: Gen: Awake and alert, in no apparent distress HEENT: Non-icteric sclera Neck: Supple Lungs: No apparent respiratory distress, normal respiratory effort. Lung sounds clear and equal bilaterally without wheezes, rhonchi, rales CV: Appears well perfused, heart with bradycardic rate and regular rhythm, strong distal pulses Abdomen: Non-distended, soft, nontender to palpation without rigidity, rebound, or guarding. MSK: Moves 4 extremities without apparent limitation in ROM. No peripheral edema Skin: Visualized skin without rashes, cyanosis. Neuro: No obvious focal deficits or facial asymmetry. Speaks in full, clear sentences. Psych: Appropriate for situation. Course Vital Signs Vital signs: Vital Signs Temperature 36.3 C L 11/02/25 14: Pulse 45 L 11/02/25 14:25 Respiratory Rate 10 L 11/02/25 14:25 Blood Pressure 157/72 H 11/02/25 14:25 Pulse Oximetry 98 11/02/25 14: Temperature 36.3 C L 11/02/25 14:25 Temperature Source Oral 11/02/25 14: Pulse 45 L 11/02/25 14:25 Respiratory Rate 12 11/02/25 14:42 Respiratory Effort Normal, Non-Labored 11/02/25 14:42 Respiratory Depth Normal 11/02/25 14:42 Respiratory Pattern Normal 11/02/25 14:42 Blood Pressure 157/72 H 11/02/25 14:25 Blood Pressure Position Sitting 11/02/25 14:25 Pulse Oximetry 98 11/02/25 14:25 Oxygen Delivery Method Nasal Cannula 11/02/25 14:25 Oxygen Flow Rate 2 11/02/25 14:25 Pain Level 0 11/02/25 14:25 Medical Decision Making This is a 80-year-old male patient presenting for evaluation after syncopal episode with agonal respirations. My differential includes but is not limited to vasovagal syncope, orthostasis, cardiac arrhythmia, ACS (I looked back and I do note that this patient's typical heart rate is closer to 60 or 70, though he has had rhythms with rates as low as the 40s before), certainly considered metabolic and electrolyte derangement, dehydration, kidney or liver injury, hypothyroidism. No reported medication overuse, the patient is not on any AV herrera blocking agents at home, the patient's wound was already dressed and he is on antibiotics and I have a low concern for systemic infection as the cause of his symptoms today. No neurodeficits or seizure-like activity to suggest stroke, seizure, and he did not sustain trauma making intracranial hemorrhage, skull fracture, spine fracture less likely. We will obtain labs to include CBC, CMP, magnesium, troponin, BNP, TSH, and I obtained and reviewed a twelve-lead EKG, which shows a sinus bradycardia with a right bundle branch block unchanged in morphology from priors, no evidence of heart block or acute ischemia. I will provide the patient with 0.5 mg of atropine and placed him on the pacer pads, as this patient has ongoing dizziness and I am suspicious for symptomatic bradycardia. I will provide him with a 500 cc fluid bolus. - After atropine the patient's heart rate improved to the 60s, and he had complete resolution of his dizziness. I reviewed the patient's laboratory studies, which show no leukocytosis, anemia or thrombocytopenia. Chemistry panel is without significant electrolyte derangement, creatinine 1.2 today, no evidence of liver enzyme abnormalities, and the troponin was negative. BNP and TSH are within normal limits, VBG without acidosis or hypercarbia. The patient remained asymptomatic and his heart rate has been in the 50s throughout his time on telemetry under my care. Unfortunately, [facility] is not excepting patients for evaluation, I did discuss the patient with M, Dr. Devi has graciously accepted this patient for admission but unfortunately they will not have a bed available until tomorrow. She recommends observing the patient on telemetry, obtaining a cardiac echo, and does not think that the patient requires emergent pacer given the potential vasovagal component to his syndromes today. I informed the patient of these findings, monitored him on telemetry, and ordered an echo for tomorrow morning. I reached out to the hospitalist who has graciously accepted this patient for admission, will monitor and reach out to [facility] cardiology in the morning to discuss transfer versus management here given the lack of emergent need for pacing. In my department he did not require subsequent doses of atropine, has not required pacing, he was hemodynamically appropriate throughout and was transferred to the hospitalist service without incident. Kay Horne MD [facility] All Active Problems (Updated 11/02/25 @ 20:34 by Kay Horne MD) Symptomatic sinus bradycardia (Acute) Right ankle instability (Acute) PAD (peripheral artery disease) (Acute) Hammertoe of right foot (Acute) Pain in joints of both feet (Acute) History of pancytopenia (Acute) Elevated BP without diagnosis of hypertension (Acute) Elevated uric acid in blood (Acute) Swallowing dysfunction (Acute) known esophogeal constriction (sees Jc), but swallowing issues seem to be in addition to this Urethral meatal stenosis (Acute) Gout attack (Acute) Pancytopenia (Acute) Syncope (Chronic) Vasovagal episode (Acute) Acute UTI (Acute) Gross hematuria (Acute) Esophageal stricture (Acute 12/07/17) q 3-4 month dilation w/ Dr. Greene, but Urol Rx may be helping maintain elasticity? stretch? Biopsies taken. Stricuture in second part of duodenum,56 cm from the teeth. Stricture in the upper esophagus,18cm from the teeth. endoscopy report date 12/07/17. Pathology shows peptic duodenitis, negative H. Pylori EGD Dr. Greene 11/04/21 Elevated serum creatinine (Acute 07/2018) (BASELINE/GOAL 1.2-1.3..) Cr 1.6 post ABx, V-Vagal Ep, ED (09/2024)..1.37 with elevated BUN and h/o poor hydration. 1.4 02/2019, monitor and recomm hydration. Reviewed NSAID, ABx use (min). 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 Spontaneous hypoglycemia (Acute 05/29/09) consult endocrine [facility] 2008 Low libido (Acute) [] ] testosterone? Vit D? (Wellbutrin helped with interest) Chronic daily headache (Chronic 03/23/15) Dull, improved flares since Chiro/Acupuncture care.. Chronic migraine without aura (Acute) Chronic pain disorder (Chronic) Contract, UDS, Orders 10/25/18. Medical History (Updated 11/02/25 @ 20:34 by Kay Horne MD) Insulin resistance Urinary retention CKD (chronic kidney disease) Hypoglycemia after GI (gastrointestinal) surgery Testing required for hypogly episodes BPH NOS w ur obs/LUTS Urinary hesitancy Abnormal prostate exam Hematospermia Phimosis Seborrheic keratosis Basal cell carcinoma (BCC) [facility] LIT Derm note 11/25/24: Probable recurrent BCCA L samaritan. shave C& D removal.HE Punch Bx shows BASAL CELL CARCINOMA.. Left [place] 02/2022 Bradycardia Finger lesion left middle finger, PIP. Healing well, but concerned about tendon. History of gout Toe pain, possible GOUT per pdiatry (no Tx,Rx), 09/04/21. Probable 1x no proph Tx atthis time. UA slighlty high. COVID-19 vaccine series completed per card: Moderna, 01/21, 02/18/21. Kristina #[id number] Cough (11/01/12) Adenoma of left adrenal gland (~06/2018) [facility] [place], [place] endocrinology office visit note 11/21/18. (2cm- which based on MRI characteristics strongly suggestive of a benign,lipid rich adenoma. (David Shields DO,MS). FU 08/2019 CT (w/contrast) shows stable 2cm adenoma, Scan Q12mos [ ] .. Mgr NOS wo ntrc w st mgr Daily Headache. 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 Greene, Esoph Dilation nearly q 3 mos Exercise induced bronchospasm (01/30/12) INTERMITTENT, EXERCISE OR COLD INDUCED; NL PF 05/22/08 3.8 FEV1, NO RESPONSE; better after air coach cleaner; nl FEV1 3.07 on 01/29/14 Esophageal reflux (01/30/12) Dysphagia, unspecified (11/19/94) RECURRENT DILATATIONS; (AUDRA -->JC 06/14/12 H PYLORI NEG; dilated 07/26/12 Emily; multiple re-does; currently q 3 mo (09/2016) Chronic gastritis (09/29/14) Mild Benign neoplasm of colon (11/19/03) ADENOMA IN 2003 SO rpt Q 5YR, NEG IN 2007 SEVEN; 1 adenoma 01/2013 Jc. 08/12/18 colonoscopy (Dr Greene) Allergic rhinitis (01/30/12) Adjustment disorder, unspecified (10/13/16) Adenomatous colon polyp (11/19/03) ADENOMA IN 2003 SO rpt Q 5YR, NEG IN 2007 SEVEN; 1 adenoma 01/2013 Jc Scalp lesion Seemed 2' trauma, but non-healing .. Punch Bx shows BASAL CELL CARCINOMA Vitreous degeneration Per 12/22/21 [place] note Puckering of macula, bilateral Per 12/22/21 [place] note COVID-19 end January,, tolerated Paxlovid Surgical History (Updated 09/14/25 @ 12:56 by Samanta Garcia RN) History of esophagogastroduodenoscopy (EGD) (~03/20/25) Dr. Greene, w/ dilation. Repeat 3-4 months.HE 09/11/25-EGD w/ [id number]-Iq. Mitz-repeat dilation in next 3-5months S/P TURP (09/22/24) Dr Werner cystoscopy w/TURP History of esophagogastroduodenoscopy (EGD) (~06/13/24) w/ Dilation, Dr. Greene, unchanged per note.HE 10/31/24-[facility]-w/dilatation-no biopsies-[facility] History of esophagogastroduodenoscopy (EGD) (~11/03/22) [facility]-04/20/23-Dr Greene. w/dilation-no biopsies [facility]-07/27/23-Dr Greene-biopsies normal-cont q3 mos Hx of basal cell carcinoma excision (03/03/22) left samaritan Hx of esophagogastroduodenoscopy 07/07/20 with Dilation done [address] Dr Greene at [facility] 07/29/21 dilation, wire guided Savory under fluro guidance 11/04/[address] Greene 02/10/24;DR. Greene;[facility] EGD w/ Dilation H/O colonoscopy (08/12/18) Dr Greene Endoscopy (03/17/16) 06/09/16 Dr. Greene; Emily with dilatation 12/04/17 Dr. Greene w/ dilatation Endoscopy (06/18/15) 06/09/16 Dr. Anna Diaz with dilatation 12/04/17 Dr. Greene w/ dilatation Endoscopy (09/11/14) 06/09/16 Dr. Anna Diaz with dilatation 12/04/17 Dr. Greene w/ dilatation EGD w/ Dilatation (08/24/17) repeated EGD w/ dilatation Dr. Greene EGD w/ Dilatation (06/08/17) repeated EGD w/ dilatation Dr. Greene EGD w/ Dilatation (03/09/17) repeated EGD w/ dilatation Dr. Greene EGD w/ Dilatation (12/08/16) repeated EGD w/ dilatation Dr. Greene EGD - IV Sedation (12/24/15) Kush Greene Extraction of cataract (01/12/15) Nuclear/cortical, left eye, symptomatic ; R eye Dr. Nelson Sanchez Extraction of cataract (12/29/14) Nuclear/cortical, left eye, symptomatic ; R eye Dr. Nelson Sanchez Family History Mother Dementia Father , failure to thrive at age 97. Essential hypertension Dementia Asthma Brother Heart disease Social History (Reviewed 07/08/25 @ 09:16 by SHERRY Treviño Smoking/Tobacco Use Status: Former Tobacco Use Quit Date: 01/01/73 Tobacco: How many years used: 5 Smoking risk assessment performed?: Yes Alcohol Intake: never Drug use: Never Substance use type: does not use Adopted: No Caregiver/Support person: No Foster care: No Household members: spouse Housing: house Number of Children: 3 number of grandchildren: 6 Communication Needs: Hard of Hearing and Corrective Lenses Education Level: high school Do you need help understanding health information?: Never current occupation: retired from [employer] Pets and animals: No Sexually active: Yes Do you think of yourself as: straight/heterosexual Current gender identity: male What is your relationship status?: How often do you talk on the phone with friends or family?: twice per week How often do you get together with friends or relatives?: never Do you belong to any clubs or organized social groups?: no Panel score (0-1 are the most socially isolated patients): 1 What type of physical activity do you participate in: other Details: ADL's only--shoveling, firewood etc, pool, yardwork Fariha/Baptism: Hinduism Special fariha needs: No Seatbelt use: always Drive intox or ride w/intox dedicated local truck driver: No Working smoke detector in home: Yes Carbon monox detector in home: Yes Do you feel safe at home: Yes Do you feel safe in your relationship?: Yes
[2025-11-02 15:02] LABS: BE (Venous) 0 mmol/L (-2-3); HCO3 (Venous) 23 mmol/L (23-28); O2 Sat (Venous) 97 %; TCO2 (Venous) 20 mmol/L (24-29); pCO2 (Venous) 33 mmHg (41-51); pO2 (Venous) 68 mmHg
[2025-11-02 15:06] LABS: Abs Immature Grans 0.03 10^3/uL (0.0-0.06); HCT 43.1 % (40.0-50.0); HGB 14.6 g/dL (13.5-17.5); Immature Grans % 0.3 %; MCH 30.7 pg (27.0-33.0); MCHC 33.9 % (32.0-36.0); MCV 91 fL (80-95); MPV 8.9 fL (8.0-11.0); Platelet Count 161 10^3/uL (130-400); RBC 4.76 10^6/uL (4.36-5.78); RDW 13.3 % (11.8-14.1); RDW-SD 44.8 fL; WBC 8.72 10^3/uL (4.4-10.8)
[2025-11-02] MEDS: Atropine 1 MG/10 ML SYRINGE 0.5 MG IVP (15:16)
[2025-11-02] MEDS: Lactated Ringers 500 ML IV (15:20)
[2025-11-02 15:25] LABS: Magnesium 2.0 mg/dL (1.6-2.6)
[2025-11-02 15:26] LABS: Troponin I 3 ng/L (<54)
[2025-11-02 15:27] LABS: ALT 29 U/L (10-49); AST 25 U/L (<34); Albumin 3.8 g/dL (3.2-5.0); Alkaline Phosphatase 64 U/L (46-116); Anion Gap 8.4 mmol/L (3-11); BUN 21 mg/dL (9-23); Bilirubin, Total 0.5 mg/dL (0.2-1.2); CO2 22.6 mmol/L (20.0-31.0); Calcium 9.1 mg/dL (8.3-10.6); Chloride 110 mmol/L (98-107); Glucose 115 mg/dL (74-106); Potassium 4.3 mmol/L (3.5-5.1); Sodium 141 mmol/L (136-145); Total Protein 6.4 g/dL (5.7-8.2)
[2025-11-02 15:30] LABS: TSH (W/Ref FT4) 2.11 uIU/mL (0.55-4.78)
[2025-11-02 17:46] LABS: Troponin I 4 ng/L (<54)
--- NOTE | 2025-11-02 20:34 | W.PM.HP.N ---
Date of service: 11/02/25 Time of Service: 20:34 Assessment and Plan Assessment and plan (1) Symptomatic sinus bradycardia: Start date: 11/02/25 Status: Acute Assessment and plan: This is a 80-year-old gentleman who has a history of vasovagal syncope remotely and recently in urgent care clinic had a similar episode while having a right hand wound debrided. He was brought to the ED and evaluated finding his chronic bradycardia and chronic bundle branch block on EKG. He had no further episodes. His ED stay. Cardiology at [facility] has accepted the patient if he has any recurrent symptoms but advised observation and echocardiogram with 30-day event monitor at least which could be done as an outpatient if he stabilizes. Patient does have a family history of bradycardia and a personal history of vasovagal events. He does not want a permanent pacemaker unless strongly warranted. In the ED he did receive a dose of atropine though there is no documented hypotension but persistent symptoms after his vasovagal episode in the urgent care clinic. Echocardiogram was ordered and if stable consider outpatient evaluation with cardiology follow-up. Patient does see cardiology locally. He is a full code. (2) Syncope: Start date: 11/02/25 Status: Acute Assessment and plan: This appears to be a vasovagal syncopal episode with patient not laid flat during the episode with prolonged symptoms as happened in the past when he was in the urology clinic. He already takes precautions at night because of the slow heart rate but denies any chronic dizziness. He is physically very active. Observation and workup as above under symptomatic bradycardia. (3) Postprandial hypoglycemia: Status: Chronic Assessment and plan: Patient has had a problem with low blood sugar especially around noon if he does not eat properly. He thinks this may have been contributed to some of his symptoms upon presentation today. Hypoglycemia was not measured with his evaluation. He has status post gastrectomy with possible vagotomy with this problem after that surgery. (4) CKD (chronic kidney disease): Assessment and plan: Patient does have chronic mild elevation of his creatinine which is stable. Continue oral hydration and monitor labs. (5) Bradycardia: Assessment and plan: Patient has chronic bradycardia and is on no medical therapy that would exacerbate this problem. He does have multiple cardiac medications listed on his allergies as causing side effects such as beta-blockers and calcium channel blockers as well as for FABIO inhibitors. He has no history of hypertension. (6) Right bundle branch block (RBBB): Status: Chronic Assessment and plan: Sinus bradycardia with right bundle branch block which is chronic and stable. Troponins were negative. Cardiac monitoring with observation. (7) Cellulitis of hand, right: Start date: 10/19/25 Status: Acute Assessment and plan: Right hand dorsally had a scratch from a dog with debridement the day of admission. The bandage was dry and not taken off for exam upon admission but should be reviewed before discharge. He never started his Augmentin which was prescribed. He does not want to take Augmentin with diarrhea when he takes antibiotics in the past (8) Migraine without aura and without status migrainosus, not intractable: Assessment and plan: Observe with outpatient treatment if needed. History of Present Illness History of Present Illness Chief Complaint: Syncopal episode bradycardia while having wound check at clinic. Narrative: This is a 80-year-old male patient with a past medical history significant for hypertension, hypoglycemia, anemia/pancytopenia, and a recent wound of the right hand due to a dog scratch, presenting for evaluation after a syncopal episode with agonal respirations. The patient was seen at the urgent care center for his wound, states that he was looking at the area but does not typically get unwell when seeing blood or injuries. He reports that he started to feel very dizzy, and had a witnessed episode of unconsciousness while seated, did not sustain trauma or injury. Per the providers, the patient was reported unresponsive for about 1-1/2 minutes, and had agonal respirations during that time requiring BVM ventilation. He did not have seizure-like activity, had a return to consciousness without postictal state, and EMS was summoned. There is no mention of diaphoresis but the pulse was not palpable at 1 point. EMS noted that the patient had a decrease in his heart rate during their transport down to 40, sinus bradycardia on the monitor with a right bundle branch block which is known for the patient. He continued to complain of dizziness and nausea in the ED and did have 4 mg of Zofran prehospital with good effect. He reports no recent changes to his health, states that he has had an episode like this once before at the urology clinic after catheterization and he does not have any known cardiac history. There is a family history of bradycardia with pacemakers. Patient has been very active in his life but is not a runner. He chronically has had a low heart rate. He did note that he was not laid supine during the above episode similar to when he had his episode and the urology which exacerbated his symptoms. He does have history of partial gastrectomy with possible vagotomy prior to his episodes occurring. He is status post TURP which has resolved his urinary obstruction. ED provider discussed the patient with [facility] cardiology, Dr. Devi has graciously accepted this patient for admission but unfortunately they will not have a bed available until 11/03/2025. The manager embalmer funeral director recommended observing the patient on telemetry, obtaining a transthoracic echocardiogram as soon as available, and does not think that the patient requires emergent internal pacemaker given the potential vasovagal component to his episodes in the past and present. Cardiology also advised continuous cardiac loop monitor for 30 days as an outpatient for evaluation. If medically stable, this workup could be done as an outpatient. Patient will be admitted to ICU with ZOLL pacemaker pads in place for close monitoring. He is a full code. Review of Systems Narrative: 13 point review of systems otherwise unrevealing or stable. Patient has never had episodes while urinating or defecating and does get up slowly from bed at night because of his low heart rate. He does have proximal esophageal stenosis which requires recurrent EGDs for dilatation. He present has no problems swallowing. He has had no weight change. He is physically very active especially during the summer with a steep incline to his lawn. [facility] All Active Problems (Updated 11/03/25 @ 07:01 by Adiel Diego) Right bundle branch block (RBBB) (Chronic) Cellulitis of hand, right (Acute) Symptomatic sinus bradycardia (Acute) Right ankle instability (Acute) PAD (peripheral artery disease) (Acute) Hammertoe of right foot (Acute) Pain in joints of both feet (Acute) History of pancytopenia (Acute) Elevated BP without diagnosis of hypertension (Acute) Elevated uric acid in blood (Acute) Swallowing dysfunction (Acute) known esophogeal constriction (sees Jc), but swallowing issues seem to be in addition to this Urethral meatal stenosis (Acute) Gout attack (Acute) Pancytopenia (Acute) Syncope (Acute) Vasovagal episode (Acute) Acute UTI (Acute) Gross hematuria (Acute) Esophageal stricture (Acute 12/07/17) q 3-4 month dilation w/ Dr. Greene, but Urol Rx may be helping maintain elasticity? stretch? Biopsies taken. Stricuture in second part of duodenum,56 cm from the teeth. Stricture in the upper esophagus,18cm from the teeth. endoscopy report date 12/07/17. Pathology shows peptic duodenitis, negative H. Pylori EGD Dr. Greene 11/04/21 Elevated serum creatinine (Acute 07/2018) (BASELINE/GOAL 1.2-1.3..) Cr 1.6 post ABx, V-Vagal Ep, ED (09/2024)..1.37 with elevated BUN and h/o poor hydration. 1.4 02/2019, monitor and recomm hydration. Reviewed NSAID, ABx use (min). Megaloblastic anemia due to vitamin B12 deficiency (Acute) LEVEL 173 (NL>250) IN 2004, SELF RX WITH INJECTIONS MONTHLY; following gastric surgery for ulcer; chg to PO rx 02/2015 Slow respiration (Acute) Episodes noticed by ; thought to be assoc w/ hypoglycemia Postprandial hypoglycemia (Chronic) seems 2' high carb load (review glycemic load/index/other foods); resolves w/ PB 1-2 H afterwards... Spontaneous hypoglycemia (Acute 05/29/09) [place] endocrine [facility] [place] Low libido (Acute) [] ] testosterone? Vit D? (Wellbutrin helped with interest) Chronic daily headache (Chronic 03/23/15) Dull, improved flares since Chiro/Acupuncture care.. Chronic migraine without aura (Acute) Chronic pain disorder (Chronic) Contract, UDS, BH Orders 10/25/18. Medical History Insulin resistance Urinary retention CKD (chronic kidney disease) Hypoglycemia after GI (gastrointestinal) surgery Testing required for hypogly episodes BPH NOS w ur obs/LUTS Urinary hesitancy Abnormal prostate exam Hematospermia Phimosis Seborrheic keratosis Basal cell carcinoma (BCC) [facility] [place] note 11/25/24: Probable recurrent BCCA L [facility]. shave C& D removal.HE Punch Bx shows BASAL CELL CARCINOMA.. Left Denominational 02/2022 Bradycardia Finger lesion left middle finger, PIP. Healing well, but concerned about tendon. History of gout Toe pain, possible GOUT per pdiatry (no Tx,Rx), 09/04/21. Probable 1x no proph Tx atthis time. UA slighlty high. COVID-19 vaccine series completed per card: Moderna, 01/21, 02/18/21. Kristina #[id number] Cough (11/01/12) Adenoma of left adrenal gland (~06/2018) [facility] [place]ocrinology office visit note 11/21/18. (2cm- which based on MRI characteristics strongly suggestive of a benign,lipid rich adenoma. (David Shields, DO,MS). FU 08/2019 CT (w/contrast) shows stable 2cm adenoma, Scan Q12mos [ ] .. Mgr NOS wo ntrc w st mgr Daily Headache. 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 Greene, Esoph Dilation nearly q 3 mos Exercise induced bronchospasm (01/30/12) INTERMITTENT, EXERCISE OR COLD INDUCED; NL PF 05/22/08 3.8 FEV1, NO RESPONSE; better after air shafting cleaner; nl FEV1 3.07 on 01/29/14 Esophageal reflux (01/30/12) Dysphagia, unspecified (11/19/94) RECURRENT DILATATIONS; (AUDRA -->MITZ 06/14/12 H PYLORI NEG; dilated 07/26/12 [place]; multiple re-does; currently q 3 mo (09/2016) Chronic gastritis (09/29/14) Mild Benign neoplasm of colon (11/19/03) ADENOMA IN 2003 SO rpt Q 5YR, NEG IN 2007 SEVEN; 1 adenoma 01/2013 Mitinocencio. 08/12/18 colonoscopy (Dr Greene) Allergic rhinitis (01/30/12) Adjustment disorder, unspecified (10/13/16) Adenomatous colon polyp (11/19/03) ADENOMA IN 2003 SO rpt Q 5YR, NEG IN 2007 SEVEN; 1 adenoma 01/2013 Mitinocencio Scalp lesion Seemed 2' trauma, but non-healing .. Punch Bx shows BASAL CELL CARCINOMA Vitreous degeneration Per 12/22/21 [place] note Puckering of macula, bilateral Per 12/22/21 [place] note COVID-19 end January,, tolerated Paxlovid Surgical History History of esophagogastroduodenoscopy (EGD) (~03/20/25) Dr. Greene, w/ dilation. Repeat 3-4 months.HE 09/11/25-EGD w/ [id number]. Mitz-repeat dilation in next 3-5months S/P TURP (09/22/24) Dr Werner cystoscopy w/TURP History of esophagogastroduodenoscopy (EGD) (~06/13/24) w/ Dilation, Dr. Greene, unchanged per note.HE 10/31/24-LR-w/dilatation-no biopsies-LH History of esophagogastroduodenoscopy (EGD) (~11/03/22) [facility]-04/20/23-Dr Greene. w/dilation-no biopsies [facility]-07/27/23-Dr Greene-biopsies normal-cont q3 mos Hx of basal cell carcinoma excision (03/03/22) left [facility] Hx of esophagogastroduodenoscopy 07/07/20 with Dilation done [address] Dr Greene at [facility] 07/29/21 dilation, wire guided Savory under fluro guidance 11/04/[address] Greene 02/10/24;DR. Greene;[facility] EGD w/ Dilation H/O colonoscopy (08/12/18) Dr Greene Endoscopy (03/17/16) 06/09/16 Dr. Anna Diaz with dilatation 12/04/17 Dr. Greene w/ dilatation Endoscopy (06/18/15) 06/09/16 Dr. Anna Diaz with dilatation 12/04/17 Dr. Greene w/ dilatation Endoscopy (09/11/14) 06/09/16 Dr. Anna Diaz with dilatation 12/04/17 Dr. Greene w/ dilatation EGD w/ Dilatation (08/24/17) repeated EGD w/ dilatation Dr. Greene EGD w/ Dilatation (06/08/17) repeated EGD w/ dilatation Dr. Greene EGD w/ Dilatation (03/09/17) repeated EGD w/ dilatation Dr. Greene EGD w/ Dilatation (12/08/16) repeated EGD w/ dilatation Dr. Greene EGD - IV Sedation (12/24/15) Kush Greene Extraction of cataract (01/12/15) Nuclear/cortical, left eye, symptomatic ; R eye Dr. Nelson Sanchez Extraction of cataract (12/29/14) Nuclear/cortical, left eye, symptomatic ; R eye Dr. Nelson Sanchez Family History Mother Dementia Father , failure to thrive at age 97. 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 Pets and animals: No Sexually active: Yes Do you think of yourself as: straight/heterosexual Current gender identity: male What is your relationship status?: How often do you talk on the phone with friends or family?: twice per week How often do you get together with friends or relatives?: never Do you belong to any clubs or organized social groups?: no Panel score (0-1 are the most socially isolated patients): 1 What type of physical activity do you participate in: other Details: ADL's only--shoveling, firewood etc, pool, yardwork Fariha/Anabaptist: Scientologist Special fariha needs: No Seatbelt use: always Drive intox or ride w/intox concrete truck driver: No Working smoke detector in home: Yes Carbon monox detector in home: Yes Do you feel safe at home: Yes Do you feel safe in your relationship?: Yes Meds Allergies and Home Medications Allergies Allergy/AdvReac Type Severity Reaction Status Date / Time amitriptyline AdvReac Intermediate sedation Verified 11/02/25 12:52 aspirin AdvReac Intermediate h/o ulcer Verified 11/02/25 12:52 disease topiramate (From Topamax) AdvReac Intermediate CANNOT Verified 11/02/25 12:52 SLEEP baclofen AdvReac Mild nausea, Verified 11/02/25 12:52 dizzy, blurred vision Beta-Blockers AdvReac Unknown AVOID to Verified 11/02/25 12:52 (Beta-Adrenergic Bloc Abdi butalbital AdvReac Unknown Habituated Verified 11/02/25 12:52 diltiazem AdvReac Unknown AVOID due Verified 11/02/25 12:52 to Abdi lisinopril AdvReac Unknown cough Verified 11/02/25 12:52 verapamil AdvReac Unknown dizzy Verified 11/02/25 12:52 propofol AdvReac arrythmia Verified 11/02/25 12:52 with high-doses Home Medications ?Medication ?Instructions ?Recorded ?Confirmed ?Type cyanocobalamin (vitamin B-12) 1,000 mcg PO DAILY #100 tabs 04/07/16 11/02/25 History 1,000 mcg tablet (Vitamin B-12) loratadine 10 mg tablet (Claritin) 10 mg PO DAILY PRN allergy 06/27/24 11/02/25 Rx symptoms #90 tab-caps rizatriptan 10 mg tablet 10 mg PO .COMPLEX PRN migraine 06/27/24 11/02/25 Rx headache #20 tabs albuterol sulfate 90 mcg/actuation 2 puff inhalation Q6H PRN wheeze 09/22/24 11/02/25 History aerosol inhaler hydrocodone 5 mg-acetaminophen 325 1 tab PO Q6H PRN pain #30 tabs 06/26/25 11/02/25 Rx mg tablet hydrocodone 5 mg-acetaminophen 325 1 tab PO Q6H PRN pain #30 tabs 06/26/25 11/02/25 Rx mg tablet allopurinol 100 mg tablet 100 mg PO DAILY #30 tabs 07/10/25 11/02/25 Rx ferrous sulfate 325 mg (65 mg 325 mg PO DAILY anemia #30 tabs 08/11/25 11/02/25 Rx iron) tablet blood sugar diagnostic (Contour #100 ea 08/13/25 11/02/25 Rx Test Strips) blood-glucose meter (Contour Meter #1 ea 08/24/25 11/02/25 Rx kit) lancets 32 gauge #100 ea 08/24/25 11/02/25 Rx hydrocodone 5 mg-acetaminophen 325 1 tab PO Q6H PRN pain #30 tabs 10/27/25 11/02/25 Rx mg tablet amoxicillin 875 mg-potassium 1 tab PO Q12H #14 tabs 11/02/25 11/02/25 Rx clavulanate 125 mg tablet Exam Narrative Exam Narrative: General: Patient appears appropriate for age, alert and oriented x 3 and in no acute distress. HEENT: Normocephalic, eyes with pupils equal and reactive to light symmetrically, extraocular movement intact and sclera anicteric. Oropharynx with moist mucosa and fair dentition. Neck: Supple without JVD. Back: Stooped posture without CVA tenderness. Lungs: Aeration and clear to auscultation and percussion without focalizing rales or rhonchi. No expiratory wheeze. Heart: Bradycardic rate with regular rhythm. No appreciable murmur or gallop. Abdomen: Normal contour, soft and nontender to palpation with no palpable hepatosplenomegaly. Bowel sounds positive in all quadrants. Genitalia/rectal: Exam deferred. Extremities: Without clubbing, cyanosis or pitting edema. Peripheral pulses intact. Right hand has dry bandage over the dorsum of the hand where he has a scratch and avulsion from a dog injury. There is no pain to palpation or obvious swelling through the bandage. Skin: Normal color, warm and dry. Neuro: Cranial nerves II through XII grossly intact, no focal motor deficits and no tremor. Psych: Normal affect and mood. No abnormal thought processes. Remote and recent memory intact. Results Labs 11/03/25 05:30 11/03/25 05:30 Labs: Laboratory Results - last 24 hr 11/02/25 11/02/25 14:55 17:05 WBC 8.72 RBC 4.76 Hgb 14.6 Hct 43.1 MCV 91 MCH 30.7 MCHC 33.9 RDW 13.3 Plt Count 161 MPV 8.9 Immature Gran % 0.3 Neutrophils % 71.3 Lymphocytes % 16.1 Monocytes % 9.1 Eosinophils % 2.6 Basophils % 0.6 Nucleated RBC % 0.0 Absolute Neutrophils 6.22 Absolute Lymphocytes 1.40 Absolute Monocytes 0.79 Absolute Eosinophils 0.23 Absolute Basophils 0.05 VBG pH 7.46 H VBG pCO2 33 L VBG pO2 68 VBG HCO3 23 VBG Total CO2 20 L VBG O2 Saturation 97 VBG Base Excess 0 Sodium 141 Potassium 4.3 Chloride 110 H Carbon Dioxide 22.6 Anion Gap 8.4 BUN 21 Creatinine 1.25 H Est GFR (CKD-EPI 2020) 55.84 Glucose 115 H Calcium 9.1 Magnesium 2.0 Total Bilirubin 0.5 AST 25 ALT 29 Alkaline Phosphatase 64 Troponin I 3 4 NT-Pro-B Natriuret Pep 105 Total Protein 6.4 Albumin 3.8 TSH 2.11 Last Vital Signs Temp 36.3 C L 11/02/25 14:25 Pulse 45 L 11/02/25 14:25 Resp 12 11/02/25 14:42 BP 157/72 H 11/02/25 14:25 Pulse Ox 98 11/02/25 14:25 VTE Prohylaxis Risk Level: Moderate/High Risk Contraindications: None Prophylaxis: Pharmacologic and Mechanical Time Spent Time spent with Patient: >75 minutes Time was spent: preparing to see the patient(eg.review tests), obtaining and/or reviewing separately otained hiistory, ordering medications,tests, procedures, referring, communicating with other health resident care coordinator, indepentently interpreting results, counseling the patient and care coordination
[2025-11-02 21:32] LABS: Troponin I < 3 ng/L (<54)
[2025-11-02 21:47] LABS: Glucose Negative (Negative)
--- NOTE | 2025-11-02 22:14 | W.PC.ACHO ---
Registration Status: REG ER Primary Language: Preferred Language: Maori ED Information & Data Chief Complaint Dizzy/Sync 11/02/25 14:53 Triage Note Pt at [facility] having a 11/02/25 14:25 wound on his right hand assessed when he experienced a syncopal episode- per the provider at , the patient stopped breathing and had agonal breathing for 1-1.5 minutes- has had episodes like this before last August in [facility]'s office Medical / Surgical History (Last Reviewed 11/02/25 @ 21:00 by Adiel Diego) Insulin resistance Urinary retention CKD (chronic kidney disease) Hypoglycemia after GI (gastrointestinal) surgery BPH NOS w ur obs/LUTS Urinary hesitancy Abnormal prostate exam Hematospermia Phimosis Seborrheic keratosis Basal cell carcinoma (BCC) Bradycardia Finger lesion History of gout COVID-19 vaccine series completed Cough (11/01/12) Adenoma of left adrenal gland (~06/2018) Mgr NOS wo ntrc w st mgr Rosacea (01/30/12) Migraine without aura and without status migrainosus, not intractable Mechanical low back pain (07/23/15) 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) Gastroesophageal reflux disease with esophagitis (01/30/12) Exercise induced bronchospasm (01/30/12) Esophageal reflux (01/30/12) Dysphagia, unspecified (11/19/94) Chronic gastritis (09/29/14) Benign neoplasm of colon (11/19/03) Allergic rhinitis (01/30/12) Adjustment disorder, unspecified (10/13/16) Adenomatous colon polyp (11/19/03) Scalp lesion Vitreous degeneration Puckering of macula, bilateral COVID-19 (Last Reviewed 11/02/25 @ 21:00 by Adiel Diego) History of esophagogastroduodenoscopy (EGD) (~03/20/25) S/P TURP (09/22/24) History of esophagogastroduodenoscopy (EGD) (~06/13/24) History of esophagogastroduodenoscopy (EGD) (~11/03/22) Hx of basal cell carcinoma excision (03/03/22) Hx of esophagogastroduodenoscopy H/O colonoscopy (08/12/18) Endoscopy (03/17/16) Endoscopy (06/18/15) Endoscopy (09/11/14) EGD w/ Dilatation (08/24/17) EGD w/ Dilatation (06/08/17) EGD w/ Dilatation (03/09/17) EGD w/ Dilatation (12/08/16) EGD - IV Sedation (12/24/15) Extraction of cataract (01/12/15) Extraction of cataract (12/29/14) Most Recent Vital Signs Temperature 36.3 C L 11/02/25 14:25 Temperature Source Oral 11/02/25 14:25 Pulse 60 11/02/25 22:01 Pulse 62 11/02/25 20:40 Respiratory Rate 13 11/02/25 22:01 Respiratory Effort Normal, Non-Labored 11/02/25 14:42 Respiratory Depth Normal 11/02/25 14:42 Respiratory Pattern Normal 11/02/25 14:42 Blood Pressure 144/73 H 11/02/25 22:00 Blood Pressure Mean 99 11/02/25 22:00 Blood Pressure Position Sitting 11/02/25 14:25 Pulse Oximetry 97 11/02/25 22:01 Oxygen Delivery Method Nasal Cannula 11/02/25 14:25 Oxygen Flow Rate 2 11/02/25 14:25 Pain Level 0 11/02/25 22:09 Allergies amitriptyline Adverse Reaction (Intermediate, Verified 11/02/25 12:52) sedation dragging after trial nearly 2 mos at 10 mg to prevent migraine aspirin Adverse Reaction (Intermediate, Verified 11/02/25 12:52) h/o ulcer disease topiramate (From Topamax) Adverse Reaction (Intermediate, Verified 11/02/25 12:52) CANNOT SLEEP baclofen Adverse Reaction (Mild, Verified 11/02/25 12:52) nausea, dizzy, blurred vision Beta-Blockers (Beta-Adrenergic Bloc Adverse Reaction (Unknown, Verified 11/02/25 12:52) AVOID to Abdi butalbital Adverse Reaction (Unknown, Verified 11/02/25 12:52) Habituated diltiazem Adverse Reaction (Unknown, Verified 11/02/25 12:52) AVOID due to Abdi lisinopril Adverse Reaction (Unknown, Verified 11/02/25 12:52) cough verapamil Adverse Reaction (Unknown, Verified 11/02/25 12:52) dizzy propofol Adverse Reaction (Verified 11/02/25 12:52) arrythmia with high-doses From [facility] throat dilatation procedure 09/2020. EO. Pt states this was when he was given too much. Has been fine since. IV IV Catheter Type [Left Saline Lock Antecubital] IV Catheter Gauge [Left 18 Antecubital] Diagnostics 11/02/25 11/02/25 11/02/25 Range/Units 21:30 20:58 17:05 WBC (4.4-10.8) 10^3/uL RBC (4.36-5.78) 10^6/uL Hgb (13.5-17.5) g/dL Hct (40.0-50.0) % MCV (80-95) fL MCH (27.0-33.0) pg MCHC (32.0-36.0) % RDW (11.8-14.1) % Plt Count (130-400) 10^3/uL MPV (8.0-11.0) fL Immature Gran % % Neutrophils % % Lymphocytes % % Monocytes % % Eosinophils % % Basophils % % Nucleated RBC % (0.0-0.3) % Absolute Neutrophils (1.2-6.7) 10^3/uL Absolute Lymphocytes (1.2-3.4) 10^3/uL Absolute Monocytes (0.1-0.8) 10^3/uL Absolute Eosinophils (0.0-0.7) 10^3/uL Absolute Basophils (0.0-0.2) 10^3/uL VBG pH (7.31-7.41) VBG pCO2 (41-51) mmHg VBG pO2 mmHg VBG HCO3 (23-28) mmol/L VBG Total CO2 (24-29) mmol/L VBG O2 Saturation % VBG Base Excess (-2-3) mmol/L Sodium (136-145) mmol/L Potassium (3.5-5.1) mmol/L Chloride (98-107) mmol/L Carbon Dioxide (20.0-31.0) mmol/L Anion Gap (3-11) mmol/L BUN (9-23) mg/dL Creatinine (0.73-1.18) mg/dL Est GFR (CKD-EPI 2020) (mL/min/1.73m2) Glucose (74-106) mg/dL Calcium (8.3-10.6) mg/dL Magnesium (1.6-2.6) mg/dL Total Bilirubin (0.2-1.2) mg/dL AST (<34) U/L ALT (10-49) U/L Alkaline Phosphatase (46-116) U/L Troponin I < 3 4 (<54) ng/L NT-Pro-B Natriuret Pep (<300) pg/mL Total Protein (5.7-8.2) g/dL Albumin (3.2-5.0) g/dL TSH (0.55-4.78) uIU/mL Urine Color Yellow (Yellow) Urine Clarity Clear (Clear) Urine pH 5.5 (5-8) Ur Specific Wells 1.020 (1.005-1.025) Urine Protein Negative (Neg-Trace) mg/dL Urine Ketones 15 H (Negative) mg/dL Urine Blood Negative (Negative) Urine Nitrite Negative (Negative) Urine Bilirubin Negative (Negative) Urine Urobilinogen 0.2 (Up to 0.2) mg/dL Ur Leukocyte Esterase Negative (Negative) Urine Glucose Negative (Negative) mg/dL Urine Opiates Screen Pending Ur Barbiturates Screen Pending Ur Tricyclics Screen Pending Ur Amphetamines Screen Pending U Benzodiazepines Scrn Pending Urine Cocaine Screen Pending U Cannabinoids Screen Pending COVID-19 Source Pending SARS-CoV-2 (PCR) Pending Influenza Type A (PCR) Pending Influenza Type B (PCR) Pending RSV (PCR) Pending 11/02/25 Range/Units 14:55 WBC 8.72 (4.4-10.8) 10^3/uL RBC 4.76 (4.36-5.78) 10^6/uL Hgb 14.6 (13.5-17.5) g/dL Hct 43.1 (40.0-50.0) % MCV 91 (80-95) fL MCH 30.7 (27.0-33.0) pg MCHC 33.9 (32.0-36.0) % RDW 13.3 (11.8-14.1) % Plt Count 161 (130-400) 10^3/uL MPV 8.9 (8.0-11.0) fL Immature Gran % 0.3 % Neutrophils % 71.3 % Lymphocytes % 16.1 % Monocytes % 9.1 % Eosinophils % 2.6 % Basophils % 0.6 % Nucleated RBC % 0.0 (0.0-0.3) % Absolute Neutrophils 6.22 (1.2-6.7) 10^3/uL Absolute Lymphocytes 1.40 (1.2-3.4) 10^3/uL Absolute Monocytes 0.79 (0.1-0.8) 10^3/uL Absolute Eosinophils 0.23 (0.0-0.7) 10^3/uL Absolute Basophils 0.05 (0.0-0.2) 10^3/uL VBG pH 7.46 H (7.31-7.41) VBG pCO2 33 L (41-51) mmHg VBG pO2 68 mmHg VBG HCO3 23 (23-28) mmol/L VBG Total CO2 20 L (24-29) mmol/L VBG O2 Saturation 97 % VBG Base Excess 0 (-2-3) mmol/L Sodium 141 (136-145) mmol/L Potassium 4.3 (3.5-5.1) mmol/L Chloride 110 H (98-107) mmol/L Carbon Dioxide 22.6 (20.0-31.0) mmol/L Anion Gap 8.4 (3-11) mmol/L BUN 21 (9-23) mg/dL Creatinine 1.25 H (0.73-1.18) mg/dL Est GFR (CKD-EPI 2020) 55.84 (mL/min/1.73m2) Glucose 115 H (74-106) mg/dL Calcium 9.1 (8.3-10.6) mg/dL Magnesium 2.0 (1.6-2.6) mg/dL Total Bilirubin 0.5 (0.2-1.2) mg/dL AST 25 (<34) U/L ALT 29 (10-49) U/L Alkaline Phosphatase 64 (46-116) U/L Troponin I 3 (<54) ng/L NT-Pro-B Natriuret Pep 105 (<300) pg/mL Total Protein 6.4 (5.7-8.2) g/dL Albumin 3.8 (3.2-5.0) g/dL TSH 2.11 (0.55-4.78) uIU/mL Urine Color (Yellow) Urine Clarity (Clear) Urine pH (5-8) Ur Specific Wells (1.005-1.025) Urine Protein (Neg-Trace) mg/dL Urine Ketones (Negative) mg/dL Urine Blood (Negative) Urine Nitrite (Negative) Urine Bilirubin (Negative) Urine Urobilinogen (Up to 0.2) mg/dL Ur Leukocyte Esterase (Negative) Urine Glucose (Negative) mg/dL Urine Opiates Screen Ur Barbiturates Screen Ur Tricyclics Screen Ur Amphetamines Screen U Benzodiazepines Scrn Urine Cocaine Screen U Cannabinoids Screen COVID-19 Source SARS-CoV-2 (PCR) Influenza Type A (PCR) Influenza Type B (PCR) RSV (PCR) [id number] Documentation Fingerstick Glucose Start: 11/02/25 14:40 Freq: Status: Active Protocol: Activity Type Activity Date Activity User E-sign Co-sign Detail Recorded Client Recorded Date Recorded By Document 11/02/25 14:39 BKG DAEMON(3) [id number] 11/02/25 14:40 BKG DAEMON(4) Intake and Output - 24 Hour Total 11/02/25 14:16 thru 11/02/25 16:07 Intake Total 500 Balance 500 Weight 88.451 kg Intake: IV 500 Falls Risk Assessment History of Falls No History 11/02/25 21:59 Contributing Factors No Factors 11/02/25 21:59 Ambulatory Aids Independent 11/02/25 21:59 Tubes/Lines None 11/02/25 21:59 Gait Evaluation No gait disturbance 11/02/25 21:59 Cognition No cognitive impairment 11/02/25 21:59 Fall Total Score 0 11/02/25 21:59 Level of Risk Standard/Low Risk 11/02/25 21:59 Problems (Last Reviewed 11/02/25 @ 21:00 by Adiel Diego) Right bundle branch block (RBBB) (Acute) Cellulitis of hand, right (Acute) Symptomatic sinus bradycardia (Acute) Syncope (Acute) Postprandial hypoglycemia (Acute) Attestation Statement: By documenting the first initial, last name, and credentials of the reporting nurse below, both parties acknowledge that all relevant information regarding the patient handoff has been communicated, and that all questions have been addressed to ensure continuity and safety of care. Additional Patient Information/Comments: Had syncopal episode while having treatment at wound clinic. Was unresponsive, and no pulse for 1 1/2 minutes. EMS called, and patient found to have RBBB, and HR in 30-40. Patient was given atropine and LR bolus in ED. Patient was accepted to [facility] when bed available, likely tomorrow. Inpatient for monitoring overnight, and to get echo prior to transfer. A/O x 3. Trops negative. Patient feels back to baseline after treatment. Report Received From: JOHN Chen
[2025-11-02 22:17] LABS: Cannabinoids THC Negative (Negative)
[2025-11-02 22:19] LABS: COVID-19 PCR Negative (Negative); RSV PCR Negative (Negative)
[2025-11-03] VITALS (9 sets, daily range): BP systolic 116–159; BP diastolic 66–97; PULSE 48–83; RESP 9–17; TEMP 36.4–36.7; O2SAT 94–97
[2025-11-03 06:12] LABS: HCT 44.3 % (40.0-50.0); HGB 14.7 g/dL (13.5-17.5); MCH 30.6 pg (27.0-33.0); MCHC 33.2 % (32.0-36.0); MCV 92 fL (80-95); MPV 9.3 fL (8.0-11.0); Platelet Count 157 10^3/uL (130-400); RBC 4.80 10^6/uL (4.36-5.78); RDW 13.2 % (11.8-14.1); RDW-SD 44.7 fL; WBC 8.70 10^3/uL (4.4-10.8)
[2025-11-03 06:27] LABS: Magnesium 1.9 mg/dL (1.6-2.6)
[2025-11-03 06:29] LABS: ALT 26 U/L (10-49); AST 22 U/L (<34); Albumin 3.8 g/dL (3.2-5.0); Alkaline Phosphatase 67 U/L (46-116); Anion Gap 7.4 mmol/L (3-11); BUN 18 mg/dL (9-23); Bilirubin, Total 0.4 mg/dL (0.2-1.2); CO2 26.6 mmol/L (20.0-31.0); Calcium 9.3 mg/dL (8.3-10.6); Chloride 108 mmol/L (98-107); Glucose 141 mg/dL (74-106); Potassium 4.2 mmol/L (3.5-5.1); Sodium 142 mmol/L (136-145); Total Protein 6.2 g/dL (5.7-8.2)
[2025-11-03] MEDS: Allopurinol 100 MG TAB PO (07:53)
[2025-11-03] MEDS: Ferrous Sulfate 325 MG TAB PO (07:53)
[2025-11-03] MEDS: Cyanocobalamin 500 MCG TAB 1000 MCG PO (07:54)
[2025-11-03] MEDS: Normal Saline Flush 10 ML SYR IVP (07:54)
[2025-11-03] MEDS: Enoxaparin 40 MG/0.4 ML SYR SC (07:54)
--- NOTE | 2025-11-03 08:00 | DI.US_ITS ---
APPROVED REPORT EXAM: Comprehensive 2D, Doppler, and color-flow Echocardiogram Patient Location: In-Patient Mechanical Engineering Director: Mireya Addison RT (R) (CT) [facility] Rhythm: Bradycardia (45-52 bpm). RBBB Indications: Sinus bradycardia with RBB and syncope. Other Information Study Quality: Adequate Conclusion Normal left ventricular wall thickness and chamber size. Ejection fraction is 65 to 70%. Wall motion is normal Normal right ventricular size and function Both atria are normal in size. 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 The left ventricular systolic function is normal. The left ventricular ejection fraction is within the normal range. There is normal left ventricular wall thickness. There is normal LV segmental wall motion. Grade I diastolic dysfunction. There is no ventricular septal defect visualized. No left ventricle thrombus noted on this study. LVEF is 65-70%. Right Ventricle The right ventricle is normal size. The right ventricular systolic function is normal. There is normal right ventricular wall thickness. Atria The left atrium size is normal. The right atrium size is normal. Atrial septum is thin and hypermobile Aortic Valve Aortic valve is trileaflet. There is no aortic valvular stenosis. Trace aortic regurgitation. Mitral Valve The mitral valve is normal in structure. No evidence of mitral valve stenosis. Trivial mitral regurgitation. Tricuspid Valve The tricuspid valve is normal in structure. Trace tricuspid regurgitation. No apparent pulmonary hypertension. Pulmonic Valve The pulmonary valve is normal in structure. There is no pulmonic valvular stenosis. Trace pulmonic regurgitation. Great Vessels The aortic root is normal in size. The pulmonary artery is normal. The ascending aorta is normal in size. IVC is normal in size and collapses >50% with inspiration. Pericardium There is no pericardial effusion.
--- NOTE | 2025-11-03 09:10 | PDOC.CMIN ---
Date of service: 11/03/25 Time of Service: 09:15 Care Management Initial Assmt Initial Assessment Reason for Hospitalization: Symptomatic Bradycardia Functional Status/Living Situation Patient Presentation: Naren was lying down in bed and awake when CM met with him. He presented to the ED for evaluation after a syncopal episode with agonal respirations. Per report, Town of Residence: [place] Resides with: Spouse (Jody) Significant Other/Family: Local Natural Supports: Daughter Nancy, Son Luis Employment Status: Retired Instrumental Activities of Daily Living (ADLs): Independent Medications Medication Management: No Issues/Barriers identified Advance Directives Advance Directives: Do you have an Advance Directive: Y 05/09/21, 09:37 AD On File at [facility]: N 05/09/21, 09:37 Date Asked 11/03/25 Today, 06:23 AD Date Reviewed COLST On File at [facility] No 08/28/24, 17:07 COLST Date Scanned Code Status Resuscitation Status Full Code Portal Pt does not currently have a portal and education provided: Yes Insurance Coverage/Financial Issues Insurance: Medicare Part A & B - [id number] /[facility] - [id number] Care Team Visit Care Team Role Provider Type Matt Klein MD MD [facility] STAFF PHYSICIAN Winifred France APRN Primary Care Provider NURSE PRACTITIONER Kay Horne MD Emergency Provider [facility] STAFF PHYSICIAN Adiel Diego Admit Provider NON-[facility] STAFF PHYSICIAN Attending Provider Discharge Potential Discharge Needs: PCP F/U Appt Anticipated Barriers to Discharge: Medical Status Patient/Family Education Needs: Review discharge instructions, discuss Ask Me Three Transportation: Private vehicle Plan: Anticipate Naren will be discharged home once medically ready with no new services. It is recommended he follow up with his community providers and discharge plan of care. Naren will transport home via private vehicle by family. CM will follow. Social Determinants of Health Screening Social Determinants of health last assessed in clinic: 11/03/25 Will the Patient Participate in the Screening?: Yes Do you worry about having a steady place to live?: no Problems where you live: no known problems In the past 12 months, have you had to go without electric, gas, oil or water in your home?: no 1. Within the past 12 months, we worried whether our food would run out before we got money to buy more.: Never true 2. Within the past 12 months, the food we bought just didn't last and we didn't have money to get more.: Never true Has lack of transportation kept you from medical appointments or from doing things needed for daily living?: no Has anyone in your life made you feel unsafe or unsupported?: no How hard is it for you to pay for the very basics like food, housing, medical care, and heating? Would you say it is:: Not hard at all Do you want help finding or keeping work or a job?: I do not need or want help If for any reason you need help with day-to-day activities such as bathing, preparing meals, shopping, managing finances, etc., do you get the help you need?: I don?t need any help How often do you feel lonely or isolated from those around you?: Never Do you speak a language other than Greenlandic at home?: No Does the patient want assistance with any of the above?: No PFSH All Active Problems (Updated 11/03/25 @ 07:01 by Adiel Diego) Right bundle branch block (RBBB) (Chronic) Cellulitis of hand, right (Acute) Symptomatic sinus bradycardia (Acute) Right ankle instability (Acute) PAD (peripheral artery disease) (Acute) Hammertoe of right foot (Acute) Pain in joints of both feet (Acute) History of pancytopenia (Acute) Elevated BP without diagnosis of hypertension (Acute) Elevated uric acid in blood (Acute) Swallowing dysfunction (Acute) known esophogeal constriction (rishabh Greene), but swallowing issues seem to be in addition to this Urethral meatal stenosis (Acute) Gout attack (Acute) Pancytopenia (Acute) Syncope (Acute) Vasovagal episode (Acute) Acute UTI (Acute) Gross hematuria (Acute) Esophageal stricture (Acute 12/07/17) q 3-4 month dilation w/ Dr. Greene, but Urol Rx may be helping maintain elasticity? stretch? Biopsies taken. Stricuture in second part of duodenum,56 cm from the teeth. Stricture in the upper esophagus,18cm from the teeth. endoscopy report date 12/07/17. Pathology shows peptic duodenitis, negative H. Pylori EGD Dr. Greene 11/04/21 Elevated serum creatinine (Acute 07/2018) (BASELINE/GOAL 1.2-1.3..) Cr 1.6 post ABx, V-Vagal Ep, ED (09/2024)..1.37 with elevated BUN and h/o poor hydration. 1.4 02/2019, monitor and recomm hydration. Reviewed NSAID, ABx use (min). Megaloblastic anemia due to vitamin B12 deficiency (Acute) LEVEL 173 (NL>250) IN 2004, SELF RX WITH INJECTIONS MONTHLY; following gastric surgery for ulcer; chg to PO rx 02/2015 Slow respiration (Acute) Episodes noticed by ; thought to be assoc w/ hypoglycemia Postprandial hypoglycemia (Chronic) seems 2' high carb load (review glycemic load/index/other foods); resolves w/ PB 1-2 H afterwards... Spontaneous hypoglycemia (Acute 05/29/09) consult endocrine [facility] 2008 Low libido (Acute) [] ] testosterone? Vit D? (Wellbutrin helped with interest) Chronic daily headache (Chronic 03/23/15) Dull, improved flares since Chiro/Acupuncture care.. Chronic migraine without aura (Acute) Chronic pain disorder (Chronic) Contract, UDS, Orders 10/25/18. 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 shave C& D removal.HE Punch Bx shows BASAL CELL CARCINOMA.. Left Christian 02/2022 Bradycardia Finger lesion left middle finger, PIP. Healing well, but concerned about tendon. History of gout Toe pain, possible GOUT per pdiatry (no Tx,Rx), 09/04/21. Probable 1x no proph Tx atthis time. UA slighlty high. COVID-19 vaccine series completed per card: Moderna, 01/21, 02/18/21. Kristina #[id number] Cough (11/01/12) Adenoma of left adrenal gland (~06/2018) [facility] [place] endocrinology office visit note 11/21/18. (2cm- which based on MRI characteristics strongly suggestive of a benign,lipid rich adenoma. (David Shields, DO,MS). FU 08/2019 CT (w/contrast) shows stable 2cm adenoma, Scan Q12mos [ ] .. Mgr NOS wo ntrc w st mgr Daily Headache. 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 Greene, Esoph Dilation nearly q 3 mos Exercise induced bronchospasm (01/30/12) INTERMITTENT, EXERCISE OR COLD INDUCED; NL PF 05/22/08 3.8 FEV1, NO RESPONSE; better after air rope cleaner; nl FEV1 3.07 on 01/29/14 Esophageal reflux (01/30/12) Dysphagia, unspecified (11/19/94) RECURRENT DILATATIONS; (AUDRA -->JC 06/14/12 H PYLORI NEG; dilated 07/26/12 [place]; multiple re-does; currently q 3 mo (09/2016) Chronic gastritis (09/29/14) Mild Benign neoplasm of colon (11/19/03) ADENOMA IN 2003 SO rpt Q 5YR, NEG IN 2007 SEVEN; 1 adenoma 01/2013 Jc. 08/12/18 colonoscopy (Dr Greene) Allergic rhinitis (01/30/12) Adjustment disorder, unspecified (10/13/16) Adenomatous colon polyp (11/19/03) ADENOMA IN 2003 SO rpt Q 5YR, NEG IN 2007 SEVEN; 1 adenoma 01/2013 Jc Scalp lesion Seemed 2' trauma, but non-healing .. Punch Bx shows BASAL CELL CARCINOMA Vitreous degeneration Per 12/22/21 [place] note Puckering of macula, bilateral Per 12/22/21 [place] note COVID-19 end January,, tolerated Paxlovid Surgical History History of esophagogastroduodenoscopy (EGD) (~03/20/25) Dr. Greene, w/ dilation. Repeat 3-4 months.HE 09/11/25-EGD w/ [id number]. Mitz-repeat dilation in next 3-5months S/P TURP (09/22/24) Dr Werner cystoscopy w/TURP History of esophagogastroduodenoscopy (EGD) (~06/13/24) w/ Dilation, Dr. Greene, unchanged per note.HE 10/31/24-[facility]-w/dilatation-no biopsies-[facility] History of esophagogastroduodenoscopy (EGD) (~11/03/22) [facility]-04/20/23-Dr Greene. w/dilation-no biopsies [facility]-07/27/23-Dr Greene-biopsies normal-cont q3 mos Hx of basal cell carcinoma excision (03/03/22) left taoism Hx of esophagogastroduodenoscopy 07/07/20 [address] Greene at [facility] 07/29/21 dilation, wire guided Savory under fluro guidance 11/04/[address] Greene 02/10/24;DR. Greene;[facility] EGD w/ Dilation H/O colonoscopy (08/12/18) Dr Greene Endoscopy (03/17/16) 06/09/16 Dr. Anna Diaz with dilatation 12/04/17 Dr. Greene w/ dilatation Endoscopy (06/18/15) 06/09/16 Dr. Anna Diaz with dilatation 12/04/17 Dr. Greene w/ dilatation Endoscopy (09/11/14) 06/09/16 Dr. Anna Diaz with dilatation 12/04/17 Dr. Greene w/ dilatation EGD w/ Dilatation (08/24/17) repeated EGD w/ dilatation Dr. Greene EGD w/ Dilatation (06/08/17) repeated EGD w/ dilatation Dr. Greene EGD w/ Dilatation (03/09/17) repeated EGD w/ dilatation Dr. Greene EGD w/ Dilatation (12/08/16) repeated EGD w/ dilatation Dr. Greene EGD - IV Sedation (12/24/15) Kush Greene Extraction of cataract (01/12/15) Nuclear/cortical, left eye, symptomatic ; R eye Dr. Nelson Sanhcez Extraction of cataract (12/29/14) Nuclear/cortical, left eye, symptomatic ; R eye Dr. Nelson Sanchez Family History Mother Dementia Father , failure to thrive at age 97. 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 Pets and animals: No Sexually active: Yes Do you think of yourself as: straight/heterosexual Current gender identity: male What is your relationship status?: How often do you talk on the phone with friends or family?: twice per week How often do you get together with friends or relatives?: never Do you belong to any clubs or organized social groups?: no Panel score (0-1 are the most socially isolated patients): 1 What type of physical activity do you participate in: other Details: ADL's only--shoveling, firewood etc, pool, yardwork Fariha/Methodist: Sabianist Special fariha needs: No Seatbelt use: always Drive intox or ride w/intox pile driver: No Working smoke detector in home: Yes Carbon monox detector in home: Yes Do you feel safe at home: Yes Do you feel safe in your relationship?: Yes Readmission Within the Past 30 Days Yes or No: No
--- NOTE | 2025-11-03 12:42 | DSE_ITS ---
Date of service: 11/03/25 Time of Service: 08:00 DS: Diagnosis Discharge Diagnosis (1) Symptomatic sinus bradycardia: Status: Acute (2) Syncope: Status: Resolved (3) Postprandial hypoglycemia: (4) CKD (chronic kidney disease): Discharge Plan Disposition Patient Disposition: Home Anticipated Discharge Date/Time: 11/03/25 12:20 Condition: Good Discharge Details Reason For Visit: Symptomatic Bradycardia Admit Date/Time: 11/02/25 21:17 Admit Provider: Adiel Diego Attending Provider: Adiel Deigo Primary Care Provider: Winifred France [facility] Course Hospital Course: Naren Arreaga is a 80 year old man presenting November 02 after fainting at [facility] after seeking treatment for a dog bite. On arrival his HR was 45 and he was placed on a quality assurance monitor body, which showed heart rates dipping into the 30's. He was given atropine and admitted to the floor, with transfer to [facility] pending a bed. On hospital day 2, patient feels well and wants to go home. Reviewed echo and clinical scenario with Dr Deshpande, cardiology, who advised 30 day quality assurance monitor body and discharge home with clinic followup. Recommendations for Follow Up Recommended tests to be ordered by follow up provider: Cardiac monitoring 30 days: follow up with Dr Deshpande Home Meds and New Rx's Prescriptions: Continued loratadine [Claritin] 10 mg tablet 10 mg PO DAILY PRN (Reason: allergy symptoms) Qty: 90 3RF Rx Instructions: allergic rhinitis, Daily for the summer rizatriptan 10 mg tablet 10 mg PO .COMPLEX PRN (Reason: migraine headache) Qty: 20 2RF Rx Instructions: 10 mg PO ; PRN; hydrocodone-acetaminophen 5-325 mg tablet 1 tab PO Q6H MDD 4 tabs PRN (Reason: pain) Qty: 30 0RF amoxicillin-pot clavulanate 875-125 mg tablet 1 tab PO Q12H Qty: 14 0RF cyanocobalamin (vitamin B-12) [Vitamin B-12] 1,000 MCG tablet 1,000 mcg PO DAILY Qty: 100 Rx Instructions: daily Vitamin B12 replacement, s/p gastric surgery allopurinol 100 mg tablet 100 mg PO DAILY Qty: 30 11RF (DME) Contour Test Strips Strip See Rx Instructions .Route Qty: 100 3RF Rx Instructions: Check Blood sugar one time a day.DX:E11.9. Keep A1c below 7 (DME) blood-glucose meter [Contour Meter] Kit See Rx Instructions .Route Qty: 1 0RF Rx Instructions: Check Blood sugar one time a day DX:E11.9. Keep A1c below 7 (DME) lancets 32 gauge misc See Rx Instructions .Route Qty: 100 3RF Rx Instructions: Check blood sugar one time a day. DX:E11.9. Keep A1c below 7 albuterol sulfate 90 mcg/actuation HFA aerosol inhaler 2 puff Inhalation Q6H PRN Rx Instructions: Q4h as needed for wheezing ferrous sulfate 325 mg (65 mg iron) tablet,delayed release (DR/EC) 325 mg PO DAILY Patient Comments: TAKE ONE TABLET BY MOUTH EVERY DAY FOR ANEMIA Discharge Instructions Instructions: Bradycardia Stand Alone Forms: Portal Information, Nursing Discharge Form Referrals: Angella Deshpande MD [ [facility] STAFF PHYSICIAN, Cardiology] Winifred Franec APRN [Primary Care Provider, Family Practice] Referral Note: Your PCP will reach out, if you do not hear from them please call. Activity:: Activity as Tolerated Equipment/Supplies:: 30 day quality assurance monitor body Diet:: As Tolerated Discharge Orders Discharge Orders: Discharge Order (Routine); Ordered 11/03/25 Ordered By: Matt Klein Other Ambulatory Orders: Cardiac Event Recorder (Routine) Timeframe: 30 Days Facility: [facility] - Location: Respiratory Therapy Ordered By: Matt Klein Discharge Data Discharge Date/Time-TO BE ENTERED AT DEPARTURE: 11/03/25 15:22 DS: Summary Time Spent with Patient providing and/or coordinating discharge services: Less than 30 minutes Status at Discharge Functional status at discharge: independent ambulation Overall status at discharge: patient is progressing back to baseline Mental Status: mental status grossly normal Speech and Movement: speech and movement normal Mood: congruent mood Affect: normal affect Exam Narrative Exam Narrative: General: This is a pleasant man in no distress HEENT: Normocephalic, atraumatic CV: bradycardia, no arrhythmia, no murmur Resp: CTAB Abd: soft, NTND MSK: voluntary motion x4 Neuro: awake, alert, no focal deficits Psych Mental Status: mental status grossly normal Speech and Movement: speech and movement normal Mood: congruent mood Affect: normal affect DS: Data Vitals/I&O Vitals and I&O: Vital Signs Temperature 36.7 C 12/16/25 07:38 Temperature Source Temporal Artery Scan 11/03/25 07:38 Pulse 52 L 11/03/25 11:57 Pulse 56 L 11/03/25 04:01 Respiratory Rate 17 11/03/25 07:38 Respiratory Effort Normal 11/02/25 22:51 Respiratory Depth Normal 11/02/25 22:51 Respiratory Pattern Normal 11/02/25 22:51 Blood Pressure 159/74 H 11/03/25 11:57 Blood Pressure Mean 93 11/03/25 07:38 Blood Pressure Position Sitting 11/02/25 14:25 Pulse Oximetry 96 11/03/25 07:38 Oxygen Delivery Method Room Air 11/03/25 07:38 Oxygen Flow Rate 0 11/03/25 07:38 Pain Level 0 11/03/25 07:38 Intake & Output 11/02/25 11/03/25 11/03/25 23:59 11:59 23:59 Intake Total 500 / 500 300 / 300 Output Total 775 / 775 Balance 500 / 500 -475 / -475 Weight 94.9 kg 94.9 kg Intake: IV 500 / 500 Oral 300 / 300 Output: Urine 775 / 775 Other: Urine Color Yellow Urine Appearance Clear Urine Odor None Data Completed and Pending Pending Labs at Discharge: 11/02/25 11/02/25 11/02/25 14:55 17:05 20:58 WBC 8.72 RBC 4.76 Hgb 14.6 Hct 43.1 MCV 91 MCH 30.7 MCHC 33.9 RDW 13.3 Plt Count 161 MPV 8.9 Immature Gran % 0.3 Neutrophils % 71.3 Lymphocytes % 16.1 Monocytes % 9.1 Eosinophils % 2.6 Basophils % 0.6 Nucleated RBC % 0.0 Absolute Neutrophils 6.22 Absolute Lymphocytes 1.40 Absolute Monocytes 0.79 Absolute Eosinophils 0.23 Absolute Basophils 0.05 VBG pH 7.46 H VBG pCO2 33 L VBG pO2 68 VBG HCO3 23 VBG Total CO2 20 L VBG O2 Saturation 97 VBG Base Excess 0 Sodium 141 Potassium 4.3 Chloride 110 H Carbon Dioxide 22.6 Anion Gap 8.4 BUN 21 Creatinine 1.25 H Est GFR (CKD-EPI 2020) 55.84 Glucose 115 H Calcium 9.1 Magnesium 2.0 Total Bilirubin 0.5 AST 25 ALT 29 Alkaline Phosphatase 64 Troponin I 3 4 < 3 NT-Pro-B Natriuret Pep 105 Total Protein 6.4 Albumin 3.8 TSH 2.11 Urine Color Urine Clarity Urine pH Ur Specific [place] Urine Protein Urine Ketones Urine Blood Urine Nitrite Urine Bilirubin Urine Urobilinogen Ur Leukocyte Esterase Urine Glucose Urine Opiates Screen Urine Methadone Screen Ur Barbiturates Screen Ur Tricyclics Screen Ur Amphetamines Screen U Benzodiazepines Scrn Urine Cocaine Screen U Cannabinoids Screen COVID-19 Source SARS-CoV-2 (PCR) Influenza Type A (PCR) Influenza Type B (PCR) RSV (PCR) 11/02/25 11/03/25 21:30 05:30 WBC 8.70 RBC 4.80 Hgb 14.7 Hct 44.3 MCV 92 MCH 30.6 MCHC 33.2 RDW 13.2 Plt Count 157 MPV 9.3 Immature Gran % Neutrophils % Lymphocytes % Monocytes % Eosinophils % Basophils % Nucleated RBC % Absolute Neutrophils Absolute Lymphocytes Absolute Monocytes Absolute Eosinophils Absolute Basophils VBG pH VBG pCO2 VBG pO2 VBG HCO3 VBG Total CO2 VBG O2 Saturation VBG Base Excess Sodium 142 Potassium 4.2 Chloride 108 H Carbon Dioxide 26.6 Anion Gap 7.4 BUN 18 Creatinine 1.16 Est GFR (CKD-EPI 2020) 60.86 Glucose 141 H Calcium 9.3 Magnesium 1.9 Total Bilirubin 0.4 AST 22 ALT 26 Alkaline Phosphatase 67 Troponin I NT-Pro-B Natriuret Pep Total Protein 6.2 Albumin 3.8 TSH Urine Color Yellow Urine Clarity Clear Urine pH 5.5 Ur Specific Buchanan 1.020 Urine Protein Negative Urine Ketones 15 H Urine Blood Negative Urine Nitrite Negative Urine Bilirubin Negative Urine Urobilinogen 0.2 Ur Leukocyte Esterase Negative Urine Glucose Negative Urine Opiates Screen Positive A Urine Methadone Screen Negative Ur Barbiturates Screen Negative Ur Tricyclics Screen Negative Ur Amphetamines Screen Negative U Benzodiazepines Scrn Negative Urine Cocaine Screen Negative U Cannabinoids Screen Negative COVID-19 Source Nasopharynx SARS-CoV-2 (PCR) Negative Influenza Type A (PCR) Negative Influenza Type B (PCR) Negative RSV (PCR) Negative PFSH All Active Problems Cellulitis of hand, right (Acute) Symptomatic sinus bradycardia (Acute) Right ankle instability (Acute) PAD (peripheral artery disease) (Acute) Hammertoe of right foot (Acute) Pain in joints of both feet (Acute) History of pancytopenia (Acute) Elevated BP without diagnosis of hypertension (Acute) Elevated uric acid in blood (Acute) Swallowing dysfunction (Acute) known esophogeal constriction (sees Main), but swallowing issues seem to be in addition to this Urethral meatal stenosis (Acute) Gout attack (Acute) Pancytopenia (Acute) Vasovagal episode (Acute) Acute UTI (Acute) Gross hematuria (Acute) Esophageal stricture (Acute 12/07/17) q 3-4 month dilation w/ Dr. Greene, but Urol Rx may be helping maintain clara sticity? stretch? Biopsies taken. Stricuture in second part of duodenum,56 cm from the teeth. Stricture in the upper esophagus,18cm from the teeth. endoscopy report date 12/07/17. Pathology shows peptic duodenitis, negative H. Pylori EGD Dr. Greene 11/04/21 Elevated serum creatinine (Acute 07/2018) (BASELINE/GOAL 1.2-1.3..) Cr 1.6 post ABx, V-Vagal Ep, ED (09/2024)..1.37 with elevated BUN and h/o poor hydration. 1.4 02/2019, monitor and recomm hydration. Reviewed NSAID, ABx use (min). Megaloblastic anemia due to vitamin B12 deficiency (Acute) LEVEL 173 (NL>250) IN 2004, SELF RX WITH INJECTIONS MONTHLY; following gastric surgery for ulcer; chg to PO rx 02/2015 Slow respiration (Acute) Episodes noticed by ; thought to be assoc w/ hypoglycemia Spontaneous hypoglycemia (Acute 05/29/09) consult endocrine [facility] [place] Low libido (Acute) [] ] testosterone? Vit D? (Wellbutrin helped with interest) Chronic daily headache (Chronic 03/23/15) Dull, improved flares since Chiro/Acupuncture care.. Chronic migraine without aura (Acute) Chronic pain disorder (Chronic) Contract, UDS, Orders 10/25/18. Medical History Right bundle branch block (RBBB) Postprandial hypoglycemia seems 2' high carb load (review glycemic load/index/other foods); resolves w/ PB 1-2 H afterwards... Insulin resistance Urinary retention CKD (chronic kidney disease) Hypoglycemia after GI (gastrointestinal) surgery Testing required for hypogly episodes BPH NOS w ur obs/LUTS Urinary hesitancy Abnormal prostate exam Hematospermia Phimosis Seborrheic keratosis Basal cell carcinoma (BCC) [facility] Derm note 11/25/24: Probable recurrent BCCA L scientologist. shave C& D removal.HE Punch Bx shows BASAL CELL CARCINOMA.. Left [place] 02/2022 Bradycardia Finger lesion left middle finger, PIP. Healing well, but concerned about tendon. History of gout Toe pain, possible GOUT per pdiatry (no Tx,Rx), 09/04/21. Probable 1x no proph Tx atthis time. UA slighlty high. COVID-19 vaccine series completed per card: Moderna, 01/21, 02/18/21. Acevedo #94 Cough (11/01/12) Adenoma of left adrenal gland (~06/2018) [facility] [place] endocr[place]ology office visit note 11/21/18. (2cm- which based on MRI characteristics strongly suggestive of a benign,lipid rich adenoma. (David Shields, DO,MS). FU 08/2019 CT (w/contrast) shows stable 2cm adenoma, S can Q12mos [ ] .. Mgr NOS wo ntrc w st mgr Daily Headache. 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 Greene, Esoph Dilation nearly q 3 mos Exercise induced bronchospasm (01/30/12) INTERMITTENT, EXERCISE OR COLD INDUCED; NL PF 05/22/08 3.8 FEV1, NO RESPONSE; better after air poultry cleaner; nl FEV1 3.07 on 01/29/14 Esophageal reflux (01/30/12) Dysphagia, unspecified (11/19/94) RECURRENT DILATATIONS; (AUDRA -->MAIN 06/14/12 H PYLORI NEG; dilated 07/26/12 Emily; multiple re-does; currently q 3 mo (09/2016) Chronic gastritis (09/29/14) Mild Benign neoplasm of colon (11/19/03) ADENOMA IN 2003 SO rpt Q 5YR, NEG IN 2007 SEVEN; 1 adenoma 01/2013 Main. 08/12/18 colonoscopy (Dr Greene) Allergic rhinitis (01/30/12) Adjustment disorder, unspecified (10/13/16) Adenomatous colon polyp (11/19/03) ADENOMA IN 2003 SO rpt Q 5YR, NEG IN 2007 SEVEN; 1 adenoma 01/2013 [facility] Scalp lesion Seemed 2' trauma, but non-healing .. Punch Bx shows BASAL CELL CARCINOMA Vitreous degeneration Per 12/22/21 [place] note Puckering of macula, bilateral Per 12/22/21 [place] note COVID-19 end of January,, tolerated Paxlovid Surgical History History of esophagogastroduodenoscopy (EGD) (~03/20/25) Dr. Greene, w/ dilation. Repeat 3-4 months.HE 09/11/25-EGD w/ [id number]. Mitz-repeat dilation in next 3-5months S/P TURP (09/22/24) Dr Werner cystoscopy w/TURP History of esophagogastroduodenoscopy (EGD) (~06/13/24) w/ Dilation, Dr. Greene, unchanged per note.HE 10/31/24-[facility]-w/dilatation-no biopsies-[facility] History of esophagogastroduodenoscopy (EGD) (~11/03/22) [facility]-04/20/23-Dr Greene. w/dilation-no biopsies [facility]-07/27/23-Dr Greene-biopsies normal-cont q3 mos Hx of basal cell carcinoma excision (03/03/22) left scientologist Hx of esophagogastroduodenoscopy 07/07/20 with Dilation done [address] Dr Greene at [facility] 07/29/21 dilation, wire guided Savory under fluro guidance 11/04/[address] Greene 02/10/24;DR. Greene;[facility] EGD w/ Dilation H/O colonoscopy (08/12/18) Dr Greene Endoscopy (03/17/16) 06/09/16 Dr. Greene; Emily with dilatation 12/04/17 Dr. Greene w/ dilatation Endoscopy (06/18/15) 06/09/16 Dr. Anna Diaz with dilatation 12/04/17 Dr. Greene w/ dilatation Endoscopy (09/11/14) 06/09/16 Dr. Anna Diaz with dilatation 12/04/17 Dr. Greene w/ dilatation EGD w/ Dilatation (08/24/17) repeated EGD w/ dilatation Dr. Greene EGD w/ Dilatation (06/08/17) repeated EGD w/ dilatation Dr. Greene EGD w/ Dilatation (03/09/17) repeated EGD w/ dilatation Dr. Greene EGD w/ Dilatation (12/08/16) repeated EGD w/ dilatation Dr. Greene EGD - IV Sedation (12/24/15) Kush Greene Extraction of cataract (01/12/15) Nuclear/cortical, left eye, symptomatic ; R eye Dr. Nelson Sanchez Extraction of cataract (12/29/14) Nuclear/cortical, left eye, symptomatic ; R eye Dr. Nelson Sanchez Family History Mother Dementia Father , failure to thrive at age 97. 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 Pets and animals: No Sexually active: Yes Do you think of yourself as: straight/heterosexual Current gender identity: male What is your relationship status?: How often do you talk on the phone with friends or family?: twice per week How often do you get together with friends or relatives?: never Do you belong to any clubs or organized social groups?: no Panel score (0-1 are the most socially isolated patients): 1 What type of physical activity do you participate in: other Details: ADL's only--shoveling, firewood etc, pool, yardwork Fariha/Quaker: Hindu Special fariha needs: No Seatbelt use: always Drive intox or ride w/intox piledriver carpenter: No Working smoke detector in home: Yes Carbon monox detector in home: Yes Do you feel safe at home: Yes Do you feel safe in your relationship?: Yes Time Spent with Patient Time Spent with Patient: <45 minutes Time was spent: preparing to see the patient(eg.review tests), obtaining and/or reviewing separately otained hiistory, ordering medications,tests, procedures, referring, communicating with other health health care coach, indepentently interpreting results, counseling the patient and care coordination
--- NOTE | 2025-11-03 12:47 | PDOC.CMDIS ---
Date of service: 11/03/25 Time of Service: 12:47 LACE Index Scoring Tool Questions: Length of Stay (in days): 1 Was the patient admitted via the E.D.?: Yes E.D. Visits: 1 Answers: Total Score: 5 Risk of Readmission: Low Risk Care Management Discharge Plan Reason for Hospitalization: Symptomatic Bradycardia Discharge Plan: Naren will be discharged home today with new RN and a soldering machine operator automatic. It is recommended he follow up with community providers, cardiology, and continue per discharge plan of care. He will transport via private vehicle. Patient/Family Education Needs: Review of discharge instructions, activity, limitation and plan of care. Discuss ask me three.
--- NOTE | 2025-11-03 14:56 | CHAPLAIN ---
Naren was getting ready to be discharged when I visited. He had two family members with him and they anticipated leaving soon. Naren was pleasant and looking forward to getting home.
== END 2025-11-03 15:22 | disposition home or self-care (01) ==
LOC: ER 20:34 → ICU 22:50 → MS 11-03 06:15
PROVIDERS: Admitting Provider Family Medicine; Emergency Provider Emergency Medicine; PCP Nurse Practitioner Family; Responsible Provider Family Medicine; Visit Provider Family Medicine
DX: R55 Syncope and collapse (principal); R00.1 Bradycardia, unspecified; E16.1 Other hypoglycemia; I45.10 Unspecified right bundle-branch block; N18.31 Chronic kidney disease, stage 3a; L03.113 Cellulitis of right upper limb; G43.009 Migraine without aura, not intractable, without status migrainosus; D61.818 Other pancytopenia; D64.9 Anemia, unspecified; Z79.899 Other long term (current) drug therapy; I73.9 Peripheral vascular disease, unspecified; K22.2 Esophageal obstruction; D53.1 Other megaloblastic anemias, not elsewhere classified; N40.1 Benign prostatic hyperplasia with lower urinary tract symptoms; N13.8 Other obstructive and reflux uropathy; I12.9 Hypertensive chronic kidney disease with stage 1 through stage 4 chronic kidney disease, or unspecified chronic kidney disease
CPT/HCPCS: 00123; 36415; 36416; 80053; 80307; 82805; 82962; 85027; 87637; 93005; 93306; 96361; 96374; 99223; 99238; 99285; J1650; 81003; 83735; 83880; 84443; 84484; 85025; 93010; 94760; G0378; J0461

== ENCOUNTER 2025-11-03 14:56 | Outpatient (CLI) | payer MEDICARE, BC, SELFPAY | END 2025-11-03 14:57 | disposition home or self-care (01) | LOC: RT 14:56 | PROVIDERS: PCP Nurse Practitioner Family; Visit Provider Family Medicine | DX: R00.1 Bradycardia, unspecified (principal) | CPT/HCPCS: 93270 ==